=== PATIENT | female | born 1940 | race Caucasian/White ===

== ENCOUNTER 2017-05-09 08:24 | Inpatient (IN) | payer MEDICARE, BC ==
[2017-05-09] MEDS ORDERED: ESOMEPRAZOLE 20 MG in SODIUM CHLORIDE 0.9% 50 ML IVPB STA (09:13)
--- NOTE | 2017-05-09 09:17 | ED ---
General Adult HPI - General Chief complaint: Recheck/Abnormal Lab/Rx Stated complaint: Low hemoglobin Time Seen by Provider: 05/09/17 08:50 Source: patient Mode of arrival: ambulatory Limitations: no limitations - History of Present Illness Initial comments: Patient is a pleasant 77-year-old female presenting to the emergency department with concerns regarding hemoglobin level. Patient states she did have a blood transfusion 4 days ago. There is concern for persistent low hemoglobin levels. Patient has been taking iron. Patient has had dark stools since she started taking iron. No abdominal pain. Patient does have fatigue. Patient was advised by her doctor to come to the hospital. - Related Data Home Medications Medication Instructions Recorded Confirmed Enalapril [Vasotec] 5 mg PO QAM 10/26/15 05/09/17 Furosemide [Lasix] 20 mg PO DAILY 10/26/15 05/09/17 Gabapentin [Neurontin] 300 mg PO TID 10/26/15 05/09/17 Lovastatin [Mevacor] 40 mg PO HS 10/26/15 05/09/17 Ubidecarenone [Co Q-10] 100 mg PO DAILY@1200 10/26/15 05/09/17 glipiZIDE [Glucotrol] 5 mg PO BID@1200,2130 10/26/15 05/09/17 Calcitriol [Rocaltrol] 0.25 mcg PO SA 09/07/16 05/09/17 Cyclobenzaprine [Flexeril] 10 mg PO DAILY PRN 05/09/17 05/09/17 Ferrous Sulfate [Feosol] 325 mg PO DAILY 05/09/17 05/09/17 L.acidoph,Paracasei, B.lactis 1 cap PO DAILY 05/09/17 05/09/17 [Probiotic] Levothyroxine Sodium [Synthroid] 88 mcg PO DAILY 05/09/17 05/09/17 Omeprazole 20 mg PO DAILY 05/09/17 05/09/17 Allergies Allergy/AdvReac Type Severity Reaction Status Date / Time codeine AdvReac STOMACH Verified 05/09/17 09:00 PROBLEMS- "FEELS LIKE A KNOT IN STOMACH" propoxyphene HCl AdvReac NIGHTMARES Verified 05/09/17 09:00 [From [facility]] Review of Systems ROS Statement: Those systems with pertinent positive or pertinent negative responses have been documented in the HPI. ROS Other: All systems not noted in ROS Statement are negative. Constitutional: Denies: fever Eyes: Denies: eye pain ENT: Denies: ear pain Respiratory: Denies: cough Cardiovascular: Denies: chest pain Endocrine: Reports: fatigue Gastrointestinal: Reports: melena. Denies: abdominal pain, nausea, vomiting Genitourinary: Denies: dysuria Musculoskeletal: Denies: back pain Skin: Denies: rash Neurological: Denies: headache Past Medical History Past Medical History: Blood Disorder, Diabetes Mellitus, Deep Vein Thrombosis ( DVT), Eye Disorder, GERD/Reflux, Hearing Disorder / Deafness, Hyperlipidemia, Hypertension, Thyroid Disorder Additional Past Medical History / Comment(s): BLEEDING IN STOMACH,DVT LT LEG, ANEMIA, GLASSES DAILY USE, [place]-CESARIO HEARING AIDES Last Myocardial Infarction Date:: UNKN History of Any Multi-Drug Resistant Organisms: None Reported Past Surgical History: Appendectomy, Cholecystectomy, Hysterectomy, Joint Replacement Additional Past Surgical History / Comment(s): CESARIO GREAT TOE REPLACED, EDG/ COLONOSCOPY, VEIN STRIPPING LT LEG Past Anesthesia/Blood Transfusion Reactions: No Reported Reaction Additional Past Anesthesia/Blood Transfusion Reaction / Comment(s): RECEIVED 4 UNITS PRBC AUG 2016 WITHOUT PROBLEMS Past Psychological History: No Psychological Hx Reported Smoking Status: Never smoker Past Alcohol Use History: None Reported Past Drug Use History: None Reported - Past Family History Mother Family Medical History: Diabetes Mellitus, Hypertension, Renal Disease Additional Family Medical History / Comment(s): AT AGE 62 RENAL FAILURE Father Family Medical History: Dementia General Exam Limitations: no limitations General appearance: alert, in no apparent distress Head exam: Present: atraumatic Eye exam: Present: normal appearance, PERRL ENT exam: Present: normal oropharynx Neck exam: Present: normal inspection Respiratory exam: Present: normal lung sounds bilaterally Cardiovascular Exam: Present: regular rate, normal rhythm GI/Abdominal exam: Present: soft. Absent: distended, tenderness, guarding, rebound, rigid Rectal exam: Present: black stool Extremities exam: Present: normal inspection Neurological exam: Present: alert Psychiatric exam: Present: normal affect, normal mood Skin exam: Present: normal color Course Vital Signs 05/09/17 05/09/17 08:35 10:00 Temperature 97.6 F Pulse Rate 71 62 Respiratory 18 17 Rate Blood Pressure 114/59 113/57 O2 Sat by Pulse 99 97 Oximetry Medical Decision Making - Medical Decision Making Patient reevaluated and resting comfortably in bed. Case was discussed with Dr. Flores, covering for Dr. fairchild, who admits for Dr. Owens. Patient and family were updated. - Lab Data Result diagrams: 05/09/17 09:26 Lab Results 05/09/17 05/09/17 05/09/17 Range/Units 09:26 09:26 09:26 WBC 4.2 (3.8-10.6) k/uL RBC 2.89 L (3.80-5.40) m/uL Hgb 7.8 L (11.4-16.0) gm/dL Hct 26.2 L (34.0-46.0) % MCV 90.9 (80.0-100.0) fL MCH 27.2 (25.0-35.0) pg MCHC 29.9 L (31.0-37.0) g/dL RDW 15.8 H (11.5-15.5) % Plt Count 268 (150-450) k/uL Neutrophils % 71 % Lymphocytes % 17 % Monocytes % 7 % Eosinophils % 3 % Basophils % 1 % Neutrophils # 3.0 (1.3-7.7) k/uL Lymphocytes # 0.7 L (1.0-4.8) k/uL Monocytes # 0.3 (0-1.0) k/uL Eosinophils # 0.1 (0-0.7) k/uL Basophils # 0.0 (0-0.2) k/uL Hypochromasia Marked Poikilocytosis Slight PT 10.0 (9.0-12.0) sec INR 1.0 (<1.2) APTT 22.5 (22.0-30.0) sec Total Creatine Kinase 154 H (30-135) U/L Stool Occult Blood (Negative) Blood Type Blood Type Recheck Antibody Screen Spec Expiration Date 05/09/17 05/09/17 Range/Units 09:26 09:26 WBC (3.8-10.6) k/uL RBC (3.80-5.40) m/uL Hgb (11.4-16.0) gm/dL Hct (34.0-46.0) % MCV (80.0-100.0) fL MCH (25.0-35.0) pg MCHC (31.0-37.0) g/dL RDW (11.5-15.5) % Plt Count (150-450) k/uL Neutrophils % % Lymphocytes % % Monocytes % % Eosinophils % % Basophils % % Neutrophils # (1.3-7.7) k/uL Lymphocytes # (1.0-4.8) k/uL Monocytes # (0-1.0) k/uL Eosinophils # (0-0.7) k/uL Basophils # (0-0.2) k/uL Hypochromasia Poikilocytosis PT (9.0-12.0) sec INR (<1.2) APTT (22.0-30.0) sec Total Creatine Kinase (30-135) U/L Stool Occult Blood Positive H (Negative) Blood Type A Negative Blood Type Recheck CABO Indicated Antibody Screen NEGATIVE Spec Expiration Date 05/12/2017 - 2325 Disposition Clinical Impression: GI hemorrhage Disposition: ADMITTED IP TO THIS [facility] Referrals: Anup Owens MD [Primary Care Provider] - 1-2 days Decision Time: 11:11
[2017-05-09 09:49] LABS: Basophils % (A) 1 %; CH 26.9; CHCM 29.7; Eosinophils # (A) 0.1 k/uL (0-0.7); Eosinophils % (A) 3 %; HCT 26.2 % (34.0-46.0); HDW 3.72; HGB 7.8 gm/dL (11.4-16.0); Hypochromasia Marked; Luc # (Auto) 0.08; Luc % (Auto) 2; Lymphocytes # (A) 0.7 k/uL (1.0-4.8); Lymphocytes % (A) 17 %; MCH 27.2 pg (25.0-35.0); MCHC 29.9 g/dL (31.0-37.0); MCV 90.9 fL (80.0-100.0); Mean Platelet Volume 7.9; Monocytes # (A) 0.3 k/uL (0-1.0); Monocytes % (A) 7 %; Neutrophils % (A) 71 %; Poikilocytosis Slight; RBC 2.89 m/uL (3.80-5.40); RDW 15.8 % (11.5-15.5); WBC 4.2 k/uL (3.8-10.6); WBC (Perox) 3.95
[2017-05-09 09:57] LABS: Partial Thromboplastin Time 22.5 sec (22.0-30.0)
[2017-05-09 10:41] LABS: Creatine Kinase 154 U/L (30-135)
[2017-05-09 10:54] LABS: Creatine Kinase MB 1.1 ng/mL (0.0-2.4); Troponin I <0.012 ng/mL (0.000-0.034)
[2017-05-09] MEDS ORDERED: NALOXONE 0.4 MG/ML 1 ML VIAL IV PRN (11:11)
[2017-05-09 11:38] LABS: Calcium 8.8 mg/dL (8.4-10.2); Potassium 4.3 mmol/L (3.5-5.1); Total Bilirubin 0.2 mg/dL (0.2-1.3); Total Protein 5.8 g/dL (6.3-8.2)
[2017-05-09 15:20] VITALS: RESP 16
[2017-05-09 17:24] LABS: Glucose,Whole Blood 58 mg/dL (75-99)
[2017-05-09] MEDS ORDERED: CYCLOBENZAPRINE 10 MG TAB PO PRN (17:30)
--- NOTE | 2017-05-09 17:42 | P.HPIM ---
History of Present Illness Patient is a very pleasant 77-year-old female was seen by primary care physician for fatigue and found to be anemic at 7.8 I do not know her previous hemoglobin. Patient has history of upper GI bleed in the past had multiple upper GI endoscopies and what appears like patient may have. Esophageal problem leading to upper GI bleed patient is on IRON supplementation at home but patient was having 2 soft.stools a day. Not sure patient actually had a acute GI bleed are not. Will monitor hemoglobin so far her hemoglobin is 7.8 and no clear-cut evidence of acute GI bleed because of which I'm not transfusing her any hemoglobin at this point of time. ER physician as a case on phone with hand shoe cutter and is scheduled her for upper GI endoscopy tomorrow. Patient denied any hematochezia, middle pain. Patient denied any fever or chills, nausea. Review of Systems REVIEW OF SYSTEMS: CONSTITUTIONAL: No fever, no malaise. HEENT: No recent visual problems or hearing problems. Denied any sore throat. CARDIOVASCULAR: No chest pain, orthopnea, PND, no palpitations, no syncope. PULMONARY: No shortness of breath, no cough, no hemoptysis. GASTROINTESTINAL: No diarrhea, no nausea, no vomiting, no abdominal pain. Normoactive bowel sounds. NEUROLOGICAL: No headaches, no weakness, no numbness. HEMATOLOGICAL: Denies any bleeding or petechiae. GENITOURINARY: Denies any burning micturition, frequency, or urgency. MUSCULOSKELETAL/RHEUMATOLOGICAL: Denies any joint pain, swelling, or any muscle pain. ENDOCRINE: Denies any polyuria or polydipsia. The rest of the 14-point review of systems is negative. Past Medical History Past Medical History: Diabetes Mellitus, Deep Vein Thrombosis (DVT), Eye Disorder, GERD/Reflux, GI Bleed, Hearing Disorder / Deafness, Hyperlipidemia, Hypertension, Osteoarthritis (OA), Thyroid Disorder Additional Past Medical History / Comment(s): Upper GI bleed, iron deficiency anemia, DVT LT LEG, NIDDM type II, neuropathy bilateral feet, bilateral ankle edema, arthritis hands/fingers, hypothyroid, [place]-CESARIO HEARING AIDES Last Myocardial Infarction Date:: UNKN History of Any Multi-Drug Resistant Organisms: None Reported Past Surgical History: Appendectomy, Cholecystectomy, Hysterectomy, Joint Replacement, Orthopedic Surgery Additional Past Surgical History / Comment(s): CESARIO GREAT TOE JOINT REPLACED, EGDS/COLONOSCOPIES, EGD WITH ABLATIONS, VEIN STRIPPING LT LEG, BILATERAL CARPAL TUNNEL RELEASES, L THUMB TENDON REPAIR. Past Anesthesia/Blood Transfusion Reactions: No Reported Reaction Additional Past Anesthesia/Blood Transfusion Reaction / Comment(s): PT HAS RECEIVED BLOOD WITHOUT REACTION. Smoking Status: Never smoker - Past Family History Mother Family Medical History: Diabetes Mellitus, Hypertension, Renal Disease Additional Family Medical History / Comment(s): AT AGE 62 RENAL FAILURE Father Family Medical History: Dementia Medications and Allergies Home Medications Medication Instructions Recorded Confirmed Type Enalapril [Vasotec] 5 mg PO QAM 10/26/15 05/09/17 History Furosemide [Lasix] 20 mg PO DAILY 10/26/15 05/09/17 History Gabapentin [Neurontin] 300 mg PO TID 10/26/15 05/09/17 History Lovastatin [Mevacor] 40 mg PO HS 10/26/15 05/09/17 History Ubidecarenone [Co Q-10] 100 mg PO DAILY@1200 10/26/15 05/09/17 History glipiZIDE [Glucotrol] 5 mg PO BID@1200,2130 10/26/15 05/09/17 History Calcitriol [Rocaltrol] 0.25 mcg PO SA 09/07/16 05/09/17 History Cyclobenzaprine [Flexeril] 10 mg PO DAILY PRN 05/09/17 05/09/17 History Ferrous Sulfate [Feosol] 325 mg PO DAILY 05/09/17 05/09/17 History L.acidoph,Paracasei, B.lactis 1 cap PO DAILY 05/09/17 05/09/17 History [Probiotic] Levothyroxine Sodium [Synthroid] 88 mcg PO DAILY 05/09/17 05/09/17 History Omeprazole 20 mg PO DAILY 05/09/17 05/09/17 History Allergies Allergy/AdvReac Type Severity Reaction Status Date / Time codeine AdvReac STOMACH Verified 05/09/17 09:00 PROBLEMS- "FEELS LIKE A KNOT IN STOMACH" propoxyphene HCl AdvReac NIGHTMARES Verified 05/09/17 09:00 [From [facility]] Physical Exam Vitals: Vital Signs Temp Pulse Pulse Resp BP BP Pulse Ox 05/09/17 15:57 68 16 05/09/17 15:00 97.4 F L 68 16 124/60 99 05/09/17 12:12 97.6 F 62 17 113/57 97 05/09/17 10:00 62 17 113/57 97 05/09/17 08:35 97.6 F 71 18 114/59 99 Intake and Output 05/09/17 05/09/17 05/09/17 06:59 14:59 22:59 Intake Total 120 Balance 120 Intake: Oral 120 Other: # Voids 2 2 Weight 89.358 kg 89.358 kg Patient Weight 05/10/17 06:59 Weight 89.358 kg PHYSICAL EXAMINATION: GENERAL: The patient is alert and oriented x3, not in any acute distress. Well developed, well nourished. HEENT: Pupils are round and equally reacting to light. EOMI. Patient has scleral icterus. No conjunctival pallor. Normocephalic, atraumatic. No pharyngeal erythema. No thyromegaly. CARDIOVASCULAR: S1 and S2 present. No murmurs, rubs, or gallops. PULMONARY: Chest is clear to auscultation, no wheezing or crackles. ABDOMEN: Soft, nontender, nondistended, normoactive bowel sounds. No palpable organomegaly. MUSCULOSKELETAL: No joint swelling or deformity. EXTREMITIES: No cyanosis, clubbing, or pedal edema. NEUROLOGICAL: Gross neurological examination did not reveal any focal deficits. SKIN: No rashes. Results CBC & Chem 7: 05/09/17 09:26 05/09/17 09:26 Labs: Abnormal Lab Results - Last 24 Hours (Table) 05/09/17 05/09/17 05/09/17 Range/Units 09:26 09:26 09:26 RBC 2.89 L (3.80-5.40) m/uL Hgb 7.8 L (11.4-16.0) gm/dL Hct 26.2 L (34.0-46.0) % MCHC 29.9 L (31.0-37.0) g/dL RDW 15.8 H (11.5-15.5) % Lymphocytes # 0.7 L (1.0-4.8) k/uL Chloride 110 H (98-107) mmol/L BUN 24 H (7-17) mg/dL Creatinine 1.22 H (0.52-1.04) mg/dL POC Glucose (mg/dL) (75-99) mg/dL Total Creatine Kinase 154 H (30-135) U/L Total Protein 5.8 L (6.3-8.2) g/dL Stool Occult Blood (Negative) 05/09/17 05/09/17 Range/Units 09:26 17:06 RBC (3.80-5.40) m/uL Hgb (11.4-16.0) gm/dL Hct (34.0-46.0) % MCHC (31.0-37.0) g/dL RDW (11.5-15.5) % Lymphocytes # (1.0-4.8) k/uL Chloride (98-107) mmol/L BUN (7-17) mg/dL Creatinine (0.52-1.04) mg/dL POC Glucose (mg/dL) 58 L (75-99) mg/dL Total Creatine Kinase (30-135) U/L Total Protein (6.3-8.2) g/dL Stool Occult Blood Positive H (Negative) Thrombosis Risk Factor Assmnt - Choose All That Apply Any of the Below Risk Factors Present?: Yes Each Factor Represents 1 point: Obesity (BMI >25) Other Risk Factors: Yes Each Risk Factor Represents 3 Points: Age 75 years or older, History of DVT/PE Other congenital or acquired thrombophilia - If yes, enter type in comment: No Thrombosis Risk Factor Assessment Total Risk Factor Score: 7 Thrombosis Risk Factor Assessment Level: High Risk Assessment and Plan Plan: #1 anemia and patient does have chronic anemia not sure patient has acute blood loss. Not sure whether patient has an acute GI bleed are not . She is on intravenous proton pump inhibitor which will be continued. We will obtain serum ferritin level, B12 and folic acid levels along with LDH. Had history of multiple episodes of upper GI bleed in the past. His undergoing upper GI endoscopy tomorrow. Patient is definitely fatigued. Since I do not have any clear-cut evidence of acute GI bleed and globin is 7.8 I'm not transfusing her today. If her hemoglobin drops tomorrow we'll consider transfusion at that time 2 Type 2 diabetes mellitus patient is hypoglycemic, hold off on glipizide. 3 gastroesophageal infectious disease 4 history of DVT in the past not on any anticoagulation at this time 5 hypothyroidism continue with levothyroxine. #6 hypertension: Holding off on PARVIZ inhibitor because of concerns of acute renal failure. 7 possible acute renal failure with creatinine of 1.0 do not have her baseline creatinine. Continue with IV fluids. she may have prerenal azotemia
[2017-05-09 17:45] LABS: Glucose,Whole Blood 61 mg/dL (75-99)
[2017-05-09 17:45] LABS: Glucose,Whole Blood 73 mg/dL (75-99)
[2017-05-09 17:55] LABS: LDH 468 U/L (313-618)
[2017-05-09] MEDS: SODIUM CHLORIDE 0.9% 1,000 ML IV SCH ×2 (18:03→22:24)
[2017-05-09 18:45] LABS: Vitamin B12 247 pg/mL
[2017-05-09 20:36] LABS: Glucose,Whole Blood 158 mg/dL (75-99)
[2017-05-09 22:01] LABS: Hemoglobin A1C 4.9 % (4.2-6.1)
[2017-05-09 22:08] LABS: Basophils % (A) 0 %; CH 26.7; CHCM 29.5; Eosinophils # (A) 0.1 k/uL (0-0.7); Eosinophils % (A) 3 %; HCT 26.2 % (34.0-46.0); HDW 3.68; HGB 7.7 gm/dL (11.4-16.0); Hypochromasia Marked; Luc # (Auto) 0.13; Luc % (Auto) 3; Lymphocytes # (A) 1.3 k/uL (1.0-4.8); Lymphocytes % (A) 29 %; MCH 26.8 pg (25.0-35.0); MCHC 29.5 g/dL (31.0-37.0); MCV 90.8 fL (80.0-100.0); Mean Platelet Volume 7.2; Monocytes # (A) 0.3 k/uL (0-1.0); Monocytes % (A) 8 %; Neutrophils # (A) 2.6 k/uL (1.3-7.7); Neutrophils % (A) 58 %; Poikilocytosis Slight; RBC 2.88 m/uL (3.80-5.40); RDW 15.7 % (11.5-15.5); WBC 4.6 k/uL (3.8-10.6); WBC (Perox) 4.45
[2017-05-09] MEDS: GABAPENTIN 300 MG CAP PO SCH (22:22)
[2017-05-09] MEDS: ATORVASTATIN 10 MG TAB PO SCH (22:22)
[2017-05-09 22:25] LABS: Glucose,Whole Blood 103 mg/dL (75-99)
[2017-05-09] MEDS: INSULIN LISPRO (humaLOG) 300 UNIT/3 ML VIAL SQ SCH (22:25)
[2017-05-10 02:57] LABS: Glucose,Whole Blood 87 mg/dL (75-99)
[2017-05-10] MEDS: LEVOTHYROXINE 88 MCG TAB PO SCH (05:33)
[2017-05-10] MEDS: SODIUM CHLORIDE 0.9% 1,000 ML IV SCH ×2 (05:33→16:45)
[2017-05-10 07:00] LABS: Glucose,Whole Blood 94 mg/dL (75-99)
[2017-05-10 07:47] LABS: Basophils % (A) 0 %; CH 26.5; CHCM 29.1; Eosinophils # (A) 0.2 k/uL (0-0.7); Eosinophils % (A) 3 %; HDW 3.67; HGB 7.5 gm/dL (11.4-16.0); Hypochromasia Marked; Luc # (Auto) 0.12; Luc % (Auto) 3; Lymphocytes # (A) 0.8 k/uL (1.0-4.8); Lymphocytes % (A) 16 %; MCH 26.5 pg (25.0-35.0); MCV 91.3 fL (80.0-100.0); Mean Platelet Volume 7.3; Monocytes # (A) 0.3 k/uL (0-1.0); Monocytes % (A) 6 %; Neutrophils # (A) 3.4 k/uL (1.3-7.7); Neutrophils % (A) 72 %; Poikilocytosis Slight; RBC 2.85 m/uL (3.80-5.40); RDW 15.5 % (11.5-15.5); WBC 4.7 k/uL (3.8-10.6); WBC (Perox) 4.76
[2017-05-10] MEDS: INSULIN LISPRO (humaLOG) 300 UNIT/3 ML VIAL SQ SCH ×3 (07:50→22:09)
--- NOTE | 2017-05-10 08:24 | P.CONS ---
History of Present Illness - Reason for Consult Consult date: 05/10/17 anemia GIB Requesting physician: Oni Flores - History of Present Illness 77-year-old female with a history of iron deficiency anemia gastric antral vascular ectasia (GAVE) transferred from [facility] with concern for her blood count symptoms of fatigue. Difficult to say if patient is having active bleeding she has dark-colored bowel movements while taking iron supplementation. Denies fever chills abdominal pain or gross hematochezia hematemesis. Hemoglobin 7.7. MCV 90. Platelet 248. INR 1.0. BUN 24. Creatinine 1.2. Stool occult blood positive. EGD evaluation August 2016 and Elaina Molina identified gastric antral vascular ectasia with no active bleeding status post argon plasma coagulation esophagus and duodenum appeared normal. Last colonoscopy August 2013 in [place]; results not available at time of dictation. Review of Systems Constitutional: Denies fever, chills, sweats, weight gain, or loss. HEENT: Negative for migraines, blurred vision or loss, earaches, drainage, tinnitus, oral mucosal lesions, dysphagia, or odynophagia. CARDIAC: Hypertension. Hyperlipidemia. Negative for chest pain, arrhythmias, or palpitation. RESPIRATORY: Negative for shortness of breath, hemoptysis, cough, or sputum production. GI: See HPI for pertinent findings. : Negative for hematuria, urgency, frequency, polyuria, or dysuria. GYNc: Denies possibility of . Negative vaginal discharge. MUSCULOSKELETAL: Neuropathy. Negative for muscle aches, swelling, arthritis, and arthralgias. NEUROLOGIC: Negative for stroke or TIA. ENDOCRINE: Diabetes. Negative for thyroid problems. Hematologic: DVT. SKIN: Negative for rash or itching. PSYCHIATRIC: Negative history for depression and anxiety All systems: negative (See HPI) Past Medical History Past Medical History: Diabetes Mellitus, Deep Vein Thrombosis (DVT), Eye Disorder, GERD/Reflux, GI Bleed, Hearing Disorder / Deafness, Hyperlipidemia, Hypertension, Osteoarthritis (OA), Thyroid Disorder Additional Past Medical History / Comment(s): Upper GI bleed, iron deficiency anemia, DVT LT LEG, NIDDM type II, neuropathy bilateral feet, bilateral ankle edema, arthritis hands/fingers, hypothyroid, [place]-CESARIO HEARING AIDES Last Myocardial Infarction Date:: UNKN History of Any Multi-Drug Resistant Organisms: None Reported Past Surgical History: Appendectomy, Cholecystectomy, Hysterectomy, Joint Replacement, Orthopedic Surgery Additional Past Surgical History / Comment(s): CESA[place]O GREAT TOE JOINT REPLACED, EGDS/COLONOSCOPIES, EGD WITH ABLATIONS, VEIN STRIPPING LT LEG, BILATERAL CARPAL TUNNEL RELEASES, L THUMB TENDON REPAIR. Past Anesthesia/Blood Transfusion Reactions: No Reported Reaction Additional Past Anesthesia/Blood Transfusion Reaction / Comm: PT HAS RECEIVED BLOOD WITHOUT REACTION. Smoking Status: Never smoker - Past Family History Mother Family Medical History: Diabetes Mellitus, Hypertension, Renal Disease Additional Family Medical History / Comment(s): AT AGE 62 RENAL FAILURE Father Family Medical History: Dementia Medications and Allergies Home Medications Medication Instructions Recorded Confirmed Type Enalapril [Vasotec] 5 mg PO QAM 10/26/15 05/09/17 History Furosemide [Lasix] 20 mg PO DAILY 10/26/15 05/09/17 History Gabapentin [Neurontin] 300 mg PO TID 10/26/15 05/09/17 History Lovastatin [Mevacor] 40 mg PO HS 10/26/15 05/09/17 History Ubidecarenone [Co Q-10] 100 mg PO DAILY@1200 10/26/15 05/09/17 History glipiZIDE [Glucotrol] 5 mg PO BID@1200,2130 10/26/15 05/09/17 History Calcitriol [Rocaltrol] 0.25 mcg PO SA 09/07/16 05/09/17 History Cyclobenzaprine [Flexeril] 10 mg PO DAILY PRN 05/09/17 05/09/17 History Ferrous Sulfate [Feosol] 325 mg PO DAILY 05/09/17 05/09/17 History L.acidoph,Paracasei, B.lactis 1 cap PO DAILY 05/09/17 05/09/17 History [Probiotic] Levothyroxine Sodium [Synthroid] 88 mcg PO DAILY 05/09/17 05/09/17 History Omeprazole 20 mg PO DAILY 05/09/17 05/09/17 History Allergies Allergy/AdvReac Type Severity Reaction Status Date / Time codeine AdvReac STOMACH Verified 05/09/17 09:00 PROBLEMS- "FEELS LIKE A KNOT IN STOMACH" propoxyphene HCl AdvReac [place]IGHT[place]ES Verified 05/09/17 09:00 [From [facility]] Physical Exam Vitals: Vital Signs Temp Pulse Pulse Resp BP BP Pulse Ox 05/09/17 22:37 97.8 F 62 16 115/55 95 05/09/17 15:57 68 16 05/09/17 15:00 97.4 F L 68 16 124/60 99 05/09/17 12:12 97.6 F 62 17 113/57 97 05/09/17 10:00 62 17 113/57 97 05/09/17 08:35 97.6 F 71 18 114/59 99 Intake and Output 05/09/17 05/10/17 05/10/17 22:59 06:59 14:59 Intake Total 800 Balance 800 Intake: Intake, IV Titration 800 Amount Sodium Chloride 0.9% 1, 800 000 ml @ 100 mls/hr IV . [facility] Rx#:[id number] Other: Voiding Method Toilet # Voids 1 2 Weight 89.358 kg Results CBC & Chem 7: 05/10/17 07:01 05/09/17 09:26 Labs: Abnormal Lab Results - Last 24 Hours (Table) 05/09/17 05/09/17 05/09/17 Range/Units 09:26 09:26 09:26 RBC 2.89 L (3.80-5.40) m/uL Hgb 7.8 L (11.4-16.0) gm/dL Hct 26.2 L (34.0-46.0) % MCHC 29.9 L (31.0-37.0) g/dL RDW 15.8 H (11.5-15.5) % Lymphocytes # 0.7 L (1.0-4.8) k/uL Chloride 110 H (98-107) mmol/L BUN 24 H (7-17) mg/dL Creatinine 1.22 H (0.52-1.04) mg/dL POC Glucose (mg/dL) (75-99) mg/dL Total Creatine Kinase 154 H (30-135) U/L Total Protein 5.8 L (6.3-8.2) g/dL Stool Occult Blood (Negative) 05/09/17 05/09/17 05/09/17 Range/Units 09:26 17:06 17:24 RBC (3.80-5.40) m/uL Hgb (11.4-16.0) gm/dL Hct (34.0-46.0) % MCHC (31.0-37.0) g/dL RDW (11.5-15.5) % Lymphocytes # (1.0-4.8) k/uL Chloride (98-107) mmol/L BUN (7-17) mg/dL Creatinine (0.52-1.04) mg/dL POC Glucose (mg/dL) 58 L 61 L (75-99) mg/dL Total Creatine Kinase (30-135) U/L Total Protein (6.3-8.2) g/dL Stool Occult Blood Positive H (Negative) 05/09/17 05/09/17 05/09/17 Range/Units 17:44 20:24 21:55 RBC 2.88 L (3.80-5.40) m/uL Hgb 7.7 L (11.4-16.0) gm/dL Hct 26.2 L (34.0-46.0) % MCHC 29.5 L (31.0-37.0) g/dL RDW 15.7 H (11.5-15.5) % Lymphocytes # (1.0-4.8) k/uL Chloride (98-107) mmol/L BUN (7-17) mg/dL Creatinine (0.52-1.04) mg/dL POC Glucose (mg/dL) 73 L 158 H (75-99) mg/dL Total Creatine Kinase (30-135) U/L Total Protein (6.3-8.2) g/dL Stool Occult Blood (Negative) 05/09/17 Range/Units 22:19 RBC (3.80-5.40) m/uL Hgb (11.4-16.0) gm/dL Hct (34.0-46.0) % MCHC (31.0-37.0) g/dL RDW (11.5-15.5) % Lymphocytes # (1.0-4.8) k/uL Chloride (98-107) mmol/L BUN (7-17) mg/dL Creatinine (0.52-1.04) mg/dL POC Glucose (mg/dL) 103 H (75-99) mg/dL Total Creatine Kinase (30-135) U/L Total Protein (6.3-8.2) g/dL Stool Occult Blood (Negative) Assessment and Plan (1) Gastric antral vascular ectasia Status: Acute (2) Iron deficiency anemia due to chronic blood loss Status: Acute (3) GI hemorrhage Status: Acute Plan: 1. EGD evaluation. 2. Protonix 40 mg IV daily. 3. Continue with iron supplementation. 4. CBC monitoring. The encoding clerk has discussed the risks, benefits and alternative therapies for the above-mentioned procedure and for both sedation/analgesia as well as necessary blood product administration, if indicated, as they pertain to this patient. The patient has indicated understanding and acceptance of the risks and procedures discussed. Thank you for this kind referral and the opportunity to participate in the care of your patient. This consultation was discussed with Dr. Grove. The impression and plan of care have been directed as dictated.
[2017-05-10] MEDS: ESOMEPRAZOLE 20 MG in SODIUM CHLORIDE 0.9% 50 ML IVPB SCH (09:50)
[2017-05-10] MEDS: GABAPENTIN 300 MG CAP PO SCH ×3 (10:37→21:50)
[2017-05-10 10:55] LABS: Anion Gap 5 mmol/L; Blood Urea Nitrogen 15 mg/dL (7-17); Calcium 8.6 mg/dL (8.4-10.2); Carbon Dioxide 24 mmol/L (22-30); Chloride 112 mmol/L (98-107); Glucose 83 mg/dL (74-99); Non-African American GFR(MDRD) 50 (>60 ml/min/1.73 sqM); Potassium 4.4 mmol/L (3.5-5.1); Sodium 141 mmol/L (137-145)
[2017-05-10 12:13] LABS: Glucose,Whole Blood 84 mg/dL (75-99)
[2017-05-10] MEDS ORDERED: ACETAMINOPHEN TAB 325 MG TAB PO PRN (14:36)
[2017-05-10] MEDS ORDERED: CYANOCOBALAMIN 1,000 MCG/ML 1 ML VIAL IM ONE (15:41)
[2017-05-10 16:47] LABS: Glucose,Whole Blood 116 mg/dL (75-99)
[2017-05-10] MEDS ORDERED: LIDOCAINE 1% 20 ML VIAL (10MG/ML) FOR IV START INTRADERMA PRN (19:27)
[2017-05-10] MEDS ORDERED: LACTATED RINGERS 1,000 ML IV SCH (19:30)
[2017-05-10 20:23] LABS: Glucose,Whole Blood 134 mg/dL (75-99)
[2017-05-10] MEDS: ATORVASTATIN 10 MG TAB PO SCH (21:50)
[2017-05-11] MEDS: LEVOTHYROXINE 88 MCG TAB PO SCH (06:14)
[2017-05-11] MEDS: SODIUM CHLORIDE 0.9% 1,000 ML IV SCH (06:16)
[2017-05-11] MEDS ORDERED: SODIUM CHLORIDE 0.9% 1,000 ML IV ONE (06:58)
[2017-05-11] MEDS: LACTATED RINGERS 1,000 ML IV SCH ×2 (07:20→07:21)
--- NOTE | 2017-05-11 07:25 | P.PCN ---
Date of Procedure: 05/11/17 Preoperative Diagnosis: Postoperative Diagnosis: Procedure(s) Performed: BRIEF HISTORY: Patient is a 77-year-old, pleasant, white female, admitted hospital with severe symptomatic anemia and intermittent melena for the last few days duration. She was noted to have a hemoglobin of 7.7 requiring blood transfusion. She had similar episode a year ago and underwent an upper endoscopy that revealed gastric antral vascular ectasia. She is scheduled for repeat upper endoscopy today. PROCEDURE PERFORMED: Esophagogastroduodenoscopy with argon plasma coagulation. PREOPERATIVE DIAGNOSIS: Severe symptomatic anemia and intermittent melena. IV sedation per anesthesia. PROCEDURE: After informed consent was obtained, the patient was brought into the endoscopy unit. IV sedation was administered by Anesthesia under continuous monitoring. Initially the Olympus GIF-140 video endoscope was inserted into the mouth. Esophagus intubated without any difficulty. It was gradually advanced into the stomach and duodenum and carefully examined. The bulb and the second part of the duodenum appeared normal. The scope at this time was withdrawn to the stomach, adequately insufflated with air, and upon careful examination, mucosa of the antrum, had multiple linear tear angiectasia is consistent with gastric vascular antral ectasia but no active bleeding seen. At this time using argon plasma , coagulation was performed in the antrum of the stomach. The body, cardia and the fundus appeared normal. The scope was then withdrawn into the esophagus. The GE junction was located at 39 cm from the incisors. The esophagus appeared normal. There were no erosions or ulcerations seen and the patient tolerated the procedure well. IMPRESSION: 1. Gastric antral vascular ectasia with no active bleeding status post argon plasma coagulation as described above. 2. No evidence of gastric or esophageal varices.. RECOMMENDATIONS: The findings of this examination were discussed with the patient . At this time she'll be started on soft diet. She will continue with Protonix 40 mg daily. She can be discharged home with outpatient follow-up in 2 -3 weeks. Implants: Indications for Procedure: Operative Findings: Description of Procedure:
[2017-05-11] MEDS: GABAPENTIN 300 MG CAP PO SCH (08:04)
[2017-05-11] MEDS: ESOMEPRAZOLE 20 MG in SODIUM CHLORIDE 0.9% 50 ML IVPB SCH (08:10)
[2017-05-11 08:17] LABS: Glucose,Whole Blood 106 mg/dL (75-99)
[2017-05-11 08:20] VITALS: BP 119/64; PULSE 69; TEMP 98.1
[2017-05-11 11:32] LABS: Glucose,Whole Blood 124 mg/dL (75-99)
--- NOTE | 2017-05-11 16:31 | P.PN ---
Subjective Date of service 05/10/2017. Progress note being dictated for Dr. Flores Interval history:Patient is a very pleasant 77-year-old female was seen by primary care physician for fatigue and found to be anemic at 7.8 I do not know her previous hemoglobin. Patient has history of upper GI bleed in the past had multiple upper GI endoscopies and what appears like patient may have. Esophageal problem leading to upper GI bleed patient is on IRON supplementation at home but patient was having 2 soft.stools a day. Not sure patient actually had a acute GI bleed are not. Will monitor hemoglobin so far her hemoglobin is 7.8 and no clear-cut evidence of acute GI bleed because of which I'm not transfusing her any hemoglobin at this point of time. ER physician as a case on phone with motor vehicle or caravan salesperson and is scheduled her for upper GI endoscopy tomorrow. Patient denied any hematochezia, middle pain. Patient denied any fever or chills, nausea. 05/10/2017 having dark stools in a patient on iron. Denies abdominal pain. Complains of fatigue. Hemoglobin 7.5. Maintained on PPI and gentle IV fluid hydration.renal function improving. Evaluated by GI and scheduled for EGD. NPO. Denies chest pain, palpitations or increasing shortness of breath. Objective - Vital Signs Vital signs: Vital Signs Temp 97.6 F 05/10/17 07:00 Pulse 59 L 05/10/17 07:00 Resp 16 05/10/17 07:00 BP 106/55 05/10/17 07:00 Pulse Ox 97 05/10/17 07:00 Intake & Output 05/09/17 05/10/17 05/10/17 18:59 06:59 18:59 Intake Total 120 800 Balance 120 800 Weight 89.358 kg 89.3 kg Intake: Intake, IV Titration 800 Amount Sodium Chloride 0.9% 1, 800 000 ml @ 100 mls/hr IV . Q10H ALIA Rx#:[id number] Oral 120 Other: Voiding Method Toilet # Voids 2 2 - Exam GENERAL: Sitting up in bed, alert and oriented x3, no acute distress. Well developed, well nourished. HEENT: Pupils are round and equally reacting to light. EOMI. Patient has scleral icterus. No conjunctival pallor. Normocephalic, atraumatic. No pharyngeal erythema. No thyromegaly. CARDIOVASCULAR: S1 and S2 present. No murmurs, rubs, or gallops. PULMONARY: Chest is clear to auscultation, no wheezing or crackles. ABDOMEN: Soft, nontender, nondistended, normoactive bowel sounds. No palpable organomegaly. MUSCULOSKELETAL: No joint swelling or deformity. EXTREMITIES: No cyanosis, clubbing, or pedal edema. NEUROLOGICAL: Gross neurological examination did not reveal any focal deficits. SKIN: No rashes. - Labs CBC & Chem 7: 05/10/17 07:01 05/10/17 07:01 Labs: Abnormal Lab Results - Last 24 Hours (Table) 05/09/17 05/09/17 05/09/17 Range/Units 17:06 17:24 17:44 RBC (3.80-5.40) m/uL Hgb (11.4-16.0) gm/dL Hct (34.0-46.0) % MCHC (31.0-37.0) g/dL RDW (11.5-15.5) % Lymphocytes # (1.0-4.8) k/uL Chloride (98-107) mmol/L Creatinine (0.52-1.04) mg/dL POC Glucose (mg/dL) 58 L 61 L 73 L (75-99) mg/dL 05/09/17 05/09/17 05/09/17 Range/Units 20:24 21:55 22:19 RBC 2.88 L (3.80-5.40) m/uL Hgb 7.7 L (11.4-16.0) gm/dL Hct 26.2 L (34.0-46.0) % MCHC 29.5 L (31.0-37.0) g/dL RDW 15.7 H (11.5-15.5) % Lymphocytes # (1.0-4.8) k/uL Chloride (98-107) mmol/L Creatinine (0.52-1.04) mg/dL POC Glucose (mg/dL) 158 H 103 H (75-99) mg/dL 05/10/17 05/10/17 Range/Units 07:01 07:01 RBC 2.85 L (3.80-5.40) m/uL Hgb 7.5 L (11.4-16.0) gm/dL Hct 26.0 L (34.0-46.0) % MCHC 29.0 L (31.0-37.0) g/dL RDW (11.5-15.5) % Lymphocytes # 0.8 L (1.0-4.8) k/uL Chloride 112 H (98-107) mmol/L Creatinine 1.06 H (0.52-1.04) mg/dL POC Glucose (mg/dL) (75-99) mg/dL Assessment and Plan Plan: #1 . Iron deficiency anemia ,patient does have chronic anemia not sure patient has acute blood loss. 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 2 Type 2 diabetes mellitus patient is hypoglycemic, 3 gastroesophageal infectious disease 4 history of DVT in the past not on any anticoagulation at this time 5 hypothyroidism #6 hypertension: Holding off on PARVIZ inhibitor because of concerns of acute renal failure. #7 acute renal failure, possible prerenal azotemia Plan: Continue on current medication regime ,monitoring, and symptomatic treatment. Maintain gentle IV fluid hydration, PPI. EGD pending. Follow closely with GI. Further recommendations to follow. The impression and plan of care has been dictated as directed as a scribe. : I performed a H&P examination of this patient and discussed the same with the dictator. I agree with the dictator's note. Any additional findings/opinions/ etc. will be noted.
--- NOTE | 2017-05-11 16:39 | P.DS ---
Providers Date of admission: 05/09/17 11:12 Expected date of discharge: 05/11/17 Attending physician: Oni Flores Primary care physician: [place] Hospital Course: Final diagnoses #1 . Iron deficiency anemia ,patient does have chronic anemia not sure patient has acute blood loss. 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 Status post EGD today, Reporting gastric antral vascular ectasia with no active bleeding status post argon plasma coagulation no evidence of gastric or esophageal varices. 2 Type 2 diabetes mellitus patient is hypoglycemic, 3 gastroesophageal infectious disease 4 history of DVT in the past not on any anticoagulation at this time 5 hypothyroidism #6 hypertension: Holding off on PARVIZ inhibitor because of concerns of acute renal failure. 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 Maintained on gentle IV fluid hydration, PPI. Evaluated by GI, underwent EGD, Reporting gastric antral vascular ectasia with no active bleeding status post argon plasma coagulation no evidence of gastric or esophageal varices. Tolerated procedure well. Patient has been cleared for discharge by GI. Patient is being discharged home in a stable condition with guarded prognosis. The impression and plan of care has been dictated as directed as a scribe. : I performed a H&P examination of this patient and discussed the same with the dictator. I agree with the dictator's note. Any additional findings/opinions/ etc. will be noted. Patient Condition at Discharge: Stable Plan - Discharge Summary New Discharge Prescriptions: New Pantoprazole [Protonix] 40 mg PO DAILY #30 tablet.dr Continue Ubidecarenone [Co Q-10] 100 mg PO DAILY@1200 Lovastatin [Mevacor] 40 mg PO HS Gabapentin [Neurontin] 300 mg PO TID Calcitriol [Rocaltrol] 0.25 mcg PO SA L.acidoph,Paracasei, B.lactis [Probiotic] 1 cap PO DAILY Cyclobenzaprine [Flexeril] 10 mg PO DAILY PRN PRN Reason: Muscle Spasm Levothyroxine Sodium [Synthroid] 88 mcg PO DAILY Ferrous Sulfate [Iron (65 MG Elemental)] 325 mg PO DAILY Discontinued Omeprazole 20 mg PO DAILY Discharge Medication List Gabapentin [Neurontin] 300 mg PO TID 10/26/15 [History] Lovastatin [Mevacor] 40 mg PO HS 10/26/15 [History] Ubidecarenone [Co Q-10] 100 mg PO DAILY@1200 10/26/15 [History] Calcitriol [Rocaltrol] 0.25 mcg PO SA 09/07/16 [History] Cyclobenzaprine [Flexeril] 10 mg PO DAILY PRN 05/09/17 [History] Ferrous Sulfate [Iron (65 MG Elemental)] 325 mg PO DAILY 05/09/17 [History] L.acidoph,Paracasei, B.lactis [Probiotic] 1 cap PO DAILY 05/09/17 [History] Levothyroxine Sodium [Synthroid] 88 mcg PO DAILY 05/09/17 [History] Pantoprazole [Protonix] 40 mg PO DAILY #30 tablet. 05/11/17 [Rx] Follow up Appointment(s)/Referral(s): Anup Owens MD [Primary Care Provider] - 3 Days (office is closed for lunch.patient will call and make own appt.) Yuki Grove MD [STAFF PHYSICIAN] - 06/01/17 3:30 pm ([place] office) Ambulatory/Diagnostic Orders: Complete Blood Count w/diff [LAB.AMB] Time Frame: 3 Days, Location: Determined By Patient Patient Instructions/Handouts: Gastrointestinal Bleeding (GEN), Anemia (GEN) Activity/Diet/Wound Care/Special Instructions: patient requests pneumonia vaccine prior to discharge Discharge Disposition: HOME SELF-CARE
== END 2017-05-11 13:00 | disposition home or self-care (01) | DRG 378 ==
LOC: EC 08:24 → 5MS5E 11:12
PROVIDERS: ADMIT Internal Medicine; ATTEND Internal Medicine
PROC: 0W3P8ZZ Control Bleeding in Gastrointestinal Tract, Via Natural or Artificial Opening Endoscopic (ICD-10-PCS; principal; 2017-05-11 07:00)
DX: K92.2 Gastrointestinal hemorrhage, unspecified (principal); N17.9 Acute kidney failure, unspecified; E11.649 Type 2 diabetes mellitus with hypoglycemia without coma; E11.42 Type 2 diabetes mellitus with diabetic polyneuropathy; D50.0 Iron deficiency anemia secondary to blood loss (chronic); E03.9 Hypothyroidism, unspecified; E78.5 Hyperlipidemia, unspecified; I10 Essential (primary) hypertension; I25.2 Old myocardial infarction; K21.9 Gastro-esophageal reflux disease without esophagitis; M19.041 Primary osteoarthritis, right hand; M19.042 Primary osteoarthritis, left hand; H91.93 Unspecified hearing loss, bilateral; K31.819 Angiodysplasia of stomach and duodenum without bleeding; Z79.84 Long term (current) use of oral hypoglycemic drugs; Z79.899 Other long term (current) drug therapy; Z88.5 Allergy status to narcotic agent; Z96.698 Presence of other orthopedic joint implants; Z82.49 Family history of ischemic heart disease and other diseases of the circulatory system
CPT/HCPCS: 36415; 43255; 80048; 80053; 82272; 82550; 82553; 82607; 82728; 82747; 83036; 83615; 84484; 85025; 85610; 85730; 86850; 86900; 86901

== ENCOUNTER → 2018-03-29 | Outpatient (CLI) | payer MEDICARE, BC ==
[2018-03-29 10:37] VITALS: BP 98/62; PULSE 67; TEMP 98.4; BMI 33.6
--- NOTE | 2018-03-29 12:41 | P.GSHP ---
History of Present Illness H&P Date: 03/29/18 Chief Complaint: DCIS left breast The patient is a 78-year-old white female who presents status post excisional biopsy of 2 areas of concern in the left breast. Both revealed DCIS. The inferior lesion had positive margins and was high grade. The more superior lesion was low-grade but considered to be multifocal. The patient states that these were found on a routine mammogram. She does complain of some fullness in the left breast in the lateral aspect with some discomfort prior to the biopsy. The patient does not have any nipple discharge or changes. The patient did have an excisional biopsy for the diagnosis to be obtained. After review of the patient's radiographs there appeared to be several additional areas of microcalcification which are some concern in proximity to the more inferior lesion. Family history: 1. Brother: Leukemia. 2. Another brother colon cancer uncertain of the type menarche: 13 : 5 first at 21, breast fed all of them menopause: 50 BCP/hormones: none past surgical history: 1. gallbladder 2. breast biopsy 3. hysterectomy/appendectomy (bleeding), left part of an ovary 4. toes past medical history: 1. DM, pill and diet controlled 2. HTN 3. high cholesterol 4. hypothyroid 5. neuropathy social history: smoke: none alcohol: none drugs: none ROS: HEENT: none lungs: none heart: HTN, stress test to be doneprecautionary GI: loose stools schedule for a colonoscopy, watermellon stomach, within a year : hysterctomy, history of kidney stones Neuro: neuropathy related to DM Allergies: seasonal allergies - Constitutional Constitutional: Denies chills, Denies fever - EENT Comment: wears glasses Eyes: bilateral as per HPI, denies discharge, denies irritation, denies pain Ears: bilateral: decreased hearing, deny: ear discharge, earache, tinnitus Ears, nose, mouth and throat: Denies headache, Denies sore throat - Breasts Breasts: bilateral: as per HPI - Cardiovascular Comment: recommended to have a stress test, has had them in the past and was OK Cardiovascular: Reports high blood pressure, Denies chest pain, Denies shortness of breath - Respiratory Respiratory: Denies cough, Denies 7 - Gastrointestinal Comment: watermelon stomach, loose stools - Genitourinary (Female) Genitourinary: Reports as per HPI - Menstruation Menstruation: Reports as per HPI - Musculoskeletal Comment: muscle spasms in legs and at times in her throat - Integumentary Integumentary: Denies pruritus, Denies rash - Neurological Comment: neuropathy in toes Neurological: Denies numbness, Denies weakness - Psychiatric Psychiatric: Denies anxiety, Denies depression - Endocrine Comment: HBG less than a year ago low and given blood and up to 8.6 Endocrine: Reports fatigue, Denies weight change - Hematologic/Lymphatic Comment: no blood thinners - Allergic/Immunologic Allergic/Immunologic: Reports as per HPI Past Medical History Past Medical History: Diabetes Mellitus, Deep Vein Thrombosis (DVT), GERD/Reflux , GI Bleed, Hearing Disorder / Deafness, Hyperlipidemia, Hypertension, Osteoarthritis (OA), Thyroid Disorder Additional Past Medical History / Comment(s): Upper GI bleed, iron deficiency anemia, DVT LT LEG, NIDDM type II, neuropathy bilateral feet, bilateral ankle edema, arthritis hands/fingers, hypothyroid, HAMILTON-CESARIO HEARING AIDES Last Myocardial Infarction Date:: UNKN History of Any Multi-Drug Resistant Organisms: None Reported Past Surgical History: Appendectomy, Cholecystectomy, Hysterectomy, Joint Replacement, Orthopedic Surgery Additional Past Surgical History / Comment(s): CESARIO GREAT TOE JOINT REPLACED, EGDS/COLONOSCOPIES, EGD WITH ABLATIONS, VEIN STRIPPING LT LEG, BILATERAL CARPAL TUNNEL RELEASES, L THUMB TENDON REPAIR. Endoscopies. Past Anesthesia/Blood Transfusion Reactions: No Reported Reaction Additional Past Anesthesia/Blood Transfusion Reaction / Comment(s): PT HAS RECEIVED BLOOD WITHOUT REACTION. Smoking Status: Never smoker - Past Family History Mother Family Medical History: Diabetes Mellitus, Hypertension, Renal Disease Additional Family Medical History / Comment(s): AT AGE 62 RENAL FAILURE Father Family Medical History: Dementia, Diabetes Mellitus Medications and Allergies Home Medications Medication Instructions Recorded Confirmed Type Gabapentin [Neurontin] 300 mg PO TID 10/26/15 03/29/18 History Lovastatin [Mevacor] 40 mg PO HS 10/26/15 03/29/18 History Ubidecarenone [Co Q-10] 100 mg PO DAILY@1200 10/26/15 03/29/18 History Calcitriol [Rocaltrol] 0.25 mcg PO SA 09/07/16 03/29/18 History Cyclobenzaprine [Flexeril] 10 mg PO DAILY PRN 05/09/17 03/29/18 History Ferrous Sulfate [Iron (65 MG 325 mg PO BID 05/09/17 03/29/18 History Elemental)] L.acidoph,Paracasei, B.lactis 1 cap PO DAILY 05/09/17 03/29/18 History [Probiotic] Levothyroxine Sodium [Synthroid] 88 mcg PO DAILY 05/09/17 03/29/18 History Pantoprazole [Protonix] 40 mg PO DAILY #30 tablet. 05/11/17 03/29/18 Rx Enalapril [Vasotec] 5 mg PO DAILY 09/28/17 03/29/18 History Furosemide [Lasix] 20 mg PO DAILY 09/28/17 03/29/18 History Omeprazole [PriLOSEC] 20 mg PO AC-BRKFST 09/28/17 03/29/18 History glipiZIDE [Glucotrol] 2.5 mg PO BID 09/28/17 03/29/18 History Magnesium Oxide [Mag-Ox] 250 mg PO DAILY 03/29/18 03/29/18 History Allergies Allergy/AdvReac Type Severity Reaction Status Date / Time codeine AdvReac STOMACH Verified 09/28/17 09:57 PROBLEMS- "FEELS LIKE A KNOT IN STOMACH" propoxyphene HCl AdvReac NIGHTMARES Verified 09/28/17 09:57 [From [facility]] Surgical - Exam Vital Signs Temp Pulse BP Pulse Ox 98.4 F 67 98/62 99 03/29/18 10:32 03/29/18 10:32 03/29/18 10:32 03/29/18 10:32 - General obese - Eyes normal ocular movement - ENT normal pinna, normal nares - Neck no masses, trachea midline, no lymphadectomy, no venous distension - Respiratory normal respiratory effort, clear to auscultation - Cardiovascular Rhythm: regular Heart Sounds: normal: S1, S2 - Abdomen Abdomen: soft, non tender, no guarding, no rigid, no rebound - Neurologic no disoriented, no combative - Musculoskeletal normal gait, normal posture - Psychiatric oriented to time, oriented to person, oriented to place, speech is normal, memory intact Breast examination: Right breast: No dominant masses or nodules of concern were multiple positional exam Right axilla: No adenopathy of concern Left breast: Reveals a scar from prior surgery Left axilla: No adenopathy of concern Results Radiographs reviewed with radiology Pathology report reviewed Assessment and Plan Assessment: Impression/plan: 1. 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 Diabetes 3. Watermelon stomach with chronic anemia 4. Questionable cardiac disease for which she undergoes stress test 5. Hearing disorder 6. Hypertension Plan: 1. Medical management of medical conditions 2. Cardiac and medical clearance 3. Left breast mastectomy with sentinel node biopsy will discuss at tumor board I have had a long discussion with the patient and her significant other regarding her diagnosis. I have reviewed her radiographs with them showing the multiple areas where DCIS was diagnosed in the breast. After consideration she wishes to have a mastectomy. She is not interested in reconstruction at this time. She was offered the option of plastic surgical intervention and is not interested. We have discussed the risks and benefits and she wishes to proceed with a left breast mastectomy sentinel node biopsy possible axillary node dissection. The need for sentinel node biopsy will be discussed at tumor board and final recommendation with respect to this made at that time. Cc: Dr. Cardenas, and Nurse Practitioner [facility] at [facility]
== END | disposition home or self-care (01) ==
LOC: WWCWWP 10:22
PROVIDERS: ATTEND Surgery
DX: Z53.9 Procedure and treatment not carried out, unspecified reason (principal)

== ENCOUNTER → 2018-04-23 | Outpatient (CLI) | payer MEDICARE, BC | END | disposition home or self-care (01) | LOC: LABWHC1 09:00 | PROVIDERS: ATTEND Surgery | DX: Z01.812 Encounter for preprocedural laboratory examination (principal); D05.12 Intraductal carcinoma in situ of left breast | CPT/HCPCS: 36415; 86850; 86900; 86901 ==

== ENCOUNTER 2018-04-24 07:03 | Day surgery (SDC) | payer MEDICARE, BC ==
[2018-04-20 10:03] VITALS: BMI 34.2
[~2018-04-24 07:03] MED LIST: DEXAMETHASONE SOD PHOSPHATE 10 MG/ML 1 ML VIAL IV ONE; HEPARIN SODIUM,PORCINE 5,000 UNIT/ML 1 ML VIAL SQ ONE; HYDROmorphone 0.5 MG/0.5 ML SYRINGE IVP PRN; LACTATED RINGERS 1,000 ML IV SCH; LIDOCAINE 1% 20 ML VIAL (10MG/ML) FOR IV START INTRADERMA PRN; ONDANSETRON 4 MG/2 ML VIAL IVP ONE; Pre Op ABX Message 1 EACH MISC MISCELLANE ONE; SCOPOLAMINE 1.5MG/72HR PATCH TRANSDERM ONE
[2018-04-24 07:53] LABS: Glucose,Whole Blood 107 mg/dL (75-99)
[2018-04-24] MEDS ORDERED: DEXAMETHASONE SOD PHOS (MDV) 100 MG/10 ML VIAL IVP ONE (08:01)
[2018-04-24] MEDS ORDERED: ONDANSETRON 4 MG/2 ML VIAL IVP ONE (08:02)
[2018-04-24] MEDS ORDERED: HEPARIN SODIUM,PORCINE 5,000 UNIT/ML 1 ML VIAL SQ ONE ×2 (08:03→09:26)
[2018-04-24] MEDS ORDERED: ALPRAZolam 0.25 MG TAB PO ONE (08:03)
[2018-04-24 08:23] LABS: Anisocytosis Slight; Basophils % (A) 0 %; Eosinophils # (A) 0.3 k/uL (0-0.7); Eosinophils % (A) 4 %; HCT 27.2 % (34.0-46.0); HGB 8.4 gm/dL (11.4-16.0); Hypochromasia Marked; Lymphocytes # (A) 0.8 k/uL (1.0-4.8); Lymphocytes % (A) 12 %; MCH 28.1 pg (25.0-35.0); MCHC 30.8 g/dL (31.0-37.0); MCV 91.3 fL (80.0-100.0); Mean Platelet Volume 6.6; Monocytes # (A) 0.5 k/uL (0-1.0); Monocytes % (A) 7 %; Neutrophils # (A) 4.9 k/uL (1.3-7.7); Neutrophils % (A) 75 %; Platelet Count 327 k/uL (150-450); RBC 2.98 m/uL (3.80-5.40); RDW 16.9 % (11.5-15.5); WBC 6.5 k/uL (3.8-10.6)
[2018-04-24] MEDS ORDERED: LIDOCAINE 1% (PF) 10MG/ML VIAL SQ ONE (09:08)
--- NOTE | 2018-04-24 10:03 | NM ---
EXAMINATION TYPE: NM sentinel node injection DATE OF EXAM: 04/24/2018 COMPARISON: NONE HISTORY: Left breast cancer with request for sentinel lymph node injection. TECHNIQUE AND FINDINGS: The procedure of sentinel lymph node injection was explained to the patient. The benefits, alternatives, and risks were discussed. An informed consent was then obtained. Overlying skin is cleaned with sterile alcohol. Following this, 478 uCi uCi Tc99m Tilmanocept was in jected into the left breast at approximately the 2:00 position in the upper outer quadrant and a sing le dose. The patient tolerated the procedure well without any immediate complication. The patient was then ta corrine to surgery for surgical procedure what is presumed intraoperative gamma probe will be used for se ntinel lymph node detection. IMPRESSION: Left breast radiotracer injection for sentinel node localization as above.
[2018-04-24] MEDS ORDERED: PROPOFOL 10 MG/ML 20 ML VIAL IV ONE (10:04)
[2018-04-24] MEDS ORDERED: fentaNYL (PF) 50 MCG/ML 2 ML AMP ONE (10:04)
[2018-04-24] MEDS ORDERED: LIDOCAINE 1% INJ 10MG/ML (20 ML MDV) ONE (10:04)
[2018-04-24] MEDS ORDERED: SUCCINYLCHOLINE CHLORIDE 100 MG/5 ML SYR IV ONE (10:04)
[2018-04-24] MEDS ORDERED: MIDAZOLAM 2 MG/2 ML VIAL ONE (10:04)
[2018-04-24] MEDS ORDERED: ePHEDrine SULFATE/0.9% NACL/PF 50 MG/5 ML SYRINGE IV ONE (10:04)
--- NOTE | 2018-04-24 10:04 | P.NAPBC ---
[facility] Queries [facility] Was patient's case review presented at [facility] tumor board? If no, comment.: Yes Was patient's pathology reviewed at [facility]? If no, comment.: Yes Was breast conservation surgery offered? If no, comment.: Yes Was sentinel node biopsy offered? If no, comment.: Yes Was diagnosis confirmed by percutaneous core biopsy? If no, comment.: No ( patient biopsy done at another facility before seen here) If mastectomy patient, was a preop referral to a reconstructive surgeon offered? : No (This was offered but declined.)
[2018-04-24] MEDS ORDERED: SODIUM CHLORIDE 0.9% 50 ML with ceFAZolin 2,000 MG IV ONE ×2 (10:33)
[2018-04-24] MEDS ORDERED: LACTATED RINGERS 1,000 ML IV ONE (11:36)
[2018-04-24] MEDS ORDERED: NALOXONE 0.4 MG/ML 1 ML VIAL IV PRN (13:01)
[2018-04-24] MEDS ORDERED: ONDANSETRON 4 MG/2 ML VIAL IVP PRN (13:01)
[2018-04-24] MEDS ORDERED: HYDROmorphone 0.5 MG/0.5 ML SYRINGE IVP PRN (13:01)
[2018-04-24] MEDS ORDERED: ACETAMINOPHEN TAB 325 MG TAB PO PRN (13:01)
--- NOTE | 2018-04-24 13:06 | P.OP ---
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 Postoperative Diagnosis: Same Procedure(s) Performed: Left breast simple mastectomy with sentinel node biopsy Anesthesia: PASCUALA Surgeon: Kristy House Estimated Blood Loss (ml): 50 IV fluids (ml): 1,300 Pathology: other (Left breast and sentinel node with some axillary contents) Condition: stable Disposition: PACU Indications for Procedure: Left breast ductal carcinoma in situ multifocal Operative Findings: Dense breast tissue, enlarged axillary nodes which were sampled as well as sentinel node Description of Procedure: The patient was taken to the operating room and following induction of general anesthesia the left breast and axilla were prepped and draped in a sterile fashion. Superior and inferior skin flaps were developed using the electrocautery device. These were carried down to the muscle of the anterior chest wall. The breast was then dissected from medial to lateral being careful to maintain hemostasis using the Harmonic scalpel. The dissection was carried to the axilla where the breast was removed. At this point the neoprobe was used to identify the sentinel axillary lymph node. Evaluation of the axilla revealed an area of increased activity just inferior to the axillary vein. This lymph node was removed and a 10 second count was noted to be 17,309. The node was sent for frozen section evaluation. This was negative for cancer. Several additional lymph nodes were identified which were palpable with low radioactive count and these were sent for permanent section evaluation. The background count of the axilla was 77. After assured that hemostasis was attained the mastectomy site and axilla were well irrigated. The superior skin flap was longer than necessary and this tissue was trimmed. 2 SHARMILA drains were placed, one under the flaps, and one in the axilla. Following this the deep tissues of the incision were closed using a 3-0 Vicryl suture. The skin was closed using 4-0 Monocryl. The drains were secured with nylon suture. The patient tolerated the procedure in stable condition.
[2018-04-24] MEDS ORDERED: DEXTROSE 5%-0.45% NACL 1,000 ML IV SCH (13:15)
[2018-04-24 13:30] LABS: Glucose,Whole Blood 173 mg/dL (75-99)
[2018-04-24] MEDS ORDERED: HYDROmorphone 0.5 MG/0.5 ML SYRINGE ONE (15:45)
[2018-04-24 15:57] LABS: Anisocytosis Slight; Basophils % (A) 0 %; Eosinophils % (A) 0 %; HCT 27.5 % (34.0-46.0); HGB 8.1 gm/dL (11.4-16.0); Hypochromasia Marked; Lymphocytes # (A) 0.4 k/uL (1.0-4.8); Lymphocytes % (A) 6 %; MCH 27.4 pg (25.0-35.0); MCHC 29.4 g/dL (31.0-37.0); MCV 93.1 fL (80.0-100.0); Mean Platelet Volume 7.3; Monocytes # (A) 0.3 k/uL (0-1.0); Monocytes % (A) 3 %; Neutrophils # (A) 6.9 k/uL (1.3-7.7); Neutrophils % (A) 90 %; Platelet Count 271 k/uL (150-450); RBC 2.95 m/uL (3.80-5.40); RDW 17.2 % (11.5-15.5); WBC 7.7 k/uL (3.8-10.6)
[2018-04-24] MEDS ORDERED: HEPARIN SODIUM,PORCINE 5,000 UNIT/ML 1 ML VIAL SQ SCH (16:00)
[2018-04-24] MEDS: SODIUM CHLORIDE 0.9% 1,000 ML IV SCH (16:17)
[2018-04-24] MEDS ORDERED: ATORVASTATIN 10 MG TAB PO SCH (21:00)
[2018-04-24] MEDS: HEPARIN SODIUM,PORCINE 5,000 UNIT/ML 1 ML VIAL SQ SCH (21:16)
[2018-04-24] MEDS: FERROUS SULFATE 325 MG TAB PO SCH (21:16)
[2018-04-24] MEDS: GABAPENTIN 300 MG CAP PO SCH (21:16)
[2018-04-25] MEDS: SODIUM CHLORIDE 0.9% 1,000 ML IV SCH (02:04)
[2018-04-25 04:35] VITALS: RESP 18
[2018-04-25] MEDS ORDERED: LEVOTHYROXINE 88 MCG TAB PO SCH (06:30)
[2018-04-25] MEDS ORDERED: NON-FORMULARY DRUG (Omeprazole 20 MG) PO SCH (07:30)
[2018-04-25] MEDS ORDERED: PANTOPRAZOLE 40 MG TABLET PO SCH (07:30)
[2018-04-25 07:34] LABS: Anisocytosis Slight; Basophils % (A) 0 %; Eosinophils # (A) 0.1 k/uL (0-0.7); Eosinophils % (A) 2 %; HCT 22.9 % (34.0-46.0); Hypochromasia Marked; Lymphocytes % (A) 15 %; MCH 28.1 pg (25.0-35.0); MCHC 29.7 g/dL (31.0-37.0); MCV 94.7 fL (80.0-100.0); Mean Platelet Volume 6.6; Monocytes # (A) 0.4 k/uL (0-1.0); Monocytes % (A) 6 %; Neutrophils % (A) 75 %; Platelet Count 297 k/uL (150-450); RBC 2.42 m/uL (3.80-5.40); RDW 17.4 % (11.5-15.5); WBC 6.6 k/uL (3.8-10.6)
[2018-04-25 07:44] LABS: HGB 6.8 gm/dL (11.4-16.0)
[2018-04-25] MEDS ORDERED: MAGNESIUM OXIDE 400 MG TAB PO SCH (09:00)
[2018-04-25] MEDS ORDERED: LISINOPRIL 10 MG TAB PO SCH (09:00)
--- NOTE | 2018-04-25 09:03 | P.DS ---
Providers Expected date of discharge: 04/25/18 Attending physician: Kristy House Consults: 04/24/18 13:03 Consult Physician Routine Consulting Provider: Virginia Barrera Consult Reason/Comments: medical managment Do you want consulting provider notified?: Yes Primary care physician: Harvey Cardenas MD Hospital Course: Patient medical for elective left breast mastectomy. She has done well postoperatively. Minimal complaints of pain. Taking only 2 doses of pain medicine. Hemoglobin dropped to 6.8 however the patient does tend around the 8 range. No evidence of bleeding currently. Incision is clean and dry with no ischemia. No hematoma. Drains are mostly serous. The patient is asymptomatic. She would like to go home today if possible. Plan at this time is to discharge today with plans for outpatient CBC to be drawn. Patient will follow-up with Dr. Reji Miles this Monday. Plan - Discharge Summary New Discharge Prescriptions: No Action Ubidecarenone [Co Q-10] 100 mg PO DAILY@1200 Lovastatin [Mevacor] 40 mg PO HS Gabapentin [Neurontin] 300 mg PO TID Calcitriol [Rocaltrol] 0.25 mcg PO SA L.acidoph,Paracasei, B.lactis [Probiotic] 1 cap PO DAILY Levothyroxine Sodium [Synthroid] 88 mcg PO DAILY Ferrous Sulfate [Iron (65 MG Elemental)] 325 mg PO BID glipiZIDE [Glucotrol] 2.5 mg PO BID Omeprazole [PriLOSEC] 20 mg PO AC-BRKFST Enalapril [Vasotec] 5 mg PO DAILY Furosemide [Lasix] 20 mg PO DAILY Magnesium Oxide [Mag-Ox] 250 mg PO DAILY Discharge Medication List Gabapentin [Neurontin] 300 mg PO TID 10/26/15 [History] Lovastatin [Mevacor] 40 mg PO HS 10/26/15 [History] Ubidecarenone [Co Q-10] 100 mg PO DAILY@1200 10/26/15 [History] Calcitriol [Rocaltrol] 0.25 mcg PO SA 09/07/16 [History] Ferrous Sulfate [Iron (65 MG Elemental)] 325 mg PO BID 05/09/17 [History] L.acidoph,Paracasei, B.lactis [Probiotic] 1 cap PO DAILY 05/09/17 [History] Levothyroxine Sodium [Synthroid] 88 mcg PO DAILY 05/09/17 [History] Enalapril [Vasotec] 5 mg PO DAILY 09/28/17 [History] Furosemide [Lasix] 20 mg PO DAILY 09/28/17 [History] Omeprazole [PriLOSEC] 20 mg PO AC-BRKFST 09/28/17 [History] glipiZIDE [Glucotrol] 2.5 mg PO BID 09/28/17 [History] Magnesium Oxide [Mag-Ox] 250 mg PO DAILY 03/29/18 [History] Follow up Appointment(s)/Referral(s): Kristy House MD [STAFF PHYSICIAN] - 04/27/18 Activity/Diet/Wound Care/Special Instructions: [facility] [phone]
[2018-04-25] MEDS: FERROUS SULFATE 325 MG TAB PO SCH (10:21)
[2018-04-25] MEDS: GABAPENTIN 300 MG CAP PO SCH (10:21)
[2018-04-25] MEDS: HEPARIN SODIUM,PORCINE 5,000 UNIT/ML 1 ML VIAL SQ SCH (10:21)
[2018-04-25 11:49] VITALS: BP 134/70; PULSE 63; TEMP 97.3
[2018-04-25] MEDS ORDERED: NON-FORMULARY DRUG (Ubidecarenone [Co Q-10] 100 MG) PO SCH (12:00)
--- NOTE | 2018-04-25 16:34 | P.CONS ---
History of Present Illness - Reason for Consult Consult date: 04/25/18 Medical management Requesting physician: Kristy House - Chief Complaint Left ductal carcinoma multifocal left mastectomy with axillary lymph node d - History of Present Illness This is a pleasant 78-year-old lady with known history of chronic anemia, diabetes mellitus type 2, hypertension hypothyroidism, requiring blood transfusions last one was February 2018, secondary to watermelon stomach. Followed closely by Dr. Cordelia Grove who underwent left sided ductal carcinoma multifocal pathology with left breast simple mastectomy, axillary lymph node dissection on April 24, [address] Falguni Colón, patient's without any current symptoms include lightheadedness or dizziness or syncope. Patient does not have any bright red blood bleeding per rectum, however he does have black stools secondary to chronic iron supplementation. Patient's currently medically stable, hemoglobin was 6.8, with a baseline of 8.4, no plans for blood transfusion at this time, we have taken the liberty of replacing her pferrous sulfate to gluconate or ferrous fumarate if approved, patient does not have any IV line for any iron infusion as well. This could be monitored closely as an outpatient Review of Systems Constitutional: Reports as per HPI, Denies anorexia, Denies chills, Denies chronic headaches, Denies chronic pain, Denies daytime sleepiness, Denies fatigue, Denies fever, Denies lethargy, Denies malaise, Denies night sweats, Denies poor appetite, Denies sweats, Denies weakness, Denies weight gain, Denies weight loss Cardiovascular: Reports as per HPI, Denies chest pain, Denies claudication, Denies decreased exercise tolerance, Denies dyspnea on exertion, Denies edema, Denies high blood pressure, Denies irregular heart beat, Denies leg edema, Denies lightheadedness, Denies orthopnea, Denies palpitations, Denies paroxysmal nocturnal dyspnea, Denies phlebitis, Denies rapid heart beat, Denies shortness of breath, Denies syncope Respiratory: Reports as per HPI, Denies congestion, Denies cough, Denies cough with sputum, Denies dyspnea, Denies excessive sputum, Denies hemoptysis, Denies home oxygen, Denies pain, Denies pain on inspiration, Denies pleurisy, Denies respiratory infections, Denies sleep apnea, Denies snoring, Denies wheezing Gastrointestinal: Reports as per HPI, Denies abdominal pain, Denies belching, Denies bloating, Denies BRBPR, Denies change in bowel habits, Denies coffee ground emesis, Denies constipation, Denies diarrhea, Denies dyspepsia, Denies early satiety, Denies excessive gas, Denies heartburn, Denies hematemesis, Denies hematochezia, Denies indigestion, Denies jaundice, Denies lactose intolerance, Denies loss of appetite, Denies melena, Denies nausea, Denies vomiting Genitourinary: Reports as per HPI, Denies abnormal vaginal bleeding, Denies decreased libido, Denies difficulty conceiving, Denies difficulty voiding, Denies dysmenorrhea, Denies dyspareunia, Denies dysuria, Denies flank pain, Denies genital sores, Denies hematuria, Denies hot flashes, Denies incomplete emptying, Denies kidney stones, Denies menorrhagia, Denies mixed incontinence, Denies nocturia, Denies pelvic pain, Denies post void dribbling, Denies , Denies prolapse symptoms, Denies stress incontinence, Denies urge incontinence , Denies urgency, Denies urinary frequency, Denies vaginal discharge, Denies vaginal dryness, Denies vaginal itching, Denies vaginal odor Menstruation: Reports as per HPI, Reports postmenopausal, Denies amenorrhea, Denies amenorrhea on BC, Denies currently menstrual, Denies cycle < 21 days, Denies cycle > 35 days, Denies cycle variable, Denies menses 1-7 days, Denies menses 8 or > days, Denies menses variable, Denies period heavy, Denies period light, Denies period normal, Denies period spotting, Denies post hysterectomy, Denies premenarcheal Musculoskeletal: Reports as per HPI, Denies arm numbness/tingling, Denies atrophy, Denies fractures, Denies frequent falls, Denies gait dysfunction, Denies hot joints, Denies leg numbness/tingling, Denies limitation of motion, Denies loss of height, Denies low back pain, Denies morning stiffness, Denies muscle cramps, Denies muscle weakness, Denies myalgias, Denies neck pain, Denies neck stiffness, Denies prior amputations, Denies redness of joints, Denies shooting arm pain, Denies shooting leg pain Integumentary: Reports as per HPI, Denies acne, Denies boils, Denies brittle nails, Denies change in hair/nails, Denies color changes, Denies darkening of skin, Denies depigmentation, Denies dryness, Denies foot/leg ulcers, Denies growths, Denies hirsutism, Denies lesions, Denies onychomycosis, Denies pruritus , Denies rash, Denies sores, Denies striae, Denies unusual bruising, Denies wounds Neurological: Reports as per HPI Psychiatric: Reports as per HPI Endocrine: Reports as per HPI Past Medical History Past Medical History: Cancer, Diabetes Mellitus, Deep Vein Thrombosis (DVT), GERD/Reflux, GI Bleed, Hearing Disorder / Deafness, Hyperlipidemia, Hypertension , Osteoarthritis (OA), Thyroid Disorder Additional Past Medical History / Comment(s): Upper GI bleed,"watermelon belly" , iron deficiency anemia, DVT LT LEG, NIDDM type II, neuropathy bilateral feet , bilateral ankle edema, arthritis hands/fingers, hypothyroid, SALAMATOF-CESARIO HEARING AIDeS, dcis ductal carcinoma insitu Last Myocardial Infarction Date:: UNKN History of Any Multi-Drug Resistant Organisms: None Reported Past Surgical History: Appendectomy, Cholecystectomy, Hysterectomy, Joint Replacement, Orthopedic Surgery Additional Past Surgical History / Comment(s): CESARIO GREAT TOE JOINT REPLACED, EGDS/COLONOSCOPIES, EGD WITH ABLATIONS, VEIN STRIPPING LT LEG, BILATERAL CARPAL TUNNEL RELEASES, L THUMB TENDON REPAIR. Endoscopies. Past Anesthesia/Blood Transfusion Reactions: No Reported Reaction Additional Past Anesthesia/Blood Transfusion Reaction / Comm: PT HAS RECEIVED BLOOD WITHOUT REACTION. Smoking Status: Never smoker - Past Family History Mother Family Medical History: Diabetes Mellitus, Hypertension, Renal Disease Additional Family Medical History / Comment(s): AT AGE 62 RENAL FAILURE Father Family Medical History: Dementia, Diabetes Mellitus Medications and Allergies Home Medications Medication Instructions Recorded Confirmed Type Gabapentin [Neurontin] 300 mg PO TID 10/26/15 04/24/18 History Lovastatin [Mevacor] 40 mg PO HS 10/26/15 04/24/18 History Ubidecarenone [Co Q-10] 100 mg PO DAILY@1200 10/26/15 04/24/18 History Calcitriol [Rocaltrol] 0.25 mcg PO SA 09/07/16 04/24/18 History L.acidoph,Paracasei, B.lactis 1 cap PO DAILY 05/09/17 04/24/18 History [Probiotic] Levothyroxine Sodium [Synthroid] 88 mcg PO DAILY 05/09/17 04/24/18 History Omeprazole [PriLOSEC] 20 mg PO AC-BRKFST 09/28/17 04/24/18 History glipiZIDE [Glucotrol] 2.5 mg PO BID 09/28/17 04/24/18 History Magnesium Oxide [Mag-Ox] 250 mg PO DAILY 03/29/18 04/24/18 History Enalapril [Vasotec] 5 mg PO DAILY #0 04/25/18 04/24/18 Rx Ferrous Gluconate 324 mg PO BID #60 tablet 04/25/18 Rx Furosemide [Lasix] 20 mg PO DAILY #0 04/25/18 04/24/18 Rx Allergies Allergy/AdvReac Type Severity Reaction Status Date / Time codeine AdvReac STOMACH Verified 04/25/18 14:57 PROBLEMS- "FEELS LIKE A KNOT IN STOMACH" propoxyphene HCl AdvReac NIGHTMARES Verified 04/25/18 14:57 [From [facility]] Physical Exam Vitals: Vital Signs Temp Pulse Pulse Pulse Resp BP Pulse Ox 04/25/18 07:49 97.6 F 61 18 96/60 95 04/25/18 02:04 97.9 F 59 L 18 92/55 95 04/24/18 20:21 96.8 F L 56 L 16 113/60 98 04/24/18 18:15 57 L 20 100/52 100 04/24/18 17:15 54 L 20 109/64 100 04/24/18 16:15 53 L 20 107/58 100 04/24/18 15:45 55 L 20 111/54 96 04/24/18 15:15 55 L 20 107/60 95 04/24/18 15:00 55 L 19 106/57 96 04/24/18 14:35 63 19 114/57 94 L 04/24/18 14:20 97.8 F 60 19 111/60 92 L 04/24/18 13:51 72 16 117/62 98 04/24/18 13:36 56 L 16 118/61 98 04/24/18 13:21 56 L 16 126/65 99 04/24/18 13:06 97.2 F L 57 L 16 129/66 99 Intake and Output 04/24/18 04/25/18 04/25/18 22:59 06:59 14:59 Intake Total 100 180 Output Total 885 645 Balance -785 -645 180 Intake: Oral 100 180 Output: Drainage 85 45 Drain b 60 35 drain A 25 10 Urine 800 600 Other: Weight 84.822 kg - Constitutional General appearance: disheveled, no acute distress, obese - EENT Eyes: anicteric sclerae, EOMI, PERRLA, normal appearance ENT: NA/AT, normal oropharynx - Neck Neck: normal ROM - Respiratory Respiratory: bilateral: CTA, negative: diminished, dullness, rales - Cardiovascular Rhythm: regular Heart sounds: normal: S1, S2 Abnormal Heart Sounds: no systolic murmur, no diastolic murmur, no rub, no S3 Gallop, no S4 Gallop, no click, no other - Gastrointestinal General gastrointestinal: soft - Integumentary Integumentary: normal, normal turgor - Neurologic Neurologic: CNII-XII intact - Musculoskeletal Musculoskeletal: gait normal, strength equal bilaterally - Psychiatric Psychiatric: A&O x's 3, appropriate affect, intact judgment & insight Results CBC & Chem 7: 04/25/18 06:59 Labs: Abnormal Lab Results - Last 24 Hours (Table) 04/24/18 04/24/18 04/25/18 Range/Units 13:25 15:39 06:59 RBC 2.95 L 2.42 L (3.80-5.40) m/uL Hgb 8.1 L 6.8 L* (11.4-16.0) gm/dL Hct 27.5 L 22.9 L (34.0-46.0) % MCHC 29.4 L 29.7 L (31.0-37.0) g/dL RDW 17.2 H 17.4 H (11.5-15.5) % Lymphocytes # 0.4 L (1.0-4.8) k/uL POC Glucose (mg/dL) 173 H (75-99) mg/dL Laboratory Results WBC 6.6 k/uL (3.8-10.6) 04/25/18 06:59 RBC 2.42 m/uL (3.80-5.40) L 04/25/18 06:59 Hgb 6.8 gm/dL (11.4-16.0) L* 04/25/18 06:59 Hct 22.9 % (34.0-46.0) L 04/25/18 06:59 MCV 94.7 fL (80.0-100.0) 04/25/18 06:59 MCH 28.1 pg (25.0-35.0) 04/25/18 06:59 MCHC 29.7 g/dL (31.0-37.0) L 04/25/18 06:59 RDW 17.4 % (11.5-15.5) H 04/25/18 06:59 Plt Count 297 k/uL (150-450) 04/25/18 06:59 Neutrophils % 75 % 04/25/18 06:59 Lymphocytes % 15 % 04/25/18 06:59 Monocytes % 6 % 04/25/18 06:59 Eosinophils % 2 % 04/25/18 06:59 Basophils % 0 % 04/25/18 06:59 Neutrophils # 5.0 k/uL (1.3-7.7) 04/25/18 06:59 Lymphocytes # 1.0 k/uL (1.0-4.8) 04/25/18 06:59 Monocytes # 0.4 k/uL (0-1.0) 04/25/18 06:59 Eosinophils # 0.1 k/uL (0-0.7) 04/25/18 06:59 Basophils # 0.0 k/uL (0-0.2) 04/25/18 06:59 Hypochromasia Marked 04/25/18 06:59 Anisocytosis Slight 04/25/18 06:59 POC Glucose (mg/dL) 173 mg/dL (75-99) H 04/24/18 13:25 POC Glu Flavorings Compounder ID Dee Hernandez 04/24/18 13:25 Blood Type A Negative 04/23/18 10:39 Blood Type Recheck No 04/23/18 10:39 Antibody Screen NEGATIVE 04/23/18 10:39 Spec Expiration Date 04/26/2018233804/23/18 10:39 Assessment and Plan Plan: 1. 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 Hypertension currently hypotensive, we'll going to hold off Lasix 20 mg for the next 2 days then condition on home dose of 20 mg daily, also hold off enalapril 5 mg for the next 2 days, and condition on April 28, 2018, counseled regarding blood pressure monitoring at home, and fluid for hydration 4. Hypothyroidism, no changes on levothyroxine 88 g daily 5 Precipitous drop in hemoglobin with chronic anemia iron deficiency, watermelon stomach syndrome, close monitoring of CBC as an outpatient, hemoglobin on discharge 6.8, change ferrous sulfate to ferrous gluconate or ferrous fumarate for the next 30 days, patient follows closely and has his last blood transfusion February 2018 6. Hyperlipidemia on lovastatin no change 40 mg daily 7 Neuropathy on gabapentin 300 mg 3 times a day no changes made Thank you Dr. Falguni Colón in allowing us to precipitate in the care of your patient
[2018-04-28] MEDS ORDERED: CALCITRIOL 0.25 MCG CAP PO SCH (09:00)
== END 2018-04-25 11:55 | disposition home health service (06) ==
LOC: OR 07:03 → 6PED 12:57 → OR 04-25 11:55
PROVIDERS: ATTEND Surgery
DX: D05.12 Intraductal carcinoma in situ of left breast (principal); E11.40 Type 2 diabetes mellitus with diabetic neuropathy, unspecified; D50.9 Iron deficiency anemia, unspecified; K31.819 Angiodysplasia of stomach and duodenum without bleeding; K21.9 Gastro-esophageal reflux disease without esophagitis; I10 Essential (primary) hypertension; K25.9 Gastric ulcer, unspecified as acute or chronic, without hemorrhage or perforation; E03.9 Hypothyroidism, unspecified; N28.9 Disorder of kidney and ureter, unspecified; J30.1 Allergic rhinitis due to pollen; H91.90 Unspecified hearing loss, unspecified ear; M19.049 Primary osteoarthritis, unspecified hand; Z86.718 Personal history of other venous thrombosis and embolism; Z87.19 Personal history of other diseases of the digestive system; Z79.84 Long term (current) use of oral hypoglycemic drugs; Z79.890 Hormone replacement therapy; Z79.899 Other long term (current) drug therapy; Z88.6 Allergy status to analgesic agent; Z88.1 Allergy status to other antibiotic agents; Z88.5 Allergy status to narcotic agent; Z88.2 Allergy status to sulfonamides
CPT/HCPCS: 19303; 38525; 86900; 86901; 85025 ×2; 86850; 88342; 88331; 88307; 88341; 38792; 36415; A9520; J2250; J1644 ×2; J2405; J2001; J3010; J0690; J1100; J0330; J2704; J1170 ×2

== ENCOUNTER → 2018-04-27 | Outpatient (CLI) | payer MEDICARE, BC ==
[2018-04-27 11:38] LABS: Anisocytosis Slight; Basophils % (A) 0 %; Eosinophils # (A) 0.3 k/uL (0-0.7); Eosinophils % (A) 6 %; HCT 25.8 % (34.0-46.0); HGB 7.7 gm/dL (11.4-16.0); Hypochromasia Marked; Lymphocytes # (A) 0.7 k/uL (1.0-4.8); Lymphocytes % (A) 14 %; MCH 28.2 pg (25.0-35.0); MCHC 29.8 g/dL (31.0-37.0); MCV 94.7 fL (80.0-100.0); Mean Platelet Volume 7.7; Monocytes # (A) 0.3 k/uL (0-1.0); Monocytes % (A) 6 %; Neutrophils # (A) 3.6 k/uL (1.3-7.7); Neutrophils % (A) 73 %; Platelet Count 313 k/uL (150-450); RBC 2.72 m/uL (3.80-5.40); RDW 17.6 % (11.5-15.5); WBC 4.9 k/uL (3.8-10.6)
== END | disposition home or self-care (01) ==
LOC: LABWHC1 11:18
PROVIDERS: ATTEND Surgery
DX: D64.9 Anemia, unspecified (principal)
CPT/HCPCS: 36415; 85025

== ENCOUNTER → 2018-04-27 | Outpatient (CLI) | payer MEDICARE, BC ==
[2018-04-27 12:04] VITALS: BMI 35.1
== END | disposition home or self-care (01) ==
LOC: WWCWWP 11:37
PROVIDERS: ATTEND Surgery
DX: R92.8 Other abnormal and inconclusive findings on diagnostic imaging of breast (principal); Z53.9 Procedure and treatment not carried out, unspecified reason

== ENCOUNTER → 2018-05-03 | Outpatient (CLI) | payer MEDICARE, BC ==
--- NOTE | 2018-04-27 12:40 | P.PN ---
Progress Note - Text Progress Note Date: 04/27/18 Patient is postop day 3 from a left breast mastectomy with sentinel node biopsy. She has a history of anemia and in the hospital was sent home with a hemoglobin of 6.8. However it was felt that she had no active bleeding from the mastectomy site and a repeat hemoglobin this morning was 7.7. She is had no evidence of any swelling at the mastectomy site or axilla and no evidence of any bloody drainage from the SHARMILA drains. The patient has 2 SHARMILA drains axillary drain has minimal output and is serous in nature and is been removed. The drain under the mastectomy flaps is serous in nature but has been over 30 mL per day for the last 2 days and will be left in place. Pathology is pending. The patient has a watermelon stomach and this is the cause of her anemia. The patient is been taking iron for her anemia. She will follow with GI with respect to this. Physical exam: lungs: Clear Heart: Regular rate and rhythm Incision: Clean and dried No evidence of any hematoma or infection Abdomen soft and nontender Impression/plan: 1. Postop left breast mastectomy with sentinel node biopsy patient doing well awaiting pathology 2. History of chronic anemia with watermelon stomach hemoglobin stable at 7.7 3. Follow-up next week for removal of second drain 4. Appointment with medical oncology cc: Dinorah García ([place])
[2018-05-03 09:38] VITALS: BP 104/62; PULSE 64; TEMP 97.9; BMI 34.7
--- NOTE | 2018-05-03 09:56 | P.PN ---
Subjective Progress Note Date: 05/03/18 Mrs. Hutchinson is a 78-year-old white female who is status post left breast simple mastectomy and sentinel node biopsy in 04/24/2018. Pathology revealed a 2 cm ductal carcinoma in situ which was high-grade. She had no evidence of any tumor in the lymph nodes. She has a history of a watermelon stomach and this has caused chronic anemia. Her most recent hemoglobin was 7.7. She has not experienced any dizziness or lightheadedness. The SHARMILA drain on the left side is putting out approximately 40 mL per day. There is some irritation around the drain and we have therefore decided to remove the drain. Objective - Vital Signs Vital signs: Vital Signs Temp 97.9 F 05/03/18 09:31 Pulse 64 05/03/18 09:31 Resp BP 104/62 05/03/18 09:31 Pulse Ox 100 05/03/18 09:31 Intake & Output 05/02/18 05/03/18 05/03/18 18:59 06:59 18:59 Weight 86.183 kg - Constitutional General appearance: Present: average body habitus - Respiratory Respiratory: bilateral: CTA - Cardiovascular Rhythm: regular Heart sounds: normal: S1, S2 - Integumentary Integumentary Comment(s): Incision left mastectomy site clean and dry SHARMILA drain mild erythema around the drain exit site no active infection - Psychiatric Psychiatric: Present: A&O x's 3, appropriate affect, intact judgment & insight Assessment and Plan Assessment: Impression: 1. Patient status post left breast simple mastectomy sentinel node biopsy for ductal carcinoma in situ 2. Patient is following with medical oncology Dr. Whatley in [place] 3. SHARMILA drain 40 mL of serous drainage this is removed and patient will follow- up in 2 weeks Plan: 1. Follow up with Dr. Storm regarding possible hormonal therapy 2. Follow here in 2 weeks cc: DR. Whatley, Dr. Dinorah García, Dr. Cardenas from [place]
== END ==
LOC: WWCWWP 08:55
PROVIDERS: ATTEND Surgery
DX: Z53.9 Procedure and treatment not carried out, unspecified reason (principal)

== ENCOUNTER → 2018-05-17 | Outpatient (CLI) | payer MEDICARE, BC ==
[2018-05-17 10:17] VITALS: BP 99/61; PULSE 66; BMI 33.8
--- NOTE | 2018-05-17 10:52 | P.PN ---
Progress Note - Text Progress Note Date: 05/17/18 The patient is a 78-year-old white female status post left simple mastectomy 73 . She also had sentinel node biopsy performed. Her sentinel node biopsy was negative for any metastatic disease to the lymph nodes. The mastectomy revealed ductal carcinoma in situ high grade. The patient is following with Dr. Sorto, a medical oncologist in [place]. The patient also has a history of watermelon stomach and intermittently receives blood transfusions for anemia. She most recently received a blood transfusion 2 days ago for hemoglobin of 7.3. The patient states that she has had some swelling in the area of the mastectomy site. She does not have any evidence of erythema or pain at that site. Physical examination: Lungs: Clear Heart: Regular rate and rhythm Mastectomy site: Left breast mastectomy site incision clean and dry, seroma present Risk and benefits of the procedure were discussed with the patient and she wishes to proceed. Impression/plan: 1. 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 Recommend follow-up with medical oncology, patient already follows with Dr. Whatley 3. History of watermelon stomach which patient receives intermittent blood transfusions 4. Seroma at site of mastectomy recommend aspiration cc: Dinorah García, DR. Cardenas, ([place]), Dr. Whatley
--- NOTE | 2018-05-17 11:02 | P.PCN ---
Date of Procedure: 05/17/18 Preoperative Diagnosis: Seroma left breast simple mastectomy site Postoperative Diagnosis: same Procedure(s) Performed: aspiration of seroma Anesthesia: none Estimated Blood Loss (ml): 0 Pathology: none sent Condition: stable Indications for Procedure: The patient is a 78-year-old white female status post left breast simple mastectomy. She had a SHARMILA drain removed several weeks ago and has subsequently developed a seroma at the left breast mastectomy site. Operative Findings: Straw-colored seroma fluid Description of Procedure: Following discussion of risks and benefits the patient opted to have seroma of the left chest wall mastectomy site drained. The area was prepped using alcohol. An 18-gauge needle with a 60 mL syringe was utilized to withdraw the fluid. Approximately 210 mL of straw-colored fluid were drawn from the area with resolution of the seroma. No evidence of bleeding was identified. The patient tolerated the procedure in stable condition. The patient will return in 2 weeks to ascertain if the seroma has recurred.
== END | disposition home or self-care (01) ==
LOC: WWCWWP 09:41
PROVIDERS: ATTEND Surgery
DX: Z53.9 Procedure and treatment not carried out, unspecified reason (principal)

== ENCOUNTER → 2018-05-31 | Outpatient (CLI) | payer MEDICARE, BC ==
--- NOTE | 2018-05-31 12:09 | P.PN ---
Progress Note - Text Progress Note Date: 05/31/18 The patient is status post left mastectomy and has had seroma aspiration of the left mastectomy site. Her last aspiration was for approximately 210 mL of straw -colored fluid. She returns today with some swelling at the mastectomy site. This is consistent with a seroma. After discussion the patient wishes this to be aspirated. The area was cleaned using alcohol An 18-gauge needle was introduced into the area of concern Approximately 140 mL of straw-colored fluid was removed with resolution of the seroma Patient tolerated procedure in stable condition Patient is following with medical oncology Dr. Storm Patient will follow here in 3 months time unless she has reaccumulation of seroma and then will call and we will see her sooner CC: Dr. García
== END ==
LOC: WWCWWP 11:42
PROVIDERS: ATTEND Surgery
DX: Z53.9 Procedure and treatment not carried out, unspecified reason (principal)

== ENCOUNTER → 2018-06-21 | Outpatient (CLI) | payer MEDICARE, BC ==
[2018-06-21 11:42] VITALS: BP 110/70; PULSE 65; BMI 33.6
--- NOTE | 2018-06-21 12:31 | P.PN ---
Progress Note - Text Progress Note Date: 06/21/18 The patient is a 78-year-old white female status post left mastectomy [id number]. She will has been seen for seroma aspiration and comes in today for incision check. She states at this time that she is feeling much better and does not believe she has anything that needs aspirated. The patient does complain of some tightness of her chest wall which she states was present prior to surgery. Additionally she has some back discomfort which she believes is related to how she is sleeping. Physical examination: Minimal seroma in the medial aspect of the incision incision is clean and dry Examination of her back does reveal that the trapezius muscles appear to be tight Impression/plan: 1. Incision right chest wall healing well 2. The patient will follow-up in 3 months from her surgery 3. Consider physical therapy regarding the back discomfort and tightness on her chest wall, she states she has seen a physical therapist in the past in [facility] and wishes to follow there. Cc: Dinorah García
== END ==
LOC: WWCWWP 11:31
PROVIDERS: ATTEND Surgery
DX: Z53.9 Procedure and treatment not carried out, unspecified reason (principal)

== ENCOUNTER → 2018-08-30 | Outpatient (CLI) | payer MEDICARE, BC ==
[2018-08-30 16:13] VITALS: BP 106/69; PULSE 64; RESP 16; TEMP 97.2; BMI 33.3
--- NOTE | 2018-08-30 16:28 | P.PN ---
Subjective Progress Note Date: 08/30/18 Principal diagnosis: left mastectomy 04-24-18 The patient is a 78-year-old white female status post left mastectomy with sentinel node biopsy for high-grade DCIS performed on 7317. The lesion was approximately 2 cm in size. Patient has followed with medical oncologist Dr. Storm her watermelon stomach. She has not specifically discussed with her the left breast DCIS. She will discuss this with her at the present time. She has no complaints with relatioship to the mastectomy site nor with her left arm. She did undergo physical therapy secondary to some decreased motion and pain in her left back. Since that time she is doing well. Objective - Vital Signs Vital signs: Vital Signs Temp 97.2 F L 08/30/18 16:10 Pulse 64 08/30/18 16:10 Resp 16 08/30/18 16:10 BP 106/69 08/30/18 16:10 Pulse Ox 100 08/30/18 16:10 Intake & Output 08/29/18 08/30/18 08/30/18 18:59 06:59 18:59 Weight 82.554 kg - Exam BMI 33.3 - Constitutional General appearance: Present: obese - EENT Eyes: Present: EOMI ENT: Present: hearing grossly normal - Neck Neck: Present: normal ROM - Respiratory Respiratory: bilateral: CTA - Cardiovascular Rhythm: regular Heart sounds: normal: S1, S2 - Gastrointestinal General gastrointestinal: Present: soft - Musculoskeletal Musculoskeletal: Present: gait normal - Psychiatric Psychiatric: Present: A&O x's 3, appropriate affect, intact judgment & insight Assessment and Plan Assessment: Impression: 1. Patient status post left breast mastectomy incision is clean and dry and healing well no evidence of any infection 2. The patient is to follow with medical oncology she states she will follow with Dr. Storm 3. Patient has had physical therapy regarding back discomfort and is doing well with respect to this Plan: 1. Follow up here in 3 months time 2. Follow up with Dr. Garcia consider anti-hormonal therapy secondary to ER/RI positive tumor continue therapy as per physical therapy 4. Continued blood transfusions as necessary secondary to watermelon stomach CC: Dinorah García
== END | disposition home or self-care (01) ==
LOC: WWCWWP 14:57
PROVIDERS: ATTEND Surgery
DX: Z53.9 Procedure and treatment not carried out, unspecified reason (principal)

== ENCOUNTER 2018-11-07 10:04 | Day surgery (SDC) | payer MEDICARE, BC ==
[2018-11-05 16:25] VITALS: BMI 33.6
[~2018-11-07 10:04] MED LIST changes: -DEXAMETHASONE SOD PHOSPHATE 10 MG/ML 1 ML VIAL IV ONE; -HEPARIN SODIUM,PORCINE 5,000 UNIT/ML 1 ML VIAL SQ ONE; -HYDROmorphone 0.5 MG/0.5 ML SYRINGE IVP PRN; -ONDANSETRON 4 MG/2 ML VIAL IVP ONE; -Pre Op ABX Message 1 EACH MISC MISCELLANE ONE; -SCOPOLAMINE 1.5MG/72HR PATCH TRANSDERM ONE
[2018-11-07 11:21] VITALS: TEMP 97.8
[2018-11-07] MEDS ORDERED: LIDOCAINE 1% INJ 10MG/ML (20 ML MDV) ONE (11:28)
[2018-11-07] MEDS ORDERED: PROPOFOL 10 MG/ML 20 ML VIAL IV ONE (11:28)
--- NOTE | 2018-11-07 11:48 | P.PCN ---
Date of Procedure: 11/07/18 Procedure(s) Performed: BRIEF HISTORY: Patient is a 78-year-old, pleasant, white female, scheduled for an upper endoscopy as a part of evaluation of recurrent anemia and intermittent dark colored stools. She has history of gastric antral vascular ectasia diagnosed 3 years ago and undergoes periodic upper endoscopies with argon plasma coagulation the last was done in September 2017. PROCEDURE PERFORMED: Esophagogastroduodenoscopy with argon plasma coagulation. PREOPERATIVE DIAGNOSIS: Recurrent anemia and intermittent melena. IV sedation per anesthesia. PROCEDURE: After informed consent was obtained, the patient was brought into the endoscopy unit. IV sedation was administered by Anesthesia under continuous monitoring. Initially the Olympus GIF-140 video endoscope was inserted into the mouth. Esophagus intubated without any difficulty. It was gradually advanced into the stomach and duodenum and carefully examined. The bulb and the second part of the duodenum appeared normal. 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 Argon plasma coag ablation was performed with good hemostasis. The body, cardia and the fundus appeared normal. The scope was then withdrawn into the esophagus. The GE junction was located at 39 cm from the incisors. The esophagus appeared normal. There were no erosions or ulcerations seen and the patient tolerated the procedure well. IMPRESSION: 1. 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 2. Or hiatal hernia. RECOMMENDATIONS: The findings of this examination were discussed with the patient as well as a family. She will continue with her current medications and iron supplements.. Monitor CBC on a monthly basis. Follow up in office in 3 months.
[2018-11-07 11:55] VITALS: RESP 16
[2018-11-07 12:48] VITALS: BP 105/63; PULSE 52
== END 2018-11-07 13:08 | disposition home or self-care (01) ==
LOC: ORWHC2ENDO 10:04
PROVIDERS: ATTEND Internal Medicine Gastroenterology
DX: K31.811 Angiodysplasia of stomach and duodenum with bleeding (principal); K44.9 Diaphragmatic hernia without obstruction or gangrene; D64.9 Anemia, unspecified; K92.1 Melena; Z87.19 Personal history of other diseases of the digestive system; I11.0 Hypertensive heart disease with heart failure; I50.9 Heart failure, unspecified; E11.42 Type 2 diabetes mellitus with diabetic polyneuropathy; Z79.84 Long term (current) use of oral hypoglycemic drugs; Z79.899 Other long term (current) drug therapy; Z88.5 Allergy status to narcotic agent
CPT/HCPCS: 43255; J2001; J2704

== ENCOUNTER → 2018-11-29 | Outpatient (CLI) | payer MEDICARE, BC ==
[2018-11-29 15:16] VITALS: BP 107/71; PULSE 58; RESP 18; TEMP 97.6
--- NOTE | 2018-11-29 15:26 | P.PN ---
Subjective Progress Note Date: 11/29/18 Principal diagnosis: left breast cancer Annette is a 78-year-old white female status post left mastectomy with sentinel node biopsy for high-grade DCIS performed on 7317. The lesion was approximately 2 cm in size. The patient is followed with medical oncologist Dr. Storm as well as for her watermelon stomach. She did not recommend any additional therapy for the breast cancer. She continues to take B12 shots for the watermelon stomach, as well as iron infusions She had a scope done about one month ago and she did some cautery. She has had no recent blood transfusions. The patient is no complications related to her mastectomy. She has no complaints related to her prior back pain. She is doing well at this time. The patient had a right breast mammogram done [id number]. This is BIRADS 1 negative she will have a repeat right breast mammogram in 1 year. Objective - Vital Signs Vital signs: Intake & Output 11/28/18 11/29/18 11/29/18 18:59 06:59 18:59 Weight 83.007 kg - Exam BMI 33.5 - Constitutional General appearance: Present: obese - EENT Eyes: Present: EOMI ENT: Present: hearing grossly normal - Neck Neck: Present: normal ROM - Respiratory Respiratory: bilateral: CTA - Cardiovascular Rhythm: regular Heart sounds: normal: S1, S2 - Gastrointestinal General gastrointestinal: Present: soft - Integumentary Integumentary: Present: normal turgor - Psychiatric Psychiatric: Present: A&O x's 3, appropriate affect, intact judgment & insight - Additional findings Additional findings: integument: Right breast: Multi-positional exam no dominant masses or nodules of concern, fibrocystic changes noted Right axilla: No adenopathy of concern Left chest wall: Well-healed scar no evidence of recurrent disease Left axilla: No adenopathy of concern Assessment and Plan Assessment: Impression: 1. status post left breast mastectomy 2. watermellon stomach Plan: 1. follow up in three months 2. no recurrent cancer at this time Cc: DR. Cardenas
== END ==
LOC: WWCWWP 14:38
PROVIDERS: ATTEND Surgery
DX: Z53.9 Procedure and treatment not carried out, unspecified reason (principal)

== ENCOUNTER → 2019-04-11 | Outpatient (CLI) | payer MEDICARE, BC ==
[2019-04-11 15:06] VITALS: BP 107/66; PULSE 64; RESP 18; TEMP 97.8; BMI 33.8
--- NOTE | 2019-04-11 15:43 | P.PN ---
Subjective Progress Note Date: 04/11/19 Principal diagnosis: Tis breast cancer, left mastectomy Annette is a 79-year-old white female status post left breast mastectomy and sentinel node biopsy 7318. Pathology was a proximally 2 cm DCIS sentinel nodes were negative. She did not have any radiation, chemo, or hormonal t herapy. She is doing well at this time with no complaints related to her breast surgery. She also has a history of watermelon stomach she receives iron infusions and B12 shots on a regular basis. She follows with Dr. Storm, medical oncology in [place]. Patient is uncertain as to when her last mammogram was done, she was told that this was okay. We will attempt to get these reports. Family History: brother: leukemia Hormonal History: menarche: 13 , breast fed: yes, first at 21 menopause: 50 BCP: none hormones: none Past Surgical History: 1. gallbladder 2. breast biopsy 3. hysterectomy 4. appy 4. toes 5. left mastectomy Medical history: 1. diabetes 2. HTN 3. high cholesterol 4. hypothyroid 5. neuropathy Social History: smoke: none alcohol: none drugs: none ROS: HEENT: glasses lungs: none heart: HTN GI: watermelon stomach : history of kidney stones Musculoskeletal: Epidurals and back for chronic back pain Skin: Negative psychiatric: Negative however patient has had intermittent large amount of stress lately neuro: neuropathy Allergies:seasonal Objective - Vital Signs Vital signs: Vital Signs Temp 97.8 F 04/11/19 14:58 Pulse 64 04/11/19 14:58 Resp 18 04/11/19 14:58 BP 107/66 04/11/19 14:58 Pulse Ox 98 04/11/19 14:58 Intake & Output 04/10/19 04/11/19 04/11/19 18:59 06:59 18:59 Weight 83.915 kg - Exam BMI 33.8 - Constitutional General appearance: Present: average body habitus - EENT Eyes: Present: EOMI ENT: Present: hearing grossly normal - Neck Neck: Present: normal ROM - Respiratory Respiratory: bilateral: CTA - Cardiovascular Rhythm: regular Heart sounds: normal: S1, S2 - Gastrointestinal Gastrointestinal Comment(s): no guarding or rebound General gastrointestinal: Present: soft - Integumentary Integumentary: Present: normal turgor - Musculoskeletal Musculoskeletal: Present: gait normal - Psychiatric Psychiatric: Present: A&O x's 3, appropriate affect, intact judgment & insight - Additional findings Additional findings: breast: right breast: Multiple positional exam no dominant masses or nodules of concern Fibrocystic changes Right axilla: No adenopathy of concern Left chest wall: No evidence of recurrent disease, well-healed scar, The patient has 2 dark nevi near her right shoulder area Assessment and Plan Assessment: Impression: 1. diabetes 2. HTN 3. high cholesterol 4. hypothyroid 5. neuropathy 6. left mastectomy Tis tumor; Stage 1A 7. no evidence of recurrent conditions 8. nevi shoulder Plan: 1. follow up in 6 months 2. medical management of medical conditions 3. excision of nevi CC: Rishi Pineda
== END | disposition home or self-care (01) ==
LOC: WWCWWP 14:23
PROVIDERS: ATTEND Surgery
DX: Z53.9 Procedure and treatment not carried out, unspecified reason (principal)

== ENCOUNTER 2019-08-09 08:52 | Day surgery (SDC) | payer MEDICARE, BC ==
[2019-08-07 09:42] VITALS: BMI 32.9
[2019-08-09 09:19] VITALS: TEMP 96.9
[2019-08-09] MEDS ORDERED: LIDOCAINE 1% INJ 10MG/ML (20 ML MDV) ONE (09:23)
[2019-08-09] MEDS ORDERED: PROPOFOL 10 MG/ML 20 ML VIAL IV ONE (09:23)
[2019-08-09 09:26] LABS: Glucose,Whole Blood 108 mg/dL (75-99)
--- NOTE | 2019-08-09 09:40 | P.PCN ---
Date of Procedure: 08/09/19 Procedure(s) Performed: BRIEF HISTORY: Patient is a 79-year-old, pleasant, female, scheduled for an upper endoscopy as a part of evaluation of recurrent anemia requiring blood transition. History of gastric antral vascular ectasia the past and last EGD with argon plasma coagulation was performed in October 2018.. Since then had recurrent anemia requiring total of 4 units of blood transfusion in the last 2 months. PROCEDURE PERFORMED: Esophagogastroduodenoscopy with argon plasma coaguation. PREOPERATIVE DIAGNOSIS: Anemia/history of gastric antral vascular ectasia. IV sedation per anesthesia. PROCEDURE: After informed consent was obtained, the patient was brought into the endoscopy unit. IV sedation was administered by Anesthesia under continuous monitoring. Initially the Olympus GIF-140 video endoscope was inserted into the mouth. Esophagus intubated without any difficulty. It was gradually advanced into the stomach and duodenum and carefully examined. The bulb and the second part of the duodenum appeared normal. The scope at this time was withdrawn to the stomach, adequately insufflated with air, and upon careful examination, mucosa of the antrum had moderate to severe gastric antral vascular ectasia with some areas that were oozing. Argon plasma coagulation was performed and all the telangiectasias were obliterated. The, body, cardia and the fundus appeared normal. The scope was then withdrawn into the esophagus. The GE junction was located at 39 cm from the incisors. The esophagus appeared normal. There were no erosions or ulcerations seen and the patient tolerated the procedure well. IMPRESSION: 1. Moderate to severe gastric antral vascular ectasia with some areas of oozing status post argon plasma coag lesions described above. RECOMMENDATIONS: The findings of this examination were discussed with the patient as well as a family. She will remain on a soft diet today. She'll monitor CBC on a monthly basis..
[2019-08-09 10:30] VITALS: BP 132/62; PULSE 54; RESP 18
== END 2019-08-09 10:31 | disposition home or self-care (01) ==
LOC: ORWHC2ENDO 08:52
PROVIDERS: ATTEND Internal Medicine Gastroenterology
DX: K31.811 Angiodysplasia of stomach and duodenum with bleeding (principal); D64.9 Anemia, unspecified; Z88.5 Allergy status to narcotic agent; I10 Essential (primary) hypertension; E78.5 Hyperlipidemia, unspecified; E11.9 Type 2 diabetes mellitus without complications; E07.9 Disorder of thyroid, unspecified; K21.9 Gastro-esophageal reflux disease without esophagitis; Z79.899 Other long term (current) drug therapy; Z79.890 Hormone replacement therapy
CPT/HCPCS: 43255 ×2; J2001; J2704; 43270

== ENCOUNTER → 2020-09-09 | Day surgery (SDC) | payer MEDICARE, BC ==
[~2020-09-09] MED LIST changes: -LIDOCAINE 1% 20 ML VIAL (10MG/ML) FOR IV START INTRADERMA PRN; +MIDAZOLAM 2 MG/2 ML VIAL ONE; +PROPOFOL 10 MG/ML 20 ML VIAL IV ONE; +fentaNYL (PF) 50 MCG/ML 2 ML AMP ONE
[2020-09-09 10:05] LABS: INR 0.9 (<1.2); Prothrombin Time 9.7 sec (9.0-12.0)
[2020-09-09 10:18] VITALS: TEMP 97.8
[2020-09-09 10:57] VITALS: BP 102/59; PULSE 60; RESP 16
[2020-09-09 11:24] LABS: Basophils % (A) 0 %; Eosinophils # (A) 0.1 k/uL (0-0.7); Eosinophils % (A) 3 %; HGB 8.3 gm/dL (11.4-16.0); Hypochromasia Marked; Lymphocytes # (A) 0.3 k/uL (1.0-4.8); Lymphocytes % (A) 6 %; MCHC 29.7 g/dL (31.0-37.0); MCV 104.4 fL (80.0-100.0); Macrocytosis Slight; Monocytes # (A) 0.2 k/uL (0-1.0); Monocytes % (A) 5 %; Neutrophils # (A) 3.7 k/uL (1.3-7.7); Neutrophils % (A) 84 %; RBC 2.68 m/uL (3.80-5.40); RDW 14.1 % (11.5-15.5); Reticulocyte % 7.5 % (0.5-2.0); WBC 4.4 k/uL (3.8-10.6)
[2020-09-09 11:26] LABS: Mean Platelet Volume 6.9; Platelet Count 234 k/uL (150-450)
--- NOTE | 2020-09-09 15:53 | CT ---
CT guided bone marrow biopsy EXAMINATION TYPE: CT biopsy bone marrow DATE OF EXAM: 09/09/2020 HISTORY: Iron deficiency anemia COMPARISON: None Maximal barrier technique was utilized, hand hygiene obtained with soap and water. The skin overlyin g a suitable path to the posterior ilium on the right was localized using CT and the overlying skin w as prepped and draped. Lidocaine used for local anesthesia. A skin óscar made with a scalpel. Using CT guidance, access was gained to the posterior right ilium with the bone marrow needle, 2 adjustmen ts in positioning were made due to needle length. Following introduction into the bone only minimal clear fluid was obtained, less than 1 cc. Bone core was obtained. Core specimen submitted to alexi rider. Following the procedure no immediate complications the patient discharged in the care of anesthe kymberly. The patient is discharged in stable condition. Hemostasis achieved. IMPRESSION: SUCCESSFUL CT GUIDED BONE BIOPSY, dry tap. PATHOLOGY PENDING. THIS PROCEDURE WAS PERFORMED BY THE Terri WOODRUFF.
== END ==
LOC: RADPROMAIN 08:57
PROVIDERS: ATTEND Internal Medicine Hematology & Oncology
DX: D50.9 Iron deficiency anemia, unspecified (principal); D46.9 Myelodysplastic syndrome, unspecified; E78.5 Hyperlipidemia, unspecified; K21.9 Gastro-esophageal reflux disease without esophagitis; E07.9 Disorder of thyroid, unspecified; Z88.5 Allergy status to narcotic agent; Z79.890 Hormone replacement therapy; Z79.1 Long term (current) use of non-steroidal anti-inflammatories (NSAID); Z79.899 Other long term (current) drug therapy; Z90.49 Acquired absence of other specified parts of digestive tract; Z90.710 Acquired absence of both cervix and uterus; Z85.3 Personal history of malignant neoplasm of breast
CPT/HCPCS: 82947; 85025; 85610; 85045; 36415; 77012; 38222; J2250; J3010; J2704

== ENCOUNTER 2020-11-12 18:33 | Inpatient (IN) | payer MEDICARE, BC ==
[2020-11-12 19:32] LABS: Basophils % (A) 1 %; Eosinophils # (A) 0.1 k/uL (0-0.7); Eosinophils % (A) 2 %; Hypochromasia Marked; Lymphocytes # (A) 0.5 k/uL (1.0-4.8); Lymphocytes % (A) 8 %; MCH 29.2 pg (25.0-35.0); MCHC 29.8 g/dL (31.0-37.0); Mean Platelet Volume 7.3; Monocytes # (A) 0.3 k/uL (0-1.0); Monocytes % (A) 6 %; Neutrophils # (A) 4.6 k/uL (1.3-7.7); Neutrophils % (A) 82 %; Platelet Count 296 k/uL (150-450); Poikilocytosis Slight; RBC 1.92 m/uL (3.80-5.40); RDW 14.6 % (11.5-15.5); WBC 5.6 k/uL (3.8-10.6)
--- NOTE | 2020-11-12 19:37 | ED ---
Recheck HPI - General Chief Complaint: Recheck/Abnormal Lab/Rx Stated Complaint: Low Hemoglobin Time Seen by Provider: 11/12/20 19:04 Source: patient Mode of arrival: ambulatory Limitations: no limitations - History of Present Illness Initial Comments: 80-year-old female patient presents to the emergency department today for evaluation of low hemoglobin. Patient had outpatient labs done at [facility] today and was told her hemoglobin was 5.1. Patient states that she has had issues with her hemoglobin for the last several years. States that she was found to have bleeding in her stomach by Dr. Grove and has had multiple procedures to cauterize the area. Patient states that her stool is normally dark due to taking a daily iron supplement. She denies any remberto blood per rectum. She is reporting dizziness, weakness, and shortness of breath with this. States that she has had multiple blood transfusions in the past. States that her p hysician told her she would probably need 3 units and sent her here because they only had 2 units of blood at [facility]. Patient denies any recent rash, fever, chills, cough, chest pain, abdominal pain, nausea, vomiting, diarrhea, constipation, back pain, numbness, tingling, hematuria, dysuria, urinary urgency, urinary frequency, headache, visual changes, or any other complaints. - Related Data Home Medications Medication Instructions Recorded Confirmed Gabapentin [Neurontin] 300 mg PO TID 10/26/15 11/12/20 Lovastatin [Mevacor] 40 mg PO HS 10/26/15 11/12/20 Ubidecarenone [Co Q-10] 100 mg PO DAILY@1200 10/26/15 11/12/20 calcitrioL [Rocaltrol] 0.25 mcg PO SA 09/07/16 11/12/20 Levothyroxine Sodium [Synthroid] 88 mcg PO QAM 05/09/17 11/12/20 Omeprazole [PriLOSEC] 20 mg PO AC-BRKFST 09/28/17 11/12/20 Furosemide [Lasix] 20 mg PO DAILY 05/03/18 11/12/20 Cholecalciferol [Vitamin D3] 1,000 unit PO DAILY 11/05/18 11/12/20 Cyanocobalamin [Vitamin B-12 1,000 mcg INJ Q28D 11/05/18 11/12/20 Injection] Ferrous Sulfate [Feosol] 325 mg PO HS 11/05/18 11/12/20 Potassium Chloride [Klor-Con 20] 20 meq PO DAILY 08/31/20 11/12/20 traMADol HCL [Ultram] 50 mg PO Q6HR PRN 08/31/20 11/12/20 Magnesium Oxide [Magox 400] 400 mg PO HS 11/12/20 11/12/20 Metoprolol Tartrate [Lopressor] 25 mg PO BID 11/12/20 11/12/20 Pantoprazole Sodium [Protonix] 40 mg PO BID-W/MEALS 11/12/20 11/12/20 glipiZIDE [Glucotrol] 5 mg PO BID 11/12/20 11/12/20 Allergies Allergy/AdvReac Type Severity Reaction Status Date / Time codeine AdvReac STOMACH Verified 11/12/20 21:10 PROBLEMS- "FEELS LIKE A KNOT IN STOMACH" propoxyphene HCl AdvReac NIGHTMARES Verified 11/12/20 21:10 [From [facility]] Review of Systems ROS Statement: Those systems with pertinent positive or pertinent negative responses have been documented in the HPI. ROS Other: All systems not noted in ROS Statement are negative. Past Medical History Past Medical History: Diabetes Mellitus, GERD/Reflux, GI Bleed, Hypertension, Osteoarthritis (OA), Renal Disease, Thyroid Disorder Additional Past Medical History / Comment(s): Upper GI bleed, iron deficiency anemia, has gotten iron infusions, neuropathy bilateral feet, bilateral ankle edema, arthritis hands/fingers, hx. breast cancer April 2018, watermelon stomach GAVE Last Myocardial Infarction Date:: UNKN History of Any Multi-Drug Resistant Organisms: None Reported Past Surgical History: Appendectomy, Breast Surgery, Cholecystectomy, Hysterectomy, Joint Replacement, Orthopedic Surgery Additional Past Surgical History / Comment(s): CESARIO GREAT TOE JOINT REPLACED, VEIN STRIPPING LT LEG, BILATERAL CARPAL TUNNEL RELEASES, L THUMB TENDON REPAIR. left mastectomy April 2018 Past Anesthesia/Blood Transfusion Reactions: No Reported Reaction Additional Past Anesthesia/Blood Transfusion Reaction / Comment(s): PT HAS RECEIVED BLOOD WITHOUT REACTION. Past Psychological History: No Psychological Hx Reported Smoking Status: Never smoker Past Alcohol Use History: None Reported Past Drug Use History: None Reported - Past Family History Brother(s) Family Medical History: Cancer Additional Family Medical History / Comment(s): leukemia General Exam Limitations: no limitations General appearance: alert, in no apparent distress, other (This is a well developed, well nourished adult female patient in no acute distress. Vital signs upon presentation are temp 98.2, pulse 71, respirations 18, BP 107/57, Pulse ox 94% room air.) ENT exam: Present: normal exam, normal oropharynx, mucous membranes moist Respiratory exam: Present: normal lung sounds bilaterally. Absent: respiratory distress, wheezes, rales, rhonchi, stridor Cardiovascular Exam: Present: regular rate, normal rhythm, normal heart sounds. Absent: systolic murmur, diastolic murmur, rubs, gallop, clicks GI/Abdominal exam: Present: soft, normal bowel sounds. Absent: distended, tenderness, guarding, rebound, rigid Neurological exam: Present: alert, oriented X3, CN II-XII intact Psychiatric exam: Present: normal affect, normal mood Skin exam: Present: warm, dry, intact, pallor. Absent: normal color, rash Course Vital Signs 11/12/20 11/12/20 11/12/20 18:47 19:29 20:46 Temperature 98.2 F 98.1 F Pulse Rate 71 72 71 Respiratory 18 19 18 Rate Blood Pressure 107/57 113/62 104/56 O2 Sat by Pulse 94 L 98 Oximetry 11/12/20 11/12/20 11/12/20 20:48 20:58 21:28 Temperature 98.1 F 98.2 F 97.8 F Pulse Rate 61 71 70 Respiratory 18 18 19 Rate Blood Pressure 116/69 115/55 109/47 O2 Sat by Pulse 98 Oximetry Medical Decision Making - Medical Decision Making 80-year-old female patient presents to the emergency department today for evaluation of low hemoglobin. Physical examination is unremarkable. She is reporting weakness, dizziness, shortness of breath. Vital signs have been stable. Labs reviewed and did reveal hemoglobin of 5.6, hematocrit 18.8. BUN 31, creatinine 1.52. Stool was positive for occult blood. She will be admitted to the hospital and given 2 units of packed red blood cells. She is agreeable to this plan. - Lab Data Result diagrams: 11/12/20 19:25 11/12/20 19:25 Lab Results 11/12/20 11/12/20 11/12/20 Range/Units 19:19 19:25 19:25 WBC 5.6 (3.8-10.6) k/uL RBC 1.92 L (3.80-5.40) m/uL Hgb 5.6 L* D (11.4-16.0) gm/dL Hct 18.8 L* (34.0-46.0) % MCV 98.3 D (80.0-100.0) fL MCH 29.2 (25.0-35.0) pg MCHC 29.8 L (31.0-37.0) g/dL RDW 14.6 (11.5-15.5) % Plt Count 296 (150-450) k/uL MPV 7.3 Neutrophils % 82 % Lymphocytes % 8 % Monocytes % 6 % Eosinophils % 2 % Basophils % 1 % Neutrophils # 4.6 (1.3-7.7) k/uL Lymphocytes # 0.5 L (1.0-4.8) k/uL Monocytes # 0.3 (0-1.0) k/uL Eosinophils # 0.1 (0-0.7) k/uL Basophils # 0.0 (0-0.2) k/uL Hypochromasia Marked Poikilocytosis Slight PT 9.7 (9.0-12.0) sec INR 0.9 (<1.2) APTT 19.8 L (22.0-30.0) sec Sodium (137-145) mmol/L Potassium (3.5-5.1) mmol/L Chloride (98-107) mmol/L Carbon Dioxide (22-30) mmol/L Anion Gap mmol/L BUN (7-17) mg/dL Creatinine (0.52-1.04) mg/dL Est GFR (CKD-EPI)AfAm (>60 ml/min/1.73 sqM) Est GFR (CKD-EPI)NonAf (>60 ml/min/1.73 sqM) Glucose (74-99) mg/dL Calcium (8.4-10.2) mg/dL Magnesium (1.6-2.3) mg/dL Total Bilirubin (0.2-1.3) mg/dL AST (14-36) U/L ALT (4-34) U/L Alkaline Phosphatase (38-126) U/L Troponin I (0.000-0.034) ng/mL Total Protein (6.3-8.2) g/dL Albumin (3.5-5.0) g/dL Stool Occult Blood (Negative) Blood Type A Negative Blood Type Recheck A Neg Bld Type Recheck Status No Antibody Screen NEGATIVE Crossmatch See Detail Spec Expiration Date 11/15/2020 - 232411/12/20 11/12/20 11/12/20 Range/Units 19:25 19:25 20:18 WBC (3.8-10.6) k/uL RBC (3.80-5.40) m/uL Hgb (11.4-16.0) gm/dL Hct (34.0-46.0) % MCV (80.0-100.0) fL MCH (25.0-35.0) pg MCHC (31.0-37.0) g/dL RDW (11.5-15.5) % Plt Count (150-450) k/uL MPV Neutrophils % % Lymphocytes % % Monocytes % % Eosinophils % % Basophils % % Neutrophils # (1.3-7.7) k/uL Lymphocytes # (1.0-4.8) k/uL Monocytes # (0-1.0) k/uL Eosinophils # (0-0.7) k/uL Basophils # (0-0.2) k/uL Hypochromasia Poikilocytosis PT (9.0-12.0) sec INR (<1.2) APTT (22.0-30.0) sec Sodium 132 L (137-145) mmol/L Potassium 4.6 (3.5-5.1) mmol/L Chloride 105 (98-107) mmol/L Carbon Dioxide 21 L (22-30) mmol/L Anion Gap 6 mmol/L BUN 31 H (7-17) mg/dL Creatinine 1.52 H (0.52-1.04) mg/dL Est GFR (CKD-EPI)AfAm 37 (>60 ml/min/1.73 sqM) Est GFR (CKD-EPI)NonAf 32 (>60 ml/min/1.73 sqM) Glucose 91 (74-99) mg/dL Calcium 8.8 (8.4-10.2) mg/dL Magnesium 2.5 H (1.6-2.3) mg/dL Total Bilirubin 0.2 (0.2-1.3) mg/dL AST 24 (14-36) U/L ALT 10 (4-34) U/L Alkaline Phosphatase 60 (38-126) U/L Troponin I 0.023 (0.000-0.034) ng/mL Total Protein 6.1 L (6.3-8.2) g/dL Albumin 3.7 (3.5-5.0) g/dL Stool Occult Blood Positive H (Negative) Blood Type Blood Type Recheck Bld Type Recheck Status Antibody Screen Crossmatch Spec Expiration Date - EKG Data -: EKG Interpreted by Nm EKG Comments: EKG obtained in 191 shows normal sinus rhythm with a ventricular rate is 68, when necessary interval 154, QRS duration 92, QT 442, QTc 469. No evidence of ST elevation or depression. Disposition Clinical Impression: Anemia, GI bleed Disposition: ADMITTED IP TO THIS [facility] Condition: Serious Decision to Admit Reason: Admit from EC Decision Date: 11/12/20 Decision Time: 20:14
[2020-11-12 19:40] LABS: HCT 18.8 % (34.0-46.0); HGB 5.6 gm/dL (11.4-16.0); MCV 98.3 fL (80.0-100.0)
[2020-11-12 19:43] LABS: Albumin 3.7 g/dL (3.5-5.0); Calcium 8.8 mg/dL (8.4-10.2); Magnesium 2.5 mg/dL (1.6-2.3); Potassium 4.6 mmol/L (3.5-5.1); Total Bilirubin 0.2 mg/dL (0.2-1.3); Total Protein 6.1 g/dL (6.3-8.2)
[2020-11-12 19:50] LABS: INR 0.9 (<1.2); Partial Thromboplastin Time 19.8 sec (22.0-30.0); Prothrombin Time 9.7 sec (9.0-12.0)
[2020-11-12] MEDS ORDERED: NALOXONE 0.4 MG/ML 1 ML VIAL IV PRN (20:14)
[2020-11-13 04:42] LABS: HCT 23.1 % (34.0-46.0); Hypochromasia Marked; MCH 29.7 pg (25.0-35.0); MCHC 32.3 g/dL (31.0-37.0); Mean Platelet Volume 8.2; Platelet Count 208 k/uL (150-450); Poikilocytosis Moderate; RBC 2.51 m/uL (3.80-5.40)
[2020-11-13 04:47] LABS: HGB 7.4 gm/dL (11.4-16.0)
[2020-11-13 06:33] LABS: Glucose,Whole Blood 84 mg/dL (75-99)
[2020-11-13] MEDS ORDERED: traMADol 50 MG TAB PO PRN (07:18)
[2020-11-13] MEDS: GABAPENTIN 300 MG CAP PO SCH ×3 (08:11→22:11)
[2020-11-13] MEDS: LEVOTHYROXINE 88 MCG TAB PO SCH (08:11)
[2020-11-13] MEDS: PANTOPRAZOLE 40 MG/10 ML VIAL IVP SCH ×2 (08:11→22:12)
[2020-11-13] MEDS: POTASSIUM CHLORIDE ER 20 MEQ TAB.ER PO SCH (08:11)
[2020-11-13] MEDS: FUROSEMIDE 20 MG TAB PO SCH (08:11)
[2020-11-13 08:53] LABS: Anisocytosis Slight; HCT 23.8 % (34.0-46.0); HGB 8.2 gm/dL (11.4-16.0); Hypochromasia Marked; MCH 32.2 pg (25.0-35.0); MCHC 34.6 g/dL (31.0-37.0); Mean Platelet Volume 8.1; Platelet Count 208 k/uL (150-450); Poikilocytosis Moderate; RBC 2.56 m/uL (3.80-5.40); RDW 16.4 % (11.5-15.5); WBC 5.5 k/uL (3.8-10.6)
--- NOTE | 2020-11-13 09:41 | P.HPIM ---
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 He was sent to the hospital for abnormal labs with low hemoglobin of 5.1 done at [facility]. She follows up with her transitional studies instructor Dr. Grove. Upon recommendation of Dr. Grove patient has been checking her hemoglobin every 2 weeks at [facility], she's been doing that for the last 6 months that the patient cannot remember for prolonged. Patient denies any abdominal pain, no chest pain, no nausea vomiting, no change in urine or bowel habits. No fever. Vitas looks stable. Hemoglobin on admission was 5.6, went up to 7.4 after blood transfusion, risks of CBC is unremarkable, and INR is 0.9, sodium is 132, creatinine is elevated at 1.5. Heme occult blood in the stool was positive. Liver enzymes are not elevated. EKG showing normal sinus rhythm at [address]-T changes. Review of Systems CONSTITUTIONAL: No fever, no malaise, no fatigue. HEENT: No recent visual problems or hearing problems. Denied any sore throat. CARDIOVASCULAR: No orthopnea, PND, no palpitations, no syncope. PULMONARY: No shortness of breath, no cough, no hemoptysis. GASTROINTESTINAL: No diarrhea, no nausea, no vomiting, no abdominal pain. Normoactive bowel sounds. NEUROLOGICAL: No headaches, no weakness, no numbness. HEMATOLOGICAL: Denies any bleeding or petechiae. GENITOURINARY: Denies any burning micturition, frequency, or urgency. MUSCULOSKELETAL/RHEUMATOLOGICAL: Denies any joint pain, swelling, or any muscle pain. ENDOCRINE: Denies any polyuria or polydipsia. Past Medical History Past Medical History: Diabetes Mellitus, GERD/Reflux, GI Bleed, Hypertension, Osteoarthritis (OA), Renal Disease, Thyroid Disorder Additional Past Medical History / Comment(s): Upper GI bleed, iron deficiency anemia, has gotten iron infusions, neuropathy bilateral feet, bilateral ankle edema, arthritis hands/fingers, hx. breast cancer April 2018, watermelon stomach GAVE Last Myocardial Infarction Date:: UNKN History of Any Multi-Drug Resistant Organisms: None Reported Past Surgical History: Appendectomy, Breast Surgery, Cholecystectomy, Hysterectomy, Joint Replacement, Orthopedic Surgery Additional Past Surgical History / Comment(s): CESARIO GREAT TOE JOINT REPLACED, VEIN STRIPPING LT LEG, BILATERAL CARPAL TUNNEL RELEASES, L THUMB TENDON REPAIR. left mastectomy April 2018 Past Anesthesia/Blood Transfusion Reactions: No Reported Reaction Additional Past Anesthesia/Blood Transfusion Reaction / Comment(s): PT HAS RECEIVED BLOOD WITHOUT REACTION. Past Psychological History: No Psychological Hx Reported Additional Psychological History / Comment(s): . Smoking Status: Never smoker Past Alcohol Use History: None Reported Past Drug Use History: None Reported - Past Family History Brother(s) Family Medical History: Cancer Additional Family Medical History / Comment(s): leukemia Medications and Allergies Home Medications Medication Instructions Recorded Confirmed Type Gabapentin [Neurontin] 300 mg PO TID 10/26/15 11/12/20 History Lovastatin [Mevacor] 40 mg PO HS 10/26/15 11/12/20 History Ubidecarenone [Co Q-10] 100 mg PO DAILY@1200 10/26/15 11/12/20 History calcitrioL [Rocaltrol] 0.25 mcg PO SA 09/07/16 11/12/20 History Levothyroxine Sodium [Synthroid] 88 mcg PO QAM 05/09/17 11/12/20 History Omeprazole [PriLOSEC] 20 mg PO AC-BRKFST 09/28/17 11/12/20 History Furosemide [Lasix] 20 mg PO DAILY 05/03/18 11/12/20 History Cholecalciferol [Vitamin D3] 1,000 unit PO DAILY 11/05/18 11/12/20 History Cyanocobalamin [Vitamin B-12 1,000 mcg INJ Q28D 11/05/18 11/12/20 History Injection] Ferrous Sulfate [Feosol] 325 mg PO HS 11/05/18 11/12/20 History Potassium Chloride [Klor-Con 20] 20 meq PO DAILY 08/31/20 11/12/20 History traMADol HCL [Ultram] 50 mg PO Q6HR PRN 08/31/20 11/12/20 History Magnesium Oxide [Magox 400] 400 mg PO HS 11/12/20 11/12/20 History Metoprolol Tartrate [Lopressor] 25 mg PO BID 11/12/20 11/12/20 History Pantoprazole Sodium [Protonix] 40 mg PO BID-W/MEALS 11/12/20 11/12/20 History glipiZIDE [Glucotrol] 5 mg PO BID 11/12/20 11/12/20 History Allergies Allergy/AdvReac Type Severity Reaction Status Date / Time codeine AdvReac STOMACH Verified 11/12/20 21:10 PROBLEMS- "FEELS LIKE A KNOT IN STOMACH" propoxyphene HCl AdvReac NIGHTMARES Verified 11/12/20 21:10 [From [facility]] Physical Exam Vitals: Vital Signs Temp Pulse Pulse Resp BP BP Pulse Ox 11/13/20 04:09 97.6 F 59 L 18 108/67 97 11/13/20 04:00 97.6 F 59 L 18 108/67 97 11/13/20 00:11 97.8 F 62 18 115/67 100 11/13/20 00:00 97.8 F 62 18 115/67 100 11/12/20 23:41 97.1 F L 62 19 104/64 100 11/12/20 23:31 98.0 F 60 18 103/56 100 11/12/20 23:02 98.4 F 59 L 18 110/56 100 11/12/20 22:30 98.1 F 60 16 105/55 100 11/12/20 22:00 98 F 64 17 109/52 99 11/12/20 21:44 98 F 62 18 114/52 100 11/12/20 21:28 97.8 F 70 19 109/47 98 11/12/20 20:58 98.2 F 71 18 115/55 11/12/20 20:48 98.1 F 61 18 116/69 11/12/20 20:46 98.1 F 71 18 104/56 11/12/20 19:29 72 19 113/62 98 11/12/20 18:47 98.2 F 71 18 107/57 94 L Intake and Output 11/12/20 11/13/20 11/13/20 22:59 06:59 14:59 Intake Total 0 1920 Balance 0 1920 Intake: Amount of Fluid Infused ( 350 ml) Oral 950 Blood Product 0 620 Rc As-1 Unit 310 [id number] Rc As-1 Unit 0 310 [id number] Other: Voiding Method Toilet Weight 77.564 kg 75.2 kg GENERAL: The patient is alert and oriented x3, not in any acute distress. Well d eveloped, well nourished. HEENT: Pupils are round and equally reacting to light. EOMI. No scleral icterus. No conjunctival pallor. Normocephalic, atraumatic. No pharyngeal erythema. No thyromegaly. CARDIOVASCULAR: S1 and S2 present. No murmurs, rubs, or gallops. PULMONARY: Chest is clear to auscultation, no wheezing or crackles. ABDOMEN: Soft, nontender, nondistended, normoactive bowel sounds. No palpable organomegaly. MUSCULOSKELETAL: No joint swelling or deformity. EXTREMITIES: No cyanosis, clubbing, or pedal edema. NEUROLOGICAL: Gross neurological examination did not reveal any focal deficits. SKIN: No rashes. No petechiae Results CBC & Chem 7: 11/13/20 07:39 11/12/20 19:25 Labs: Abnormal Lab Results - Last 24 Hours (Table) 11/12/20 11/12/20 11/12/20 Range/Units 19:19 19:25 19:25 RBC 1.92 L (3.80-5.40) m/uL Hgb 5.6 L* D (11.4-16.0) gm/dL Hct 18.8 L* (34.0-46.0) % MCHC 29.8 L (31.0-37.0) g/dL RDW (11.5-15.5) % Lymphocytes # 0.5 L (1.0-4.8) k/uL APTT 19.8 L (22.0-30.0) sec Sodium (137-145) mmol/L Carbon Dioxide (22-30) mmol/L BUN (7-17) mg/dL Creatinine (0.52-1.04) mg/dL Magnesium (1.6-2.3) mg/dL Total Protein (6.3-8.2) g/dL Stool Occult Blood (Negative) Crossmatch See Detail 11/12/20 11/12/20 11/13/20 Range/Units 19:25 20:18 03:32 RBC 2.51 L (3.80-5.40) m/uL Hgb 7.4 L D (11.4-16.0) gm/dL Hct 23.1 L (34.0-46.0) % MCHC (31.0-37.0) g/dL RDW 16.0 H (11.5-15.5) % Lymphocytes # (1.0-4.8) k/uL APTT (22.0-30.0) sec Sodium 132 L (137-145) mmol/L Carbon Dioxide 21 L (22-30) mmol/L BUN 31 H (7-17) mg/dL Creatinine 1.52 H (0.52-1.04) mg/dL Magnesium 2.5 H (1.6-2.3) mg/dL Total Protein 6.1 L (6.3-8.2) g/dL Stool Occult Blood Positive H (Negative) Crossmatch Assessment and Plan Assessment: Acute GI bleed Severe acute blood loss anemia present on admission History of gastric antral ectasia status post argon plasma coagulation on EGD done 08/09/2019 Acute kidney injury, with possible elements of chronic kidney disease secondary to diabetic nephropathy. Diabetes mellitus Hypertension Diabetic neuropathy Osteoarthritis Hypothyroidism History of GERD History of breast cancer on . Plan: This is a pleasant 80 years old female who presents with low hemoglobin most likely secondary to abnormal ectasia blood vessel of the stomach, status post blood transfusion. Monitor hemoglobin and transfuse as needed for hemoglobin less than 7. GI consult. Continue with Protonix. Continue with ferrous sulfate Labs d medication were reviewed.. Continue same treatment. Continue with symptomatic treatment. Resume home medication. Monitor lytes and vitals. DVT and GI prophylaxis. Further recommendations depends on the clinical course of the patient DVT prophylaxis: no heparin and review of GI bleed GI Prophylaxis: Ppi We will discharge once patient got cleared by GI team to go home
[2020-11-13 11:35] LABS: Glucose,Whole Blood 175 mg/dL (75-99)
[2020-11-13 14:55] LABS: Anisocytosis Slight; HCT 23.9 % (34.0-46.0); HGB 7.5 gm/dL (11.4-16.0); Hypochromasia Marked; MCH 29.3 pg (25.0-35.0); MCHC 31.3 g/dL (31.0-37.0); MCV 93.6 fL (80.0-100.0); Mean Platelet Volume 6.9; Platelet Count 224 k/uL (150-450); Poikilocytosis Moderate; RBC 2.55 m/uL (3.80-5.40); RDW 16.3 % (11.5-15.5); WBC 4.4 k/uL (3.8-10.6)
--- NOTE | 2020-11-13 16:07 | CONS ---
CONSULTATION DATE OF DICTATION: November 13, 2020 REASON FOR CONSULTATION: Severe symptomatic anemia. HISTORY OF PRESENT ILLNESS: The patient is an 80-year-old pleasant white female known to me from her previous hospitalizations and office visits has history of gastric antral vascular ectasia for which she needs periodic upper endoscopy with argon plasma coagulation. The last one was performed in May of 2019. She presented with severe symptomatic anemia and hemoglobin of 5.6 requiring 3 units of PRBC transfusion. She is doing better. She denies any abdominal pain. No nausea or vomiting. She has been on chronic iron replacement therapy, iron supplements and her stools are usually black in color. She denies any abdominal pain. No nausea, no vomiting. No rectal bleeding or melena. PAST MEDICAL HISTORY: Significant for gastric antral vascular ectasia diagnosed 5 years ago, history of hypertension, hyperlipidemia, hypothyroidism, gastroesophageal reflux disease, degenerative joint disease, diabetes mellitus. MEDICATIONS: Medications at home include Rocaltrol, Synthroid, Prilosec, Lasix, vitamin D3, vitamin B12, Feosol, K-Karina, Ultram, magnesium oxide, Lopressor, Protonix, Glucotrol, Neurontin, Mevacor, and coenzyme Q10. ALLERGIES: Allergies to CODEINE and PROPOXYPHENE. SOCIAL HISTORY: No smoking. No alcohol use. FAMILY HISTORY: Unremarkable. Brother had some leukemia. PAST SURGICAL HISTORY: Multiple EGDs in the past, appendectomy, breast surgery, cholecystectomy, hysterectomy. REVIEW OF SYSTEMS: CARDIOPULMONARY: She denies any chest pain or shortness of breath. GENITOURINARY: No dysuria or hematuria. MUSCULOSKELETAL: Unremarkable except for chronic back pain and arthritis. NEUROLOGY: Unremarkable. ENT/VISION: Unremarkable. CONSTITUTIONAL: No recent weight loss. No fever, chills, night sweats. HEMATOLOGY: Severe anemia requiring 3 units of PRBC transfusion. PHYSICAL EXAMINATION: She appears comfortable, no apparent distress. Vital signs are stable. Blood pressure 124/60, pulse rate 71, temperature 98.1. HEENT EXAMINATION: Unremarkable. Conjunctivae pink. Sclerae anicteric. Oral cavity, no lesions. NECK: No JVD or lymph node enlargement. CHEST: Was clear to auscultation. HEART: Regular rate and rhythm. ABDOMEN: Soft. Bowel sounds are positive. No organomegaly. EXTREMITIES: No pedal edema. NEURO: She is alert and oriented x3. No focal deficits. LABS: WBC 5.6, hemoglobin 5.6, platelets 296. Today hemoglobin is 8.2. BUN 31, creatinine 1.52. AST, ALT, T-bilirubin and alkaline phosphatase are within normal limits. Stool occult blood was positive. IMPRESSION: 1. Severe symptomatic anemia with a hemoglobin of 5.2 g/dL requiring 3 units of PRBC transfusion. Clinically no evidence of active bleeding, but patient has Hemoccult- positive stool. She was diagnosed with gastric antral vascular ectasia requiring multiple upper endoscopies over the last several years with argon plasma coagulation, last one in May of 2019. Her last colonoscopy was 3 years ago that was within normal limits. 2. History of hypertension and hyperlipidemia. 3. History of diabetes mellitus. RECOMMENDATIONS: 1. Start on Protonix 40 mg twice daily. 2. Clear liquid diet. 3. Schedule for EGD tomorrow. I discussed with the patient risks, benefits and complications and she is agreeable to it. 4. Repeat CBC in the morning and will follow with you closely. Thank you for this consultation. YANICKL / IJN: [id number] /
[2020-11-13 16:32] LABS: Glucose,Whole Blood 98 mg/dL (75-99)
[2020-11-13 20:30] LABS: Glucose,Whole Blood 121 mg/dL (75-99)
[2020-11-13] MEDS ORDERED: FERROUS SULFATE 325 MG TAB PO SCH (21:00)
[2020-11-14] MEDS: LEVOTHYROXINE 88 MCG TAB PO SCH (05:44)
[2020-11-14 06:26] LABS: Glucose,Whole Blood 101 mg/dL (75-99)
[2020-11-14] MEDS ORDERED: LACTATED RINGERS 1,000 ML IV ONE (07:28)
[2020-11-14] MEDS ORDERED: PROPOFOL 10 MG/ML 20 ML VIAL IV ONE (07:30)
[2020-11-14] MEDS ORDERED: LIDOCAINE 1% INJ 10MG/ML (20 ML MDV) ONE (07:30)
--- NOTE | 2020-11-14 07:58 | P.PCN ---
Date of Procedure: 11/14/20 Procedure(s) Performed: BRIEF HISTORY: Patient is a 80-year-old, pleasant, female with history of gastric antral vascular ectasia, admitted hospital with severe symptomatic anemia and hemoglobin of 5.6 requiring 3 units of PRBC transition. She is been having intermittent dark colored stools.. PROCEDURE PERFORMED: Esophagogastroduodenoscopy with argon plasma coagulation. PREOPERATIVE DIAGNOSIS: Severe symptomatic anemia and dark stools. IV sedation per anesthesia. PROCEDURE: After informed consent was obtained, the patient was brought into the endoscopy unit. IV sedation was administered by Anesthesia under continuous monitoring. Initially the Olympus GIF-140 video endoscope was inserted into the mouth. Esophagus intubated without any difficulty. It was gradually advanced into the stomach and duodenum and carefully examined. The bulb and the second part of the duodenum appeared normal. The scope at this time was withdrawn to the stomach, adequately insufflated with air, and upon careful examination, mucosa of the antrum, had severe vascular ectasia with active oozing and argon plasma coagulation was performed with good hemostasis and a bit duration of the vascular ectasia. Mucosa of the body, cardia and the fundus appeared normal. The scope was then withdrawn into the esophagus. The GE junction was located at 39 cm from the incisors. The esophagus appeared normal. There were no erosions or ulcerations seen and the patient tolerated the procedure well. IMPRESSION: 1. Severe gastric antral vascular ectasia with oozing status post argon plasma coag ablation as described above. RECOMMENDATIONS: The findings of this examination were discussed with the patient as well as a family. She was advised to continue with iron supplements and diet will be advanced as tolerated. She can be discharged home today with outpatient follow-up to see me in Several
[2020-11-14 08:08] VITALS: TEMP 97.7
[2020-11-14] MEDS: GABAPENTIN 300 MG CAP PO SCH (09:06)
[2020-11-14] MEDS: FUROSEMIDE 20 MG TAB PO SCH (09:06)
[2020-11-14] MEDS: PANTOPRAZOLE 40 MG/10 ML VIAL IVP SCH (09:06)
[2020-11-14] MEDS: POTASSIUM CHLORIDE ER 20 MEQ TAB.ER PO SCH (09:06)
[2020-11-14 11:39] LABS: Glucose,Whole Blood 92 mg/dL (75-99)
[2020-11-14 12:16] VITALS: BP 101/61; PULSE 62; RESP 16
--- NOTE | 2020-11-15 01:08 | P.DS ---
Providers Date of admission: 11/12/20 21:19 Attending physician: Flower Holman MD Consults: 11/13/20 09:40 Consult Physician Urgent Consulting Provider: Yuki Grove Consult Reason/Comments: low Hb Do you want consulting provider notified?: Yes Primary care physician: [facility] Course: Date of service: Patient seen and examined by me on 11/14/20 Diagnoses: Acute GI bleed, status post EGD on 11/14 showing Severe gastric antral vascular ectasia with oozing status post argon plasma coag ablation Severe acute blood loss anemia present on admission, improved with blood transfusion History of gastric antral ectasia status post argon plasma coagulation on EGD done 08/09/2019 Acute kidney injury, with possible elements of chronic kidney disease secondary to diabetic nephropathy. Diabetes mellitus Hypertension Diabetic neuropathy Osteoarthritis Hypothyroidism History of GERD History of breast cancer on . 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 He was sent to the hospital for abnormal labs with low hemoglobin of 5.1 done at [facility]. She follows up with her offal baler Dr. Grove. Upon recommendation of Dr. Grove patient has been checking her hemoglobin every 2 weeks at [facility], she's been doing that for the last 6 months that the patient cannot remember for a long period On the presentation. Hemoglobin was 5.6, patient received 2 units of blood transfusion and her hemoglobin went up to 7.5. She underwent EGD with Dr. Grove found severe gastric antral vascular ectasia with oozing status post argon plasma coag ablation. Postprocedure patient was fully awake and oriented, she was asymptomatic and she was eager to go home after Dr. Grove cleared her, patient was admitted to leave and does not want to wait. She denies any other complaints Patient denies any abdominal pain, no chest pain, no nausea vomiting, no change in urine or bowel habits. No fever. Patient was cleared for discharge by Dr. Grove Problems and management plan were discussed with the patient and he verbalized understanding and acceptance Patient was found stable and can be discharged home however he needs follow-up as an outpatient. Patient was instructed to follow up with PCP Dr. Arjun Copeland within one week and patient agrees, patient was instructed to check her CBC and BMP with and she agrees. Also patient was instructed to follow up with Dr. Grove in one week and she told me she is going to call [facility] today to make an appointment, they are open for appointments even if it is weekend because of his hospital as she informs me. Physical exam Gen: patient is a AAOx3, no distress CVS: S1-S2, RRR, no murmur Lungs: B/L CTA, no wheezing Abdomen: soft, no distention, no tenderness, positive bowel sounds Extremity: no leg edema or induration Time spent more than 35 minutes Patient Condition at Discharge: Fair Plan - Discharge Summary Discharge Rx Participant: Yes New Discharge Prescriptions: Continue Ubidecarenone [Co Q-10] 100 mg PO DAILY@1200 Lovastatin [Mevacor] 40 mg PO HS Gabapentin [Neurontin] 300 mg PO TID calcitrioL [Rocaltrol] 0.25 mcg PO SA Levothyroxine Sodium [Synthroid] 88 mcg PO QAM Omeprazole [PriLOSEC] 20 mg PO AC-BRKFST Furosemide [Lasix] 20 mg PO DAILY Cholecalciferol [Vitamin D3 (25 Mcg = 1000 Iu)] 1,000 unit PO DAILY Cyanocobalamin [Vitamin B-12 Injection] 1,000 mcg INJ Q28D traMADol HCL [Ultram] 50 mg PO Q6HR PRN PRN Reason: Pain Potassium Chloride [Klor-Con 20] 20 meq PO DAILY Magnesium Oxide [Magox 400] 400 mg PO HS Pantoprazole Sodium [Protonix] 40 mg PO BID-W/MEALS Changed Ferrous Sulfate [Iron (65 MG Elemental)] 325 mg PO BID #60 tab Discontinued Metoprolol Tartrate [Lopressor] 25 mg PO BID glipiZIDE [Glucotrol] 5 mg PO BID Discharge Medication List Gabapentin [Neurontin] 300 mg PO TID 10/26/15 [History] Lovastatin [Mevacor] 40 mg PO HS 10/26/15 [History] Ubidecarenone [Co Q-10] 100 mg PO DAILY@1200 10/26/15 [History] calcitrioL [Rocaltrol] 0.25 mcg PO SA 09/07/16 [History] Levothyroxine Sodium [Synthroid] 88 mcg PO QAM 05/09/17 [History] Omeprazole [PriLOSEC] 20 mg PO AC-BRKFST 09/28/17 [History] Furosemide [Lasix] 20 mg PO DAILY 05/03/18 [History] Cholecalciferol [Vitamin D3 (25 Mcg = 1000 Iu)] 1,000 unit PO DAILY 11/05/18 [History] Cyanocobalamin [Vitamin B-12 Injection] 1,000 mcg INJ Q28D 11/05/18 [History] Potassium Chloride [Klor-Con 20] 20 meq PO DAILY 08/31/20 [History] traMADol HCL [Ultram] 50 mg PO Q6HR PRN 08/31/20 [History] Magnesium Oxide [Magox 400] 400 mg PO HS 11/12/20 [History] Pantoprazole Sodium [Protonix] 40 mg PO BID-W/MEALS 11/12/20 [History] Ferrous Sulfate [Iron (65 MG Elemental)] 325 mg PO BID #60 tab 11/14/20 [Rx] Follow up Appointment(s)/Referral(s): Yuki Grove MD [STAFF PHYSICIAN] - 2 Weeks (2-3 weeks In [place] Please call to schedule appointment) Dinorah García NPC [REFERRING] - 1 Week Activity/Diet/Wound Care/Special Instructions: Low carbohydrate 1600 kcal We recommend to recheck your glucose 4 times a day before each meals and at bedtime, keep the results in a log book, and migraine continue her doctor on your appointment date line if your glucose less than 70 or more than 400, please call 911 on come to emergency room Activity is restricted until you see your doctor Follow-up with your primary care doctor Walter Copeland in one week, please call to make an appointment. You have the contact information as you informed the medical team Discharge Disposition: HOME SELF-CARE
== END 2020-11-14 14:56 | disposition home or self-care (01) | DRG 378 ==
LOC: EC 18:33 → 3SCARD 21:19
PROVIDERS: ADMIT Internal Medicine; ATTEND Internal Medicine
PROC: 30233N1 Transfusion of Nonautologous Red Blood Cells into Peripheral Vein, Percutaneous Approach (ICD-10-PCS; 2020-11-14)
PROC: 0W3P8ZZ Control Bleeding in Gastrointestinal Tract, Via Natural or Artificial Opening Endoscopic (ICD-10-PCS; principal; 2020-11-14 07:30)
DX: K31.811 Angiodysplasia of stomach and duodenum with bleeding (principal); D62 Acute posthemorrhagic anemia; N17.9 Acute kidney failure, unspecified; E03.9 Hypothyroidism, unspecified; E11.40 Type 2 diabetes mellitus with diabetic neuropathy, unspecified; E78.5 Hyperlipidemia, unspecified; I12.9 Hypertensive chronic kidney disease with stage 1 through stage 4 chronic kidney disease, or unspecified chronic kidney disease; N18.9 Chronic kidney disease, unspecified; M19.90 Unspecified osteoarthritis, unspecified site; K21.9 Gastro-esophageal reflux disease without esophagitis; E11.22 Type 2 diabetes mellitus with diabetic chronic kidney disease; M19.042 Primary osteoarthritis, left hand; M19.041 Primary osteoarthritis, right hand; I25.2 Old myocardial infarction; Z79.890 Hormone replacement therapy; Z79.84 Long term (current) use of oral hypoglycemic drugs; Z79.899 Other long term (current) drug therapy; Z88.5 Allergy status to narcotic agent; Z90.710 Acquired absence of both cervix and uterus; Z90.12 Acquired absence of left breast and nipple; Z85.3 Personal history of malignant neoplasm of breast; Z80.6 Family history of leukemia; Z90.49 Acquired absence of other specified parts of digestive tract; Z98.890 Other specified postprocedural states
CPT/HCPCS: 36415; 36430; 43270; 80053; 82272; 83735; 84484; 85025; 85027; 85610; 85730; 86850; 86900; 86901; 86920; 93005; 99285

== ENCOUNTER 2022-01-27 14:58 | Emergency (ER) | payer MEDICARE, BC ==
[2022-01-27 16:26] LABS: Basophils % (A) 0 %; Eosinophils # (A) 0.1 k/uL (0-0.7); Eosinophils % (A) 3 %; HCT 20.3 % (34.0-46.0); Hypochromasia Marked; Lymphocytes # (A) 0.6 k/uL (1.0-4.8); Lymphocytes % (A) 11 %; MCHC 28.4 g/dL (31.0-37.0); MCV 95.1 fL (80.0-100.0); Monocytes # (A) 0.3 k/uL (0-1.0); Monocytes % (A) 7 %; Neutrophils # (A) 3.7 k/uL (1.3-7.7); Neutrophils % (A) 75 %; Platelet Count 298 k/uL (150-450); Poikilocytosis Slight; RBC 2.14 m/uL (3.80-5.40); RDW 15.4 % (11.5-15.5); WBC 4.9 k/uL (3.8-10.6)
[2022-01-27 16:28] LABS: HGB 5.8 gm/dL (11.4-16.0)
[2022-01-27 16:34] LABS: Albumin 3.7 g/dL (3.5-5.0); Calcium 8.4 mg/dL (8.4-10.2); Potassium 3.4 mmol/L (3.5-5.1); Total Bilirubin 0.4 mg/dL (0.2-1.3); Total Protein 6.1 g/dL (6.3-8.2)
[2022-01-27 16:43] LABS: INR 0.9 (<1.2); Partial Thromboplastin Time 20.1 sec (22.0-30.0); Prothrombin Time 9.9 sec (9.0-12.0)
[2022-01-27 17:45] VITALS: RESP 18
--- NOTE | 2022-01-27 18:37 | ED ---
General Adult HPI - General Chief complaint: Recheck/Abnormal Lab/Rx Stated complaint: needs blood-sent by PCP Time Seen by Provider: 01/27/22 15:45 Source: patient Mode of arrival: ambulatory Limitations: no limitations - History of Present Illness Initial comments: 81-year-old female with past medical history of GI bleeding, iron deficiency anemia who presents to the emergency department with low hemoglobin. She gets her blood drawn every week. Was seen at [facility] yesterday and they found that her hemoglobin was low. They attempted to get an IV however was unable to obtain access. They recommended that the patient follow-up at an outside facility for further treatments and possible port placement. She presents today with these complaints. States that she has been weak and fatigued for one week. She denies any active bleeding. Takes iron supplements but denies any change in the consistency or color of her stool. She is not on any blood thinners. Reports that she used to get iron infusions through her hematology office however has not received 1 in a significant period of time. She is scheduled to restart them. She also reports that she has had an EGD/colonoscopy within the past [address] Schmitt and they did not find a source of bleeding. She denies any chest pain. Mild shortness of breath. No other alleviating, precipitating or modifying factors - Related Data Home Medications Medication Instructions Recorded Confirmed Gabapentin [Neurontin] 300 mg PO TID 10/26/15 01/27/22 Lovastatin [Mevacor] 40 mg PO HS 10/26/15 01/27/22 Ubidecarenone [Co Q-10] 100 mg PO DAILY 10/26/15 01/27/22 calcitrioL [Rocaltrol] 0.25 mcg PO SA 09/07/16 01/27/22 Levothyroxine Sodium [Synthroid] 88 mcg PO DAILY 05/09/17 01/27/22 Omeprazole [PriLOSEC] 20 mg PO DAILY 09/28/17 01/27/22 Furosemide [Lasix] 20 mg PO DAILY 05/03/18 01/27/22 Magnesium Oxide [Magox 400] 400 mg PO HS 11/12/20 01/27/22 Cholecalciferol [Vitamin D3 (25 25 mcg PO DAILY 01/27/22 01/27/22 Mcg = 1000 Iu)] Ferrous Sulfate [Iron (65 MG 325 mg PO DAILY 01/27/22 01/27/22 Elemental)] L.acidoph,Paracasei, B.lactis 1 cap PO DAILY 01/27/22 01/27/22 [Probiotic] Sodium Bicarbonate Tab 650 mg PO HS 01/27/22 01/27/22 Allergies Allergy/AdvReac Type Severity Reaction Status Date / Time codeine AdvReac STOMACH Verified 01/27/22 17:46 PROBLEMS- "FEELS LIKE A KNOT IN STOMACH" propoxyphene HCl AdvReac NIGHTMARES Verified 01/27/22 17:46 [From [facility]] Review of Systems ROS Statement: Those systems with pertinent positive or pertinent negative responses have been documented in the HPI. ROS Other: All systems not noted in ROS Statement are negative. Past Medical History Past Medical History: Diabetes Mellitus, GERD/Reflux, GI Bleed, Hypertension, Osteoarthritis (OA), Renal Disease, Thyroid Disorder Additional Past Medical History / Comment(s): Upper GI bleed, iron deficiency anemia, has gotten iron infusions, neuropathy bilateral feet, bilateral ankle edema, arthritis hands/fingers, hx. breast cancer April 2018, watermelon stomach GAVE Last Myocardial Infarction Date:: UNKN History of Any Multi-Drug Resistant Organisms: None Reported Past Surgical History: Appendectomy, Breast Surgery, Cholecystectomy, Hysterectomy, Joint Replacement, Orthopedic Surgery Additional Past Surgical History / Comment(s): CESARIO GREAT TOE JOINT REPLACED, VEIN STRIPPING LT LEG, BILATERAL CARPAL TUNNEL RELEASES, L THUMB TENDON REPAIR. left mastectomy April 2018 Past Anesthesia/Blood Transfusion Reactions: No Reported Reaction Additional Past Anesthesia/Blood Transfusion Reaction / Comment(s): PT HAS RECEIVED BLOOD WITHOUT REACTION. Past Psychological History: No Psychological Hx Reported Smoking Status: Never smoker Past Alcohol Use History: None Reported Past Drug Use History: None Reported - Past Family History Brother(s) Family Medical History: Cancer Additional Family Medical History / Comment(s): leukemia General Exam Limitations: no limitations General appearance: alert, in no apparent distress Head exam: Present: atraumatic, normocephalic, normal inspection Eye exam: Present: normal appearance, PERRL, EOMI. Absent: scleral icterus, conjunctival injection, periorbital swelling ENT exam: Present: normal exam, mucous membranes moist Neck exam: Present: normal inspection. Absent: tenderness, meningismus, lymphadenopathy Respiratory exam: Present: normal lung sounds bilaterally. Absent: respiratory distress, wheezes, rales, rhonchi, stridor Cardiovascular Exam: Present: regular rate, normal rhythm, normal heart sounds. Absent: systolic murmur, diastolic murmur, rubs, gallop, clicks GI/Abdominal exam: Present: soft, normal bowel sounds. Absent: distended, tenderness, guarding, rebound, rigid Extremities exam: Present: normal inspection, full ROM, normal capillary refill. Absent: tenderness, pedal edema, joint swelling, calf tenderness Back exam: Present: normal inspection Neurological exam: Present: alert, oriented X3, CN II-XII intact Psychiatric exam: Present: normal affect, normal mood Skin exam: Present: warm, dry, intact, pallor. Absent: rash Course Vital Signs 01/27/22 01/27/22 01/27/22 15:00 17:43 17:53 Temperature 97.7 F 98.2 F 98.2 F Pulse Rate 79 61 59 L Respiratory 16 18 18 Rate Blood Pressure 117/65 114/54 117/60 O2 Sat by Pulse 100 98 98 Oximetry 01/27/22 01/27/22 01/27/22 18:23 19:45 20:07 Temperature 98.4 F 98.3 F 98.3 F Pulse Rate 58 L 54 L 60 Respiratory 18 18 18 Rate Blood Pressure 114/54 126/62 134/64 O2 Sat by Pulse 100 99 99 Oximetry 01/27/22 01/27/22 01/27/22 20:17 20:47 22:00 Temperature 98.3 F 98.3 F 98.4 F Pulse Rate 59 L 57 L 67 Respiratory 18 18 18 Rate Blood Pressure 139/58 135/50 142/55 O2 Sat by Pulse 99 99 99 Oximetry Procedures - [place] Protocol (Time Out) Nurse: Radha Leonard Medical Decision Making - Medical Decision Making Upon arrival patient is placed into room 24. A thorough history and physical exam was performed. Rectal exam is performed which demonstrates some dark- colored stool. A culture does come back positive. Laboratory studies are obtained and patient's hemoglobin is 5.8. I did discuss results with the patient. Patient does not want to be admitted at this time as this is a recurrent issue for her. Informed her that her occult is positive in that she could be actively bleeding. Patient is aware of the risks of not remaining hosp italized. Requesting transfusion and discharged home. 2 unit transfusion is performed and the patient does tolerate the transfusion well. She is discharged home and instructed to follow-up with her site director for repeat laboratory study draw in one week. Also instructed to follow up with her surgeon for possible repeat EGD and colonoscopy. Patient understood. Return for any new or worsening symptoms. Patient discharged home in stable condition - Lab Data Result diagrams: 01/27/22 16:17 01/27/22 16:17 Lab Results 01/27/22 01/27/22 01/27/22 Range/Units 16:17 16:17 16:17 WBC 4.9 (3.8-10.6) k/uL RBC 2.14 L (3.80-5.40) m/uL Hgb 5.8 L* (11.4-16.0) gm/dL Hct 20.3 L (34.0-46.0) % MCV 95.1 (80.0-100.0) fL MCH 27.0 (25.0-35.0) pg MCHC 28.4 L (31.0-37.0) g/dL RDW 15.4 (11.5-15.5) % Plt Count 298 (150-450) k/uL MPV 8.0 Neutrophils % 75 % Lymphocytes % 11 % Monocytes % 7 % Eosinophils % 3 % Basophils % 0 % Neutrophils # 3.7 (1.3-7.7) k/uL Lymphocytes # 0.6 L (1.0-4.8) k/uL Monocytes # 0.3 (0-1.0) k/uL Eosinophils # 0.1 (0-0.7) k/uL Basophils # 0.0 (0-0.2) k/uL Hypochromasia Marked Poikilocytosis Slight PT 9.9 (9.0-12.0) sec INR 0.9 (<1.2) APTT 20.1 L (22.0-30.0) sec Sodium 137 (137-145) mmol/L Potassium 3.4 L (3.5-5.1) mmol/L Chloride 109 H (98-107) mmol/L Carbon Dioxide 22 (22-30) mmol/L Anion Gap 6 mmol/L BUN 25 H (7-17) mg/dL Creatinine 1.27 H (0.52-1.04) mg/dL Est GFR (CKD-EPI)AfAm 46 (>60 ml/min/1.73 sqM) Est GFR (CKD-EPI)NonAf 40 (>60 ml/min/1.73 sqM) Glucose 144 H (74-99) mg/dL Calcium 8.4 (8.4-10.2) mg/dL Total Bilirubin 0.4 (0.2-1.3) mg/dL AST 25 (14-36) U/L ALT 9 (4-34) U/L Alkaline Phosphatase 60 (38-126) U/L Total Protein 6.1 L (6.3-8.2) g/dL Albumin 3.7 (3.5-5.0) g/dL Stool Occult Blood (Negative) Blood Type Blood Type Recheck Bld Type Recheck Status Antibody Screen Crossmatch Spec Expiration Date 01/27/22 01/27/22 Range/Units 16:21 16:42 WBC (3.8-10.6) k/uL RBC (3.80-5.40) m/uL Hgb (11.4-16.0) gm/dL Hct (34.0-46.0) % MCV (80.0-100.0) fL MCH (25.0-35.0) pg MCHC (31.0-37.0) g/dL RDW (11.5-15.5) % Plt Count (150-450) k/uL MPV Neutrophils % % Lymphocytes % % Monocytes % % Eosinophils % % Basophils % % Neutrophils # (1.3-7.7) k/uL Lymphocytes # (1.0-4.8) k/uL Monocytes # (0-1.0) k/uL Eosinophils # (0-0.7) k/uL Basophils # (0-0.2) k/uL Hypochromasia Poikilocytosis PT (9.0-12.0) sec INR (<1.2) APTT (22.0-30.0) sec Sodium (137-145) mmol/L Potassium (3.5-5.1) mmol/L Chloride (98-107) mmol/L Carbon Dioxide (22-30) mmol/L Anion Gap mmol/L BUN (7-17) mg/dL Creatinine (0.52-1.04) mg/dL Est GFR (CKD-EPI)AfAm (>60 ml/min/1.73 sqM) Est GFR (CKD-EPI)NonAf (>60 ml/min/1.73 sqM) Glucose (74-99) mg/dL Calcium (8.4-10.2) mg/dL Total Bilirubin (0.2-1.3) mg/dL AST (14-36) U/L ALT (4-34) U/L Alkaline Phosphatase (38-126) U/L Total Protein (6.3-8.2) g/dL Albumin (3.5-5.0) g/dL Stool Occult Blood Positive H (Negative) Blood Type A Negative Blood Type Recheck A Neg Bld Type Recheck Status No Antibody Screen NEGATIVE Crossmatch See Detail Spec Expiration Date 01/30/20222320 Disposition Clinical Impression: Anemia, GI bleed Disposition: HOME SELF-CARE Condition: Stable Instructions (If sedation given, give patient instructions): Anemia (ED) Additional Instructions: I recommended hospital admission. Please have your labs drawn next week to ensure your hemoglobin has come up. Follow-up with your site director. Return for any new or worsening symptoms. Is patient prescribed a controlled substance at d/c from ED?: No Referrals: Marisel Sands MD [Primary Care Provider] - 1-2 days Time of Disposition: 18:37
[2022-01-27 22:15] VITALS: BP 142/55; PULSE 67; TEMP 98.4
== END 2022-01-27 22:25 | disposition home or self-care (01) ==
LOC: EC 14:58
DX: D64.9 Anemia, unspecified (principal); K92.2 Gastrointestinal hemorrhage, unspecified; E11.9 Type 2 diabetes mellitus without complications; K21.9 Gastro-esophageal reflux disease without esophagitis; I10 Essential (primary) hypertension; M19.90 Unspecified osteoarthritis, unspecified site; E07.9 Disorder of thyroid, unspecified; Z88.5 Allergy status to narcotic agent; Z90.49 Acquired absence of other specified parts of digestive tract; Z90.710 Acquired absence of both cervix and uterus
CPT/HCPCS: 99284; 36430; 36415; 86900; 86901; 80053; 85025; 85610; 85730; 86850; 86920; 82272; P9016

== ENCOUNTER 2022-05-23 10:10 | Inpatient (IN) | payer MEDICARE, BC ==
[2022-05-23] MEDS ORDERED: SODIUM CHLORIDE 0.9% 1,000 ML IV STA (10:43)
[2022-05-23 10:58] LABS: Glucose,Whole Blood 124 mg/dL (70-110)
--- NOTE | 2022-05-23 11:19 | XR ---
EXAMINATION TYPE: XR chest 2V DATE OF EXAM: 05/23/2022 COMPARISON: NONE HISTORY: Weakness, difficulty breathing TECHNIQUE: Frontal and lateral views of the chest are obtained. FINDINGS: There is no focal air space opacity or pneumothorax seen. Some minimal blunting of the cos tophrenic angle noted on the left. The cardiac silhouette size is within normal limits. There is a po rt in the left pectoral region coursing via subclavian approach, distal tip is near the cavoatrial ju nction. Surgical clips present in the upper abdomen. The osseous structures are intact M arthropath y noted in the shoulders. IMPRESSION: Postprocedural changes. Difficult to exclude minimal effusion.
[2022-05-23 11:33] LABS: Albumin 2.4 g/dL (3.5-5.0); Magnesium 2.1 mg/dL (1.6-2.3); Phosphorus 3.4 mg/dL (2.5-4.5); Potassium 4.3 mmol/L (3.5-5.1); Total Bilirubin 0.3 mg/dL (0.2-1.3)
[2022-05-23 11:34] LABS: Anisocytosis Slight; Basophils % (A) 0 %; Eosinophils % (A) 0 %; HCT 24.7 % (34.0-46.0); HGB 7.6 gm/dL (11.4-16.0); Hypochromasia Moderate; Lymphocytes # (A) 0.2 k/uL (1.0-4.8); Lymphocytes % (A) 2 %; MCH 30.4 pg (25.0-35.0); MCHC 30.9 g/dL (31.0-37.0); MCV 98.6 fL (80.0-100.0); Macrocytosis Slight; Mean Platelet Volume 7.6; Monocytes # (A) 0.3 k/uL (0-1.0); Monocytes % (A) 3 %; Neutrophils # (A) 9.9 k/uL (1.3-7.7); Neutrophils % (A) 93 %; Platelet Count 195 k/uL (150-450); RBC 2.51 m/uL (3.80-5.40); RDW 16.5 % (11.5-15.5); WBC 10.6 k/uL (3.8-10.6)
[2022-05-23 11:35] LABS: INR 0.9 (<1.2); Partial Thromboplastin Time 24.6 sec (22.0-30.0); Prothrombin Time 10.3 sec (9.0-12.0)
--- NOTE | 2022-05-23 11:43 | CT ---
EXAMINATION TYPE: CT brain wo con DATE OF EXAM: 05/23/2022 HISTORY: Weakness. CT DLP: 1113.4 mGycm. Automated Exposure Control for Dose Reduction was Utilized. TECHNIQUE: CT scan of the head is performed without contrast. COMPARISON: None. FINDINGS: There is no acute intracranial hemorrhage or midline shift identified. There is mild diff use ventricular and sulcal prominence consistent with diffuse age-related cerebral atrophy. There is moderate low-attenuation in the deep and periventricular white matter consistent with chronic small vessel ischemic change in patient of this age. Vague area of low attenuation in inferior left cerebe llar hemisphere axial images 21 and 18 is nonspecific. The globes are intact and the visualized sinus es are clear. IMPRESSION: There is mild diffuse age-related cerebral atrophy and moderate chronic small vessel isch emic change noted. Age-indeterminate infarct left cerebellum noted. Correlate clinically and with ol d outside CT or MRI if available.
[2022-05-23] MEDS ORDERED: ACETAMINOPHEN TAB 325 MG TAB PO STA (12:03)
[2022-05-23] MEDS ORDERED: PANTOPRAZOLE 40 MG/10 ML VIAL IVP STA (12:12)
--- NOTE | 2022-05-23 12:28 | ED ---
Weakness HPI - General Chief complaint: Weakness Stated complaint: Weakness Time Seen by Provider: 05/23/22 10:32 Source: patient, family Mode of arrival: wheelchair Limitations: no limitations - History of Present Illness Initial comments: Patient is an 82-year-old female presenting with chief complaint of weakness. Friend at bedside states that for the last 3 days she has been extremely fatigued and sleeping all day. Patient has a history of requiring blood transfusions for her symptomatic anemia. She currently sees Dr. Malik she was having an oncology workup. She is currently on iron supplementation. Denies chest pain, shortness of breath, fever, chills, nausea, vomiting, recent injury, extremity pain, abdominal pain, hematochezia, melena, dysuria, hematuria, urgency, frequency, cough, URI-like symptoms. - Related Data Home Medications Medication Instructions Recorded Confirmed Gabapentin [Neurontin] 300 mg PO TID 10/26/15 05/23/22 Lovastatin [Mevacor] 40 mg PO DAILY 10/26/15 05/23/22 calcitrioL [Rocaltrol] 0.25 mcg PO WILKES 09/07/16 05/23/22 Omeprazole [PriLOSEC] 20 mg PO DAILY 09/28/17 05/23/22 Furosemide [Lasix] 20 mg PO DAILY 05/03/18 05/23/22 Ferrous Sulfate [Iron (65 MG 325 mg PO DAILY 01/27/22 05/23/22 Elemental)] L.acidoph,Paracasei, B.lactis 1 cap PO DAILY 01/27/22 05/23/22 [Probiotic] Potassium Chloride [Klor-Con M20] 20 meq PO DAILY 05/03/22 05/23/22 Magnesium 500 mg PO HS 05/11/22 05/23/22 Levothyroxine Sodium [Synthroid] 100 mcg PO DAILY 05/23/22 05/23/22 Ubiquinol [Co-Veratrol] 100 mg PO DAILY 05/23/22 05/23/22 Allergies Allergy/AdvReac Type Severity Reaction Status Date / Time codeine AdvReac STOMACH Verified 05/23/22 11:49 PROBLEMS- "FEELS LIKE A KNOT IN STOMACH" ibuprofen [From Motrin IB] AdvReac Unknown Verified 05/23/22 11:49 propoxyphene HCl AdvReac NIGHTMARES Verified 05/23/22 11:49 [From Wygesic] sulfamethoxazole AdvReac Unknown Verified 05/23/22 11:49 [From Bactrim] trimethoprim [From Bactrim] AdvReac Unknown Verified 05/23/22 11:49 Review of Systems ROS Statement: Those systems with pertinent positive or pertinent negative responses have been documented in the HPI. ROS Other: All systems not noted in ROS Statement are negative. Past Medical History Past Medical History: Diabetes Mellitus, GERD/Reflux, GI Bleed, Hypertension, Osteoarthritis (OA), Renal Disease, Thyroid Disorder Additional Past Medical History / Comment(s): Upper GI bleed, iron deficiency anemia, has gotten iron infusions, neuropathy bilateral feet, bilateral ankle edema, arthritis hands/fingers, hx. breast cancer April 2018, watermelon stomach GAVE Last Myocardial Infarction Date:: UNKN History of Any Multi-Drug Resistant Organisms: None Reported Past Surgical History: Appendectomy, Breast Surgery, Cholecystectomy, Hysterectomy, Joint Replacement, Orthopedic Surgery Additional Past Surgical History / Comment(s): CESARIO GREAT TOE JOINT REPLACED, VEIN STRIPPING LT LEG, BILATERAL CARPAL TUNNEL RELEASES, L THUMB TENDON REPAIR. left mastectomy April 2018 Past Anesthesia/Blood Transfusion Reactions: No Reported Reaction Additional Past Anesthesia/Blood Transfusion Reaction / Comment(s): PT HAS RECEIVED BLOOD WITHOUT REACTION. Past Psychological History: No Psychological Hx Reported Smoking Status: Never smoker - Past Family History Brother(s) Family Medical History: Cancer Additional Family Medical History / Comment(s): leukemia General Exam Limitations: no limitations General appearance: alert, in no apparent distress Head exam: Present: atraumatic, normocephalic, normal inspection Eye exam: Present: normal appearance, EOMI. Absent: scleral icterus, periorbital swelling Neck exam: Present: normal inspection Respiratory exam: Present: normal lung sounds bilaterally. Absent: respiratory distress, wheezes, rales, rhonchi, stridor Cardiovascular Exam: Present: regular rate, normal rhythm, normal heart sounds. Absent: systolic murmur, diastolic murmur, rubs, gallop, clicks GI/Abdominal exam: Present: soft. Absent: distended, tenderness, guarding, rebound, rigid Rectal exam: Present: normal rectal tone, heme (+) stool, black stool (Patient is currently on iron supplementation) Neurological exam: Present: alert, altered, CN II-XII intact Psychiatric exam: Present: normal affect, normal mood Skin exam: Present: warm, dry, intact, normal color. Absent: rash Course Vital Signs 05/23/22 05/23/22 05/23/22 10:11 12:34 14:00 Temperature 98.1 F Pulse Rate 81 64 66 Respiratory 16 18 16 Rate Blood Pressure 102/57 96/52 94/49 O2 Sat by Pulse 95 96 Oximetry EKG Findings - EKG Comments: EKG Findings:: Sinus rhythm rate of 73. ID interval 148. QRS duration 93. QT/QTc 408//434. No ischemic ST or T-wave changes. Medical Decision Making - Medical Decision Making Patient is an 82-year-old female presenting with chief complaint of weakness. Symptoms have been ongoing for the last 3 days, family at bedside states that tyra monge has been sleeping nonstop for the last 3 days. She denies any pain, patient somewhat confused. On physical examination her lungs are clear to auscultation, abdomen is soft, nontender, nondistended. Rectal exam is remarkable for black stool, patient is currently on iron supplementation, occult blood is positive. Hemoglobin is 7.6 troponin is 0.166. I discussed these findings with my attending, he stated that in the event of elevated troponin with known anemia, it is beneficial to transfuse up to hemoglobin of 8. One unit RBC is ordered. Sodium is 128. Calcium is 8.0. Chest x-ray suggests possible minimal effusion. Patient will be admitted for elevated troponin of anemia. I spoke with Dr. Oseguera who agreed to admit the patient. Cardiology, GI, hematology was consulted. I discussed this case and plan in detail with my attending Dr. Oliveros. - Lab Data Result diagrams: 05/23/22 11:01 05/23/22 11:01 Lab Results 05/23/22 05/23/22 05/23/22 Range/Units 10:56 11:01 11:01 WBC 10.6 (3.8-10.6) k/uL RBC 2.51 L (3.80-5.40) m/uL Hgb 7.6 L (11.4-16.0) gm/dL Hct 24.7 L (34.0-46.0) % MCV 98.6 (80.0-100.0) fL MCH 30.4 (25.0-35.0) pg MCHC 30.9 L (31.0-37.0) g/dL RDW 16.5 H (11.5-15.5) % Plt Count 195 (150-450) k/uL MPV 7.6 Neutrophils % 93 % Lymphocytes % 2 % Monocytes % 3 % Eosinophils % 0 % Basophils % 0 % Neutrophils # 9.9 H (1.3-7.7) k/uL Lymphocytes # 0.2 L (1.0-4.8) k/uL Monocytes # 0.3 (0-1.0) k/uL Eosinophils # 0.0 (0-0.7) k/uL Basophils # 0.0 (0-0.2) k/uL Hypochromasia Moderate Anisocytosis Slight Macrocytosis Slight PT 10.3 (9.0-12.0) sec INR 0.9 (<1.2) APTT 24.6 (22.0-30.0) sec Sodium (137-145) mmol/L Potassium (3.5-5.1) mmol/L Chloride (98-107) mmol/L Carbon Dioxide (22-30) mmol/L Anion Gap mmol/L BUN (7-17) mg/dL Creatinine (0.52-1.04) mg/dL Est GFR (CKD-EPI)AfAm (>60 ml/min/1.73 sqM) Est GFR (CKD-EPI)NonAf (>60 ml/min/1.73 sqM) Glucose (74-99) mg/dL POC Glucose (mg/dL) 124 H (70-110) mg/dL POC Glu Car Worker Helper ID Jono, Nicole Plasma Lactic Acid Hill (0.7-2.0) mmol/L Calcium (8.4-10.2) mg/dL Phosphorus (2.5-4.5) mg/dL Magnesium (1.6-2.3) mg/dL Total Bilirubin (0.2-1.3) mg/dL AST (14-36) U/L ALT (4-34) U/L Alkaline Phosphatase (38-126) U/L Troponin I (0.000-0.034) ng/mL Total Protein (6.3-8.2) g/dL Albumin (3.5-5.0) g/dL 08/01/22 08/01/22 08/01/22 Range/Units 11:01 11:01 11:01 WBC (3.8-10.6) k/uL RBC (3.80-5.40) m/uL Hgb (11.4-16.0) gm/dL Hct (34.0-46.0) % MCV (80.0-100.0) fL MCH (25.0-35.0) pg MCHC (31.0-37.0) g/dL RDW (11.5-15.5) % Plt Count (150-450) k/uL MPV Neutrophils % % Lymphocytes % % Monocytes % % Eosinophils % % Basophils % % Neutrophils # (1.3-7.7) k/uL Lymphocytes # (1.0-4.8) k/uL Monocytes # (0-1.0) k/uL Eosinophils # (0-0.7) k/uL Basophils # (0-0.2) k/uL Hypochromasia Anisocytosis Macrocytosis PT (9.0-12.0) sec INR (<1.2) APTT (22.0-30.0) sec Sodium 128 L (137-145) mmol/L Potassium 4.3 (3.5-5.1) mmol/L Chloride 103 (98-107) mmol/L Carbon Dioxide 23 (22-30) mmol/L Anion Gap 2 mmol/L BUN 16 (7-17) mg/dL Creatinine 1.02 (0.52-1.04) mg/dL Est GFR (CKD-EPI)AfAm 60 (>60 ml/min/1.73 sqM) Est GFR (CKD-EPI)NonAf 52 (>60 ml/min/1.73 sqM) Glucose 108 H (74-99) mg/dL POC Glucose (mg/dL) (70-110) mg/dL POC Glu Car Worker Helper ID Plasma Lactic Acid Hill 0.7 (0.7-2.0) mmol/L Calcium 8.0 L (8.4-10.2) mg/dL Phosphorus 3.4 (2.5-4.5) mg/dL Magnesium 2.1 (1.6-2.3) mg/dL Total Bilirubin 0.3 (0.2-1.3) mg/dL AST 31 (14-36) U/L ALT 8 (4-34) U/L Alkaline Phosphatase 74 (38-126) U/L Troponin I 0.166 H* (0.000-0.034) ng/mL Total Protein 5.0 L (6.3-8.2) g/dL Albumin 2.4 L (3.5-5.0) g/dL Disposition Clinical Impression: Anemia, Elevated troponin Disposition: ADMITTED IP TO THIS [facility] Condition: Fair Time of Disposition: 12:28 Decision to Admit Reason: Admit from EC Decision Date: 05/23/22 Decision Time: 12:28
[2022-05-23] MEDS ORDERED: NALOXONE 0.4 MG/ML 1 ML VIAL IV PRN (12:37)
[2022-05-23] MEDS ORDERED: ACETAMINOPHEN TAB 325 MG TAB PO PRN (12:37)
[2022-05-23 12:59] LABS: VBG PH 7.47 (7.31-7.41)
[2022-05-23] MEDS: SODIUM CHLORIDE 0.9% 1,000 ML IV SCH (13:47)
--- NOTE | 2022-05-23 14:39 | P.CONS ---
History of Present Illness - Reason for Consult Consult date: 05/23/22 GI bleed Requesting physician: Edu Giordano - Chief Complaint Weakness - History of Present Illness This is a pleasant 82-year-old female who presented to the emergency department with complaints of generalized weakness over the last 2-3 days. Patient's caregivers at the bedside and states that the patient has been sleeping all day for the last 2-3 days. She states that she has not had any other complaints. She denies any blood in her stools. She states that her stools are always dark due to her iron. She is known to Dr. Grove with a history of multiple EGD and colonoscopy for AVMs in the past. She also follows with hematology for outpatient iron infusions as well as blood transfusions as needed. Patient's caregiver also states that on 05/10/2022 she went for an iron infusion and her blood was low so she returned on 05/11/2022 and got 2 units of blood. Patient is denying any abdominal pain, no nausea or vomiting. Hemoglobin on admission was 7.6. Patient had a CT of the brain showed mild diffuse age-related cerebral atrophy and moderate chronic small vessel ischemic changes. 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 Correlate clinically for old outside CT or MRI available. 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 The patient is not on any anticoagulation. Review of Systems REVIEW OF SYSTEMS: CARDIOPULMONARY: No chest pain or shortness of breath. Gastrointestinal: No abdominal pain. No nausea or vomiting. No hematemesis, coffee-ground emesis. No rectal bleeding, patient with dark stool however is on iron. Caregiver denies any blood in her stool. GENITOURINARY: No dysuria or hematuria. MUSCULOSKELETAL: Reports normal range of motion., Joint pain. SKIN: No rashes. No jaundice. ENDOCRINE: No chills, fevers. No excessive weight gain or loss. No polydipsia or polyuria. PSYCHIATRIC: Unremarkable. NEUROLOGY: No change in mental status. Denies dizziness, headache. ENT: Vision unremarkable. CONSTITUTIONAL: No recent weight loss. No fever, chills, night sweats. Past Medical History Past Medical History: Diabetes Mellitus, GERD/Reflux, GI Bleed, Hypertension, Osteoarthritis (OA), Renal Disease, Thyroid Disorder Additional Past Medical History / Comment(s): Upper GI bleed, iron deficiency anemia, has gotten iron infusions, neuropathy bilateral feet, bilateral ankle edema, arthritis hands/fingers, hx. breast cancer April 2018, watermelon stomach GAVE Last Myocardial Infarction Date:: UNKN History of Any Multi-Drug Resistant Organisms: None Reported Past Surgical History: Appendectomy, Breast Surgery, Cholecystectomy, Hysterectomy, Joint Replacement, Orthopedic Surgery Additional Past Surgical History / Comment(s): CESARIO GREAT TOE JOINT REPLACED, VEIN STRIPPING LT LEG, BILATERAL CARPAL TUNNEL RELEASES, L THUMB TENDON REPAIR. left mastectomy April 2018 Past Anesthesia/Blood Transfusion Reactions: No Reported Reaction Additional Past Anesthesia/Blood Transfusion Reaction / Comm: PT HAS RECEIVED BLOOD WITHOUT REACTION. Past Psychological History: No Psychological Hx Reported Smoking Status: Never smoker - Past Family History Brother(s) Family Medical History: Cancer Additional Family Medical History / Comment(s): leukemia Medications and Allergies Home Medications Medication Instructions Recorded Confirmed Type Gabapentin [Neurontin] 300 mg PO TID 10/26/15 05/23/22 History Lovastatin [Mevacor] 40 mg PO DAILY 10/26/15 05/23/22 History calcitrioL [Rocaltrol] 0.25 mcg PO WILKES 09/07/16 05/23/22 History Omeprazole [PriLOSEC] 20 mg PO DAILY 09/28/17 05/23/22 History Furosemide [Lasix] 20 mg PO DAILY 05/03/18 05/23/22 History Ferrous Sulfate [Iron (65 MG 325 mg PO DAILY 01/27/22 05/23/22 History Elemental)] L.acidoph,Paracasei, B.lactis 1 cap PO DAILY 01/27/22 05/23/22 History [Probiotic] Potassium Chloride [Klor-Con M20] 20 meq PO DAILY 05/03/22 05/23/22 History Magnesium 500 mg PO HS 05/11/22 05/23/22 History Levothyroxine Sodium [Synthroid] 100 mcg PO DAILY 05/23/22 05/23/22 History Ubiquinol [Co-Veratrol] 100 mg PO DAILY 05/23/22 05/23/22 History Allergies Allergy/AdvReac Type Severity Reaction Status Date / Time codeine AdvReac STOMACH Verified 05/23/22 11:49 PROBLEMS- "FEELS LIKE A KNOT IN STOMACH" ibuprofen [From Motrin IB] AdvReac Unknown Verified 05/23/22 11:49 propoxyphene HCl AdvReac NIGHTMARES Verified 05/23/22 11:49 [From Wygesic] sulfamethoxazole AdvReac Unknown Verified 05/23/22 11:49 [From Bactrim] trimethoprim [From Bactrim] AdvReac Unknown Verified 05/23/22 11:49 Physical Exam Vitals: Vital Signs Temp Pulse Resp BP Pulse Ox 05/23/22 12:34 64 18 96/52 96 05/23/22 10:11 98.1 F 81 16 102/57 95 Intake and Output 05/22/22 05/23/22 05/23/22 22:59 06:59 14:59 Other: Weight 67.132 kg General appearance: The patient is alert, oriented, appears in no acute distress. HET: Head is normocephalic and atraumatic. Conjunctiva pink. Sclera anicteric. Neck: Supple without lymphadenopathy. Trachea midline. Heart: S1 S2. Regular rate and rhythm. Lungs: Clear to auscultation. Abdomen: Soft, nontender, nondistended with bowel sounds. No guarding or rigidity. Skin: No rashes. No jaundice. Extremities: Normal skin color and turgor. No pedal edema. Neurological: No focal deficits. Alert and oriented x3. Results CBC & Chem 7: 05/23/22 11:01 05/23/22 11:01 Labs: Abnormal Lab Results - Last 24 Hours (Table) 05/23/22 05/23/22 05/23/22 Range/Units 10:56 11:01 11:01 RBC 2.51 L (3.80-5.40) m/uL Hgb 7.6 L (11.4-16.0) gm/dL Hct 24.7 L (34.0-46.0) % MCHC 30.9 L (31.0-37.0) g/dL RDW 16.5 H (11.5-15.5) % Neutrophils # 9.9 H (1.3-7.7) k/uL Lymphocytes # 0.2 L (1.0-4.8) k/uL VBG pH (7.31-7.41) VBG pCO2 (37-51) mmHg VBG HCO3 (24-28) mmol/L Sodium 128 L (137-145) mmol/L Glucose 108 H (74-99) mg/dL POC Glucose (mg/dL) 124 H (70-110) mg/dL Calcium 8.0 L (8.4-10.2) mg/dL Troponin I (0.000-0.034) ng/mL Total Protein 5.0 L (6.3-8.2) g/dL Albumin 2.4 L (3.5-5.0) g/dL Stool Occult Blood (Negative) 05/23/22 05/23/22 05/23/22 Range/Units 11:01 12:45 12:45 RBC (3.80-5.40) m/uL Hgb (11.4-16.0) gm/dL Hct (34.0-46.0) % MCHC (31.0-37.0) g/dL RDW (11.5-15.5) % Neutrophils # (1.3-7.7) k/uL Lymphocytes # (1.0-4.8) k/uL VBG pH 7.47 H (7.31-7.41) VBG pCO2 29 L (37-51) mmHg VBG HCO3 21 L (24-28) mmol/L Sodium (137-145) mmol/L Glucose (74-99) mg/dL POC Glucose (mg/dL) (70-110) mg/dL Calcium (8.4-10.2) mg/dL Troponin I 0.166 H* (0.000-0.034) ng/mL Total Protein (6.3-8.2) g/dL Albumin (3.5-5.0) g/dL Stool Occult Blood Positive H (Negative) Assessment and Plan (1) Anemia Narrative/Plan: 82-year-old female known to [facility] Dr. Rosenberg for history of antral ectasia with argon plasma coagulation multiple times in the past. Her last EGD was 11/14/2020. Patient presented to the emergency department with weakness or last 2-3 days duration with excessive fatigue and sleepiness. Patient follows with hematology and last had an iron infusion on 05/10/2022 and was called to come back for blood transfusion on 05/11/2022 which her caregiver states she had 2 units. Patient had an occult positive stool. Caregiver denies any blood in her stool. States that it is dark but that it is always dark related to her iron. She is not on any anticoagulation. No complaints of abdominal pain. No plans at this time for endoscopic evaluation. We'll continue to monitor for signs of GI bleed. Await recommendations from hematology. Current Visit: Yes Status: Acute Code(s): D64.9 - ANEMIA, UNSPECIFIED SNOMED Code(s): 914501509 (2) Positive fecal occult blood test Current Visit: Yes Status: Acute Code(s): R19.5 - OTHER FECAL ABNORMALITIES SNOMED Code(s): 36656549 (3) Elevated troponin Current Visit: Yes Status: Acute Code(s): R77.8 - OTHER SPECIFIED ABNORMALITIES OF PLASMA PROTEINS SNOMED Code(s): 114482304 Plan: 1. Continue symptomatic and supportive care 2. Await recommendations from hematology 3. Daily CBC, transfuse for hemoglobin less than 7 4. Iron studies ordered 5. Patient may have diet as tolerated 6. Protonix 40 mg daily 7. No plans at this time of endoscopic evaluation Thank you for this consultation, we will continue to follow closely Dr. Cordelia Grove I agree with the dictator's note, documented as a scribe by Yaquelin Ashton.
[2022-05-23] MEDS ORDERED: ONDANSETRON 4 MG/2 ML VIAL IVP PRN (16:39)
[2022-05-23] MEDS ORDERED: LORazepam 0.5 MG TAB PO PRN (16:39)
[2022-05-23] MEDS ORDERED: MELATONIN 3 MG TABLET PO PRN (16:39)
[2022-05-23] MEDS ORDERED: CALCIUM CARBONATE 500 MG CHEWABLE PO PRN (16:39)
[2022-05-23] MEDS ORDERED: LACTULOSE 20 GM/30 ML CUP PO PRN (16:39)
--- NOTE | 2022-05-23 16:41 | P.HPIM ---
History of Present Illness H&P Date: 05/23/22 Chief Complaint: Weakness This is a 82-year-old patient, was chronic stable medical conditions include diabetes, GERD, hypertension, ostomy arthritis, hypothyroid peripheral n europathy, breast cancer in the past. She takes care of her ex- at home. She also has a friend Queenie does not taking care of ex-. Patient not a very detailed historian. She presents to the hospital feeling weak and tired. Decreased appetite. Some constipation. No fever and chills. Denies any pain. During the conversation keeps saying I cannot remember properly. She is being followed by hematology. Was found to have a hemoglobin of 7.6. Guaiac stool was positive. Review of systems: GEN.: Decreased appetite, EYES: None HEENT: None NECK: None RESPIRATORY: None CARDIOVASCULAR: None GASTROINTESTINAL: Some constipation GENITOURINARY: None MUSCULOSKELETAL: Joint pains LYMPHATICS: None HEMATOLOGICAL: None PSYCHIATRY: A bit anxious and forgetful NEUROLOGICAL: None Past medical history to include: Diabetes, GERD, GI bleed, hypertension, osteoarthritis, kidney disease, hypothyroid, iron deficiency anemia, peripheral neuropathy, arthritis, watermelon stomach Social history: Lives with her ex-. No history of smoking alcohol. Family history: Leukemia Physical examination: VITAL SIGNS: 97.9, 62, 16, 92/48, 94% room air GENERAL: BMI 27.1, laying in bed awake, tired. EYES: Pupils equal. Conjunctiva palel. HEENT: External appearance of nose and ears normal, oral cavity grossly normal. NECK: JVD not raised; masses not palpable. HEART: First and second heart sounds are normal; no edema. LUNGS: Respiratory rate normal; clear to auscultation. ABDOMEN: Soft, nontender, liver spleen not palpable, no masses palpable. PSYCH: Patient knows the year the season difficulty stating the month nose that she has not hospital.l. MUSCULOSKELETAL:No Clubbing/cyanosis;muscles-grossly intact. OA NEUROLOGICAL: Cranial nerves grossly intact; no facial asymmetry, power and sensation grossly intact. LYMPHATICS: No lymph nodes palpable in the axilla and neck INVESTIGATIONS, reviewed in the clinical context: White count 10.60 globin 7.6 platelets 195 sodium 128 potassium 4.3 BUN 16 creatinine 1.02 Troponin I 0.166, 0.158 albumin 2.4 Fecal occult blood positive EKG tracing personally reviewed by me-normal sinus rhythm. Some ST segment depression in inferolateral leads and T wave changes Chest x-ray film personally reviewed by me-possible cardiomegaly. Questionable venous prominence Assessment and plan: -Normocytic anemia with patient being guaiac-positive, could be contribution to patient's weakness. 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 Patient denies any chest pain. Some EKG changes. 2-D echocardiogram. Consult cardiology. Check iron studies. TSH. PPI. Renal ultrasound. 2-D echocardiogram. Consult cardiology. GI. Discussed with patient Past Medical History Past Medical History: Diabetes Mellitus, GERD/Reflux, GI Bleed, Hypertension, Osteoarthritis (OA), Renal Disease, Thyroid Disorder Additional Past Medical History / Comment(s): Upper GI bleed, iron deficiency anemia, has gotten iron infusions, neuropathy bilateral feet, bilateral ankle e krystle, arthritis hands/fingers, hx. breast cancer April 2018, watermelon stomach GAVE Last Myocardial Infarction Date:: UNKN History of Any Multi-Drug Resistant Organisms: None Reported Past Surgical History: Appendectomy, Breast Surgery, Cholecystectomy, Hysterectomy, Joint Replacement, Orthopedic Surgery Additional Past Surgical History / Comment(s): CESARIO GREAT TOE JOINT REPLACED, VEIN STRIPPING LT LEG, BILATERAL CARPAL TUNNEL RELEASES, L THUMB TENDON REPAIR. left mastectomy April 2018 Past Anesthesia/Blood Transfusion Reactions: No Reported Reaction Additional Past Anesthesia/Blood Transfusion Reaction / Comment(s): PT HAS RECEIVED BLOOD WITHOUT REACTION. Past Psychological History: No Psychological Hx Reported Smoking Status: Never smoker - Past Family History Brother(s) Family Medical History: Cancer Additional Family Medical History / Comment(s): leukemia Medications and Allergies Home Medications Medication Instructions Recorded Confirmed Type Gabapentin [Neurontin] 300 mg PO TID 10/26/15 05/23/22 History Lovastatin [Mevacor] 40 mg PO DAILY 10/26/15 05/23/22 History calcitrioL [Rocaltrol] 0.25 mcg PO WILKES 09/07/16 05/23/22 History Omeprazole [PriLOSEC] 20 mg PO DAILY 09/28/17 05/23/22 History Furosemide [Lasix] 20 mg PO DAILY 05/03/18 05/23/22 History Ferrous Sulfate [Iron (65 MG 325 mg PO DAILY 01/27/22 05/23/22 History Elemental)] L.acidoph,Paracasei, B.lactis 1 cap PO DAILY 01/27/22 05/23/22 History [Probiotic] Potassium Chloride [Klor-Con M20] 20 meq PO DAILY 05/03/22 05/23/22 History Magnesium 500 mg PO HS 05/11/22 05/23/22 History Levothyroxine Sodium [Synthroid] 100 mcg PO DAILY 05/23/22 05/23/22 History Ubiquinol [Co-Veratrol] 100 mg PO DAILY 05/23/22 05/23/22 History Allergies Allergy/AdvReac Type Severity Reaction Status Date / Time codeine AdvReac STOMACH Verified 05/23/22 11:49 PROBLEMS- "FEELS LIKE A KNOT IN STOMACH" ibuprofen [From Motrin IB] AdvReac Unknown Verified 05/23/22 11:49 propoxyphene HCl AdvReac NIGHTMARES Verified 05/23/22 11:49 [From Wygesic] sulfamethoxazole AdvReac Unknown Verified 05/23/22 11:49 [From Bactrim] trimethoprim [From Bactrim] AdvReac Unknown Verified 05/23/22 11:49 Physical Exam Vitals: Vital Signs Temp Pulse Resp BP Pulse Ox 05/23/22 15:50 97.9 F 60 16 84/48 96 05/23/22 15:40 98.1 F 62 16 92/48 94 L 05/23/22 14:00 66 16 94/49 05/23/22 12:34 64 18 96/52 96 05/23/22 10:11 98.1 F 81 16 102/57 95 Intake and Output 05/23/22 05/23/22 05/23/22 06:59 14:59 22:59 Intake Total 0 Balance 0 Intake: Blood Product 0 Unit 0 Other: Weight 67.132 kg Results CBC & Chem 7: 05/23/22 11:01 05/23/22 11:01 Labs: Abnormal Lab Results - Last 24 Hours (Table) 05/23/22 05/23/22 05/23/22 Range/Units 10:56 11:01 11:01 RBC 2.51 L (3.80-5.40) m/uL Hgb 7.6 L (11.4-16.0) gm/dL Hct 24.7 L (34.0-46.0) % MCHC 30.9 L (31.0-37.0) g/dL RDW 16.5 H (11.5-15.5) % Neutrophils # 9.9 H (1.3-7.7) k/uL Lymphocytes # 0.2 L (1.0-4.8) k/uL VBG pH (7.31-7.41) VBG pCO2 (37-51) mmHg VBG HCO3 (24-28) mmol/L Sodium 128 L (137-145) mmol/L Glucose 108 H (74-99) mg/dL POC Glucose (mg/dL) 124 H (70-110) mg/dL Calcium 8.0 L (8.4-10.2) mg/dL Troponin I (0.000-0.034) ng/mL Total Protein 5.0 L (6.3-8.2) g/dL Albumin 2.4 L (3.5-5.0) g/dL Stool Occult Blood (Negative) Crossmatch 05/23/22 05/23/22 05/23/22 Range/Units 11:01 12:45 12:45 RBC (3.80-5.40) m/uL Hgb (11.4-16.0) gm/dL Hct (34.0-46.0) % MCHC (31.0-37.0) g/dL RDW (11.5-15.5) % Neutrophils # (1.3-7.7) k/uL Lymphocytes # (1.0-4.8) k/uL VBG pH 7.47 H (7.31-7.41) VBG pCO2 29 L (37-51) mmHg VBG HCO3 21 L (24-28) mmol/L Sodium (137-145) mmol/L Glucose (74-99) mg/dL POC Glucose (mg/dL) (70-110) mg/dL Calcium (8.4-10.2) mg/dL Troponin I 0.166 H* (0.000-0.034) ng/mL Total Protein (6.3-8.2) g/dL Albumin (3.5-5.0) g/dL Stool Occult Blood Positive H (Negative) Crossmatch 05/23/22 05/23/22 Range/Units 13:48 14:54 RBC (3.80-5.40) m/uL Hgb (11.4-16.0) gm/dL Hct (34.0-46.0) % MCHC (31.0-37.0) g/dL RDW (11.5-15.5) % Neutrophils # (1.3-7.7) k/uL Lymphocytes # (1.0-4.8) k/uL VBG pH (7.31-7.41) VBG pCO2 (37-51) mmHg VBG HCO3 (24-28) mmol/L Sodium (137-145) mmol/L Glucose (74-99) mg/dL POC Glucose (mg/dL) (70-110) mg/dL Calcium (8.4-10.2) mg/dL Troponin I 0.158 H* (0.000-0.034) ng/mL Total Protein (6.3-8.2) g/dL Albumin (3.5-5.0) g/dL Stool Occult Blood (Negative) Crossmatch See Detail
[2022-05-23 17:36] LABS: Appearance,Urine Turbid (Clear); Bacteria,Urine Occasional /hpf; Bilirubin,Urine Negative (Negative); Blood,Urine Small (Negative); Budding Yeast,Urine Few /hpf; Color,Urine Light Yellow; Glucose,Urine (UA) Negative (Negative); Ketones,Urine Negative (Negative); Leukocyte Esterase,Urine Large (Negative); Mucus,Urine Rare /hpf; Nitrite,Urine Negative (Negative); Protein,Urine 1+ (Negative); RBC,Urine 3 /hpf (0-5); Specific Gravity,Urine 1.013 (1.001-1.035); Squamous Epithelial Cell,Urine 2 /hpf (0-4); Urobilinogen,Urine <2.0 mg/dL (<2.0); WBC,Urine >182 /hpf (0-5)
[2022-05-23 18:09] LABS: % Iron Saturation 12.32 (12.00-45.00)
[2022-05-23] MEDS: GABAPENTIN 300 MG CAP PO SCH ×2 (18:40→21:42)
[2022-05-23] MEDS: PANTOPRAZOLE 40 MG TABLET PO SCH (18:41)
[2022-05-23 20:01] LABS: Glucose,Whole Blood 81 mg/dL (70-110)
[2022-05-23] MEDS ORDERED: PANTOPRAZOLE 40 MG/10 ML VIAL IVP SCH (21:00)
[2022-05-24] MEDS: SODIUM CHLORIDE 0.9% 1,000 ML IV SCH ×2 (02:18→19:01)
[2022-05-24 05:52] LABS: Glucose,Whole Blood 81 mg/dL (70-110)
[2022-05-24] MEDS: PANTOPRAZOLE 40 MG TABLET PO SCH ×2 (06:22→19:01)
[2022-05-24] MEDS: LEVOTHYROXINE 100 MCG TAB PO SCH (06:22)
[2022-05-24 08:05] LABS: Anisocytosis Slight; Basophils % (A) 0 %; Eosinophils % (A) 0 %; HCT 24.9 % (34.0-46.0); HGB 7.7 gm/dL (11.4-16.0); Hypochromasia Marked; Lymphocytes # (A) 0.3 k/uL (1.0-4.8); Lymphocytes % (A) 3 %; MCH 30.3 pg (25.0-35.0); MCV 97.7 fL (80.0-100.0); Macrocytosis Slight; Monocytes # (A) 0.3 k/uL (0-1.0); Monocytes % (A) 3 %; Neutrophils # (A) 7.2 k/uL (1.3-7.7); Neutrophils % (A) 91 %; Platelet Count 163 k/uL (150-450); Poikilocytosis Slight; RBC 2.54 m/uL (3.80-5.40)
[2022-05-24 08:21] LABS: ALT 7 U/L (4-34); AST 28 U/L (14-36); African American GFR (CKD) 63 (>60 ml/min/1.73 sqM); Alkaline Phosphatase 68 U/L (38-126); Anion Gap 3 mmol/L; Blood Urea Nitrogen 13 mg/dL (7-17); Calcium 7.5 mg/dL (8.4-10.2); Carbon Dioxide 20 mmol/L (22-30); Chloride 108 mmol/L (98-107); Glucose 72 mg/dL (74-99); Non-African American GFR(CKD) 55 (>60 ml/min/1.73 sqM); Potassium 4.2 mmol/L (3.5-5.1); Sodium 131 mmol/L (137-145); Total Bilirubin 0.4 mg/dL (0.2-1.3); Total Protein 4.3 g/dL (6.3-8.2)
[2022-05-24] MEDS: GABAPENTIN 300 MG CAP PO SCH ×2 (08:56→20:22)
[2022-05-24] MEDS: ATORVASTATIN 10 MG TAB PO SCH (08:56)
[2022-05-24] MEDS: FERROUS SULFATE 325 MG TAB PO SCH (08:56)
[2022-05-24] MEDS ORDERED: NON FORMULARY DRUG (Omeprazole 20 MG Capsule.Dr) PO SCH (09:00)
--- NOTE | 2022-05-24 10:01 | CA ---
Transthoracic Echo Report Name: Annette Hutchinson Age: 82 Gender: F : 1940 Exam Date: 05/24/2022 08:26 Exam Location: [place] [facility] Ht (in): 62 Wt (lb): 148 Ordering Physician: Rikki Oseguera MD Attending/Referring Phys: Wire Weaver Mavis Ramey RDCS Procedure CPT: Indications: Positive troponin Cardiac Hx: Htn, Diabetes Technical Quality: Good Contrast 1: Total Dose (mL): Contrast 2: Total Dose (mL): MEASUREMENTS (Male / Female) Normal Values 2D ECHO LV Diastolic Diameter PLAX 4.0 cm 4.2 - 5.9 / 3.9 - 5.3 cm LV Systolic Diameter PLAX 2.7 cm IVS Diastolic Thickness 1.1 cm 0.6 - 1.0 / 0.6 - 0.9 cm LVPW Diastolic Thickness 1.3 cm 0.6 - 1.0 / 0.6 - 0.9 cm LV Relative Wall Thickness 0.6 RV Internal Dim ED PLAX 1.6 cm LA Volume 41.8 cm??? 18 - 58 / 22 - 52 cm??? M-MODE Aortic Root Diameter MM 3.5 cm LA Systolic Diameter MM 2.9 cm LA Ao Ratio MM 0.8 MV E Point Septal Separation 1.0 cm AV Cusp Separation MM 1.9 cm DOPPLER AV Peak Velocity 269.6 cm/s AV Peak Gradient 29.1 mmHg AV Mean Velocity 183.1 cm/s AV Mean Gradient 14.7 mmHg AV Velocity Time Integral 57.4 cm AI Peak Velocity 302.2 cm/s AI Peak Gradient 36.5 mmHg AI Pressure Half Time 649.4 ms LVOT Peak Velocity 127.2 cm/s LVOT Peak Gradient 6.5 mmHg MV Area PHT 2.5 cm??? MR Peak Velocity 439.6 cm/s MR Peak Gradient 77.3 mmHg Mitral E Point Velocity 81.8 cm/s Mitral A Point Velocity 79.4 cm/s Mitral E to A Ratio 1.0 MV Deceleration Time 304.6 ms MV E' Velocity 7.1 cm/s Mitral E to MV E' Ratio 11.6 TR Peak Velocity 250.0 cm/s TR Peak Gradient 25.0 mmHg Right Ventricular Systolic Press 30.0 mmHg FINDINGS Left Ventricle Mildly increased septal wall thickness. Moderately increased posterior wall thickness. Left ventricular ejection fraction is estimated at 55-60 %. Left ventricular cavity size normal. Right Ventricle Normal right ventricular size and function. Right Atrium Normal right atrial size. Left Atrium Normal left atrial size. Mitral Valve Structurally normal mitral valve. Mild mitral regurgitation. Aortic Valve Possible vegetation on the Aortic valve leaflet. Mild aortic stenosis with a peak gradient of 29 mmHg and a mean gradient of 14 mmHg. [id number] aortic regurgitation. Tricuspid Valve Structurally normal tricuspid valve without significant stenosis. Pulmonary artery systolic pressure is normal. Mild tricuspid regurgitation. Pulmonic Valve Structurally normal pulmonic valve without significant stenosis. There is no pulmonic regurgitation. Pericardium Normal pericardium without effusion. Aorta Normal aortic root dimension. CONCLUSIONS Left ventricular hypertrophy with preserved systolic function Thickened aortic valve leaflets Possible sessile mass on the aortic valve Moderate severe aortic regurgitation Previewed by: Dr. Mc Azevedo MD (Electronically Signed) Final Date: 24 May 2022 10:00
--- NOTE | 2022-05-24 10:12 | P.CRDCN ---
History of Present Illness History of present illness: HISTORY OF PRESENTING ILLNESS This is a pleasant 82-year-old female past medical history significant for type 2 diabetes, hypertension, dyslipidemia, peripheral vascular disease, mild aortic regurgitation, SVT, history of multiple EGD and colonoscopy for AVMs in the past, iron deficiency anemia, requiring iron infusions and blood transfusions as an outpatient. He followed in the office with Dr. Grove last seen in 2019. We have been asked to see in consultation for elevated troponin. Patient presents emergency department with generalized weakness and fatigue for 2-3 days. There was a concern for GI bleed with stool occult blood being positive, GI was consulted no plan for repeat scope at this time. Hematology is also consulted as well. Patient seen and examined at bedside, no acute distress. She denies any chest pain, shortness of breath, lightheadedness, dizziness, palpitations, syncope or near syncope. She denies any fever, cough, chills, night sweats. No history of CAD, [place], Stroke. She did receive 1 unit of PRBCs on admission DIAGNOSTICS * EKG reveals sinus rhythm, heart rate 73, normal axis, t wave inversion in lead II and aVF, prior EKG similar. * Echocardiogram revealed an EF of 5560%, moderately increased posterior wall thickness, possible vegetation on the aortic valve leaflet, mild aortic stenosis peak/mean gradient of 29mmHg/14 mmHg, moderate to severe aortic regurgitation, mild trucuspid regurgiation. * Telemetry tracings indicate sinus rhythm . * Chest xray some minimal blunting of the left costophrenic angle. Cardiac silhouette is within normal limits. * Laboratory reviewed, troponin 7.6, platelets 195, sodium 128, potassium 4.3, BUN 16, serum creatinine 1.02, troponin 0.16, stool occult positive * Current home cardiac medications include Lasix 20 mg daily, lovastatin 40 mg daily * Lexiscan stress test in the office 03/2018 was negative for reversible ischemia. * Echocardiogram in the office in 2016 revealed a normal EF 55%, mild aortic regurgitation, mild tricuspid regurgitation REVIEW OF SYSTEMS At the time of my exam: CONSTITUTIONAL: Denies fever or chills. CARDIOVASCULAR: Denies chest pain, shortness of breath, orthopnea, PND or palpi tations. RESPIRATORY: Denies cough. GASTROINTESTINAL: Denies abdominal pain, diarrhea, constipation, nausea or vomiting. MUSCULOSKELETAL: Denies myalgias. NEUROLOGIC: Denies numbness, tingling, headacbe or weakness. ENDOCRINE: Denies fatigue, weight change, polydipsia or polyurina. GENITOURINARY: Denies burning, hematuria or urgency with micturation. HEMATOLOGIC: Denies history of anemia or bleeding. PHYSICAL EXAMINATION Blood pressure 92/45, heart rate 67, afebrile, oxygen saturations 94% on room air CONSTITUTIONAL: No apparent distress. HEENT: Head is normocephalic. Pupils are equal, round. Sclerae anicteric. Mucous membranes of the mouth are moist. No JVD. No carotid bruit. CHEST EXAMINATION: Lungs are clear to auscultation. No chest wall tenderness is noted on palpation or with deep breathing. HEART EXAMINATION: Regular rate and rhythm. S1, S2 heard. Systolic and diastolic murmur noted ABDOMEN: Soft, nontender. Positive bowel sounds. EXTREMITIES: 2+ peripheral pulses, no lower extremity edema and no calf tenderness. NEUROLOGIC EXAMINATION: Patient is awake, alert and oriented x3. ASSESSMENT Chronic myocardial injury without evidence of ischemia on exam or by EKG Anemia Possible vegetation/sessile mass on aortic valve reported Mild aortic stenosis Moderate to severe aortic regurgitation Hypotension Generalized weakness Type 2 diabetes History of hypertension Dyslipidemia History of peripheral vascular disease History of mild aortic regurgitation History of SVT PLAN 2D echocardiogram reviewed, patient with no signs/symptoms of sepsis at this time. We will continue to monitor patient and discuss Echo findings with the patient. Hematology consulted for anemia. Hold antihypertensives secondary to hypotension. Further recommendations based on clinical course Nurse practitioner note has been reviewed by physician. Signing provider agrees with the documented findings, assessment, and plan of care. Past Medical History Past Medical History: Diabetes Mellitus, GERD/Reflux, GI Bleed, Hypertension, Osteoarthritis (OA), Renal Disease, Thyroid Disorder Additional Past Medical History / Comment(s): Upper GI bleed, iron deficiency anemia, has gotten iron infusions, neuropathy bilateral feet, bilateral ankle edema, arthritis hands/fingers, hx. breast cancer April 2018, watermelon stomach GAVE Last Myocardial Infarction Date:: UNKN History of Any Multi-Drug Resistant Organisms: None Reported Past Surgical History: Appendectomy, Breast Surgery, Cholecystectomy, Hysterectomy, Joint Replacement, Orthopedic Surgery Additional Past Surgical History / Comment(s): CESARIO GREAT TOE JOINT REPLACED, VEIN STRIPPING LT LEG, BILATERAL CARPAL TUNNEL RELEASES, L THUMB TENDON REPAIR. left mastectomy April 2018 Past Anesthesia/Blood Transfusion Reactions: No Reported Reaction Additional Past Anesthesia/Blood Transfusion Reaction / Comment(s): PT HAS RECEIVED BLOOD WITHOUT REACTION. Past Psychological History: No Psychological Hx Reported Smoking Status: Never smoker - Past Family History Brother(s) Family Medical History: Cancer Additional Family Medical History / Comment(s): leukemia Medications and Allergies Home Medications Medication Instructions Recorded Confirmed Type Gabapentin [Neurontin] 300 mg PO TID 10/26/15 05/23/22 History Lovastatin [Mevacor] 40 mg PO DAILY 10/26/15 05/23/22 History calcitrioL [Rocaltrol] 0.25 mcg PO WILKES 09/07/16 05/23/22 History Omeprazole [PriLOSEC] 20 mg PO DAILY 09/28/17 05/23/22 History Furosemide [Lasix] 20 mg PO DAILY 05/03/18 05/23/22 History Ferrous Sulfate [Iron (65 MG 325 mg PO DAILY 01/27/22 05/23/22 History Elemental)] L.acidoph,Paracasei, B.lactis 1 cap PO DAILY 01/27/22 05/23/22 History [Probiotic] Potassium Chloride [Klor-Con M20] 20 meq PO DAILY 05/03/22 05/23/22 History Magnesium 500 mg PO HS 05/11/22 05/23/22 History Levothyroxine Sodium [Synthroid] 100 mcg PO DAILY 05/23/22 05/23/22 History Ubiquinol [Co-Veratrol] 100 mg PO DAILY 05/23/22 05/23/22 History Allergies Allergy/AdvReac Type Severity Reaction Status Date / Time codeine AdvReac STOMACH Verified 05/23/22 11:49 PROBLEMS- "FEELS LIKE A KNOT IN STOMACH" ibuprofen [From Motrin IB] AdvReac Unknown Verified 05/23/22 11:49 propoxyphene HCl AdvReac NIGHTMARES Verified 05/23/22 11:49 [From Wygesic] sulfamethoxazole AdvReac Unknown Verified 05/23/22 11:49 [From Bactrim] trimethoprim [From Bactrim] AdvReac Unknown Verified 05/23/22 11:49 Physical Exam Vitals: Vital Signs Temp Pulse Resp BP Pulse Ox 05/23/22 14:00 66 16 94/49 05/23/22 12:34 64 18 96/52 96 05/23/22 10:11 98.1 F 81 16 102/57 95 Intake and Output 05/22/22 05/23/22 05/23/22 22:59 06:59 14:59 Other: Weight 67.132 kg Results 05/24/22 07:18 05/24/22 07:18 Cardiac Enzymes 05/23/22 05/23/22 Range/Units 11:01 11:01 AST 31 (14-36) U/L Troponin I 0.166 H* (0.000-0.034) ng/mL Coagulation 05/23/22 Range/Units 11:01 PT 10.3 (9.0-12.0) sec APTT 24.6 (22.0-30.0) sec CBC 05/23/22 Range/Units 11:01 WBC 10.6 (3.8-10.6) k/uL RBC 2.51 L (3.80-5.40) m/uL Hgb 7.6 L (11.4-16.0) gm/dL Hct 24.7 L (34.0-46.0) % Plt Count 195 (150-450) k/uL Comprehensive Metabolic Panel 05/23/22 Range/Units 11:01 Sodium 128 L (137-145) mmol/L Potassium 4.3 (3.5-5.1) mmol/L Chloride 103 (98-107) mmol/L Carbon Dioxide 23 (22-30) mmol/L BUN 16 (7-17) mg/dL Creatinine 1.02 (0.52-1.04) mg/dL Glucose 108 H (74-99) mg/dL Calcium 8.0 L (8.4-10.2) mg/dL AST 31 (14-36) U/L ALT 8 (4-34) U/L Alkaline Phosphatase 74 (38-126) U/L Total Protein 5.0 L (6.3-8.2) g/dL Albumin 2.4 L (3.5-5.0) g/dL Current Medications Generic Name Dose Route Start Last Admin Trade Name Freq PRN Reason Stop Dose Admin Acetaminophen 650 mg 05/23/22 12:37 Acetaminophen Tab 325 Mg Tab PO Q6HR PRN Mild Pain or Fever > 100.5 Sodium Chloride 1,000 mls @ 75 mls/hr 05/23/22 12:45 05/23/22 13:47 Saline 0.9% IV 75 mls/hr .[id number] ALIA Administration Naloxone HCl 0.2 mg 05/23/22 12:37 Naloxone 0.4 Mg/Ml 1 Ml Vial IV Q2M PRN Opioid Reversal Pantoprazole Sodium 40 mg 05/23/22 21:00 Pantoprazole 40 Mg/10 Ml Vial IVP BID ALIA Intake and Output 05/22/22 05/23/22 05/23/22 22:59 06:59 14:59 Other: Weight 67.132 kg Patient Weight 05/24/22 06:59 Weight 67.132 kg 05/23/22 11:01 05/23/22 11:01
--- NOTE | 2022-05-24 11:28 | P.PN ---
Subjective Progress Note Date: 05/24/22 Principal diagnosis: Anemia This is a pleasant 82-year-old female who presented to the emergency department with complaints of generalized weakness over the last 2-3 days. Patient's caregivers at the bedside and states that the patient has been sleeping all day for the last 2-3 days. She states that she has not had any other complaints. She denies any blood in her stools. She states that her stools are always dark due to her iron. She is known to Dr. Grove with a history of multiple EGD and colonoscopy for AVMs in the past. She also follows with hematology for outpat ient iron infusions as well as blood transfusions as needed. Patient's caregiver also states that on 05/10/2022 she went for an iron infusion and her blood was low so she returned on 05/11/2022 and got 2 units of blood. Patient is denying any abdominal pain, no nausea or vomiting. Hemoglobin on admission was 7.6. Patient had a CT of the brain showed mild diffuse age-related cerebral atrophy and moderate chronic small vessel ischemic changes. 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 Correlate clinically for old outside CT or MRI available. 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 The patient is not on any anticoagulation. 05/24/2022: Patient was seen and examined his follow-up. She denies any bowel movements with blood or black tarry stool. Nursing reports no signs of GI blood loss. Patient is with complaints of headache. Cardiology following for elevated troponins and echocardiogram obtained with report of EF 55-60%, thickened aortic valve leaflets, possible sessile mass on the aortic valve moderate severe aortic regurgitation. Further recommendations from cardiology pending clinical course. Hemoglobin stable today is 7.7. Objective - Vital Signs Vital signs: Vital Signs Temp 98.8 F 05/24/22 04:00 Pulse 67 05/24/22 04:00 Resp 14 05/24/22 04:00 BP 92/45 05/24/22 04:00 Pulse Ox 94 L 05/24/22 04:00 FiO2 Intake & Output 05/23/22 05/24/22 05/24/22 18:59 06:59 18:59 Intake Total 310 750 Balance 310 750 Weight 67.132 kg Intake: Intake, IV Titration 600 Amount Sodium Chloride 0.9% 1, 600 000 ml @ 75 mls/hr IV . [id number] [facility] Rx#:[id number] Oral 150 Blood Product 310 Rc As-1 Unit 310 [id number] Other: Voiding Method Toilet # Voids 2 # Bowel Movements 1 - Exam General appearance: The patient is alert, oriented, appears in no acute di stress. HET: Head is normocephalic and atraumatic. Conjunctiva pink. Sclera anicteric. Neck: Supple without lymphadenopathy. Abdomen: Soft, nontender, nondistended with bowel sounds. No guarding or rigidity. Extremities: Normal skin color and turgor. No pedal edema Skin: No rashes, no jaundice Neurological: No focal deficits. Alert and oriented -3. - Labs CBC & Chem 7: 05/24/22 07:18 05/24/22 07:18 Labs: Abnormal Lab Results - Last 24 Hours (Table) 05/23/22 05/23/22 05/23/22 Range/Units 10:56 11:01 11:01 RBC 2.51 L (3.80-5.40) m/uL Hgb 7.6 L (11.4-16.0) gm/dL Hct 24.7 L (34.0-46.0) % MCHC 30.9 L (31.0-37.0) g/dL RDW 16.5 H (11.5-15.5) % Neutrophils # 9.9 H (1.3-7.7) k/uL Lymphocytes # 0.2 L (1.0-4.8) k/uL VBG pH (7.31-7.41) VBG pCO2 (37-51) mmHg VBG HCO3 (24-28) mmol/L Sodium 128 L (137-145) mmol/L Chloride (98-107) mmol/L Carbon Dioxide (22-30) mmol/L Glucose 108 H (74-99) mg/dL POC Glucose (mg/dL) 124 H (70-110) mg/dL Calcium 8.0 L (8.4-10.2) mg/dL Iron (50-170) ug/dL TIBC (228-460) ug/dL Transferrin (204.0-354.0) mg/dL Ferritin (10.0-291.0) ng/mL Troponin I (0.000-0.034) ng/mL Total Protein 5.0 L (6.3-8.2) g/dL Albumin 2.4 L (3.5-5.0) g/dL Urine Appearance (Clear) Urine Protein (Negative) Urine Blood (Negative) Ur Leukocyte Esterase (Negative) Urine WBC (0-5) /hpf Urine WBC Clumps (None) /hpf Urine Bacteria (None) /hpf Urine Mucus (None) /hpf Urine Yeast (Budding) (None) /hpf Stool Occult Blood (Negative) Crossmatch 05/23/22 05/23/22 05/23/22 Range/Units 11:01 11:01 11:01 RBC (3.80-5.40) m/uL Hgb (11.4-16.0) gm/dL Hct (34.0-46.0) % MCHC (31.0-37.0) g/dL RDW (11.5-15.5) % Neutrophils # (1.3-7.7) k/uL Lymphocytes # (1.0-4.8) k/uL VBG pH (7.31-7.41) VBG pCO2 (37-51) mmHg VBG HCO3 (24-28) mmol/L Sodium (137-145) mmol/L Chloride (98-107) mmol/L Carbon Dioxide (22-30) mmol/L Glucose (74-99) mg/dL POC Glucose (mg/dL) (70-110) mg/dL Calcium (8.4-10.2) mg/dL Iron 23 L (50-170) ug/dL TIBC 183 L (228-460) ug/dL Transferrin 131.0 L (204.0-354.0) mg/dL Ferritin 621.0 H (10.0-291.0) ng/mL Troponin I 0.166 H* (0.000-0.034) ng/mL Total Protein (6.3-8.2) g/dL Albumin (3.5-5.0) g/dL Urine Appearance Turbid H (Clear) Urine Protein 1+ H (Negative) Urine Blood Small H (Negative) Ur Leukocyte Esterase Large H (Negative) Urine WBC >182 H (0-5) /hpf Urine WBC Clumps Many H (None) /hpf Urine Bacteria Occasional H (None) /hpf Urine Mucus Rare H (None) /hpf Urine Yeast (Budding) Few H (None) /hpf Stool Occult Blood (Negative) Crossmatch 05/23/22 05/23/22 05/23/22 Range/Units 12:45 12:45 13:48 RBC (3.80-5.40) m/uL Hgb (11.4-16.0) gm/dL Hct (34.0-46.0) % MCHC (31.0-37.0) g/dL RDW (11.5-15.5) % Neutrophils # (1.3-7.7) k/uL Lymphocytes # (1.0-4.8) k/uL VBG pH 7.47 H (7.31-7.41) VBG pCO2 29 L (37-51) mmHg VBG HCO3 21 L (24-28) mmol/L Sodium (137-145) mmol/L Chloride (98-107) mmol/L Carbon Dioxide (22-30) mmol/L Glucose (74-99) mg/dL POC Glucose (mg/dL) (70-110) mg/dL Calcium (8.4-10.2) mg/dL Iron (50-170) ug/dL TIBC (228-460) ug/dL Transferrin (204.0-354.0) mg/dL Ferritin (10.0-291.0) ng/mL Troponin I (0.000-0.034) ng/mL Total Protein (6.3-8.2) g/dL Albumin (3.5-5.0) g/dL Urine Appearance (Clear) Urine Protein (Negative) Urine Blood (Negative) Ur Leukocyte Esterase (Negative) Urine WBC (0-5) /hpf Urine WBC Clumps (None) /hpf Urine Bacteria (None) /hpf Urine Mucus (None) /hpf Urine Yeast (Budding) (None) /hpf Stool Occult Blood Positive H (Negative) Crossmatch See Detail 05/23/22 05/23/22 05/23/22 Range/Units 14:54 18:40 22:09 RBC (3.80-5.40) m/uL Hgb (11.4-16.0) gm/dL Hct (34.0-46.0) % MCHC (31.0-37.0) g/dL RDW (11.5-15.5) % Neutrophils # (1.3-7.7) k/uL Lymphocytes # (1.0-4.8) k/uL VBG pH (7.31-7.41) VBG pCO2 (37-51) mmHg VBG HCO3 (24-28) mmol/L Sodium (137-145) mmol/L Chloride (98-107) mmol/L Carbon Dioxide (22-30) mmol/L Glucose (74-99) mg/dL POC Glucose (mg/dL) (70-110) mg/dL Calcium (8.4-10.2) mg/dL Iron (50-170) ug/dL TIBC (228-460) ug/dL Transferrin (204.0-354.0) mg/dL Ferritin (10.0-291.0) ng/mL Troponin I 0.158 H* 0.200 H* 0.334 H* (0.000-0.034) ng/mL Total Protein (6.3-8.2) g/dL Albumin (3.5-5.0) g/dL Urine Appearance (Clear) Urine Protein (Negative) Urine Blood (Negative) Ur Leukocyte Esterase (Negative) Urine WBC (0-5) /hpf Urine WBC Clumps (None) /hpf Urine Bacteria (None) /hpf Urine Mucus (None) /hpf Urine Yeast (Budding) (None) /hpf Stool Occult Blood (Negative) Crossmatch 05/24/22 05/24/22 Range/Units 07:18 07:18 RBC 2.54 L (3.80-5.40) m/uL Hgb 7.7 L (11.4-16.0) gm/dL Hct 24.9 L (34.0-46.0) % MCHC (31.0-37.0) g/dL RDW 18.0 H (11.5-15.5) % Neutrophils # (1.3-7.7) k/uL Lymphocytes # 0.3 L (1.0-4.8) k/uL VBG pH (7.31-7.41) VBG pCO2 (37-51) mmHg VBG HCO3 (24-28) mmol/L Sodium 131 L (137-145) mmol/L Chloride 108 H (98-107) mmol/L Carbon Dioxide 20 L (22-30) mmol/L Glucose 72 L (74-99) mg/dL POC Glucose (mg/dL) (70-110) mg/dL Calcium 7.5 L (8.4-10.2) mg/dL Iron (50-170) ug/dL TIBC (228-460) ug/dL Transferrin (204.0-354.0) mg/dL Ferritin (10.0-291.0) ng/mL Troponin I (0.000-0.034) ng/mL Total Protein 4.3 L (6.3-8.2) g/dL Albumin 2.0 L (3.5-5.0) g/dL Urine Appearance (Clear) Urine Protein (Negative) Urine Blood (Negative) Ur Leukocyte Esterase (Negative) Urine WBC (0-5) /hpf Urine WBC Clumps (None) /hpf Urine Bacteria (None) /hpf Urine Mucus (None) /hpf Urine Yeast (Budding) (None) /hpf Stool Occult Blood (Negative) Crossmatch Microbiology - Last 24 Hours (Table) 05/23/22 11:01 Urine Culture - Preliminary Urine,Clean Catch Assessment and Plan (1) Anemia Narrative/Plan: 82-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 Her last EGD was 11/14/2020. Patient presented to the emergency department with weakness or last 2-3 days duration with excessive fatigue and sleepiness. Patient follows with hematology and last had an iron infusion on 05/10/2022 and was called to come back for blood transfusion on 05/11/2022 which her caregiver states she had 2 units. Patient had an occult positive stool. Caregiver denies any blood in her stool. States that it is dark but that it is always dark related to her iron. She is not on any anticoagulation. No complaints of abdominal pain. No plans at this time for endoscopic evaluation. We'll continue to monitor for signs of GI bleed. Await recommendations from hematology. Current Visit: Yes Status: Acute Code(s): D64.9 - ANEMIA, UNSPECIFIED SNOMED Code(s): 556050968 (2) Positive fecal occult blood test Current Visit: Yes Status: Acute Code(s): R19.5 - OTHER FECAL ABNORMALITIES SNOMED Code(s): 23534515 (3) Elevated troponin Narrative/Plan: Cardiology following Current Visit: Yes Status: Acute Code(s): R77.8 - OTHER SPECIFIED ABNORMALITIES OF PLASMA PROTEINS SNOMED Code(s): 828034503 Plan: 1. Continue symptomatic and supportive care 2. Await recommendations from hematology 3. Daily CBC, transfuse for hemoglobin less than 7 4. Iron studies ordered 5. Patient may have diet as tolerated 6. Protonix 40 mg daily 7. No plans at this time of endoscopic evaluation 8. Await further recommendations from cardiology Thank you for this consultation, we will continue to follow closely Dr. Cordelia Grove I agree with the dictator's note, documented as a scribe by Yaquelin Ashton.
[2022-05-24 11:51] LABS: Glucose,Whole Blood 124 mg/dL (70-110)
[2022-05-24] MEDS: SODIUM BICARBONATE TAB 650 MG TAB PO SCH ×3 (12:56→20:22)
--- NOTE | 2022-05-24 15:13 | P.CONS ---
History of Present Illness - Reason for Consult Consult date: 05/24/22 anemia Requesting physician: Edu Giordano - Chief Complaint weakness, fatigue - History of Present Illness Mrs. Hutchinson is a very pleasant 82-year-old female patient of Dr. Malik's who we have been asked to see regarding chronic anemia. Patient was initially evaluated by Dr. Malik 10/2015 for iron deficiency, felt to be secondary to gastric AVMs. She had previously underwent cauterization, received oral iron and her hemoglobin almost improved to normal by November. She followed up in [place]. Around 2018 she began having recurrent anemia, requiring blood transf usion on September 4-6 weeks. She had also been receiving intermittent parenteral iron. She had a bone marrow biopsy 08/[address] Sorto, was nondiagnostic. She had EGD and colonoscopy 11/17/21 at [facility]. Postoperative findings- antral gastritis, severe as well as duodenitis and the bulb of the duodenum, grade 1 hiatal hernia. Pancolonic diverticulosis as well as old blood in the colon was found. Patient was seen by Dr. Malik 04/13. She denied gross bleeding, she reported dark stools but, attributed that to oral iron. She does not take anticoagulation or antiplatelet therapies. When he last saw patient at the end of March his recommendation was for repeat iron studies. If patient is iron deficient would recommend repeat endoscopy. If no deficiencies, then recommendation for repeat bone marrow biopsy. Labs showed iron deficiency. She is s/p 3 feraheme infusions, last one 05/10. She has had 5 units of blood since February through our ofc. Patient is currently admitted with complaints of generalized weakness 2-3 days, persistent, family reports "sleeping all day". patient continues to deny any bleeding, black, maroon or bloody stools, she states they are always dark because of oral iron. She has a past medical history of type 2 diabetes, hypertension, hyperlipidemia, PVD, cardiac history. She has been seen by Gastroenterology for positive occult, no plans for repeat endoscopy at this time. She has been seen by Cardiology for elevated troponins, echo reporting LVEF 55-60%, thickened aortic valve leaflets, questioning a sessile mass in the aortic valve. She denies any fever, diaphoresis, cough, shortness of breath, chest pain, nausea, vomiting, diarrhea or constipation, no pain to report. Hgb was 7.6 on admit, today it is 7.7 status post 1 unit of blood. Review of Systems 10 point review of systems is negative except as stated in HPI Past Medical History Past Medical History: Diabetes Mellitus, GERD/Reflux, GI Bleed, Hypertension, Osteoarthritis (OA), Renal Disease, Thyroid Disorder Additional Past Medical History / Comment(s): Upper GI bleed, iron deficiency anemia, has gotten iron infusions, neuropathy bilateral feet, bilateral ankle edema, arthritis hands/fingers, hx. breast cancer April 2018, watermelon stomach GAVE Last Myocardial Infarction Date:: UNKN History of Any Multi-Drug Resistant Organisms: None Reported Past Surgical History: Appendectomy, Breast Surgery, Cholecystectomy, Hysterectomy, Joint Replacement, Orthopedic Surgery Additional Past Surgical History / Comment(s): CESARIO GREAT TOE JOINT REPLACED, VEIN STRIPPING LT LEG, BILATERAL CARPAL TUNNEL RELEASES, L THUMB TENDON REPAIR. left mastectomy April 2018 Past Anesthesia/Blood Transfusion Reactions: No Reported Reaction Additional Past Anesthesia/Blood Transfusion Reaction / Comm: PT HAS RECEIVED BLOOD WITHOUT REACTION. Past Psychological History: No Psychological Hx Reported Smoking Status: Never smoker Past Alcohol Use History: Occasional Past Drug Use History: None Reported - Past Family History Brother(s) Family Medical History: Cancer Additional Family Medical History / Comment(s): leukemia Medications and Allergies Home Medications Medication Instructions Recorded Confirmed Type Gabapentin [Neurontin] 300 mg PO TID 10/26/15 05/23/22 History Lovastatin [Mevacor] 40 mg PO DAILY 10/26/15 05/23/22 History calcitrioL [Rocaltrol] 0.25 mcg PO WILKES 09/07/16 05/23/22 History Omeprazole [PriLOSEC] 20 mg PO DAILY 09/28/17 05/23/22 History Furosemide [Lasix] 20 mg PO DAILY 05/03/18 05/23/22 History Ferrous Sulfate [Iron (65 MG 325 mg PO DAILY 01/27/22 05/23/22 History Elemental)] L.acidoph,Paracasei, B.lactis 1 cap PO DAILY 01/27/22 05/23/22 History [Probiotic] Potassium Chloride [Klor-Con M20] 20 meq PO DAILY 05/03/22 05/23/22 History Magnesium 500 mg PO HS 05/11/22 05/23/22 History Levothyroxine Sodium [Synthroid] 100 mcg PO DAILY 05/23/22 05/23/22 History Ubiquinol [Co-Veratrol] 100 mg PO DAILY 05/23/22 05/23/22 History Allergies Allergy/AdvReac Type Severity Reaction Status Date / Time codeine AdvReac STOMACH Verified 05/23/22 11:49 PROBLEMS- "FEELS LIKE A KNOT IN STOMACH" ibuprofen [From Motrin IB] AdvReac Unknown Verified 05/23/22 11:49 propoxyphene HCl AdvReac NIGHTMARES Verified 05/23/22 11:49 [From Wygesic] sulfamethoxazole AdvReac Unknown Verified 05/23/22 11:49 [From Bactrim] trimethoprim [From Bactrim] AdvReac Unknown Verified 05/23/22 11:49 Physical Exam Vitals: Vital Signs Temp Pulse Pulse Resp BP BP Pulse Ox 05/24/22 08:15 98.8 F 62 17 85/38 94 L 05/24/22 04:00 98.8 F 67 14 92/45 94 L 05/23/22 23:28 99.2 F 68 14 100/58 95 05/23/22 19:45 97.7 F 61 16 104/50 97 05/23/22 18:48 97.8 F 64 20 98/56 99 05/23/22 18:22 98.7 F 57 L 16 90/40 94 L 05/23/22 18:11 60 18 98/44 94 L 05/23/22 16:20 98.1 F 61 16 95/48 93 L 05/23/22 15:50 97.9 F 60 16 84/48 96 05/23/22 15:40 98.1 F 62 16 92/48 94 L 05/23/22 14:00 66 16 94/49 05/23/22 12:34 64 18 96/52 96 05/23/22 10:11 98.1 F 81 16 102/57 95 Intake and Output 05/23/22 05/24/22 05/24/22 22:59 06:59 14:59 Intake Total 310 750 Balance 310 750 Intake: Intake, IV Titration 600 Amount Sodium Chloride 0.9% 1, 600 000 ml @ 75 mls/hr IV . [id number] [facility] Rx#:[id number] Oral 150 Blood Product 310 Rc As-1 Unit 310 [id number] Other: Voiding Method Toilet Toilet # Voids 1 2 # Bowel Movements 1 Weight 67.132 kg - Constitutional General appearance: average body habitus, cooperative, no acute distress - EENT Eyes: anicteric sclerae, EOMI ENT: hearing grossly normal, normal oropharynx - Neck Neck: no lymphadenopathy - Respiratory Respiratory: bilateral: CTA - Cardiovascular Rhythm: regular Heart sounds: normal: S1, S2 Abnormal Heart Sounds: systolic murmur (greatest at third intercostal space left sternal border) - Gastrointestinal General gastrointestinal: no absent bowel sounds, no decreased bowel sounds, no distended, no hepatomegaly, no hyperactive bowel sounds, normal bowel sounds, no organomegaly, no rigid, no scaphoid, soft, no splenomegaly, no tenderness, no umbilical hernia, no ventral hernia - Integumentary Integumentary: pale - Neurologic Neurologic: CNII-XII intact (grossly) - Musculoskeletal Musculoskeletal: generalized weakness - Psychiatric Psychiatric: A&O x's 3, appropriate affect, intact judgment & insight Results CBC & Chem 7: 05/24/22 07:18 05/24/22 07:18 Labs: Abnormal Lab Results - Last 24 Hours (Table) 05/23/22 05/23/22 05/23/22 Range/Units 10:56 11:01 11:01 RBC 2.51 L (3.80-5.40) m/uL Hgb 7.6 L (11.4-16.0) gm/dL Hct 24.7 L (34.0-46.0) % MCHC 30.9 L (31.0-37.0) g/dL RDW 16.5 H (11.5-15.5) % Neutrophils # 9.9 H (1.3-7.7) k/uL Lymphocytes # 0.2 L (1.0-4.8) k/uL VBG pH (7.31-7.41) VBG pCO2 (37-51) mmHg VBG HCO3 (24-28) mmol/L Sodium 128 L (137-145) mmol/L Chloride (98-107) mmol/L Carbon Dioxide (22-30) mmol/L Glucose 108 H (74-99) mg/dL POC Glucose (mg/dL) 124 H (70-110) mg/dL Calcium 8.0 L (8.4-10.2) mg/dL Iron (50-170) ug/dL TIBC (228-460) ug/dL Transferrin (204.0-354.0) mg/dL Ferritin (10.0-291.0) ng/mL Troponin I (0.000-0.034) ng/mL Total Protein 5.0 L (6.3-8.2) g/dL Albumin 2.4 L (3.5-5.0) g/dL Urine Appearance (Clear) Urine Protein (Negative) Urine Blood (Negative) Ur Leukocyte Esterase (Negative) Urine WBC (0-5) /hpf Urine WBC Clumps (None) /hpf Urine Bacteria (None) /hpf Urine Mucus (None) /hpf Urine Yeast (Budding) (None) /hpf Stool Occult Blood (Negative) Crossmatch 05/23/22 05/23/22 05/23/22 Range/Units 11:01 11:01 11:01 RBC (3.80-5.40) m/uL Hgb (11.4-16.0) gm/dL Hct (34.0-46.0) % MCHC (31.0-37.0) g/dL RDW (11.5-15.5) % Neutrophils # (1.3-7.7) k/uL Lymphocytes # (1.0-4.8) k/uL VBG pH (7.31-7.41) VBG pCO2 (37-51) mmHg VBG HCO3 (24-28) mmol/L Sodium (137-145) mmol/L Chloride (98-107) mmol/L Carbon Dioxide (22-30) mmol/L Glucose (74-99) mg/dL POC Glucose (mg/dL) (70-110) mg/dL Calcium (8.4-10.2) mg/dL Iron 23 L (50-170) ug/dL TIBC 183 L (228-460) ug/dL Transferrin 131.0 L (204.0-354.0) mg/dL Ferritin 621.0 H (10.0-291.0) ng/mL Troponin I 0.166 H* (0.000-0.034) ng/mL Total Protein (6.3-8.2) g/dL Albumin (3.5-5.0) g/dL Urine Appearance Turbid H (Clear) Urine Protein 1+ H (Negative) Urine Blood Small H (Negative) Ur Leukocyte Esterase Large H (Negative) Urine WBC >182 H (0-5) /hpf Urine WBC Clumps Many H (None) /hpf Urine Bacteria Occasional H (None) /hpf Urine Mucus Rare H (None) /hpf Urine Yeast (Budding) Few H (None) /hpf Stool Occult Blood (Negative) Crossmatch 05/23/22 05/23/22 05/23/22 Range/Units 12:45 12:45 13:48 RBC (3.80-5.40) m/uL Hgb (11.4-16.0) gm/dL Hct (34.0-46.0) % MCHC (31.0-37.0) g/dL RDW (11.5-15.5) % Neutrophils # (1.3-7.7) k/uL Lymphocytes # (1.0-4.8) k/uL VBG pH 7.47 H (7.31-7.41) VBG pCO2 29 L (37-51) mmHg VBG HCO3 21 L (24-28) mmol/L Sodium (137-145) mmol/L Chloride (98-107) mmol/L Carbon Dioxide (22-30) mmol/L Glucose (74-99) mg/dL POC Glucose (mg/dL) (70-110) mg/dL Calcium (8.4-10.2) mg/dL Iron (50-170) ug/dL TIBC (228-460) ug/dL Transferrin (204.0-354.0) mg/dL Ferritin (10.0-291.0) ng/mL Troponin I (0.000-0.034) ng/mL Total Protein (6.3-8.2) g/dL Albumin (3.5-5.0) g/dL Urine Appearance (Clear) Urine Protein (Negative) Urine Blood (Negative) Ur Leukocyte Esterase (Negative) Urine WBC (0-5) /hpf Urine WBC Clumps (None) /hpf Urine Bacteria (None) /hpf Urine Mucus (None) /hpf Urine Yeast (Budding) (None) /hpf Stool Occult Blood Positive H (Negative) Crossmatch See Detail 05/23/22 05/23/22 05/23/22 Range/Units 14:54 18:40 22:09 RBC (3.80-5.40) m/uL Hgb (11.4-16.0) gm/dL Hct (34.0-46.0) % MCHC (31.0-37.0) g/dL RDW (11.5-15.5) % Neutrophils # (1.3-7.7) k/uL Lymphocytes # (1.0-4.8) k/uL VBG pH (7.31-7.41) VBG pCO2 (37-51) mmHg VBG HCO3 (24-28) mmol/L Sodium (137-145) mmol/L Chloride (98-107) mmol/L Carbon Dioxide (22-30) mmol/L Glucose (74-99) mg/dL POC Glucose (mg/dL) (70-110) mg/dL Calcium (8.4-10.2) mg/dL Iron (50-170) ug/dL TIBC (228-460) ug/dL Transferrin (204.0-354.0) mg/dL Ferritin (10.0-291.0) ng/mL Troponin I 0.158 H* 0.200 H* 0.334 H* (0.000-0.034) ng/mL Total Protein (6.3-8.2) g/dL Albumin (3.5-5.0) g/dL Urine Appearance (Clear) Urine Protein (Negative) Urine Blood (Negative) Ur Leukocyte Esterase (Negative) Urine WBC (0-5) /hpf Urine WBC Clumps (None) /hpf Urine Bacteria (None) /hpf Urine Mucus (None) /hpf Urine Yeast (Budding) (None) /hpf Stool Occult Blood (Negative) Crossmatch 05/24/22 05/24/22 Range/Units 07:18 07:18 RBC 2.54 L (3.80-5.40) m/uL Hgb 7.7 L (11.4-16.0) gm/dL Hct 24.9 L (34.0-46.0) % MCHC (31.0-37.0) g/dL RDW 18.0 H (11.5-15.5) % Neutrophils # (1.3-7.7) k/uL Lymphocytes # 0.3 L (1.0-4.8) k/uL VBG pH (7.31-7.41) VBG pCO2 (37-51) mmHg VBG HCO3 (24-28) mmol/L Sodium 131 L (137-145) mmol/L Chloride 108 H (98-107) mmol/L Carbon Dioxide 20 L (22-30) mmol/L Glucose 72 L (74-99) mg/dL POC Glucose (mg/dL) (70-110) mg/dL Calcium 7.5 L (8.4-10.2) mg/dL Iron (50-170) ug/dL TIBC (228-460) ug/dL Transferrin (204.0-354.0) mg/dL Ferritin (10.0-291.0) ng/mL Troponin I (0.000-0.034) ng/mL Total Protein 4.3 L (6.3-8.2) g/dL Albumin 2.0 L (3.5-5.0) g/dL Urine Appearance (Clear) Urine Protein (Negative) Urine Blood (Negative) Ur Leukocyte Esterase (Negative) Urine WBC (0-5) /hpf Urine WBC Clumps (None) /hpf Urine Bacteria (None) /hpf Urine Mucus (None) /hpf Urine Yeast (Budding) (None) /hpf Stool Occult Blood (Negative) Crossmatch Microbiology - Last 24 Hours (Table) 05/23/22 11:01 Urine Culture - Preliminary Urine,Clean Catch Comments: echo report reviewed Chest x-ray: report reviewed CT Scan - head: report reviewed Assessment and Plan (1) Elevated troponin Current Visit: Yes Status: Acute Priority: High Code(s): R77.8 - OTHER SPECIFIED ABNORMALITIES OF PLASMA PROTEINS SNOMED Code(s): 186590725 (2) Anemia Current Visit: Yes Status: Chronic Priority: High Code(s): D64.9 - ANEMIA, UNSPECIFIED SNOMED Code(s): 134669193 (3) Positive fecal occult blood test Current Visit: Yes Status: Acute Priority: High Code(s): R19.5 - OTHER FECAL ABNORMALITIES SNOMED Code(s): 06823676 (4) Gastric antral vascular ectasia Current Visit: No Status: Chronic Priority: Medium Code(s): K31.819 - ANGIODYSPLASIA OF STOMACH AND DUODENUM WITHOUT BLEEDING SNOMED Code(s): 41399741 (5) Iron deficiency anemia due to chronic blood loss Current Visit: Yes Status: Chronic Priority: High Code(s): D50.0 - IRON DEFICIENCY ANEMIA SECONDARY TO BLOOD LOSS (CHRONIC) SNOMED Code(s): 253055315 Plan: Patient has history of bleeding AVMs. She has been treated for this in the past. She did well for several years until just recently. She had a EGD and colonoscopy 11/13 Postoperative findings- antral gastritis, severe as well as duodenitis and the bulb of the duodenum, grade 1 hiatal hernia. Pancolonic diverticulosis as well as old blood in the colon was found. Since February, patient has been transfused with 5 units of blood, at least through our office. She just received 3 doses of Feraheme, last dose about 2-3 weeks ago. Patient will be due for repeat iron studies in about 1-2 weeks. She does have a follow-up appointment with Dr. Malik already scheduled. Recommendation is to transfuse for hemoglobin less than 7 unless patient is symptomatic. Keep follow-up appointments with Hematology for iron monitoring, hemoglobin monitoring, parenteral iron as needed. attests: I preformed H&P, seen and examined patient, developed impression and plan of care. Discussed with dictator. Agree with documentation, dictated as a scribe Time with Patient: Greater than 30
[2022-05-24 17:02] LABS: Glucose,Whole Blood 130 mg/dL (70-110)
--- NOTE | 2022-05-24 18:24 | P.PN ---
Progress Note - Text Progress Note Date: 05/24/22 Chief Complaint: Weakness This is a 82-year-old patient, was chronic stable medical conditions include diabetes, GERD, hypertension, ostomy arthritis, hypothyroid peripheral neuropathy, breast cancer in the past. She takes care of her ex- at home. She also has a friend Queenie does not taking care of ex-. Patient not a very detailed historian. She presents to the hospital feeling weak and tired. Decreased appetite. Some constipation. No fever and chills. Denies any pain. During the conversation keeps saying I cannot remember properly. She is being followed by hematology. Was found to have a hemoglobin of 7.6. Guaiac stool was positive. October 2020: EGD by Dr. Cordelia Grove showed: Severe gastric antral vascular ectasia with losing status post argon plasma coagulation. She has followed up with Dr. Cordelia Grove from GI with history of multiple AVMs in the past. He recently also had iron transfusion. Also on May 19 she had 2 units of blood. 2-D echo shows a possible vegetation on aortic valve leaflet. With significant aortic regurgitation. Blood cultures ordered. ID consulted. Also patient underwent [facility] mental status exam mental status exam. Patient obtained a score of 10/30. Suggesting dementia. I also spoke to patient's daughter Maria Eugenia telephone number [phone]. Patient overall condition was updated. She will discuss with her brother toward who is the POA. We will address CODE STATUS. Patient's caregiver as well as at the bedside. Also updated her. Patient does feel weak and tired. IV ceftriaxone started for UTI. Patient does complain of any pain. True cutback Neurontin to 300 mg daily at bedtime. Active Medications Acetaminophen (Acetaminophen Tab 325 Mg Tab) 650 mg PO Q6HR PRN PRN Reason: Mild Pain or Fever > 100.5 Last Admin: 05/24/22 08:56 Dose: 650 mg Atorvastatin Calcium (Atorvastatin 10 Mg Tab) 10 mg PO DAILY [facility] Last Admin: 05/24/22 08:56 Dose: 10 mg Calcium Carbonate/Glycine (Calcium Carbonate 500 Mg Chewable) 1,000 mg PO Q4HR PRN PRN Reason: Dyspepsia Ferrous Sulfate (Ferrous Sulfate 325 Mg Tab) 325 mg PO DAILY [facility] Last Admin: 05/24/22 08:56 Dose: 325 mg Gabapentin (Gabapentin 300 Mg Cap) 300 mg PO HS [facility] Sodium Chloride (Saline 0.9%) 1,000 mls @ 75 mls/hr IV .[id number] [facility] Last Admin: 05/24/22 02:18 Dose: 75 mls/hr Ceftriaxone Sodium 1 gm/ (Sodium Chloride) 50 mls @ 100 mls/hr IVPB Q24HR [facility]; Protocol Last Admin: 05/24/22 16:19 Dose: 100 mls/hr Lactulose (Lactulose 20 Gm/30 Ml Cup) 20 gm PO DAILY PRN PRN Reason: Constipation Levothyroxine Sodium (Levothyroxine 100 Mcg Tab) 100 mcg PO DAILY@0630 [facility] Last Admin: 05/24/22 06:22 Dose: 100 mcg Lorazepam (Lorazepam 0.5 Mg Tab) 0.5 mg PO Q6HR PRN PRN Reason: Anxiety Melatonin (Melatonin 3 Mg Tablet) 3 mg PO HS PRN PRN Reason: Insomnia Naloxone HCl (Naloxone 0.4 Mg/Ml 1 Ml Vial) 0.2 mg IV Q2M PRN PRN Reason: Opioid Reversal Ondansetron HCl (Ondansetron 4 Mg/2 Ml Vial) 4 mg IVP Q8HR PRN PRN Reason: Nausea And Vomiting Pantoprazole Sodium (Pantoprazole 40 Mg Tablet) 40 mg PO AC-BID [facility] Last Admin: 05/24/22 06:22 Dose: 40 mg Sodium Bicarbonate (Sodium Bicarbonate Tab 650 Mg Tab) 650 mg PO TID [facility] Last Admin: 05/24/22 16:18 Dose: Not Given Past medical history to include: Diabetes, GERD, GI bleed, hypertension, osteoarthritis, kidney disease, hypothyroid, iron deficiency anemia, peripheral neuropathy, arthritis, watermelon stomach Social history: Lives with her ex-. No history of smoking alcohol. Family history: Leukemia Physical examination: VITAL SIGNS: 98, 66, 17, 89/42, 94% room air GENERAL:, laying in bed awake, tired. EYES: Pupils equal. Conjunctiva pale. HEENT: External appearance of nose and ears normal, oral cavity grossly normal. NECK: JVD not raised; masses not palpable. HEART: First and second heart sounds are normal; no edema. LUNGS: Respiratory rate normal; clear to auscultation. ABDOMEN: Soft, nontender, liver spleen not palpable, no masses palpable. PSYCH: Patient knows the year the season difficulty stating the month nose that she has not hospital.l. MUSCULOSKELETAL:No Clubbing/cyanosis;muscles-grossly intact. OA INVESTIGATIONS, reviewed in the clinical context: 2-D echocardiogram: EF 55-60%. Possible vegetation on the aortic valve leaflet. Moderate to severe aortic regurgitation. [facility] mental status exam mental status exam. Patient obtained a score of 10/30 White count 10.60 globin 7.6 platelets 195 sodium 128 potassium 4.3 BUN 16 creatinine 1.02 Troponin I 0.166, 0.158 albumin 2.4 Fecal occult blood positive EKG tracing personally reviewed by me-normal sinus rhythm. Some ST segment depression in inferolateral leads and T wave changes Chest x-ray film personally reviewed by me-possible cardiomegaly. Questionable venous prominence Assessment and plan: -Normocytic anemia with patient being guaiac-positive, patient's had multiple EGDs in the past. Has had argon plasma coagulation of AVMs by Dr. Cordelia Grove. No overt bleeding. Seen by GI. Not for any endoscopy current time. Patient recently had iron transfusion. -Moderate cognitive impairment could be from Alzheimer's dementia [facility] mental status exam mental status exam. Patient obtained a score of 10/30. Patient's daughter over the phone did confirm the patient's memory has been progressively getting worse. -Hypothyroid Synthroid 100 g a day -Peripheral neuropathy Neurontin cutback dose at 300 mg daily at bedtime. 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 Smiley has been going on. There was a talk about repeat bone marrow biopsy. Dr. Smiley been consulted and they're following -Chronic kidney disease stage III likely nephrosclerosis Follow renal function -Hyponatremia, hypovolemic from decreased oral intake Normal saline -Moderate protein calorie malnutrition decreased oral intake ensure -Band diverticulosis -Positive troponin in the setting of some renal dysfunction. Patient denies any chest pain. Some EKG changes. No ACS Follow with cardiology -Moderate to severe aortic regurgitation: New diagnosis Follow with cardiology -Aortic valve vegetation. Patient has no white count. No fever.: New diagnosis Blood culture. Consult ID. -Acute UTI with cystitis Start IV ceftriaxone Start IV ceftriaxone. Blood culture. Consult ID. Care was discussed with the patient and caregiver at the bedside. Also spoke to patient's daughter Maria Eugenia over the phone. Advanced care planning: Patient not really capable of currently holding a full discussion regarding details of her care. She is able tonsil simple questions. Spoke at length to patient's daughter Maria Eugenia. Her brother is the POA. She will get them to send in the documents. Patient's overall condition was discussed and all the care was discussed. She will Dr. brother about the CODE STATUS and get back to us. He does understand patient prognosis is guarded. Time spent for this about 25 minutes
[2022-05-24 20:23] LABS: Glucose,Whole Blood 160 mg/dL (70-110)
[2022-05-24 21:40] LABS: Glucose,Whole Blood 163 mg/dL (70-110)
[2022-05-24] MEDS: INSULIN ASPART (NovoLOG) 100 UNIT/ML VIAL SQ SCH (21:44)
[2022-05-25 06:05] LABS: Glucose,Whole Blood 107 mg/dL (70-110)
[2022-05-25] MEDS: INSULIN ASPART (NovoLOG) 100 UNIT/ML VIAL SQ SCH ×4 (06:06→21:29)
[2022-05-25] MEDS: LEVOTHYROXINE 100 MCG TAB PO SCH (06:21)
[2022-05-25] MEDS: PANTOPRAZOLE 40 MG TABLET PO SCH ×2 (06:21→17:35)
[2022-05-25] MEDS: SODIUM CHLORIDE 0.9% 1,000 ML IV SCH ×2 (06:22→17:36)
[2022-05-25 08:08] LABS: Anisocytosis Slight; HCT 24.9 % (34.0-46.0); HGB 7.4 gm/dL (11.4-16.0); Hypochromasia Marked; MCH 30.2 pg (25.0-35.0); MCHC 29.9 g/dL (31.0-37.0); MCV 100.8 fL (80.0-100.0); Macrocytosis Moderate; Mean Platelet Volume 8.1; Platelet Count 144 k/uL (150-450); Poikilocytosis Slight; RBC 2.47 m/uL (3.80-5.40); RDW 17.9 % (11.5-15.5)
[2022-05-25] MEDS: ATORVASTATIN 10 MG TAB PO SCH (09:58)
[2022-05-25] MEDS: FERROUS SULFATE 325 MG TAB PO SCH (09:58)
[2022-05-25] MEDS: SODIUM BICARBONATE TAB 650 MG TAB PO SCH ×3 (09:58→21:29)
[2022-05-25] MEDS ORDERED: VANCOMYCIN IV PER PHARMACY 1 EACH MISC MISCELLANE PRN (10:30)
[2022-05-25] MEDS ORDERED: VANCOMYCIN 1,250 MG in SODIUM CHLORIDE 0.9% 250 ML IVPB SCH (11:00)
--- NOTE | 2022-05-25 11:05 | P.PN ---
Subjective This is a pleasant 82-year-old female past medical history significant for type 2 diabetes, hypertension, dyslipidemia, peripheral vascular disease, mild aortic regurgitation, SVT, history of multiple EGD and colonoscopy for AVMs in the past, iron deficiency anemia, requiring iron infusions and blood transfusions as an outpatient. He followed in the office with Dr. Grove last seen in 2019. We have been asked to see in consultation for elevated troponin. Patient presents emergency department with generalized weakness and fatigue for 2-3 days. There was a concern for GI bleed with stool occult blood being positive, GI was consulted no plan for repeat scope at this time. Hematology is also consulted as well. Patient seen and examined at bedside, no acute distress. She denies any chest pain, shortness of breath, lightheadedness, dizziness, palpitations, syncope or near syncope. She denies any fever, cough, chills, night sweats. No history of CAD, [place], Stroke. She did receive 1 unit of PRBCs on admission * Echocardiogram revealed an EF of 5560%, moderately increased posterior wall thickness, possible vegetation on the aortic valve leaflet, mild aortic stenosis peak/mean gradient of 29mmHg/14 mmHg, moderate to severe aortic regurgitation, mild trucuspid regurgiation. 05/25/2022 Patient seen and examined at bedside, distress. She denies any chest pain or shortness of breath, fever, cough, chills. She is afebrile. She is currently on IV ceftriaxone for UTI. Her antihypertensives on hold due to hypotension. PHYSICAL EXAMINATION Blood pressure 112/55, heart rate 68, afebrile, oxygen saturation 92% on room air CONSTITUTIONAL: No apparent distress. HEENT: Neck Supple. No JVD. No carotid bruit. CHEST EXAMINATION: Lungs are clear to auscultation. No chest wall tenderness is noted on palpation or with deep breathing. HEART EXAMINATION: Regular rate and rhythm. S1, S2 heard. Systolic and diastolic murmur noted ABDOMEN: Soft, nontender. Positive bowel sounds. EXTREMITIES: 2+ peripheral pulses, no lower extremity edema and no calf tenderness. NEUROLOGIC EXAMINATION: Patient is awake, alert and oriented x2. ASSESSMENT Chronic myocardial injury without evidence of ischemia on exam or by EKG Anemia Possible vegetation/sessile mass on aortic valve reported Mild aortic stenosis Moderate to severe aortic regurgitation Hypotension Generalized weakness UTI Dementia Type 2 diabetes History of hypertension Dyslipidemia History of peripheral vascular disease History of mild aortic regurgitation History of SVT PLAN 2D echocardiogram reviewed, patient with no signs/symptoms of sepsis at this time. Blood cultures obtained. Echo to be reviewed by Dr. Loya Hematology consulted for anemia Infectious disease consulted Hold antihypertensives secondary to hypotension. Further recommendations based on clinical course Nurse practitioner note has been reviewed by physician. Signing provider agrees with the documented findings, assessment, and plan of care. Objective - Vital Signs Vital signs: Vital Signs Temp 97.7 F 05/25/22 08:00 Pulse 68 05/25/22 08:00 Resp 17 05/25/22 08:00 BP 112/55 05/25/22 08:00 Pulse Ox 93 L 05/25/22 08:00 FiO2 Intake & Output 05/24/22 05/25/22 05/25/22 18:59 06:59 18:59 Intake Total 1835 800 118 Output Total 1 Balance 1835 799 118 Intake: Intake, IV Titration 875 800 Amount Sodium Chloride 0.9% 1, 825 800 000 ml @ 75 mls/hr IV . [id number] [facility] Rx#:[id number] cefTRIAXone 1 gm In 50 Sodium Chloride 0.9% 50 ml @ 100 mls/hr IVPB Q24HR [facility] Rx#:[id number] Oral 960 118 Output: Urine 1 Other: Voiding Method Toilet Toilet # Voids 4 1 # Bowel Movements 1 - Labs CBC & Chem 7: 05/25/22 07:05 05/24/22 07:18 Labs: Abnormal Lab Results - Last 24 Hours (Table) 05/24/22 05/24/22 05/24/22 Range/Units 11:48 17:00 20:21 RBC (3.80-5.40) m/uL Hgb (11.4-16.0) gm/dL Hct (34.0-46.0) % MCV (80.0-100.0) fL MCHC (31.0-37.0) g/dL RDW (11.5-15.5) % Plt Count (150-450) k/uL POC Glucose (mg/dL) 124 H 130 H 160 H (70-110) mg/dL C-Reactive Protein (<1.0) mg/dL 05/24/22 05/25/22 05/25/22 Range/Units 21:37 07:05 09:01 RBC 2.47 L (3.80-5.40) m/uL Hgb 7.4 L (11.4-16.0) gm/dL Hct 24.9 L (34.0-46.0) % MCV 100.8 H (80.0-100.0) fL MCHC 29.9 L (31.0-37.0) g/dL RDW 17.9 H (11.5-15.5) % Plt Count 144 L (150-450) k/uL POC Glucose (mg/dL) 163 H (70-110) mg/dL C-Reactive Protein 5.6 H (<1.0) mg/dL Microbiology - Last 24 Hours (Table) 05/24/22 16:00 Blood Culture Gram Stain - Preliminary Blood 05/24/22 16:00 Blood Culture - Final Blood 05/23/22 11:01 Urine Culture - Final Urine,Clean Catch Strep agalactiae - (group b)
--- NOTE | 2022-05-25 11:17 | P.PN ---
Subjective Progress Note Date: 05/25/22 Principal diagnosis: Anemia This is a pleasant 82-year-old female who presented to the emergency department with complaints of generalized weakness over the last 2-3 days. Patient's caregivers at the bedside and states that the patient has been sleeping all day for the last 2-3 days. She states that she has not had any other complaints. She denies any blood in her stools. She states that her stools are always dark due to her iron. She is known to Dr. Grove with a history of multiple EGD and colonoscopy for AVMs in the past. She also follows with hematology for outpat ient iron infusions as well as blood transfusions as needed. Patient's caregiver also states that on 05/10/2022 she went for an iron infusion and her blood was low so she returned on 05/11/2022 and got 2 units of blood. Patient is denying any abdominal pain, no nausea or vomiting. Hemoglobin on admission was 7.6. Patient had a CT of the brain showed mild diffuse age-related cerebral atrophy and moderate chronic small vessel ischemic changes. 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 Correlate clinically for old outside CT or MRI available. 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 The patient is not on any anticoagulation. 05/24/2022: Patient was seen and examined his follow-up. She denies any bowel movements with blood or black tarry stool. Nursing reports no signs of GI blood loss. Patient is with complaints of headache. Cardiology following for elevated troponins and echocardiogram obtained with report of EF 55-60%, thickened aortic valve leaflets, possible sessile mass on the aortic valve moderate severe aortic regurgitation. Further recommendations from cardiology pending clinical course. Hemoglobin stable today is 7.7. 05/25/2022: Patient was seen again as a follow-up. She denies any blood in her stool. Denies abdominal pain, nausea or vomiting. States she is still feeling somewhat fatigued. Hemoglobin stable at 7.4, BUN has been normal at 13. Objective - Vital Signs Vital signs: Vital Signs Temp 98.7 F 05/25/22 04:00 Pulse 63 05/25/22 04:00 Resp 16 05/25/22 04:00 BP 92/52 05/25/22 04:00 Pulse Ox 95 05/25/22 04:00 FiO2 Intake & Output 05/24/22 05/25/22 05/25/22 18:59 06:59 18:59 Intake Total 1835 800 Output Total 1 Balance 1835 799 Intake: Intake, IV Titration 875 800 Amount Sodium Chloride 0.9% 1, 825 800 000 ml @ 75 mls/hr IV . [id number] [facility] Rx#:[id number] cefTRIAXone 1 gm In 50 Sodium Chloride 0.9% 50 ml @ 100 mls/hr IVPB Q24HR [facility] Rx#:[id number] Oral 960 Output: Urine 1 Other: Voiding Method Toilet Toilet # Voids 4 1 # Bowel Movements 1 - Exam General appearance: The patient is alert, oriented, appears in no acute distress. HET: Head is normocephalic and atraumatic. Conjunctiva pink. Sclera anicteric. Neck: Supple without lymphadenopathy. Abdomen: Soft, nontender, nondistended with bowel sounds. No guarding or rigidity. Extremities: Normal skin color and turgor. No pedal edema Skin: No rashes, no jaundice Neurological: No focal deficits. Alert and oriented -3. - Labs CBC & Chem 7: 05/25/22 07:05 05/24/22 07:18 Labs: Abnormal Lab Results - Last 24 Hours (Table) 05/24/22 05/24/22 05/24/22 Range/Units 11:48 17:00 20:21 RBC (3.80-5.40) m/uL Hgb (11.4-16.0) gm/dL Hct (34.0-46.0) % MCV (80.0-100.0) fL MCHC (31.0-37.0) g/dL RDW (11.5-15.5) % Plt Count (150-450) k/uL POC Glucose (mg/dL) 124 H 130 H 160 H (70-110) mg/dL 05/24/22 05/25/22 Range/Units 21:37 07:05 RBC 2.47 L (3.80-5.40) m/uL Hgb 7.4 L (11.4-16.0) gm/dL Hct 24.9 L (34.0-46.0) % MCV 100.8 H (80.0-100.0) fL MCHC 29.9 L (31.0-37.0) g/dL RDW 17.9 H (11.5-15.5) % Plt Count 144 L (150-450) k/uL POC Glucose (mg/dL) 163 H (70-110) mg/dL Microbiology - Last 24 Hours (Table) 05/23/22 11:01 Urine Culture - Final Urine,Clean Catch Strep agalactiae - (group b) Assessment and Plan (1) Anemia Narrative/Plan: 82-year-old female 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 Rosenberg for history of antral ectasia with argon plasma coagulation multiple times in the past. Her last EGD was 11/14/2020. Patient presented to the emergency department with weakness or last 2-3 days duration with excessive fatigue and sleepiness. Patient follows with hematology and last had an iron infusion on 05/10/2022 and was called to come back for blood transfusion on 05/11/2022 which her caregiver states she had 2 units. Patient had an occult positive stool. Caregiver denies any blood in her stool. States that it is dark but that it is always dark related to her iron. She is not on any anticoagulation. No complaints of abdominal pain. No plans at this time for endoscopic evaluation. We'll continue to monitor for signs of GI bleed. Await recommendations from hematology. Current Visit: Yes Status: Chronic Priority: High Code(s): D64.9 - ANEMIA, UNSPECIFIED SNOMED Code(s): 276039552 (2) Positive fecal occult blood test Current Visit: Yes Status: Acute Priority: High Code(s): R19.5 - OTHER FECAL ABNORMALITIES SNOMED Code(s): 87933444 (3) Elevated troponin Narrative/Plan: Cardiology following Current Visit: Yes Status: Acute Priority: High Code(s): R77.8 - OTHER SPECIFIED ABNORMALITIES OF PLASMA PROTEINS SNOMED Code(s): 041959225 Plan: 1. Continue symptomatic and supportive care 2. Hematology recommends outpatient follow-up and transfuse for hemoglobin less than 7 3. Daily CBC, transfuse for hemoglobin less than 7 4. Iron studies ordered 5. Patient may have diet as tolerated 6. Protonix 40 mg daily 7. No plans at this time of endoscopic evaluation 8. Await further recommendations from cardiology Thank you for this consultation, we will continue to follow closely Dr. Cordelia Grove I agree with the dictator's note, documented as a scribe by Yaquelin Ashton.
[2022-05-25 11:49] LABS: Glucose,Whole Blood 177 mg/dL (70-110)
--- NOTE | 2022-05-25 14:21 | P.PN ---
Subjective Progress Note Date: 05/25/22 Principal diagnosis: iron deficient anemia in follow-up today patient states she is feeling better then on admit, denies headache, dizziness, shortness of breath, chest pain, bleeding. Objective - Vital Signs Vital signs: Vital Signs Temp 97.7 F 05/25/22 08:00 Pulse 68 05/25/22 08:00 Resp 17 05/25/22 08:00 BP 112/55 05/25/22 08:00 Pulse Ox 93 L 05/25/22 08:00 FiO2 Intake & Output 05/24/22 05/25/22 05/25/22 18:59 06:59 18:59 Intake Total 1835 800 236 Output Total 1 Balance 1835 799 236 Intake: Intake, IV Titration 875 800 Amount Sodium Chloride 0.9% 1, 825 800 000 ml @ 75 mls/hr IV . [id number] [facility] Rx#:[id number] cefTRIAXone 1 gm In 50 Sodium Chloride 0.9% 50 ml @ 100 mls/hr IVPB Q24HR [facility] Rx#:[id number] Oral 960 236 Output: Urine 1 Other: Voiding Method Toilet Toilet Toilet # Voids 4 1 # Bowel Movements 1 - Constitutional Constitutional Comment(s): better color today, patient more interactive and does not appear as confused as on admit General appearance: Present: average body habitus, cooperative, no acute distress - EENT Eyes: Present: anicteric sclerae, EOMI ENT: Present: hearing grossly normal - Respiratory Respiratory: bilateral: CTA - Cardiovascular Rhythm: regular Heart sounds: normal: S1, S2 Abnormal Heart Sounds: Absent: systolic murmur, diastolic murmur, rub, S3 Bonds p, S4 Gallop, click, other - Peripheral edema leg Peripheral Edema: bilateral: Trace - Gastrointestinal General gastrointestinal: Present: normal bowel sounds, soft - Neurologic Neurologic: Present: CNII-XII intact (grossly) - Musculoskeletal Musculoskeletal: Present: generalized weakness - Psychiatric Psychiatric: Present: A&O x's 3, appropriate affect, intact judgment & insight - Labs CBC & Chem 7: 05/25/22 07:05 05/24/22 07:18 Labs: Abnormal Lab Results - Last 24 Hours (Table) 05/24/22 05/24/22 05/24/22 Range/Units 17:00 20:21 21:37 RBC (3.80-5.40) m/uL Hgb (11.4-16.0) gm/dL Hct (34.0-46.0) % MCV (80.0-100.0) fL MCHC (31.0-37.0) g/dL RDW (11.5-15.5) % Plt Count (150-450) k/uL ESR (0-20) mm/hr POC Glucose (mg/dL) 130 H 160 H 163 H (70-110) mg/dL C-Reactive Protein (<1.0) mg/dL 05/25/22 05/25/22 05/25/22 Range/Units 07:05 09:01 09:01 RBC 2.47 L (3.80-5.40) m/uL Hgb 7.4 L (11.4-16.0) gm/dL Hct 24.9 L (34.0-46.0) % MCV 100.8 H (80.0-100.0) fL MCHC 29.9 L (31.0-37.0) g/dL RDW 17.9 H (11.5-15.5) % Plt Count 144 L (150-450) k/uL ESR 86 H (0-20) mm/hr POC Glucose (mg/dL) (70-110) mg/dL C-Reactive Protein 5.6 H (<1.0) mg/dL 05/25/22 Range/Units 11:46 RBC (3.80-5.40) m/uL Hgb (11.4-16.0) gm/dL Hct (34.0-46.0) % MCV (80.0-100.0) fL MCHC (31.0-37.0) g/dL RDW (11.5-15.5) % Plt Count (150-450) k/uL ESR (0-20) mm/hr POC Glucose (mg/dL) 177 H (70-110) mg/dL C-Reactive Protein (<1.0) mg/dL Microbiology - Last 24 Hours (Table) 05/24/22 16:00 Blood Culture Gram Stain - Preliminary Blood 05/24/22 16:00 Blood Culture - Final Blood 05/23/22 11:01 Urine Culture - Final Urine,Clean Catch Strep agalactiae - (group b) Assessment and Plan (1) Elevated troponin Current Visit: Yes Status: Acute Priority: High Code(s): R77.8 - OTHER SPECIFIED ABNORMALITIES OF PLASMA PROTEINS SNOMED Code(s): 557651170 (2) Anemia Current Visit: Yes Status: Chronic Priority: High Code(s): D64.9 - ANEMIA, UNSPECIFIED SNOMED Code(s): 077316488 (3) Positive fecal occult blood test Current Visit: Yes Status: Acute Priority: High Code(s): R19.5 - OTHER FECAL ABNORMALITIES SNOMED Code(s): 61796073 (4) Gastric antral vascular ectasia Current Visit: No Status: Chronic Priority: Medium Code(s): K31.819 - ANGIODYSPLASIA OF STOMACH AND DUODENUM WITHOUT BLEEDING SNOMED Code(s): 08313246 (5) Iron deficiency anemia due to chronic blood loss Current Visit: Yes Status: Chronic Priority: High Code(s): D50.0 - IRON DEFICIENCY ANEMIA SECONDARY TO BLOOD LOSS (CHRONIC) SNOMED Code(s): 922849763
--- NOTE | 2022-05-25 14:28 | P.PN ---
Progress Note - Text Progress Note Date: 05/25/22 Chief Complaint: Weakness This is a 82-year-old patient, was chronic stable medical conditions include diabetes, GERD, hypertension, ostomy arthritis, hypothyroid peripheral neuropathy, breast cancer in the past. She takes care of her ex- at home. She also has a friend Queenie does not taking care of ex-. Patient not a very detailed historian. She presents to the hospital feeling weak and tired. Decreased appetite. Some constipation. No fever and chills. Denies any pain. During the conversation keeps saying I cannot remember properly. She is being followed by hematology. Was found to have a hemoglobin of 7.6. Guaiac stool was positive. October 2020: EGD by Dr. Cordelia Grove showed: Severe gastric antral vascular ectasia with losing status post argon plasma coagulation. She has followed up with Dr. Cordelia Grove from GI with history of multiple AVMs in the past. He recently also had iron transfusion. Also on May 19 she had 2 units of blood. 2-D echo shows a possible vegetation on aortic valve leaflet. With significant aortic regurgitation. Blood cultures ordered. ID consulted. Also patient underwent [facility] mental status exam mental status exam. Patient obtained a score of 10/30. Suggesting dementia. I also spoke to patient's daughter Maria Eugenia telephone number [phone]. Patient overall condition was updated. She will discuss with her brother toward who is the POA. We will address CODE STATUS. Patient's caregiver as well as at the bedside. Also updated her. Patient does feel weak and tired. IV ceftriaxone started for UTI. Patient does complain of any pain. cutback Neurontin to 300 mg daily at bedtime. May 25: Laying in bed. Awake. A bit tired. Discussed with Dr. Isaacs from cardiology. He looked at the echocardiogram again. Decision made to proceed with LINDA to rule out vegetation.. Versus thrombus or a thickened valve. Blood cultures ordered yesterday pending. Active Medications Acetaminophen (Acetaminophen Tab 325 Mg Tab) 650 mg PO Q6HR PRN PRN Reason: Mild Pain or Fever > 100.5 Last Admin: 05/24/22 08:56 Dose: 650 mg Atorvastatin Calcium (Atorvastatin 10 Mg Tab) 10 mg PO DAILY [facility] Last Admin: 05/25/22 09:58 Dose: 10 mg Calcium Carbonate/Glycine (Calcium Carbonate 500 Mg Chewable) 1,000 mg PO Q4HR PRN PRN Reason: Dyspepsia Ferrous Sulfate (Ferrous Sulfate 325 Mg Tab) 325 mg PO DAILY [facility] Last Admin: 05/25/22 09:58 Dose: 325 mg Gabapentin (Gabapentin 300 Mg Cap) 300 mg PO HS [facility] Last Admin: 05/24/22 20:22 Dose: 300 mg Sodium Chloride (Saline 0.9%) 1,000 mls @ 75 mls/hr IV .[id number] [facility] Last Admin: 05/25/22 06:22 Dose: 75 mls/hr Ceftriaxone Sodium 1 gm/ (Sodium Chloride) 50 mls @ 100 mls/hr IVPB Q24HR [facility]; Protocol Last Admin: 05/25/22 09:58 Dose: 100 mls/hr Vancomycin HCl 1,250 mg/ (Sodium Chloride) 250 mls @ 125 mls/hr IVPB Q24H [facility] Last Admin: 05/25/22 11:49 Dose: 125 mls/hr Insulin Aspart (Insulin Aspart (Novolog) 100 Unit/Ml Vial) 0 unit SQ ACHS [facility]; Protocol Last Admin: 05/25/22 06:06 Dose: Not Given Lactulose (Lactulose 20 Gm/30 Ml Cup) 20 gm PO DAILY PRN PRN Reason: Constipation Levothyroxine Sodium (Levothyroxine 100 Mcg Tab) 100 mcg PO DAILY@0630 [facility] Last Admin: 05/25/22 06:21 Dose: 100 mcg Lorazepam (Lorazepam 0.5 Mg Tab) 0.5 mg PO Q6HR PRN PRN Reason: Anxiety Melatonin (Melatonin 3 Mg Tablet) 3 mg PO HS PRN PRN Reason: Insomnia Naloxone HCl (Naloxone 0.4 Mg/Ml 1 Ml Vial) 0.2 mg IV Q2M PRN PRN Reason: Opioid Reversal Ondansetron HCl (Ondansetron 4 Mg/2 Ml Vial) 4 mg IVP Q8HR PRN PRN Reason: Nausea And Vomiting Pantoprazole Sodium (Pantoprazole 40 Mg Tablet) 40 mg PO AC-BID [facility] Last Admin: 05/25/22 06:21 Dose: 40 mg Sodium Bicarbonate (Sodium Bicarbonate Tab 650 Mg Tab) 650 mg PO TID [facility] Last Admin: 05/25/22 09:58 Dose: 650 mg Past medical history to include: Diabetes, GERD, GI bleed, hypertension, osteoarthritis, kidney disease, hypothyroid, iron deficiency anemia, peripheral neuropathy, arthritis, watermelon stomach Social history: Lives with her ex-. No history of smoking alcohol. Family history: Leukemia Physical examination: VITAL SIGNS: 97.7, 16, 17, 1 12 x 55, 93% room air GENERAL:, laying in bed awake, tired. EYES: Pupils equal. Conjunctiva pale. HEENT: External appearance of nose and ears normal, oral cavity grossly normal. NECK: JVD not raised; masses not palpable. HEART: First and second heart sounds are normal; no edema. LUNGS: Respiratory rate normal; clear to auscultation. ABDOMEN: Soft, nontender, liver spleen not palpable, no masses palpable. PSYCH: Patient knows the year the season difficulty stating the month nose that she has not hospital.l. MUSCULOSKELETAL:No Clubbing/cyanosis;muscles-grossly intact. OA INVESTIGATIONS, reviewed in the clinical context: UA positive: Urine culture: Streptococcus agalactiae group B May 25: White count 6 hemoglobin 7.4 platelets 144 CRP 5.6 ESR 86 2-D echocardiogram: EF 55-60%. Possible vegetation on the aortic valve leaflet. Moderate to severe aortic regurgitation. [facility] mental status exam mental status exam. Patient obtained a score of 10/30 White count 10.60 globin 7.6 platelets 195 sodium 128 potassium 4.3 BUN 16 creatinine 1.02 Troponin I 0.166, 0.158 albumin 2.4 Fecal occult blood positive EKG tracing personally reviewed by me-normal sinus rhythm. Some ST segment depression in inferolateral leads and T wave changes Chest x-ray film personally reviewed by me-possible cardiomegaly. Questionable venous prominence Assessment and plan: -Normocytic anemia with patient being guaiac-positive, patient's had multiple EGDs in the past. Has had argon plasma coagulation of AVMs by Dr. Cordelia Grove. No overt bleeding. Seen by GI. Not for any endoscopy current time. Patient recently had iron transfusion and blood transfusion. -Moderate cognitive impairment could be from Alzheimer's dementia [facility] mental status exam mental status exam. score of 10/30. daughter over the phone did confirm the patient's memory has been progressively getting worse. -Hypothyroid Synthroid 100 g a day -Peripheral neuropathy: No pain Neurontin cutback dose at 300 mg daily at bedtime. 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 Smiley has been going on. There was a talk about repeat bone marrow biopsy. Dr. Smiley been consulted and they're following -Chronic kidney disease stage III likely nephrosclerosis Follow renal function -Hyponatremia, hypovolemic from decreased oral intake Normal saline -Moderate protein calorie malnutrition decreased oral intake ensure -: Neck diverticulosis -Positive troponin in the setting of some renal dysfunction. Patient denies any chest pain. Some EKG changes. No ACS Follow with cardiology -Moderate to severe aortic regurgitation: New diagnosis Follow with cardiology -Possible Aortic valve vegetation. no white count. No fever.: For further evaluation Blood culture. Consult ID. 4 LINDA to confirm vegetation versus other etiology -Acute UTI with cystitis Start IV ceftriaxone -DO NOT RESUSCITATE Change IV ceftriaxone to Keflex for UTI.. Blood culture pending. Discussed w allen Isaacs. 4 LINDA tomorrow.
[2022-05-25 17:02] LABS: Glucose,Whole Blood 137 mg/dL (70-110)
[2022-05-25 19:45] LABS: Glucose,Whole Blood 153 mg/dL (70-110)
[2022-05-25] MEDS: GABAPENTIN 300 MG CAP PO SCH (21:29)
--- NOTE | 2022-05-25 22:19 | P.CONS ---
History of Present Illness - Reason for Consult Consult date: 05/25/22 Aortic valve vegetation Requesting physician: Rikki Oseguera - Chief Complaint Weakness x few days - History of Present Illness Patient is a 82-year-old female presented to the hospital 2 days ago for evaluation of weakness patient mention over the last 3 days she has been extremely fatigued and sleeping all day, patient did have a history of anemia requiring recurrent blood transfusion and did have a Mediport for IV access and has been placed many years ago patient on presentation to the hospital was afebrile and no fever have been recorded subsequently patient did have a normal white count kidney function has been normal liver enzymes are normal urine was positive stool for occult blood was positive patient urination stopcocks leg likely patient did have an echocardiogram with concern for thickened aortic wall and possible mass on the aortic valve concerning for vegetation patient blood cultures came back positive with gram-positive cocci infectious disease was consulted for further management of antibiotic therapy Review of Systems Positive point has been mentioned in the HPI rest of the systems are negative Past Medical History Past Medical History: Diabetes Mellitus, GERD/Reflux, GI Bleed, Hypertension, Osteoarthritis (OA), Renal Disease, Thyroid Disorder Additional Past Medical History / Comment(s): Upper GI bleed, iron deficiency anemia, has gotten iron infusions, neuropathy bilateral feet, bilateral ankle edema, arthritis hands/fingers, hx. breast cancer April 2018, watermelon stomach GAVE Last Myocardial Infarction Date:: UNKN History of Any Multi-Drug Resistant Organisms: None Reported Past Surgical History: Appendectomy, Breast Surgery, Cholecystectomy, Hy sterectomy, Joint Replacement, Orthopedic Surgery Additional Past Surgical History / Comment(s): CESARIO GREAT TOE JOINT REPLACED, VEIN STRIPPING LT LEG, BILATERAL CARPAL TUNNEL RELEASES, L THUMB TENDON REPAIR. left mastectomy April 2018 Past Anesthesia/Blood Transfusion Reactions: No Reported Reaction Additional Past Anesthesia/Blood Transfusion Reaction / Comm: PT HAS RECEIVED BLOOD WITHOUT REACTION. Past Psychological History: No Psychological Hx Reported Smoking Status: Never smoker Past Alcohol Use History: Occasional Past Drug Use History: None Reported - Past Family History Brother(s) Family Medical History: Cancer Additional Family Medical History / Comment(s): leukemia Medications and Allergies Home Medications Medication Instructions Recorded Confirmed Type Gabapentin [Neurontin] 300 mg PO TID 10/26/15 05/23/22 History Lovastatin [Mevacor] 40 mg PO DAILY 10/26/15 05/23/22 History calcitrioL [Rocaltrol] 0.25 mcg PO WILKES 09/07/16 05/23/22 History Omeprazole [PriLOSEC] 20 mg PO DAILY 09/28/17 05/23/22 History Furosemide [Lasix] 20 mg PO DAILY 05/03/18 05/23/22 History Ferrous Sulfate [Iron (65 MG 325 mg PO DAILY 01/27/22 05/23/22 History Elemental)] L.acidoph,Paracasei, B.lactis 1 cap PO DAILY 01/27/22 05/23/22 History [Probiotic] Potassium Chloride [Klor-Con M20] 20 meq PO DAILY 05/03/22 05/23/22 History Magnesium 500 mg PO HS 05/11/22 05/23/22 History Levothyroxine Sodium [Synthroid] 100 mcg PO DAILY 05/23/22 05/23/22 History Ubiquinol [Co-Veratrol] 100 mg PO DAILY 05/23/22 05/23/22 History Allergies Allergy/AdvReac Type Severity Reaction Status Date / Time codeine AdvReac STOMACH Verified 05/23/22 11:49 PROBLEMS- "FEELS LIKE A KNOT IN STOMACH" ibuprofen [From Motrin IB] AdvReac Unknown Verified 05/23/22 11:49 propoxyphene HCl AdvReac NIGHTMARES Verified 05/23/22 11:49 [From Wygesic] sulfamethoxazole AdvReac Unknown Verified 05/23/22 11:49 [From Bactrim] trimethoprim [From Bactrim] AdvReac Unknown Verified 05/23/22 11:49 Physical Exam Vitals: Vital Signs Temp Pulse Resp BP Pulse Ox 05/25/22 04:00 98.7 F 63 16 92/52 95 05/25/22 02:00 16 05/24/22 23:46 99.1 F 62 16 90/42 96 05/24/22 21:41 98.5 F 05/24/22 20:00 99.2 F 72 16 112/46 96 05/24/22 16:00 98.4 F 64 17 96/49 96 05/24/22 14:00 66 17 05/24/22 12:00 98.0 F 66 17 89/42 94 L Intake and Output 05/24/22 05/25/22 05/25/22 22:59 06:59 14:59 Intake Total 1595 800 Output Total 1 Balance 1595 799 Intake: Intake, IV Titration 875 800 Amount Sodium Chloride 0.9% 1, 825 800 000 ml @ 75 mls/hr IV . [id number] ALIA Rx#:[id number] cefTRIAXone 1 gm In 50 Sodium Chloride 0.9% 50 ml @ 100 mls/hr IVPB Q24HR ALIA Rx#:[id number] Oral 720 Output: Urine 1 Other: Voiding Method Toilet Toilet # Voids 4 1 GENERAL DESCRIPTION: Elderly female lying in bed, no distress. No tachypnea or accessory muscle of respiration use. HEENT: Shows Pallor , no scleral icterus. Oral mucous membrane is dry. No pharyngeal erythema or thrush NECK: Trachea central, no thyromegaly. LUNGS: Unlabored breathing. Clear to auscultation anteriorly. No wheeze or c rackle. HEART: S1, S2, regular rate and rhythm. ABDOMEN: Soft, no tenderness , guarding or rigidity, no organomegaly EXTREMITIES: No edema of feet. SKIN: No rash, no masses palpable. NEUROLOGICAL: The patient is awake, alert, oriented x3, mood and affect normal. Results CBC & Chem 7: 05/28/22 09:30 05/28/22 09:30 Labs: Abnormal Lab Results - Last 24 Hours (Table) 05/24/22 05/24/22 05/24/22 Range/Units 11:48 17:00 20:21 RBC (3.80-5.40) m/uL Hgb (11.4-16.0) gm/dL Hct (34.0-46.0) % MCV (80.0-100.0) fL MCHC (31.0-37.0) g/dL RDW (11.5-15.5) % Plt Count (150-450) k/uL POC Glucose (mg/dL) 124 H 130 H 160 H (70-110) mg/dL 05/24/22 05/25/22 Range/Units 21:37 07:05 RBC 2.47 L (3.80-5.40) m/uL Hgb 7.4 L (11.4-16.0) gm/dL Hct 24.9 L (34.0-46.0) % MCV 100.8 H (80.0-100.0) fL MCHC 29.9 L (31.0-37.0) g/dL RDW 17.9 H (11.5-15.5) % Plt Count 144 L (150-450) k/uL POC Glucose (mg/dL) 163 H (70-110) mg/dL Microbiology - Last 24 Hours (Table) 05/23/22 11:01 Urine Culture - Final Urine,Clean Catch Strep agalactiae - (group b) Assessment and Plan (1) Endocarditis Current Visit: Yes Status: Acute Code(s): I38 - ENDOCARDITIS, VALVE UNSPECIFIED SNOMED Code(s): 24687874 Plan: 1patient presented to hospital with generalized weakness in this patient did have a positive UA and concern for a symptomatic UTI however patient did have a abnormal echocardiogram with concern for possible aortic valve vegetation and now with evidence of gram-positive bacteremia high clinical suspicious for infective endocarditis interestingly patient with no fever or elevated white count though 2-we will recommend obtaining LINDA for better definition of integrity of the aortic valve and the size of vegetation 3-we will empirically add vancomycin while waiting for the ID of this pathogen 4-blood cultures will be repeated to document clearance of bacteremia We will follow on clinical condition and cultures to further adjust medication if needed Thank you for this consultation will follow this patient along with you Time with Patient: Greater than 30
[2022-05-26] MEDS: SODIUM CHLORIDE 0.9% 1,000 ML IV SCH ×2 (02:15→20:54)
[2022-05-26 05:53] LABS: Glucose,Whole Blood 116 mg/dL (70-110)
[2022-05-26] MEDS: PANTOPRAZOLE 40 MG TABLET PO SCH ×2 (06:26→17:54)
[2022-05-26] MEDS: INSULIN ASPART (NovoLOG) 100 UNIT/ML VIAL SQ SCH ×4 (06:26→20:50)
[2022-05-26] MEDS: LEVOTHYROXINE 100 MCG TAB PO SCH (06:26)
[2022-05-26] MEDS ORDERED: fentaNYL (PF) 50 MCG/ML 2 ML AMP ONE (10:09)
[2022-05-26] MEDS ORDERED: IV FLUID CONTINUATION 500 ML IV ONE (10:24)
[2022-05-26 10:28] LABS: Anisocytosis Slight; Basophils % (A) 0 %; Eosinophils # (A) 0.1 k/uL (0-0.7); Eosinophils % (A) 1 %; HCT 24.6 % (34.0-46.0); HGB 7.6 gm/dL (11.4-16.0); Hypochromasia Marked; Lymphocytes # (A) 0.3 k/uL (1.0-4.8); Lymphocytes % (A) 5 %; MCH 30.9 pg (25.0-35.0); MCHC 30.8 g/dL (31.0-37.0); MCV 100.3 fL (80.0-100.0); Macrocytosis Moderate; Mean Platelet Volume 7.9; Monocytes # (A) 0.2 k/uL (0-1.0); Monocytes % (A) 3 %; Neutrophils # (A) 6.3 k/uL (1.3-7.7); Neutrophils % (A) 89 %; Platelet Count 155 k/uL (150-450); Poikilocytosis Slight; RBC 2.45 m/uL (3.80-5.40); RDW 18.1 % (11.5-15.5); WBC 7.1 k/uL (3.8-10.6)
[2022-05-26] MEDS ORDERED: BENZOCAINE SPRAY 1 CAN TOPICAL ONE (10:29)
[2022-05-26] MEDS ORDERED: MIDAZOLAM 2 MG/2 ML VIAL IV ONE (10:34)
[2022-05-26] MEDS ORDERED: fentaNYL (PF) 50 MCG/ML 2 ML AMP IV ONE (10:35)
[2022-05-26 10:42] LABS: Calcium 7.6 mg/dL (8.4-10.2); Potassium 4.2 mmol/L (3.5-5.1)
--- NOTE | 2022-05-26 11:05 | P.PCN ---
Date of Procedure: 05/26/22 Operative Findings: TRANSESOPHAGEAL ECHOCARDIOGRAM PRODUCTION MECHANIC: BETHANY LUJAN MD, RPVI INDICATION: Rule out infective endocarditis COMPLICATION: None LEVEL OF SEDATION Moderate with sedation in length of 15 minutes PROCEDURE DESCRIPTION: After obtaining an informed consent, the patient was brought to transesophageal echocardiogram room. Pulse oximetry and heart monitors were attached to the patient. The patient throat was sprayed using lidocaine. The patient was turned into left lateral position. After that a bite guard was placed. After an appropriate conscious sedation was initiated, the transesophageal echocardiogram was advanced through a bite guard into the mid esophagus. A 2-D echocardiogram images, color Doppler images, continuous wave images, pulse-wave images, of various cardiac structure were performed. After that the transesophageal echocardiogram probe was advanced into the stomach and fixed to obtain transgastric view was. The probe was brought into the mid esophagus. Inter-atrial septum was interrogated using 2D images, color Doppler images, and then contrast study. After that transesophageal echocardiogram was withdrawn out and upon withdrawing the descending thoracic aorta all the way up to the arch was evaluated. FINDING: The left ventricular dimension and systolic function appeared to be within normal limits. Ejection fraction appears to be in the range of 50-55%. The right ventricle appeared to be mildly dilated. The left atrium and right atrium are dilated as well. The left atrial appendage was not well seen. The aortic valve is probably trileaflet valve. There is a large vegetation was identified on the aortic valve and located on the LVOT side with chaotic motion and evidence off severe aortic insufficiency seen with eccentric jet. There is no evidence of vegetation on the mitral valve with evidence of severe mitral regurgitation was posteriorly directed jet. The tricuspid valve also appears to have severe tricuspid regurgitation. No evidence of pericardial effusion identified. No abscess seen. CONCLUSION: 1. Infective endocarditis. Large vegetations located on the LVOT side and involving the right and noncoronary cusp of the aortic valve. There is severe aortic insufficiency identified. 2. No evidence of abscess. 3. The mitral valve appears to have no vegetation. There is severe mitral regurgitation was posteriorly directed jet 4. No evidence of vegetation on tricuspid valve or pulmonic valve phase severe TR was identified 5. Normal left ventricular dimension and systolic function 6. No evidence of pericardial effusion
--- NOTE | 2022-05-26 11:13 | P.PN ---
Subjective Progress Note Date: 05/26/22 Principal diagnosis: Anemia This is a pleasant 82-year-old female who presented to the emergency department with complaints of generalized weakness over the last 2-3 days. Patient's caregivers at the bedside and states that the patient has been sleeping all day for the last 2-3 days. She states that she has not had any other complaints. She denies any blood in her stools. She states that her stools are always dark due to her iron. She is known to Dr. Grove with a history of multiple EGD and colonoscopy for AVMs in the past. She also follows with hematology for outpat ient iron infusions as well as blood transfusions as needed. Patient's caregiver also states that on 05/10/2022 she went for an iron infusion and her blood was low so she returned on 05/11/2022 and got 2 units of blood. Patient is denying any abdominal pain, no nausea or vomiting. Hemoglobin on admission was 7.6. Patient had a CT of the brain showed mild diffuse age-related cerebral atrophy and moderate chronic small vessel ischemic changes. 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 Correlate clinically for old outside CT or MRI available. 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 The patient is not on any anticoagulation. 05/24/2022: Patient was seen and examined his follow-up. She denies any bowel movements with blood or black tarry stool. Nursing reports no signs of GI blood loss. Patient is with complaints of headache. Cardiology following for elevated troponins and echocardiogram obtained with report of EF 55-60%, thickened aortic valve leaflets, possible sessile mass on the aortic valve moderate severe aortic regurgitation. Further recommendations from cardiology pending clinical course. Hemoglobin stable today is 7.7. 05/25/2022: Patient was seen again as a follow-up. She denies any blood in her stool. Denies abdominal pain, nausea or vomiting. States she is still feeling somewhat fatigued. Hemoglobin stable at 7.4, BUN has been normal at 13. 05/26/2022: Patient seen as a follow-up for anemia. She continues to deny any blood in her stool or black tarry stool. Hemoglobin stable at 7.6. She is scheduled to undergo LINDA this morning with cardiology. She denies any abdominal pain, nausea or vomiting. States she does not feel that well, just feels weak. Objective - Vital Signs Vital signs: Vital Signs Temp 98.4 F 05/26/22 07:51 Pulse 67 05/26/22 07:51 Resp 24 05/26/22 07:51 BP 106/38 05/26/22 07:51 Pulse Ox 93 L 05/26/22 07:51 FiO2 Intake & Output 05/25/22 05/26/22 05/26/22 18:59 06:59 18:59 Intake Total 774 Output Total 200 Balance 774 -200 Intake: Oral 774 Output: Urine 200 Other: Voiding Method Toilet Toilet Bedside Commode # Voids 1 1 # Bowel Movements 1 - Exam General appearance: The patient is alert, oriented, appears in no acute distress. HET: Head is normocephalic and atraumatic. Conjunctiva pink. Sclera anicteric. Neck: Supple without lymphadenopathy. Abdomen: Soft, nontender, nondistended with bowel sounds. No guarding or rigidity. Extremities: Normal skin color and turgor. No pedal edema Skin: No rashes, no jaundice Neurological: No focal deficits. Alert and oriented -3. - Labs CBC & Chem 7: 05/26/22 09:54 05/26/22 09:54 Labs: Abnormal Lab Results - Last 24 Hours (Table) 05/25/22 05/25/22 05/25/22 Range/Units 09:01 09:01 09:07 ESR 86 H (0-20) mm/hr POC Glucose (mg/dL) (70-110) mg/dL C-Reactive Protein 5.6 H (<1.0) mg/dL Procalcitonin 0.31 H (0.02-0.09) ng/mL 05/25/22 05/25/22 05/25/22 Range/Units 11:46 16:59 19:43 ESR (0-20) mm/hr POC Glucose (mg/dL) 177 H 137 H 153 H (70-110) mg/dL C-Reactive Protein (<1.0) mg/dL Procalcitonin (0.02-0.09) ng/mL 05/26/22 Range/Units 05:52 ESR (0-20) mm/hr POC Glucose (mg/dL) 116 H (70-110) mg/dL C-Reactive Protein (<1.0) mg/dL Procalcitonin (0.02-0.09) ng/mL Microbiology - Last 24 Hours (Table) 05/24/22 16:00 Blood Culture Gram Stain - Preliminary Blood Blood Culture - Preliminary Streptococcus species 05/24/22 16:00 Blood Culture - Final Blood Assessment and Plan (1) Anemia Narrative/Plan: 82-year-old female known to neck cutter Dr. Rosenberg for history of antral ectasia with argon plasma coagulation multiple times in the past. Her last EGD was 11/14/2020. Patient presented to the emergency department with weakness or last 2-3 days duration with excessive fatigue and sleepiness. Patient follows with hematology and last had an iron infusion on 05/10/2022 and was called to come back for blood transfusion on 05/11/2022 which her caregiver states she had 2 units. Patient had an occult positive stool. Caregiver denies any blood in her stool. States that it is dark but that it is always dark related to her iron. She is not on any anticoagulation. No complaints of abdominal pain. No plans at this time for endoscopic evaluation. We'll continue to monitor for signs of GI bleed. Await recommendations from hematology. Current Visit: Yes Status: Chronic Priority: High Code(s): D64.9 - ANEMIA, UNSPECIFIED SNOMED Code(s): 836129976 (2) Positive fecal occult blood test Current Visit: Yes Status: Acute Priority: High Code(s): R19.5 - OTHER FECAL ABNORMALITIES SNOMED Code(s): 38448844 (3) Elevated troponin Narrative/Plan: Cardiology following Current Visit: Yes Status: Acute Priority: High Code(s): R77.8 - OTHER SPECIFIED ABNORMALITIES OF PLASMA PROTEINS SNOMED Code(s): 537283694 Plan: 1. Continue symptomatic and supportive care 2. Hematology recommends outpatient follow-up and transfuse for hemoglobin less than 7 3. Daily CBC, transfuse for hemoglobin less than 7 4. Patient may have diet as tolerated 5. Protonix 40 mg daily 6. No plans at this time of endoscopic evaluation 7. Await further recommendations from cardiology Thank you for this consultation, the patient is clear from gastroenterology once otherwise medically stable. We will sign off at this time. Dr. Cordelia Grove I agree with the dictator's note, documented as a scribe by Yaquelin Ashton.
[2022-05-26] MEDS: SODIUM BICARBONATE TAB 650 MG TAB PO SCH ×3 (11:18→20:53)
[2022-05-26] MEDS: FERROUS SULFATE 325 MG TAB PO SCH (11:18)
[2022-05-26] MEDS: ATORVASTATIN 10 MG TAB PO SCH (11:18)
[2022-05-26 12:07] LABS: Glucose,Whole Blood 108 mg/dL (70-110)
--- NOTE | 2022-05-26 14:35 | P.PN ---
Subjective Progress Note Date: 05/26/22 Principal diagnosis: iron deficient anemia in follow-up today patient is stable, no new symptoms to report, she states that she has had black stool. Patient does take an iron tablet. This point the patient that that may cause dark/greenish stools. Parenteral iron will not cau se black stool. She has no other bleeding to report. Her hemoglobin is stable today. Objective - Vital Signs Vital signs: Vital Signs Temp 97.6 F 05/26/22 11:13 Pulse 69 05/26/22 13:45 Resp 22 05/26/22 11:13 BP 112/76 05/26/22 13:45 Pulse Ox 94 L 05/26/22 12:16 FiO2 Intake & Output 05/25/22 05/26/22 05/26/22 18:59 06:59 18:59 Intake Total 774 100 Output Total 200 Balance 774 -200 100 Intake: IV 100 Oral 774 Output: Urine 200 Other: Voiding Method Toilet Toilet Bedside Commode # Voids 1 1 1 # Bowel Movements 1 1 - Constitutional General appearance: Present: average body habitus, cooperative, no acute distress - EENT Eyes: Present: anicteric sclerae, EOMI ENT: Present: hearing grossly normal - Respiratory Respiratory: bilateral: CTA - Cardiovascular Rhythm: regular - Gastrointestinal General gastrointestinal: Present: normal bowel sounds, soft. Absent: absent bowel sounds, decreased bowel sounds, distended, hepatomegaly, hyperactive bowel sounds, organomegaly, rigid, scaphoid, splenomegaly, tenderness, umbilical hernia, ventral hernia - Neurologic Neurologic: Present: CNII-XII intact - Musculoskeletal Musculoskeletal: Present: generalized weakness - Psychiatric Psychiatric: Present: A&O x's 3, appropriate affect, intact judgment & insight - Labs CBC & Chem 7: 05/26/22 09:54 05/26/22 09:54 Labs: Abnormal Lab Results - Last 24 Hours (Table) 05/25/22 05/25/22 05/25/22 Range/Units 09:07 16:59 19:43 RBC (3.80-5.40) m/uL Hgb (11.4-16.0) gm/dL Hct (34.0-46.0) % MCV (80.0-100.0) fL MCHC (31.0-37.0) g/dL RDW (11.5-15.5) % Lymphocytes # (1.0-4.8) k/uL Sodium (137-145) mmol/L Chloride (98-107) mmol/L POC Glucose (mg/dL) 137 H 153 H (70-110) mg/dL Calcium (8.4-10.2) mg/dL Procalcitonin 0.31 H (0.02-0.09) ng/mL 05/26/22 05/26/22 05/26/22 Range/Units 05:52 09:54 09:54 RBC 2.45 L (3.80-5.40) m/uL Hgb 7.6 L (11.4-16.0) gm/dL Hct 24.6 L (34.0-46.0) % MCV 100.3 H (80.0-100.0) fL MCHC 30.8 L (31.0-37.0) g/dL RDW 18.1 H (11.5-15.5) % Lymphocytes # 0.3 L (1.0-4.8) k/uL Sodium 135 L (137-145) mmol/L Chloride 112 H (98-107) mmol/L POC Glucose (mg/dL) 116 H (70-110) mg/dL Calcium 7.6 L (8.4-10.2) mg/dL Procalcitonin (0.02-0.09) ng/mL Microbiology - Last 24 Hours (Table) 05/25/22 09:07 Blood Culture - Preliminary Blood No Growth after 24 hours 05/25/22 09:01 Blood Culture - Preliminary Blood No Growth after 24 hours 05/24/22 16:00 Blood Culture Gram Stain - Preliminary Blood Blood Culture - Preliminary Streptococcus species Assessment and Plan (1) Elevated troponin Current Visit: Yes Status: Acute Priority: High Code(s): R77.8 - OTHER SPECIFIED ABNORMALITIES OF PLASMA PROTEINS SNOMED Code(s): 802168506 (2) Anemia Current Visit: Yes Status: Chronic Priority: High Code(s): D64.9 - ANEMIA, UNSPECIFIED SNOMED Code(s): 586348562 (3) Positive fecal occult blood test Current Visit: Yes Status: Acute Priority: High Code(s): R19.5 - OTHER FECAL ABNORMALITIES SNOMED Code(s): 45715982 (4) Gastric antral vascular ectasia Current Visit: No Status: Chronic Priority: Medium Code(s): K31.819 - ANGIODYSPLASIA OF STOMACH AND DUODENUM WITHOUT BLEEDING SNOMED Code(s): 01244845 (5) Iron deficiency anemia due to chronic blood loss Current Visit: Yes Status: Chronic Priority: High Code(s): D50.0 - IRON DEFICIENCY ANEMIA SECONDARY TO BLOOD LOSS (CHRONIC) SNOMED Code(s): 390127125 Plan: Patient has history of bleeding AVMs. She has been treated for this in the past. She did well for several years until just recently. She had a EGD and colonoscopy 11/13-antral gastritis, severe as well as duodenitis and the bulb of the duodenum, grade 1 hiatal hernia. Pancolonic diverticulosis as well as old blood in the colon was found. Since February, patient has been transfused with 5 units of blood, at least through our office. She just received 3 doses of Feraheme, last dose about 2-3 weeks ago. Patient will be due for repeat iron studies in about 1-2 weeks. She does have a follow-up appointment with Dr. Malik already scheduled. Recommendation is to transfuse for hemoglobin less than 7 unless patient is symptomatic. Her hemoglobin has been stable since admitted. She did receive 1 unit while in the ER. Keep follow-up appointments with Hematology for iron monitoring, hemoglobin monitoring, parenteral iron as needed.
[2022-05-26 17:09] LABS: Glucose,Whole Blood 105 mg/dL (70-110)
--- NOTE | 2022-05-26 18:43 | P.PN ---
Progress Note - Text Progress Note Date: 05/26/22 Chief Complaint: Weakness This is a 82-year-old patient, was chronic stable medical conditions include diabetes, GERD, hypertension, ostomy arthritis, hypothyroid peripheral neuropathy, breast cancer in the past. She takes care of her ex- at home. She also has a friend Queenie does not taking care of ex-. Patient not a very detailed historian. She presents to the hospital feeling weak and tired. Decreased appetite. Some constipation. No fever and chills. Denies any pain. During the conversation keeps saying I cannot remember properly. She is being followed by hematology. Was found to have a hemoglobin of 7.6. Guaiac stool was positive. October 2020: EGD by Dr. Cordelia Grvoe showed: Severe gastric antral vascular ectasia with losing status post argon plasma coagulation. She has followed up with Dr. Cordelia Grove from GI with history of multiple AVMs in the past. He recently also had iron transfusion. Also on May 19 she had 2 units of blood. 2-D echo shows a possible vegetation on aortic valve leaflet. With significant aortic regurgitation. Blood cultures ordered. ID consulted. Also patient underwent [facility] mental status exam mental status exam. Patient obtained a score of 10/30. Suggesting dementia. I also spoke to patient's daughter Maria Eugenia telephone number [phone]. Patient overall condition was updated. She will discuss with her brother toward who is the POA. We will address CODE STATUS. Patient's caregiver as well as at the bedside. Also updated her. Patient does feel weak and tired. IV ceftriaxone started for UTI. Patient does complain of any pain. cutback Neurontin to 300 mg daily at bedtime. May 25: Laying in bed. Awake. A bit tired. Discussed with Dr. Isaacs from cardiology. He looked at the echocardiogram again. Decision made to proceed with LINDA to rule out vegetation.. Versus thrombus or a thickened valve. Blood cultures ordered yesterday pending. May 26: Dr. Isaacs to the LINDA today. He called me to see this is a large vegetation on aortic valve. Very leaky. Discussed with ID doctor Miguel. Patient's port could be the source of infection. Blood cultures also positive for non-hemolytic strep. I called patient's daughter Maria Eugenia and updated her. Active Medications Acetaminophen (Acetaminophen Tab 325 Mg Tab) 650 mg PO Q6HR PRN PRN Reason: Mild Pain or Fever > 100.5 Last Admin: 05/24/22 08:56 Dose: 650 mg Atorvastatin Calcium (Atorvastatin 10 Mg Tab) 10 mg PO DAILY [facility] Last Admin: 05/26/22 11:18 Dose: Not Given Calcium Carbonate/Glycine (Calcium Carbonate 500 Mg Chewable) 1,000 mg PO Q4HR PRN PRN Reason: Dyspepsia Ferrous Sulfate (Ferrous Sulfate 325 Mg Tab) 325 mg PO DAILY [facility] Last Admin: 05/26/22 11:18 Dose: Not Given Gabapentin (Gabapentin 300 Mg Cap) 300 mg PO HS [facility] Last Admin: 05/25/22 21:29 Dose: 300 mg Sodium Chloride (Saline 0.9%) 1,000 mls @ 75 mls/hr IV .[id number] [facility] Last Admin: 05/26/22 02:15 Dose: 75 mls/hr Ceftriaxone Sodium 2 gm/ (Sodium Chloride) 50 mls @ 100 mls/hr IVPB Q12HR [facility]; Protocol Last Admin: 05/26/22 09:12 Dose: 100 mls/hr Insulin Aspart (Insulin Aspart (Novolog) 100 Unit/Ml Vial) 0 unit SQ ACHS [facility]; Protocol Last Admin: 05/26/22 17:54 Dose: Not Given Lactulose (Lactulose 20 Gm/30 Ml Cup) 20 gm PO DAILY PRN PRN Reason: Constipation Levothyroxine Sodium (Levothyroxine 100 Mcg Tab) 100 mcg PO DAILY@0630 [facility] Last Admin: 05/26/22 06:26 Dose: Not Given Lorazepam (Lorazepam 0.5 Mg Tab) 0.5 mg PO Q6HR PRN PRN Reason: Anxiety Melatonin (Melatonin 3 Mg Tablet) 3 mg PO HS PRN PRN Reason: Insomnia Naloxone HCl (Naloxone 0.4 Mg/Ml 1 Ml Vial) 0.2 mg IV Q2M PRN PRN Reason: Opioid Reversal Ondansetron HCl (Ondansetron 4 Mg/2 Ml Vial) 4 mg IVP Q8HR PRN PRN Reason: Nausea And Vomiting Pantoprazole Sodium (Pantoprazole 40 Mg Tablet) 40 mg PO AC-BID [facility] Last Admin: 05/26/22 17:54 Dose: 40 mg Sodium Bicarbonate (Sodium Bicarbonate Tab 650 Mg Tab) 650 mg PO TID [facility] Last Admin: 05/26/22 17:54 Dose: 650 mg Past medical history to include: Diabetes, GERD, GI bleed, hypertension, osteoarthritis, kidney disease, hypothyroid, iron deficiency anemia, peripheral neuropathy, arthritis, watermelon stomach Social history: Lives with her ex-. No history of smoking alcohol. Family history: Leukemia Physical examination: VITAL SIGNS: 97.6, 66, 22, 101/53, 96% room air GENERAL:, laying in bed awake, tired. EYES: Pupils equal. Conjunctiva pale. HEENT: External appearance of nose and ears normal, oral cavity grossly normal. NECK: JVD not raised; masses not palpable. HEART: First and second heart sounds are normal; no edema. LUNGS: Respiratory rate normal; clear to auscultation. ABDOMEN: Soft, nontender, liver spleen not palpable, no masses palpable. PSYCH: Patient knows the year the season difficulty stating the month nose that she has not hospital.l. MUSCULOSKELETAL:No Clubbing/cyanosis;muscles-grossly intact. OA INVESTIGATIONS, reviewed in the clinical context: May 26: WBC 7.1 hemoglobin 7.6 platelets 155 potassium 4.2 creatinine 0.75 Blood culture [May 24, May 25] nonhemolytic strep UA positive: Urine culture: Streptococcus agalactiae group B May 25: White count 6 hemoglobin 7.4 platelets 144 CRP 5.6 ESR 86 2-D echocardiogram: EF 55-60%. Possible vegetation on the aortic valve leaflet. Moderate to severe aortic regurgitation. [facility] mental status exam mental status exam. Patient obtained a score of 10/30 White count 10.60 globin 7.6 platelets 195 sodium 128 potassium 4.3 BUN 16 creatinine 1.02 Troponin I 0.166, 0.158 albumin 2.4 Fecal occult blood positive EKG tracing personally reviewed by me-normal sinus rhythm. Some ST segment depression in inferolateral leads and T wave changes Chest x-ray film personally reviewed by me-possible cardiomegaly. Questionable venous prominence Assessment and plan: -Normocytic anemia with patient being guaiac-positive, patient's had multiple EGDs in the past. Has had argon plasma coagulation of AVMs by Dr. Cordelia Grove. No overt bleeding. Seen by GI. Not for any endoscopy current time. Patient recently had iron transfusion and blood transfusion. -Moderate cognitive impairment could be from Alzheimer's dementia [facility] mental status exam mental status exam. score of 10/30. daughter over the phone did confirm the patient's memory has been progressively getting worse. 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 Blood cultures positive for nonhemolytic streptococcus. Likely source could be due to port. IV ceftriaxone 2 g every 12 -Hypothyroid Synthroid 100 g a day -Peripheral neuropathy: No pain Neurontin cutback dose at 300 mg daily at bedtime. 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 Smiley has been going on. There was a talk about repeat bone marrow biopsy. Dr. Smiley been consulted and they're following -Chronic kidney disease stage III likely nephrosclerosis Follow renal function -Hyponatremia, hypovolemic from decreased oral intake Normal saline -Moderate protein calorie malnutrition decreased oral intake ensure -Chronic diverticulosis -Positive troponin in the setting of some renal dysfunction. Patient denies any chest pain. Some EKG changes. No ACS Follow with cardiology -Moderate to severe aortic regurgitation: Secondary to endocarditis Follow with cardiology and ID -Acute UTI with cystitis: Treated -DO NOT RESUSCITATE IV ceftriaxone. IV fluids. Discussed with cardiogenic, ID, daughter. We'll decide to see if patient's port needs to come out. I spent about 45 minutes with over 25 minutes of discussion.
[2022-05-26 20:19] LABS: Glucose,Whole Blood 113 mg/dL (70-110)
[2022-05-26] MEDS: GABAPENTIN 300 MG CAP PO SCH (20:53)
[2022-05-27 05:49] LABS: Glucose,Whole Blood 106 mg/dL (70-110)
[2022-05-27] MEDS: INSULIN ASPART (NovoLOG) 100 UNIT/ML VIAL SQ SCH ×4 (06:18→20:47)
[2022-05-27] MEDS: PANTOPRAZOLE 40 MG TABLET PO SCH ×2 (06:33→15:40)
[2022-05-27] MEDS: SODIUM CHLORIDE 0.9% 1,000 ML IV SCH (06:33)
[2022-05-27] MEDS: LEVOTHYROXINE 100 MCG TAB PO SCH (06:33)
[2022-05-27] MEDS: SODIUM BICARBONATE TAB 650 MG TAB PO SCH ×3 (09:27→20:53)
[2022-05-27] MEDS: FERROUS SULFATE 325 MG TAB PO SCH (09:27)
[2022-05-27] MEDS: ATORVASTATIN 10 MG TAB PO SCH (09:27)
[2022-05-27 11:50] LABS: Glucose,Whole Blood 105 mg/dL (70-110)
[2022-05-27 13:39] LABS: Anisocytosis Slight; Basophils % (A) 0 %; Eosinophils # (A) 0.1 k/uL (0-0.7); Eosinophils % (A) 2 %; HCT 24.9 % (34.0-46.0); HGB 7.3 gm/dL (11.4-16.0); Hypochromasia Marked; Lymphocytes # (A) 0.3 k/uL (1.0-4.8); Lymphocytes % (A) 4 %; MCH 29.9 pg (25.0-35.0); MCHC 29.2 g/dL (31.0-37.0); MCV 102.4 fL (80.0-100.0); Macrocytosis Moderate; Mean Platelet Volume 8.2; Monocytes # (A) 0.2 k/uL (0-1.0); Monocytes % (A) 3 %; Neutrophils # (A) 6.5 k/uL (1.3-7.7); Neutrophils % (A) 90 %; Platelet Count 169 k/uL (150-450); RBC 2.43 m/uL (3.80-5.40); RDW 18.4 % (11.5-15.5); WBC 7.2 k/uL (3.8-10.6)
[2022-05-27 13:50] LABS: ALT 8 U/L (4-34); AST 25 U/L (14-36); African American GFR (CKD) >90 (>60 ml/min/1.73 sqM); Albumin 2.1 g/dL (3.5-5.0); Alkaline Phosphatase 52 U/L (38-126); Anion Gap 0 mmol/L; Blood Urea Nitrogen 11 mg/dL (7-17); Calcium 7.6 mg/dL (8.4-10.2); Carbon Dioxide 22 mmol/L (22-30); Chloride 113 mmol/L (98-107); Glucose 124 mg/dL (74-99); Non-African American GFR(CKD) 82 (>60 ml/min/1.73 sqM); Potassium 4.2 mmol/L (3.5-5.1); Sodium 135 mmol/L (137-145); Total Bilirubin 0.2 mg/dL (0.2-1.3); Total Protein 4.5 g/dL (6.3-8.2)
--- NOTE | 2022-05-27 14:15 | P.PN ---
Subjective Progress Note Date: 05/27/22 Positive blood cultures, positive LINDA, need of IV antibiotics x6 weeks. Patient has CBC drawn weekly at [facility], through port and they are OFTEN TIMES NEEDING TO ACCESS PORT MULTIPLE TIMES AND UNABLE TO PULL BLOOD PER DAUGHTER. Multiple areas of increased risks. Awaiting Blood cultures from port. Objective - Vital Signs Vital signs: Vital Signs Temp 98.2 F 05/27/22 11:51 Pulse 66 05/27/22 11:51 Resp 28 H 05/27/22 11:51 BP 116/52 05/27/22 11:51 Pulse Ox 95 05/27/22 11:51 FiO2 Intake & Output 05/26/22 05/27/22 05/27/22 18:59 06:59 18:59 Intake Total 100 Output Total 300 Balance 100 -300 Intake: IV 100 Output: Urine 300 Other: Voiding Method Bedside Commode Toilet Toilet Bedside Commode # Voids 1 1 # Bowel Movements 1 - Exam - Constitutional General appearance: Present: average body habitus, cooperative, no acute distress - EENT Eyes: Present: anicteric sclerae, EOMI ENT: Present: hearing grossly normal - Respiratory Respiratory: bilateral: CTA - Cardiovascular Rhythm: regular - Gastrointestinal General gastrointestinal: Present: normal bowel sounds, soft. Absent: absent bowel sounds, decreased bowel sounds, distended, hepatomegaly, hyperactive bowel sounds, organomegaly, rigid, scaphoid, splenomegaly, tenderness, umbilical hernia, ventral hernia - Neurologic Neurologic: Present: CNII-XII intact - Musculoskeletal Musculoskeletal: Present: generalized weakness - Psychiatric Psychiatric: Present: A&O x's 1-2, - Labs CBC & Chem 7: 05/27/22 13:13 05/27/22 13:13 Labs: Abnormal Lab Results - Last 24 Hours (Table) 05/26/22 Range/Units 20:17 POC Glucose (mg/dL) 113 H (70-110) mg/dL Microbiology - Last 24 Hours (Table) 05/25/22 09:07 Blood Culture - Preliminary Blood No Growth after 48 hours 05/25/22 09:01 Blood Culture - Preliminary Blood No Growth after 48 hours 05/24/22 16:00 Blood Culture Gram Stain - Preliminary Blood Blood Culture - Preliminary Non Hemolytic Strep Assessment and Plan Plan: Assessment and Plan (1) Elevated troponin Current Visit: Yes Status: Acute Priority: High Code(s): R77.8 - OTHER SPECIFIED ABNORMALITIES OF PLASMA PROTEINS SNOMED Code(s): 507639922 (2) Anemia Current Visit: Yes Status: Chronic Priority: High Code(s): D64.9 - ANEMIA, UNSPECIFIED SNOMED Code(s): 649156892 (3) Positive fecal occult blood test Current Visit: Yes Status: Acute Priority: High Code(s): R19.5 - OTHER FECAL ABNORMALITIES SNOMED Code(s): 46811449 (4) Gastric antral vascular ectasia Current Visit: No Status: Chronic Priority: Medium Code(s): K31.819 - ANGIODYSPLASIA OF STOMACH AND DUODENUM WITHOUT BLEEDING SNOMED Code(s): 17665119 (5) Iron deficiency anemia due to chronic blood loss Current Visit: Yes Status: Chronic Priority: High Code(s): D50.0 - IRON DEFICIENCY ANEMIA SECONDARY TO BLOOD LOSS (CHRONIC) SNOMED Code(s): 934095258 Status post LINDA + endocarditis and need for IV abx x6 - HOLD IV IRON WITH ACTIVE INFECTION BLOOD cultures from PORT and Peripheral pending, POrt removal is likely necessary, defer to Infectious Disease and aawait ID clearance to place new central line for ongoing treatments of transfusions and blood draws UTI Postive - Treatment ongoing Plan: Patient has history of bleeding AVMs. She just received 3 doses of Feraheme, last dose about 2-3 weeks ago. HOLD FURTHER IV IRON AT THIS TIME WITH BACTEREMIA AND ENDOCARDITIS - CARDIOLOGY FOLLOWING Recommendation is to transfuse for hemoglobin less than 7 unless patient is symptomatic. Her hemoglobin has been stable since admitted. She did receive 1 unit while in the ER. Keep follow-up appointments with Hematology for iron monitoring, hemoglobin monitoring: prefer ongoing finger poke labs Long discussion with daughter Emilee regarding plan for labs, infusions, etc moving forward. All questions answered and understanding stated
--- NOTE | 2022-05-27 14:45 | P.PN ---
Subjective This is a pleasant 82-year-old female past medical history significant for type 2 diabetes, hypertension, dyslipidemia, peripheral vascular disease, mild aortic regurgitation, SVT, history of multiple EGD and colonoscopy for AVMs in the past, iron deficiency anemia, requiring iron infusions and blood transfusions as an outpatient. He followed in the office with Dr. Grove last seen in 2019. We have been asked to see in consultation for elevated troponin. Patient presents emergency department with generalized weakness and fatigue for 2-3 days. There was a concern for GI bleed with stool occult blood being positive, GI was consulted no plan for repeat scope at this time. Hematology is also consulted as well. Patient seen and examined at bedside, no acute distress. She denies any chest pain, shortness of breath, lightheadedness, dizziness, palpitations, syncope or near syncope. She denies any fever, cough, chills, night sweats. No history of CAD, [place], Stroke. She did receive 1 unit of PRBCs on admission * Echocardiogram revealed an EF of 5560%, moderately increased posterior wall thickness, possible vegetation on the aortic valve leaflet, mild aortic stenosis peak/mean gradient of 29mmHg/14 mmHg, moderate to severe aortic regurgitation, mild trucuspid regurgiation. 05/25/2022 Patient seen and examined at bedside, distress. She denies any chest pain or shortness of breath, fever, cough, chills. She is afebrile. She is currently on IV ceftriaxone for UTI. Her antihypertensives on hold due to hypotension. 05/26 patient underwent LINDA with Dr. Loya that revealed. 1. Infective endocarditis. Large vegetations located on the LVOT side and involving the right and noncoronary cusp of the aortic valve. There is severe aortic insufficiency identified. 2. No evidence of abscess. 3. The mitral valve appears to have no vegetation. There is severe mitral regurgitation was posteriorly directed jet 4. No evidence of vegetation on tricuspid valve or pulmonic valve phase severe TR was identified 5. Normal left ventricular dimension and systolic function 6. No evidence of pericardial effusion 05/27/2022 Patient seen and examined at bedside, more alert this morning, some confusion but improved. She is s/p LINDA yesterday. Her vital signs are stable. Infectious disease is following. Patient is on IV ceftriaxone, atorvastatin 10 mg daily. PHYSICAL EXAMINATION Vitals reviewed CONSTITUTIONAL: No apparent distress. HEENT: Neck Supple. No JVD. No carotid bruit. CHEST EXAMINATION: Lungs are clear to auscultation. No chest wall tenderness is noted on palpation or with deep breathing. HEART EXAMINATION: Regular rate and rhythm. S1, S2 heard. Systolic and diastolic murmur noted ABDOMEN: Soft, nontender. Positive bowel sounds. EXTREMITIES: 2+ peripheral pulses, no lower extremity edema and no calf tenderness. NEUROLOGIC EXAMINATION: Patient is awake, alert and oriented x2. ASSESSMENT Chronic myocardial injury without evidence of ischemia on exam or by EKG Anemia Infective endocarditis Large vegetations located on the LVOT side and involving the right and n oncoronary cusp of the aortic valve Severe aortic insufficiency Mild aortic stenosis Moderate to severe aortic regurgitation Hypotension Generalized weakness UTI Dementia Type 2 diabetes History of hypertension Dyslipidemia History of peripheral vascular disease History of mild aortic regurgitation History of SVT PLAN From cardiology perspective, no further inpatient workup at this time. Patient does not require CT surgery consult or surgery at this time. Recommend continuing IV antibiotics. Patient may require PICC line placement. We have all the patient denies any. Please reconsult if needed. Recommend follow up outpatient in 12 weeks postdischarge Nurse practitioner note has been reviewed by physician. Signing provider agrees with the documented findings, assessment, and plan of care. Objective - Vital Signs Vital signs: Vital Signs Temp 98.2 F 05/27/22 11:51 Pulse 66 05/27/22 11:51 Resp 28 H 05/27/22 11:51 BP 116/52 05/27/22 11:51 Pulse Ox 95 05/27/22 11:51 FiO2 Intake & Output 05/26/22 05/27/22 05/27/22 18:59 06:59 18:59 Intake Total 100 Output Total 300 Balance 100 -300 Intake: IV 100 Output: Urine 300 Other: Voiding Method Bedside Commode Toilet Toilet Bedside Commode # Voids 1 1 # Bowel Movements 1 - Labs CBC & Chem 7: 05/27/22 13:13 05/27/22 13:13 Labs: Abnormal Lab Results - Last 24 Hours (Table) 05/26/22 05/27/22 05/27/22 Range/Units 20:17 13:13 13:13 RBC 2.43 L (3.80-5.40) m/uL Hgb 7.3 L (11.4-16.0) gm/dL Hct 24.9 L (34.0-46.0) % MCV 102.4 H (80.0-100.0) fL MCHC 29.2 L (31.0-37.0) g/dL RDW 18.4 H (11.5-15.5) % Lymphocytes # 0.3 L (1.0-4.8) k/uL Sodium 135 L (137-145) mmol/L Chloride 113 H (98-107) mmol/L Glucose 124 H (74-99) mg/dL POC Glucose (mg/dL) 113 H (70-110) mg/dL Calcium 7.6 L (8.4-10.2) mg/dL Total Protein 4.5 L (6.3-8.2) g/dL Albumin 2.1 L (3.5-5.0) g/dL Microbiology - Last 24 Hours (Table) 05/25/22 09:07 Blood Culture - Preliminary Blood No Growth after 48 hours 05/25/22 09:01 Blood Culture - Preliminary Blood No Growth after 48 hours 05/24/22 16:00 Blood Culture Gram Stain - Preliminary Blood Blood Culture - Preliminary Non Hemolytic Strep
--- NOTE | 2022-05-27 15:13 | P.PN ---
Subjective Progress Note Date: 05/26/22 Principal diagnosis: Endocarditis Patient is 82-year-old female presented to hospital with weakness fatigue and sleeping all day patient did have a abnormal echocardiogram suggestive of aortic valve endocarditis patient subsequently blood cultures coming positive with gram-positive cocci resembling strep. On today's evaluation that is 05/26/2022, the patient denies having any fever or chills, the patient denies having any chest pain or shortness of breath or cough. The patient denies abdominal pain and no diarrhea Objective - Vital Signs Vital signs: Vital Signs Temp 97.6 F 05/26/22 11:13 Pulse 71 05/26/22 14:43 Resp 22 05/26/22 11:13 BP 117/53 05/26/22 14:43 Pulse Ox 95 05/26/22 14:43 FiO2 Intake & Output 05/25/22 05/26/22 05/26/22 18:59 06:59 18:59 Intake Total 774 100 Output Total 200 Balance 774 -200 100 Intake: IV 100 Oral 774 Output: Urine 200 Other: Voiding Method Toilet Toilet Bedside Commode # Voids 1 1 1 # Bowel Movements 1 1 - Exam GENERAL DESCRIPTION: An elderly female lying in bed in no distress RESPIRATORY SYSTEM: Unlabored breathing , decreased breath sounds at bases HEART: S1 S2 regular rate and rhythm , ABDOMEN: Soft , no tenderness EXTREMITIES: No edema feet - Labs CBC & Chem 7: 05/27/22 13:13 05/27/22 13:13 Labs: Abnormal Lab Results - Last 24 Hours (Table) 05/25/22 05/25/22 05/26/22 Range/Units 16:59 19:43 05:52 RBC (3.80-5.40) m/uL Hgb (11.4-16.0) gm/dL Hct (34.0-46.0) % MCV (80.0-100.0) fL MCHC (31.0-37.0) g/dL RDW (11.5-15.5) % Lymphocytes # (1.0-4.8) k/uL Sodium (137-145) mmol/L Chloride (98-107) mmol/L POC Glucose (mg/dL) 137 H 153 H 116 H (70-110) mg/dL Calcium (8.4-10.2) mg/dL 05/26/22 05/26/22 Range/Units 09:54 09:54 RBC 2.45 L (3.80-5.40) m/uL Hgb 7.6 L (11.4-16.0) gm/dL Hct 24.6 L (34.0-46.0) % MCV 100.3 H (80.0-100.0) fL MCHC 30.8 L (31.0-37.0) g/dL RDW 18.1 H (11.5-15.5) % Lymphocytes # 0.3 L (1.0-4.8) k/uL Sodium 135 L (137-145) mmol/L Chloride 112 H (98-107) mmol/L POC Glucose (mg/dL) (70-110) mg/dL Calcium 7.6 L (8.4-10.2) mg/dL Microbiology - Last 24 Hours (Table) 05/24/22 16:00 Blood Culture Gram Stain - Preliminary Blood Blood Culture - Preliminary Non Hemolytic Strep 05/25/22 09:07 Blood Culture - Preliminary Blood No Growth after 24 hours 05/25/22 09:01 Blood Culture - Preliminary Blood No Growth after 24 hours Assessment and Plan (1) Endocarditis Current Visit: Yes Status: Acute Code(s): I38 - ENDOCARDITIS, VALVE UNSPECIFIED SNOMED Code(s): 68658589 Plan: 1patient presented to hospital with generalized weakness in this patient did have a positive UA and concern for a symptomatic UTI however patient did have a abnormal echocardiogram with concern for possible aortic valve vegetation , which has been confirmed on LINDA with evidence of large vegetation located on the aortic wall severe aortic insufficiency no evidence of any abscess 2-patient to continue with the Rocephin 2 g every 12 hours 3-patient benefit from CT surgery evaluation in view of large size of this abscess as high risk of septic emboli 4-blood cultures will be repeated to document clearance of bacteremia Time with Patient: Less than 30
--- NOTE | 2022-05-27 15:15 | P.PN ---
Subjective Progress Note Date: 05/27/22 Principal diagnosis: Endocarditis Patient is 82-year-old female presented to hospital with weakness fatigue and sleeping all day patient did have a abnormal echocardiogram suggestive of aortic valve endocarditis patient subsequently blood cultures coming positive with gram-positive cocci resembling strep. On today's evaluation that is 05/27/2022, the patient remains to be afebrile, the patient denies having any chest pain or shortness of breath or cough. The patient denies abdominal pain and no diarrhea, no new symptoms Objective - Vital Signs Vital signs: Vital Signs Temp 98.2 F 05/27/22 11:51 Pulse 66 05/27/22 11:51 Resp 28 H 05/27/22 11:51 BP 116/52 05/27/22 11:51 Pulse Ox 95 05/27/22 11:51 FiO2 Intake & Output 05/26/22 05/27/22 05/27/22 18:59 06:59 18:59 Intake Total 100 Output Total 300 Balance 100 -300 Intake: IV 100 Output: Urine 300 Other: Voiding Method Bedside Commode Toilet Toilet Bedside Commode # Voids 1 1 # Bowel Movements 1 - Exam GENERAL DESCRIPTION: An elderly female lying in bed in no distress RESPIRATORY SYSTEM: Unlabored breathing , decreased breath sounds at bases HEART: S1 S2 regular rate and rhythm , ABDOMEN: Soft , no tenderness EXTREMITIES: No edema feet - Labs CBC & Chem 7: 05/27/22 13:13 05/27/22 13:13 Labs: Abnormal Lab Results - Last 24 Hours (Table) 05/26/22 Range/Units 20:17 POC Glucose (mg/dL) 113 H (70-110) mg/dL Microbiology - Last 24 Hours (Table) 05/25/22 09:07 Blood Culture - Preliminary Blood No Growth after 48 hours 05/25/22 09:01 Blood Culture - Preliminary Blood No Growth after 48 hours 05/24/22 16:00 Blood Culture Gram Stain - Preliminary Blood Blood Culture - Preliminary Non Hemolytic Strep Assessment and Plan (1) Endocarditis Current Visit: Yes Status: Acute Code(s): I38 - ENDOCARDITIS, VALVE UNSPECIFIED SNOMED Code(s): 32559648 Plan: 1patient presented to hospital with generalized weakness in this patient did have a positive UA and concern for a symptomatic UTI however patient did have a abnormal echocardiogram with concern for possible aortic valve vegetation , which has been confirmed on LINDA with evidence of large vegetation located on the aortic wall severe aortic insufficiency no evidence of any abscess, patient benefit from CT surgery evaluation in view of large size of this abscess as high risk of septic emboli 2-blood cultures repeated on 05/25/2022 has been negative so far 3patient to continue with the Rocephin 2 g every 12 hours Time with Patient: Less than 30
[2022-05-27 17:05] LABS: Glucose,Whole Blood 91 mg/dL (70-110)
[2022-05-27 19:40] LABS: Glucose,Whole Blood 121 mg/dL (70-110)
--- NOTE | 2022-05-27 20:23 | P.PN ---
Progress Note - Text Progress Note Date: 05/27/22 Chief Complaint: Weakness This is a 82-year-old patient, was chronic stable medical conditions include diabetes, GERD, hypertension, ostomy arthritis, hypothyroid peripheral neuropathy, breast cancer in the past. She takes care of her ex- at home. She also has a friend Queenie does not taking care of ex-. Patient not a very detailed historian. She presents to the hospital feeling weak and tired. Decreased appetite. Some constipation. No fever and chills. Denies any pain. During the conversation keeps saying I cannot remember properly. She is being followed by hematology. Was found to have a hemoglobin of 7.6. Guaiac stool was positive. October 2020: EGD by Dr. Cordelia Grove showed: Severe gastric antral vascular ectasia with losing status post argon plasma coagulation. She has followed up with Dr. Cordelia Grove from GI with history of multiple AVMs in the past. He recently also had iron transfusion. Also on May 19 she had 2 units of blood. 2-D echo shows a possible vegetation on aortic valve leaflet. With significant aortic regurgitation. Blood cultures ordered. ID consulted. Also patient underwent [facility] mental status exam mental status exam. Patient obtained a score of 10/30. Suggesting dementia. I also spoke to patient's daughter Maria Eugenia telephone number [phone]. Patient overall condition was updated. She will discuss with her brother toward who is the POA. We will address CODE STATUS. Patient's caregiver as well as at the bedside. Also updated her. Patient does feel weak and tired. IV ceftriaxone started for UTI. Patient does complain of any pain. cutback Neurontin to 300 mg daily at bedtime. May 25: Laying in bed. Awake. A bit tired. Discussed with Dr. Isaacs from cardiology. He looked at the echocardiogram again. Decision made to proceed with LINDA to rule out vegetation.. Versus thrombus or a thickened valve. Blood cultures ordered yesterday pending. May 26: Dr. Isaacs to the LINDA today. He called me to see this is a large vegetation on aortic valve. Very leaky. Discussed with ID doctor Miguel. Patient's port could be the source of infection. Blood cultures also positive for non-hemolytic strep. I called patient's daughter Maria Eugenia and updated her. May 27: On IV ceftriaxone. Eating fair. Seen by ID. Given the loss signs of vegetation there would like cardiothoracic consultation. Discussed with patient. Repeat blood cultures are negative. Active Medications Acetaminophen (Acetaminophen Tab 325 Mg Tab) 650 mg PO Q6HR PRN PRN Reason: Mild Pain or Fever > 100.5 Last Admin: 05/24/22 08:56 Dose: 650 mg Atorvastatin Calcium (Atorvastatin 10 Mg Tab) 10 mg PO DAILY [facility] Last Admin: 05/27/22 09:27 Dose: 10 mg Calcium Carbonate/Glycine (Calcium Carbonate 500 Mg Chewable) 1,000 mg PO Q4HR PRN PRN Reason: Dyspepsia Ferrous Sulfate (Ferrous Sulfate 325 Mg Tab) 325 mg PO DAILY [facility] Last Admin: 05/27/22 09:27 Dose: 325 mg Gabapentin (Gabapentin 300 Mg Cap) 300 mg PO HS [facility] Last Admin: 05/26/22 20:53 Dose: 300 mg Sodium Chloride (Saline 0.9%) 1,000 mls @ 75 mls/hr IV .[id number] [facility] Last Admin: 05/27/22 06:33 Dose: 75 mls/hr Ceftriaxone Sodium 2 gm/ (Sodium Chloride) 50 mls @ 100 mls/hr IVPB Q12HR [facility]; Protocol Last Admin: 05/27/22 09:27 Dose: 100 mls/hr Insulin Aspart (Insulin Aspart (Novolog) 100 Unit/Ml Vial) 0 unit SQ ACHS [facility]; Protocol Last Admin: 05/27/22 15:37 Dose: Not Given Lactulose (Lactulose 20 Gm/30 Ml Cup) 20 gm PO DAILY PRN PRN Reason: Constipation Levothyroxine Sodium (Levothyroxine 100 Mcg Tab) 100 mcg PO DAILY@0630 [facility] Last Admin: 05/27/22 06:33 Dose: 100 mcg Lorazepam (Lorazepam 0.5 Mg Tab) 0.5 mg PO Q6HR PRN PRN Reason: Anxiety Melatonin (Melatonin 3 Mg Tablet) 3 mg PO HS PRN PRN Reason: Insomnia Naloxone HCl (Naloxone 0.4 Mg/Ml 1 Ml Vial) 0.2 mg IV Q2M PRN PRN Reason: Opioid Reversal Ondansetron HCl (Ondansetron 4 Mg/2 Ml Vial) 4 mg IVP Q8HR PRN PRN Reason: Nausea And Vomiting Pantoprazole Sodium (Pantoprazole 40 Mg Tablet) 40 mg PO AC-BID [facility] Last Admin: 05/27/22 15:40 Dose: 40 mg Sodium Bicarbonate (Sodium Bicarbonate Tab 650 Mg Tab) 650 mg PO TID [facility] Last Admin: 05/27/22 15:40 Dose: 650 mg Past medical history to include: Diabetes, GERD, GI bleed, hypertension, osteoarthritis, kidney disease, hypothyroid, iron deficiency anemia, peripheral neuropathy, arthritis, watermelon stomach Social history: Lives with her ex-. No history of smoking alcohol. Family history: Leukemia Physical examination: VITAL SIGNS: 98.2, 66, 20, 116/52, 95% room air GENERAL:, laying in bed awake, tired. EYES: Pupils equal. Conjunctiva pale. HEENT: External appearance of nose and ears normal, oral cavity grossly normal. NECK: JVD not raised; masses not palpable. HEART: First and second heart sounds are normal; no edema. LUNGS: Respiratory rate normal; clear to auscultation. ABDOMEN: Soft, nontender, liver spleen not palpable, no masses palpable. PSYCH: Patient knows the year the season difficulty stating the month nose that she has not hospital.l. MUSCULOSKELETAL:No Clubbing/cyanosis;muscles-grossly intact. OA INVESTIGATIONS, reviewed in the clinical context: May 27: Obesity 7.2 hemoglobin 7.3 potassium 4.2 creatinine 0.68 May 26: WBC 7.1 hemoglobin 7.6 platelets 155 potassium 4.2 creatinine 0.75 Blood culture [May 24, ] nonhemolytic strep. Blood culture [May 25]: Negative UA positive: Urine culture: Streptococcus agalactiae group B May 25: White count 6 hemoglobin 7.4 platelets 144 CRP 5.6 ESR 86 2-D echocardiogram: EF 55-60%. Possible vegetation on the aortic valve leaflet. Moderate to severe aortic regurgitation. [facility] mental status exam mental status exam. Patient obtained a score of 10/30 White count 10.60 globin 7.6 platelets 195 sodium 128 potassium 4.3 BUN 16 creat inine 1.02 Troponin I 0.166, 0.158 albumin 2.4 Fecal occult blood positive EKG tracing personally reviewed by me-normal sinus rhythm. Some ST segment depression in inferolateral leads and T wave changes Chest x-ray film personally reviewed by me-possible cardiomegaly. Questionable venous prominence Assessment and plan: -Normocytic anemia with patient being guaiac-positive, patient's had multiple EGDs in the past. Has had argon plasma coagulation of AVMs by Dr. Cordelia Grove. No overt bleeding. Seen by GI. Not for any endoscopy current time. Patient recently had iron transfusion and blood transfusion. -Moderate cognitive impairment could be from Alzheimer's dementia [facility] mental status exam mental status exam. score of 10/30. daughter over the phone did confirm the patient's memory has been progressively getting worse. 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 Blood cultures positive for nonhemolytic streptococcus. Likely source could be due to port. IV ceftriaxone 2 g every 12. Cardiothoracic surgery consult -Hypothyroid Synthroid 100 g a day -Peripheral neuropathy: No pain Neurontin cutback dose at 300 mg daily at bedtime. 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 Smiley has been going on. There was a talk about repeat bone marrow biopsy. Dr. Smiley been consulted and they're following -Chronic kidney disease stage III likely nephrosclerosis Follow renal function -Hyponatremia, hypovolemic from decreased oral intake Normal saline -Moderate protein calorie malnutrition decreased oral intake ensure -Chronic diverticulosis -Positive troponin in the setting of some renal dysfunction. Patient denies any chest pain. Some EKG changes. No ACS Follow with cardiology -Moderate to severe aortic regurgitation: Secondary to endocarditis Follow with cardiology and ID -Acute UTI with cystitis: Treated -DO NOT RESUSCITATE IV ceftriaxone . Concern from ID given the size of the vegetation Consult cardiothoracic surgery. Other medications to continue.
[2022-05-27] MEDS: GABAPENTIN 300 MG CAP PO SCH (20:53)
[2022-05-28] MEDS: SODIUM CHLORIDE 0.9% 1,000 ML IV SCH ×2 (03:57→18:07)
[2022-05-28 06:13] LABS: Glucose,Whole Blood 105 mg/dL (70-110)
[2022-05-28] MEDS: INSULIN ASPART (NovoLOG) 100 UNIT/ML VIAL SQ SCH ×4 (06:14→21:54)
[2022-05-28] MEDS: PANTOPRAZOLE 40 MG TABLET PO SCH ×2 (06:22→18:07)
[2022-05-28] MEDS: LEVOTHYROXINE 100 MCG TAB PO SCH (06:23)
[2022-05-28] MEDS: SODIUM BICARBONATE TAB 650 MG TAB PO SCH ×3 (09:01→21:54)
[2022-05-28] MEDS: FERROUS SULFATE 325 MG TAB PO SCH (09:02)
[2022-05-28] MEDS: ATORVASTATIN 10 MG TAB PO SCH (09:02)
[2022-05-28 10:14] LABS: Anisocytosis Slight; Basophils % (A) 0 %; Eosinophils # (A) 0.1 k/uL (0-0.7); Eosinophils % (A) 1 %; HCT 24.4 % (34.0-46.0); HGB 7.4 gm/dL (11.4-16.0); Hypochromasia Marked; Lymphocytes # (A) 0.3 k/uL (1.0-4.8); Lymphocytes % (A) 4 %; MCH 31.3 pg (25.0-35.0); MCHC 30.4 g/dL (31.0-37.0); MCV 102.9 fL (80.0-100.0); Macrocytosis Moderate; Mean Platelet Volume 8.4; Monocytes # (A) 0.2 k/uL (0-1.0); Monocytes % (A) 2 %; Neutrophils # (A) 7.3 k/uL (1.3-7.7); Neutrophils % (A) 92 %; Platelet Count 170 k/uL (150-450); RBC 2.37 m/uL (3.80-5.40); RDW 19.1 % (11.5-15.5)
[2022-05-28 10:21] LABS: ALT 7 U/L (4-34); AST 24 U/L (14-36); African American GFR (CKD) >90 (>60 ml/min/1.73 sqM); Albumin 2.1 g/dL (3.5-5.0); Alkaline Phosphatase 59 U/L (38-126); Anion Gap 1 mmol/L; Blood Urea Nitrogen 12 mg/dL (7-17); Calcium 8.1 mg/dL (8.4-10.2); Carbon Dioxide 23 mmol/L (22-30); Chloride 111 mmol/L (98-107); Glucose 101 mg/dL (74-99); Non-African American GFR(CKD) 81 (>60 ml/min/1.73 sqM); Sodium 135 mmol/L (137-145); Total Bilirubin 0.1 mg/dL (0.2-1.3); Total Protein 4.6 g/dL (6.3-8.2)
[2022-05-28 11:49] LABS: Glucose,Whole Blood 125 mg/dL (70-110)
--- NOTE | 2022-05-28 12:00 | P.GSCN ---
History of Present Illness Consult date: 05/28/22 Reason for Consult: Aortic valve vegetation, bacterial endocarditis Requesting physician: Rikki Oseguera History of present illness: This is an 82-year-old female patient who follows on an outpatient basis with Dr. Mccurdy for primary care. She has a previous medical history of hypertension, chronic anemia, diabetes, hypothyroid, osteoarthritis, kidney disease, and breast cancer. She presented to [facility] emergency room with complaints of weakness and fatigue. She was admitted with multiple consults including cardiology, gastroenterology, hematology, and eventually infectious disease as part of her workup demonstrated blood cultures which were positive for strep. A transthoracic echocardiogram was completed followed by a transesophageal echocardiogram which demonstrated large vegetations involving the right and noncoronary cusps of the aortic valve with severe aortic insufficiency, severe mitral regurgitation, and severe tricuspid regurgitation. There was no evidence of abscess. The patient has been maintained on IV antibiotics and most recent blood cultures appear negative. Consultation was placed to cardiothoracic surgery by internal medicine for recommendations regarding aortic valve endocarditis. Review of Systems Review of systems was completed and was negative except as noted. Most of the history was obtained from the chart as patient is unable/unwilling to answer questions, she appears a bit confused. - Constitutional Reports as per HPI, Reports fatigue, Reports weakness Past Medical History Past Medical History: Diabetes Mellitus, GERD/Reflux, GI Bleed, Hypertension, Osteoarthritis (OA), Renal Disease, Thyroid Disorder Additional Past Medical History / Comment(s): Upper GI bleed, iron deficiency anemia, has gotten iron infusions, neuropathy bilateral feet, bilateral ankle edema, arthritis hands/fingers, hx. breast cancer April 2018, watermelon stomach GAVE Last Myocardial Infarction Date:: UNKN History of Any Multi-Drug Resistant Organisms: None Reported Past Surgical History: Appendectomy, Breast Surgery, Cholecystectomy, Hysterectomy, Joint Replacement, Orthopedic Surgery Additional Past Surgical History / Comment(s): CESARIO GREAT TOE JOINT REPLACED, VEIN STRIPPING LT LEG, BILATERAL CARPAL TUNNEL RELEASES, L THUMB TENDON REPAIR. left mastectomy April 2018 Past Anesthesia/Blood Transfusion Reactions: No Reported Reaction Additional Past Anesthesia/Blood Transfusion Reaction / Comm: PT HAS RECEIVED BLOOD WITHOUT REACTION. Past Psychological History: No Psychological Hx Reported Smoking Status: Never smoker Past Alcohol Use History: Occasional Past Drug Use History: None Reported - Past Family History Brother(s) Family Medical History: Cancer Additional Family Medical History / Comment(s): leukemia Medications and Allergies Home Medications Medication Instructions Recorded Confirmed Type Gabapentin [Neurontin] 300 mg PO TID 10/26/15 05/23/22 History Lovastatin [Mevacor] 40 mg PO DAILY 10/26/15 05/23/22 History calcitrioL [Rocaltrol] 0.25 mcg PO WILKES 09/07/16 05/23/22 History Omeprazole [PriLOSEC] 20 mg PO DAILY 09/28/17 05/23/22 History Furosemide [Lasix] 20 mg PO DAILY 05/03/18 05/23/22 History Ferrous Sulfate [Iron (65 MG 325 mg PO DAILY 01/27/22 05/23/22 History Elemental)] L.acidoph,Paracasei, B.lactis 1 cap PO DAILY 01/27/22 05/23/22 History [Probiotic] Potassium Chloride [Klor-Con M20] 20 meq PO DAILY 05/03/22 05/23/22 History Magnesium 500 mg PO HS 05/11/22 05/23/22 History Levothyroxine Sodium [Synthroid] 100 mcg PO DAILY 05/23/22 05/23/22 History Ubiquinol [Co-Veratrol] 100 mg PO DAILY 05/23/22 05/23/22 History Allergies Allergy/AdvReac Type Severity Reaction Status Date / Time codeine AdvReac STOMACH Verified 05/23/22 11:49 PROBLEMS- "FEELS LIKE A KNOT IN STOMACH" ibuprofen [From Motrin IB] AdvReac Unknown Verified 05/23/22 11:49 propoxyphene HCl AdvReac NIGHTMARES Verified 05/23/22 11:49 [From Wygesic] sulfamethoxazole AdvReac Unknown Verified 05/23/22 11:49 [From Bactrim] trimethoprim [From Bactrim] AdvReac Unknown Verified 05/23/22 11:49 Surgical - Exam Vital Signs Temp Pulse Resp BP Pulse Ox 98.1 F 81 16 102/57 95 05/23/22 10:11 05/23/22 10:11 05/23/22 10:11 05/23/22 10:11 05/23/22 10:11 CONSTITUTIONAL: Awake and alert, appears comfortable, cooperative, no acute distress EYES: Pupils equal, round, reactive to light, normal ocular movement ENT: Moist mucous membranes without oral lesions present NECK: No masses, no bruits, trachea midline RESPIRATORY: Lungs sounds clear to auscultation bilaterally. Respirations even, nonlabored. Currently on room air with oxygen saturation 94%. Strong cough. CARDIOVASCULAR: S1, S2 present. Regular rate and rhythm, sinus rhythm on telemetry. Palpable peripheral pulses bilaterally. GASTROINTESTINAL: Abdomen soft, nontender, nondistended without masses or organomegaly noted. There is no rebound or guarding present. Active bowel sounds present 4 quadrants. GENITOURINARY: Deferred INTEGUMENTARY: Skin is warm and dry with evidence of good perfusion. NEUROLOGIC: Cranial nerves II through XII intact MUSKULOSKELETAL: Able to move all extremities, strength equal bilaterally PSYCHIATRIC: Alert, cooperative Results - Labs 05/28/22 09:30 05/28/22 09:30 Abnormal Lab Results - Last 24 Hours (Table) 05/27/22 05/27/22 05/27/22 Range/Units 13:13 13:13 13:13 RBC 2.43 L (3.80-5.40) m/uL Hgb 7.3 L (11.4-16.0) gm/dL Hct 24.9 L (34.0-46.0) % MCV 102.4 H (80.0-100.0) fL MCHC 29.2 L (31.0-37.0) g/dL RDW 18.4 H (11.5-15.5) % Lymphocytes # 0.3 L (1.0-4.8) k/uL Sodium 135 L (137-145) mmol/L Chloride 113 H (98-107) mmol/L Glucose 124 H (74-99) mg/dL POC Glucose (mg/dL) (70-110) mg/dL Calcium 7.6 L (8.4-10.2) mg/dL Total Bilirubin (0.2-1.3) mg/dL Lactate Dehydrogenase 797 H (313-618) U/L Total Protein 4.5 L (6.3-8.2) g/dL Albumin 2.1 L (3.5-5.0) g/dL 05/27/22 05/28/22 05/28/22 Range/Units 19:38 09:30 09:30 RBC 2.37 L (3.80-5.40) m/uL Hgb 7.4 L (11.4-16.0) gm/dL Hct 24.4 L (34.0-46.0) % MCV 102.9 H (80.0-100.0) fL MCHC 30.4 L (31.0-37.0) g/dL RDW 19.1 H (11.5-15.5) % Lymphocytes # 0.3 L (1.0-4.8) k/uL Sodium 135 L (137-145) mmol/L Chloride 111 H (98-107) mmol/L Glucose 101 H (74-99) mg/dL POC Glucose (mg/dL) 121 H (70-110) mg/dL Calcium 8.1 L (8.4-10.2) mg/dL Total Bilirubin 0.1 L (0.2-1.3) mg/dL Lactate Dehydrogenase (313-618) U/L Total Protein 4.6 L (6.3-8.2) g/dL Albumin 2.1 L (3.5-5.0) g/dL Microbiology - Last 24 Hours (Table) 05/25/22 09:01 Blood Culture - Preliminary Blood No Growth after 72 hours 05/25/22 09:07 Blood Culture - Preliminary Blood No Growth after 72 hours 05/24/22 16:00 Blood Culture Gram Stain - Final Blood Blood Culture - Final Non Hemolytic Strep Diabetes panel 05/27/22 05/28/22 Range/Units 13:13 09:30 Sodium 135 L 135 L (137-145) mmol/L Potassium 4.2 4.0 (3.5-5.1) mmol/L Chloride 113 H 111 H (98-107) mmol/L Carbon Dioxide 22 23 (22-30) mmol/L BUN 11 12 (7-17) mg/dL Creatinine 0.68 0.69 (0.52-1.04) mg/dL Glucose 124 H 101 H (74-99) mg/dL Calcium 7.6 L 8.1 L (8.4-10.2) mg/dL AST 25 24 (14-36) U/L ALT 8 7 (4-34) U/L Alkaline Phosphatase 52 59 (38-126) U/L Total Protein 4.5 L 4.6 L (6.3-8.2) g/dL Albumin 2.1 L 2.1 L (3.5-5.0) g/dL Calcium panel 05/27/22 05/28/22 Range/Units 13:13 09:30 Calcium 7.6 L 8.1 L (8.4-10.2) mg/dL Albumin 2.1 L 2.1 L (3.5-5.0) g/dL Pituitary panel 05/27/22 05/28/22 Range/Units 13:13 09:30 Sodium 135 L 135 L (137-145) mmol/L Potassium 4.2 4.0 (3.5-5.1) mmol/L Chloride 113 H 111 H (98-107) mmol/L Carbon Dioxide 22 23 (22-30) mmol/L BUN 11 12 (7-17) mg/dL Creatinine 0.68 0.69 (0.52-1.04) mg/dL Glucose 124 H 101 H (74-99) mg/dL Calcium 7.6 L 8.1 L (8.4-10.2) mg/dL Adrenal panel 05/27/22 05/28/22 Range/Units 13:13 09:30 Sodium 135 L 135 L (137-145) mmol/L Potassium 4.2 4.0 (3.5-5.1) mmol/L Chloride 113 H 111 H (98-107) mmol/L Carbon Dioxide 22 23 (22-30) mmol/L BUN 11 12 (7-17) mg/dL Creatinine 0.68 0.69 (0.52-1.04) mg/dL Glucose 124 H 101 H (74-99) mg/dL Calcium 7.6 L 8.1 L (8.4-10.2) mg/dL Total Bilirubin 0.2 0.1 L (0.2-1.3) mg/dL AST 25 24 (14-36) U/L ALT 8 7 (4-34) U/L Alkaline Phosphatase 52 59 (38-126) U/L Total Protein 4.5 L 4.6 L (6.3-8.2) g/dL Albumin 2.1 L 2.1 L (3.5-5.0) g/dL - Imaging Additional studies: Echocardiogram reviewed with Dr. Rashid Assessment and Plan Assessment: 1. Infective endocarditis, strep, with large vegetation involving the right and non-coronary cusp of the aortic valve 2. Severe AI, severe MR, severe TR on LINDA 3. Weakness, fatigue on admission 4. History of hypertension 5. History of chronic anemia 6. Diabetes 7. Hypothyroid 8. Osteoarthritis 9. Kidney disease 10. History breast cancer Plan: The patient was seen and examined this morning at the bedside with Dr. Rashid. Chart/diagnostics were reviewed. We agree with cardiology recommendations, there is no indication for surgical intervention. Continue antibiotics per infectious disease. Medical management of other comorbidities per internal medicine. Thank you Dr. Oseguera for this consult. Please call us with any further questions. I have personally seen and examined the patient, performed the documentation and the assessment and plan as written. Number of minutes spent on the visit: 20. MAXX Mobley
[2022-05-28 16:44] LABS: Glucose,Whole Blood 90 mg/dL (70-110)
--- NOTE | 2022-05-28 17:59 | P.PN ---
Progress Note - Text Progress Note Date: 05/28/22 Chief Complaint: Weakness This is a 82-year-old patient, was chronic stable medical conditions include diabetes, GERD, hypertension, ostomy arthritis, hypothyroid peripheral neuropathy, breast cancer in the past. She takes care of her ex- at home. She also has a friend Queenie does not taking care of ex-. Patient not a very detailed historian. She presents to the hospital feeling weak and tired. Decreased appetite. Some constipation. No fever and chills. Denies any pain. During the conversation keeps saying I cannot remember properly. She is being followed by hematology. Was found to have a hemoglobin of 7.6. Guaiac stool was positive. October 2020: EGD by Dr. Cordelia Grove showed: Severe gastric antral vascular ectasia with losing status post argon plasma coagulation. She has followed up with Dr. Cordelia Grove from GI with history of multiple AVMs in the past. He recently also had iron transfusion. Also on May 19 she had 2 units of blood. 2-D echo shows a possible vegetation on aortic valve leaflet. With significant aortic regurgitation. Blood cultures ordered. ID consulted. Also patient underwent [facility] mental status exam mental status exam. Patient obtained a score of 10/30. Suggesting dementia. I also spoke to patient's daughter Maria Eugenia telephone number [phone]. Patient overall condition was updated. She will discuss with her brother toward who is the POA. We will address CODE STATUS. Patient's caregiver as well as at the bedside. Also updated her. Patient does feel weak and tired. IV ceftriaxone started for UTI. Patient does complain of any pain. cutback Neurontin to 300 mg daily at bedtime. May 25: Laying in bed. Awake. A bit tired. Discussed with Dr. Isaacs from cardiology. He looked at the echocardiogram again. Decision made to proceed with LINDA to rule out vegetation.. Versus thrombus or a thickened valve. Blood cultures ordered yesterday pending. May 26: Dr. Isaacs to the LINDA today. He called me to see this is a large vegetation on aortic valve. Very leaky. Discussed with ID doctor Miguel. Patient's port could be the source of infection. Blood cultures also positive for non-hemolytic strep. I called patient's daughter Maria Eugenia and updated her. May 27: On IV ceftriaxone. Eating fair. Seen by ID. Given the loss signs of vegetation there would like cardiothoracic consultation. Discussed with patient. Repeat blood cultures are negative. May 28: Oral intake fair. IV ceftriaxone. Seen by cardiothoracic surgery. Not for any intervention. No fever no chills. Active Medications Acetaminophen (Acetaminophen Tab 325 Mg Tab) 650 mg PO Q6HR PRN PRN Reason: Mild Pain or Fever > 100.5 Last Admin: 05/24/22 08:56 Dose: 650 mg Atorvastatin Calcium (Atorvastatin 10 Mg Tab) 10 mg PO DAILY [facility] Last Admin: 05/28/22 09:02 Dose: 10 mg Calcium Carbonate/Glycine (Calcium Carbonate 500 Mg Chewable) 1,000 mg PO Q4HR PRN PRN Reason: Dyspepsia Ferrous Sulfate (Ferrous Sulfate 325 Mg Tab) 325 mg PO DAILY [facility] Last Admin: 05/28/22 09:02 Dose: 325 mg Gabapentin (Gabapentin 300 Mg Cap) 300 mg PO HS [facility] Last Admin: 05/27/22 20:53 Dose: 300 mg Sodium Chloride (Saline 0.9%) 1,000 mls @ 75 mls/hr IV .[id number] [facility] Last Admin: 05/28/22 03:57 Dose: Not Given Ceftriaxone Sodium 2 gm/ (Sodium Chloride) 50 mls @ 100 mls/hr IVPB Q12HR [facility]; Protocol Last Admin: 05/28/22 09:02 Dose: 100 mls/hr Insulin Aspart (Insulin Aspart (Novolog) 100 Unit/Ml Vial) 0 unit SQ ACHS [facility]; Protocol Last Admin: 05/28/22 12:15 Dose: Not Given Lactulose (Lactulose 20 Gm/30 Ml Cup) 20 gm PO DAILY PRN PRN Reason: Constipation Levothyroxine Sodium (Levothyroxine 100 Mcg Tab) 100 mcg PO DAILY@0630 [facility] Last Admin: 05/28/22 06:23 Dose: 100 mcg Lorazepam (Lorazepam 0.5 Mg Tab) 0.5 mg PO Q6HR PRN PRN Reason: Anxiety Melatonin (Melatonin 3 Mg Tablet) 3 mg PO HS PRN PRN Reason: Insomnia Naloxone HCl (Naloxone 0.4 Mg/Ml 1 Ml Vial) 0.2 mg IV Q2M PRN PRN Reason: Opioid Reversal Ondansetron HCl (Ondansetron 4 Mg/2 Ml Vial) 4 mg IVP Q8HR PRN PRN Reason: Nausea And Vomiting Pantoprazole Sodium (Pantoprazole 40 Mg Tablet) 40 mg PO AC-BID [facility] Last Admin: 05/28/22 06:22 Dose: 40 mg Sodium Bicarbonate (Sodium Bicarbonate Tab 650 Mg Tab) 650 mg PO TID [facility] Last Admin: 05/28/22 09:01 Dose: 650 mg Past medical history to include: Diabetes, GERD, GI bleed, hypertension, osteoarthritis, kidney disease, hypot hyroid, iron deficiency anemia, peripheral neuropathy, arthritis, watermelon stomach Social history: Lives with her ex-. No history of smoking alcohol. Family history: Leukemia Physical examination: VITAL SIGNS: 97.3, 70, 16, 108/41, 94% room air GENERAL:, laying in bed awake, comfortable EYES: Pupils equal. Conjunctiva pale. HEENT: External appearance of nose and ears normal, oral cavity grossly normal. NECK: JVD not raised; masses not palpable. HEART: First and second heart sounds are normal; no edema. LUNGS: Respiratory rate normal; clear to auscultation. ABDOMEN: Soft, nontender, liver spleen not palpable, no masses palpable. PSYCH: Able tonsil simple questions MUSCULOSKELETAL:No Clubbing/cyanosis;muscles-grossly intact. OA INVESTIGATIONS, reviewed in the clinical context: May 28: WBC 8 hemoglobin 7.4 potassium 4 creatinine 0.69 May 27: Obesity 7.2 hemoglobin 7.3 potassium 4.2 creatinine 0.68 May 26: WBC 7.1 hemoglobin 7.6 platelets 155 potassium 4.2 creatinine 0.75 Blood culture [May 24, ] nonhemolytic strep. Blood culture [May 25]: Negative UA positive: Urine culture: Streptococcus agalactiae group B May 25: White count 6 hemoglobin 7.4 platelets 144 CRP 5.6 ESR 86 2-D echocardiogram: EF 55-60%. Possible vegetation on the aortic valve leaflet. Moderate to severe aortic regurgitation. [facility] mental status exam mental status exam. Patient obtained a score of 10/30 White count 10.60 globin 7.6 platelets 195 sodium 128 potassium 4.3 BUN 16 creatinine 1.02 Troponin I 0.166, 0.158 albumin 2.4 Fecal occult blood positive EKG tracing personally reviewed by me-normal sinus rhythm. Some ST segment depression in inferolateral leads and T wave changes Chest x-ray film personally reviewed by me-possible cardiomegaly. Questionable venous prominence Assessment and plan: -Normocytic anemia with patient being guaiac-positive, patient's had multiple EGDs in the past. Has had argon plasma coagulation of AVMs by Dr. Cordelia Grove. No overt bleeding. Seen by GI. Not for any endoscopy current time. Patient recently had iron transfusion and blood transfusion. -Moderate cognitive impairment could be from Alzheimer's dementia [facility] mental status exam mental status exam. score of 10/30. daughter over the phone did confirm the patient's memory has been progressively getting worse. 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 Blood cultures positive for nonhemolytic streptococcus. Likely source could be due to port. IV ceftriaxone 2 g every 12. Cardiothoracic surgery consult -Hypothyroid Synthroid 100 g a day -Peripheral neuropathy: No pain Neurontin cutback dose at 300 mg daily at bedtime. 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 Smiley has been going on. There was a talk about repeat bone marrow biopsy. Dr. Smiley been consulted and they're following -Chronic kidney disease stage III likely nephrosclerosis Follow renal function -Hyponatremia, hypovolemic from decreased oral intake Normal saline -Moderate protein calorie malnutrition decreased oral intake ensure -Chronic diverticulosis -Positive troponin in the setting of some renal dysfunction. Patient denies any chest pain. Some EKG changes. No ACS Follow with cardiology -Moderate to severe aortic regurgitation: Secondary to endocarditis Follow with cardiology and ID -Acute UTI with cystitis: Treated -DO NOT RESUSCITATE IV ceftriaxone . Continue current medications. Decision about discontinuing the port per ID.
--- NOTE | 2022-05-28 18:49 | P.PN ---
Subjective Progress Note Date: 05/28/22 Principal diagnosis: Endocarditis Patient is 82-year-old female presented to hospital with weakness fatigue and sleeping all day patient did have a abnormal echocardiogram suggestive of aortic valve endocarditis patient subsequently blood cultures coming positive with gram-positive cocci resembling strep. On today's evaluation that is 05/28/2022, the patient continues to be afebrile, the patient is breathing comfortably on room air, the patient denies having any chest pain or shortness of breath or cough. The patient denies abdominal pain and no diarrhea, Objective - Vital Signs Vital signs: Vital Signs Temp 97.3 F L 05/28/22 08:00 Pulse 70 05/28/22 08:00 Resp 18 05/28/22 08:00 BP 108/41 05/28/22 08:00 Pulse Ox 94 L 05/28/22 08:00 FiO2 Intake & Output 05/27/22 05/28/22 05/28/22 18:59 06:59 18:59 Other: Voiding Method Toilet Toilet Toilet Bedside Commode Bedside Commode Bedside Commode # Voids 2 # Bowel Movements 1 - Exam GENERAL DESCRIPTION: An elderly female lying in bed in no distress RESPIRATORY SYSTEM: Unlabored breathing , decreased breath sounds at bases HEART: S1 S2 regular rate and rhythm , ABDOMEN: Soft , no tenderness EXTREMITIES: No edema feet - Labs CBC & Chem 7: 05/28/22 09:30 05/28/22 09:30 Labs: Abnormal Lab Results - Last 24 Hours (Table) 05/27/22 05/27/22 05/27/22 Range/Units 13:13 13:13 13:13 RBC 2.43 L (3.80-5.40) m/uL Hgb 7.3 L (11.4-16.0) gm/dL Hct 24.9 L (34.0-46.0) % MCV 102.4 H (80.0-100.0) fL MCHC 29.2 L (31.0-37.0) g/dL RDW 18.4 H (11.5-15.5) % Lymphocytes # 0.3 L (1.0-4.8) k/uL Sodium 135 L (137-145) mmol/L Chloride 113 H (98-107) mmol/L Glucose 124 H (74-99) mg/dL POC Glucose (mg/dL) (70-110) mg/dL Calcium 7.6 L (8.4-10.2) mg/dL Total Bilirubin (0.2-1.3) mg/dL Lactate Dehydrogenase 797 H (313-618) U/L Total Protein 4.5 L (6.3-8.2) g/dL Albumin 2.1 L (3.5-5.0) g/dL 05/27/22 05/28/22 05/28/22 Range/Units 19:38 09:30 09:30 RBC 2.37 L (3.80-5.40) m/uL Hgb 7.4 L (11.4-16.0) gm/dL Hct 24.4 L (34.0-46.0) % MCV 102.9 H (80.0-100.0) fL MCHC 30.4 L (31.0-37.0) g/dL RDW 19.1 H (11.5-15.5) % Lymphocytes # 0.3 L (1.0-4.8) k/uL Sodium 135 L (137-145) mmol/L Chloride 111 H (98-107) mmol/L Glucose 101 H (74-99) mg/dL POC Glucose (mg/dL) 121 H (70-110) mg/dL Calcium 8.1 L (8.4-10.2) mg/dL Total Bilirubin 0.1 L (0.2-1.3) mg/dL Lactate Dehydrogenase (313-618) U/L Total Protein 4.6 L (6.3-8.2) g/dL Albumin 2.1 L (3.5-5.0) g/dL 05/28/22 Range/Units 11:47 RBC (3.80-5.40) m/uL Hgb (11.4-16.0) gm/dL Hct (34.0-46.0) % MCV (80.0-100.0) fL MCHC (31.0-37.0) g/dL RDW (11.5-15.5) % Lymphocytes # (1.0-4.8) k/uL Sodium (137-145) mmol/L Chloride (98-107) mmol/L Glucose (74-99) mg/dL POC Glucose (mg/dL) 125 H (70-110) mg/dL Calcium (8.4-10.2) mg/dL Total Bilirubin (0.2-1.3) mg/dL Lactate Dehydrogenase (313-618) U/L Total Protein (6.3-8.2) g/dL Albumin (3.5-5.0) g/dL Microbiology - Last 24 Hours (Table) 05/25/22 09:01 Blood Culture - Preliminary Blood No Growth after 72 hours 05/25/22 09:07 Blood Culture - Preliminary Blood No Growth after 72 hours 05/24/22 16:00 Blood Culture Gram Stain - Final Blood Blood Culture - Final Non Hemolytic Strep Assessment and Plan (1) Endocarditis Current Visit: Yes Status: Acute Code(s): I38 - ENDOCARDITIS, VALVE UNSPECIFIED SNOMED Code(s): 61404495 Plan: 1patient presented to hospital with generalized weakness in this patient did have a positive UA and concern for a symptomatic UTI however patient did have a abnormal echocardiogram with concern for possible aortic valve vegetation , whic h has been confirmed on LINDA with evidence of large vegetation located on the aortic wall severe aortic insufficiency no evidence of any abscess, patient has been evaluated by CT surgery and recommended no surgical intervention 2-blood cultures repeated on 05/25/2022 has been negative so far 3patient is currently being treated with the Rocephin 2 g every 12 hours, plan is for total of 6 weeks of antibiotics family at the bedside questions were answered Time with Patient: Less than 30
[2022-05-28 20:45] LABS: Glucose,Whole Blood 167 mg/dL (70-110)
[2022-05-28] MEDS: GABAPENTIN 300 MG CAP PO SCH (21:54)
[2022-05-29] MEDS: SODIUM CHLORIDE 0.9% 1,000 ML IV SCH ×3 (05:56→21:04)
[2022-05-29 06:26] LABS: Glucose,Whole Blood 97 mg/dL (70-110)
[2022-05-29] MEDS: INSULIN ASPART (NovoLOG) 100 UNIT/ML VIAL SQ SCH ×4 (06:26→20:41)
[2022-05-29] MEDS: LEVOTHYROXINE 100 MCG TAB PO SCH (06:27)
[2022-05-29] MEDS: PANTOPRAZOLE 40 MG TABLET PO SCH ×2 (06:27→18:06)
[2022-05-29] MEDS: SODIUM BICARBONATE TAB 650 MG TAB PO SCH ×3 (09:24→21:01)
[2022-05-29] MEDS: FERROUS SULFATE 325 MG TAB PO SCH (09:24)
[2022-05-29] MEDS: ATORVASTATIN 10 MG TAB PO SCH (09:24)
[2022-05-29 11:22] LABS: Glucose,Whole Blood 142 mg/dL (70-110)
[2022-05-29 16:37] LABS: Glucose,Whole Blood 110 mg/dL (70-110)
--- NOTE | 2022-05-29 17:10 | P.PN ---
Progress Note - Text Progress Note Date: 05/29/22 Chief Complaint: Weakness This is a 82-year-old patient, was chronic stable medical conditions include diabetes, GERD, hypertension, ostomy arthritis, hypothyroid peripheral neuropathy, breast cancer in the past. She takes care of her ex- at home. She also has a friend Queenie does not taking care of ex-. Patient not a very detailed historian. She presents to the hospital feeling weak and tired. Decreased appetite. Some constipation. No fever and chills. Denies any pain. During the conversation keeps saying I cannot remember properly. She is being followed by hematology. Was found to have a hemoglobin of 7.6. Guaiac stool was positive. October 2020: EGD by Dr. Cordelia Grove showed: Severe gastric antral vascular ectasia with losing status post argon plasma coagulation. She has followed up with Dr. Cordelia Grove from GI with history of multiple AVMs in the past. He recently also had iron transfusion. Also on May 19 she had 2 units of blood. 2-D echo shows a possible vegetation on aortic valve leaflet. With significant aortic regurgitation. Blood cultures ordered. ID consulted. Also patient underwent [facility] mental status exam mental status exam. Patient obtained a score of 10/30. Suggesting dementia. I also spoke to patient's daughter Maria Eugenia telephone number [phone]. Patient overall condition was updated. She will discuss with her brother toward who is the POA. We will address CODE STATUS. Patient's caregiver as well as at the bedside. Also updated her. Patient does feel weak and tired. IV ceftriaxone started for UTI. Patient does complain of any pain. cutback Neurontin to 300 mg daily at bedtime. May 25: Laying in bed. Awake. A bit tired. Discussed with Dr. Isaacs from cardiology. He looked at the echocardiogram again. Decision made to proceed with LINDA to rule out vegetation.. Versus thrombus or a thickened valve. Blood cultures ordered yesterday pending. May 26: Dr. Isaacs to the LINDA today. He called me to see this is a large vegetation on aortic valve. Very leaky. Discussed with ID doctor Miguel. Patient's port could be the source of infection. Blood cultures also positive for non-hemolytic strep. I called patient's daughter Maria Eugenia and updated her. May 27: On IV ceftriaxone. Eating fair. Seen by ID. Given the loss signs of vegetation there would like cardiothoracic consultation. Discussed with patient. Repeat blood cultures are negative. May 28: Oral intake fair. IV ceftriaxone. Seen by cardiothoracic surgery. Not for any intervention. No fever no chills. May 29: Eating fair. No fever no chills. IV ceftriaxone. Will be going to rehab. Active Medications Acetaminophen (Acetaminophen Tab 325 Mg Tab) 650 mg PO Q6HR PRN PRN Reason: Mild Pain or Fever > 100.5 Last Admin: 05/24/22 08:56 Dose: 650 mg Atorvastatin Calcium (Atorvastatin 10 Mg Tab) 10 mg PO DAILY [facility] Last Admin: 05/29/22 09:24 Dose: 10 mg Calcium Carbonate/Glycine (Calcium Carbonate 500 Mg Chewable) 1,000 mg PO Q4HR PRN PRN Reason: Dyspepsia Ferrous Sulfate (Ferrous Sulfate 325 Mg Tab) 325 mg PO DAILY [facility] Last Admin: 05/29/22 09:24 Dose: 325 mg Gabapentin (Gabapentin 300 Mg Cap) 300 mg PO HS [facility] Last Admin: 05/28/22 21:54 Dose: 300 mg Sodium Chloride (Saline 0.9%) 1,000 mls @ 75 mls/hr IV .[id number] [facility] Last Admin: 05/29/22 05:56 Dose: Not Given Ceftriaxone Sodium 2 gm/ (Sodium Chloride) 50 mls @ 100 mls/hr IVPB Q12HR [facility]; Protocol Last Admin: 05/29/22 09:23 Dose: 100 mls/hr Insulin Aspart (Insulin Aspart (Novolog) 100 Unit/Ml Vial) 0 unit SQ ACHS [facility]; Protocol Last Admin: 05/29/22 12:22 Dose: Not Given Lactulose (Lactulose 20 Gm/30 Ml Cup) 20 gm PO DAILY PRN PRN Reason: Constipation Levothyroxine Sodium (Levothyroxine 100 Mcg Tab) 100 mcg PO DAILY@0630 [facility] Last Admin: 05/29/22 06:27 Dose: 100 mcg Lorazepam (Lorazepam 0.5 Mg Tab) 0.5 mg PO Q6HR PRN PRN Reason: Anxiety Melatonin (Melatonin 3 Mg Tablet) 3 mg PO HS PRN PRN Reason: Insomnia Naloxone HCl (Naloxone 0.4 Mg/Ml 1 Ml Vial) 0.2 mg IV Q2M PRN PRN Reason: Opioid Reversal Ondansetron HCl (Ondansetron 4 Mg/2 Ml Vial) 4 mg IVP Q8HR PRN PRN Reason: Nausea And Vomiting Pantoprazole Sodium (Pantoprazole 40 Mg Tablet) 40 mg PO AC-BID [facility] Last Admin: 05/29/22 06:27 Dose: 40 mg Sodium Bicarbonate (Sodium Bicarbonate Tab 650 Mg Tab) 650 mg PO TID [facility] Last Admin: 05/29/22 09:24 Dose: 650 mg Past medical history to include: Diabetes, GERD, GI bleed, hypertension, osteoarthritis, kidney disease, hypothyroid, iron deficiency anemia, peripheral neuropathy, arthritis, watermelon stomach Social history: Lives with her ex-. No history of smoking alcohol. Family history: Leukemia Physical examination: VITAL SIGNS: 97.8, 76, 18, 123 seconds 52, 95% room air GENERAL:, In bed awake, comfortable EYES: Pupils equal. Conjunctiva pale. HEENT: External appearance of nose and ears normal, oral cavity grossly normal. NECK: JVD not raised; masses not palpable. HEART: First and second heart sounds are normal; no edema. LUNGS: Respiratory rate normal; clear to auscultation. ABDOMEN: Soft, nontender, liver spleen not palpable, no masses palpable. PSYCH: Answering simple questions MUSCULOSKELETAL:No Clubbing/cyanosis;muscles-grossly intact. OA INVESTIGATIONS, reviewed in the clinical context: May 28: WBC 8 hemoglobin 7.4 potassium 4 creatinine 0.69 May 27: Obesity 7.2 hemoglobin 7.3 potassium 4.2 creatinine 0.68 May 26: WBC 7.1 hemoglobin 7.6 platelets 155 potassium 4.2 creatinine 0.75 Blood culture [May 24, ] nonhemolytic strep. Blood culture [May 25]: Negative UA positive: Urine culture: Streptococcus agalactiae group B May 25: White count 6 hemoglobin 7.4 platelets 144 CRP 5.6 ESR 86 2-D echocardiogram: EF 55-60%. Possible vegetation on the aortic valve leaflet. Moderate to severe aortic regurgitation. [facility] mental status exam mental status exam. Patient obtained a score of 10/30 White count 10.60 globin 7.6 platelets 195 sodium 128 potassium 4.3 BUN 16 creatinine 1.02 Troponin I 0.166, 0.158 albumin 2.4 Fecal occult blood positive EKG tracing personally reviewed by me-normal sinus rhythm. Some ST segment depression in inferolateral leads and T wave changes Chest x-ray film personally reviewed by me-possible cardiomegaly. Questionable venous prominence Assessment and plan: -Normocytic anemia with patient being guaiac-positive, patient's had multiple EGDs in the past. Has had argon plasma coagulation of AVMs by Dr. Cordelia Grove. No overt bleeding. Seen by GI. Not for any endoscopy current time. Patient recently had iron transfusion and blood transfusion. -Moderate cognitive impairment could be from Alzheimer's dementia [facility] mental status exam mental status exam. score of 10/30. daughter over the phone did confirm the patient's memory has been progressively getting worse. 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 Blood cultures positive for nonhemolytic streptococcus. Likely source could be due to port. IV ceftriaxone 2 g every 12. Cardiothoracic surgery-no further intervention -Hypothyroid Synthroid 100 g a day -Peripheral neuropathy: No pain Neurontin cutback dose at 300 mg daily at bedtime. 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 Smiley has been going on. There was a talk about repeat bone marrow biopsy. Dr. Smiley been consulted and they're following -Chronic kidney disease stage III likely nephrosclerosis Follow renal function -Hyponatremia, hypovolemic from decreased oral intake Normal saline -Moderate protein calorie malnutrition decreased oral intake ensure -Chronic diverticulosis -Positive troponin in the setting of some renal dysfunction. Patient denies any chest pain. Some EKG changes. No ACS Follow with cardiology -Moderate to severe aortic regurgitation: Secondary to endocarditis Follow with cardiology and ID -Acute UTI with cystitis: Treated -DO NOT RESUSCITATE IV ceftriaxone . Continue current medications. Pending going to rehab. Discharge antibiotics per ID.
[2022-05-29] MEDS: GABAPENTIN 300 MG CAP PO SCH (21:01)
[2022-05-29 21:25] LABS: Glucose,Whole Blood 163 mg/dL (70-110)
[2022-05-30] MEDS ORDERED: DILTIAZEM 125 MG in SODIUM CHLORIDE 0.9% 100 ML IV SCH (04:30)
[2022-05-30 06:34] LABS: Glucose,Whole Blood 111 mg/dL (70-110)
[2022-05-30] MEDS: INSULIN ASPART (NovoLOG) 100 UNIT/ML VIAL SQ SCH ×4 (06:45→20:56)
[2022-05-30] MEDS: PANTOPRAZOLE 40 MG TABLET PO SCH ×2 (07:06→17:33)
[2022-05-30] MEDS: LEVOTHYROXINE 100 MCG TAB PO SCH (07:06)
--- NOTE | 2022-05-30 07:45 | P.PN ---
Subjective Progress Note Date: 05/29/22 Principal diagnosis: Endocarditis Patient is 82-year-old female presented to hospital with weakness fatigue and sleeping all day patient did have a abnormal echocardiogram suggestive of aortic valve endocarditis patient subsequently blood cultures coming positive with gram-positive cocci resembling strep. On today's evaluation that is 05/29/2022, the patient remains to be afebrile, the patient is breathing comfortably on room air, the patient denies chest pain or shortness of breath and no significant cough. The patient denies abdominal pain and no diarrhea, Objective - Vital Signs Vital signs: Vital Signs Temp 97.8 F 05/29/22 20:00 Pulse 80 05/29/22 20:00 Resp 18 05/29/22 14:00 BP 117/56 05/29/22 20:00 Pulse Ox 80 L 05/29/22 20:00 FiO2 Intake & Output 05/29/22 05/29/22 05/30/22 06:59 18:59 06:59 Other: Voiding Method Toilet Toilet Bedside Commode Bedside Commode # Voids 2 1 - Exam GENERAL DESCRIPTION: An elderly female lying in bed in no distress RESPIRATORY SYSTEM: Unlabored breathing , decreased breath sounds at bases HEART: S1 S2 regular rate and rhythm , ABDOMEN: Soft , no tenderness EXTREMITIES: No edema feet - Labs CBC & Chem 7: 05/28/22 09:30 05/28/22 09:30 Labs: Abnormal Lab Results - Last 24 Hours (Table) 05/29/22 Range/Units 11:20 POC Glucose (mg/dL) 142 H (70-110) mg/dL Microbiology - Last 24 Hours (Table) 05/25/22 09:07 Blood Culture - Preliminary Blood No Growth after 96 hours 05/25/22 09:01 Blood Culture - Preliminary Blood No Growth after 96 hours Assessment and Plan (1) Endocarditis Current Visit: Yes Status: Acute Code(s): I38 - ENDOCARDITIS, VALVE UNSPECIFIED SNOMED Code(s): 54485651 Plan: 1patient presented to hospital with generalized weakness in this patient did have a positive UA and concern for a symptomatic UTI however patient did have a abnormal echocardiogram with concern for possible aortic valve vegetation , which has been confirmed on LINDA with evidence of large vegetation located on the aortic wall severe aortic insufficiency no evidence of any abscess, patient has been evaluated by CT surgery and recommended no surgical intervention 2-blood cultures repeated on 05/25/2022 has been negative so far 3patient to continue with the Rocephin 2 g every 12 hours, plan is for total of 6 weeks of antibiotics, with weekly monitoring of CBC and CRP sed rate and a close outpatient follow-up Time with Patient: Less than 30
[2022-05-30] MEDS: SODIUM BICARBONATE TAB 650 MG TAB PO SCH ×3 (08:56→20:55)
[2022-05-30] MEDS: ATORVASTATIN 10 MG TAB PO SCH (08:56)
[2022-05-30] MEDS: FERROUS SULFATE 325 MG TAB PO SCH (08:56)
[2022-05-30 11:36] LABS: Glucose,Whole Blood 138 mg/dL (70-110)
--- NOTE | 2022-05-30 13:17 | P.PN ---
Subjective Progress Note Date: 05/30/22 Principal diagnosis: Bacteremia CBC ordered for today, last obtained on Monday. Will likely need transfusion prior to discharge therefore should obtain today since plan for discharge to rehab within 24 hours appears to be discussed. Long discussion >45 minutes on phone regarding his questions and concerns related to underlying cause of anemia, reason for transfusion depent status. WIll need to hold iron infusions until infection is stablized, but continue with PRN transfusions. The most recent blood cultures were negative, ID is following closely. She is also status post LINDA with Cardiology late last week. Objective - Vital Signs Vital signs: Vital Signs Temp 98.1 F 05/30/22 11:59 Pulse 80 05/30/22 11:59 Resp 16 05/30/22 11:59 BP 107/50 05/30/22 11:59 Pulse Ox 96 05/30/22 11:59 FiO2 Intake & Output 05/29/22 05/30/22 05/30/22 18:59 06:59 18:59 Intake Total 240 Balance 240 Intake: Oral 240 Other: Voiding Method Toilet Toilet Toilet Bedside Commode Bedside Commode # Voids 1 1 - Exam - Constitutional General appearance: Present: average body habitus, cooperative, no acute distress - EENT Eyes: Present: anicteric sclerae, EOMI ENT: Present: hearing grossly normal - Respiratory Respiratory: bilateral: CTA - Cardiovascular Rhythm: regular - Gastrointestinal General gastrointestinal: Present: normal bowel sounds, soft. Absent: absent bowel sounds, decreased bowel sounds, distended, hepatomegaly, hyperactive bowel sounds, organomegaly, rigid, scaphoid, splenomegaly, tenderness, umbilical hernia, ventral hernia - Neurologic Neurologic: Present: CNII-XII intact - Musculoskeletal Musculoskeletal: Present: generalized weakness - Psychiatric Psychiatric: Present: A&O x's 1-2, - Labs CBC & Chem 7: 05/28/22 09:30 05/28/22 09:30 Labs: Abnormal Lab Results - Last 24 Hours (Table) 05/29/22 05/30/22 05/30/22 Range/Units 21:24 06:33 11:35 POC Glucose (mg/dL) 163 H 111 H 138 H (70-110) mg/dL Microbiology - Last 24 Hours (Table) 05/25/22 09:07 Blood Culture - Preliminary Blood No Growth after 120 hours 05/25/22 09:01 Blood Culture - Preliminary Blood No Growth after 120 hours Assessment and Plan Plan: Assessment and Plan (1) Elevated troponin Current Visit: Yes Status: Acute Priority: High Code(s): R77.8 - OTHER SPECIFIED ABNORMALITIES OF PLASMA PROTEINS SNOMED Code(s): 931172335 (2) Anemia Current Visit: Yes Status: Chronic Priority: High Code(s): D64.9 - ANEMIA, UNSPECIFIED SNOMED Code(s): 913066401 (3) Positive fecal occult blood test Current Visit: Yes Status: Acute Priority: High Code(s): R19.5 - OTHER FECAL ABNORMALITIES SNOMED Code(s): 43515181 (4) Gastric antral vascular ectasia Current Visit: No Status: Chronic Priority: Medium Code(s): K31.819 - ANGIODYSPLASIA OF STOMACH AND DUODENUM WITHOUT BLEEDING SNOMED Code(s): 78746324 (5) Iron deficiency anemia due to chronic blood loss Current Visit: Yes Status: Chronic Priority: High Code(s): D50.0 - IRON DEFICIENCY ANEMIA SECONDARY TO BLOOD LOSS (CHRONIC) SNOMED Code(s): 708041671 Status post LINDA + endocarditis and need for IV abx x6 - HOLD IV IRON WITH ACTIVE INFECTION BLOOD cultures from PORT and Peripheral pending, POrt removal is likely necessary, defer to Infectious Disease and aawait ID clearance to place new central line for ongoing treatments of transfusions and blood draws UTI Postive - Treatment ongoing Plan: Patient has history of bleeding AVMs. She just received 3 doses of Feraheme, last dose about 2-3 weeks ago. HOLD FURTHER IV IRON AT THIS TIME WITH BACTEREMIA AND ENDOCARDITIS - CARDIOLOGY FOLLOWING Recommendation is to transfuse for hemoglobin less than 7 unless patient is symptomatic. Will check today. Last blood cultures from port and peripheral are negative, therefore felt maybe able to continue using mediport Long discussion with daughter Emilee and son Andrea regarding plan for labs, infusions, etc moving forward. All questions answered and understanding stated Plan is for rehab within 24 hours Time with Patient: Greater than 30
[2022-05-30 13:37] VITALS: BMI 27.1
[2022-05-30 13:49] LABS: Anisocytosis Moderate; Basophils % (A) 0 %; Eosinophils # (A) 0.1 k/uL (0-0.7); Eosinophils % (A) 1 %; Hypochromasia Marked; Lymphocytes # (A) 0.4 k/uL (1.0-4.8); Lymphocytes % (A) 4 %; MCH 30.7 pg (25.0-35.0); MCHC 28.9 g/dL (31.0-37.0); MCV 106.4 fL (80.0-100.0); Macrocytosis Marked; Mean Platelet Volume 8.4; Monocytes # (A) 0.2 k/uL (0-1.0); Monocytes % (A) 2 %; Neutrophils # (A) 8.1 k/uL (1.3-7.7); Neutrophils % (A) 92 %; Platelet Count 174 k/uL (150-450); Poikilocytosis Slight; RBC 1.88 m/uL (3.80-5.40); RDW 21.5 % (11.5-15.5); WBC 8.9 k/uL (3.8-10.6)
[2022-05-30 13:55] LABS: ALT 9 U/L (4-34); AST 25 U/L (14-36); African American GFR (CKD) >90 (>60 ml/min/1.73 sqM); Albumin 2.3 g/dL (3.5-5.0); Alkaline Phosphatase 56 U/L (38-126); Anion Gap 3 mmol/L; Blood Urea Nitrogen 14 mg/dL (7-17); Calcium 7.8 mg/dL (8.4-10.2); Carbon Dioxide 21 mmol/L (22-30); Chloride 114 mmol/L (98-107); Glucose 133 mg/dL (74-99); Non-African American GFR(CKD) 83 (>60 ml/min/1.73 sqM); Potassium 4.2 mmol/L (3.5-5.1); Sodium 138 mmol/L (137-145); Total Bilirubin <0.1 mg/dL (0.2-1.3); Total Protein 4.8 g/dL (6.3-8.2)
[2022-05-30 13:58] LABS: HGB 5.8 gm/dL (11.4-16.0)
--- NOTE | 2022-05-30 14:31 | P.PN ---
Subjective Progress Note Date: 05/30/22 HISTORY OF PRESENT ILLNESS: This is a pleasant 82-year-old female past medical history significant for type 2 diabetes, hypertension, dyslipidemia, peripheral vascular disease, mild aortic regurgitation, SVT, history of multiple EGD and colonoscopy for AVMs in the past, iron deficiency anemia, requiring iron infusions and blood transfusions as an outpatient. He followed in the office with Dr. Grove last seen in 2019. We have been asked to see in consultation for elevated troponin. Patient presents emergency department with generalized weakness and fatigue for 2-3 days. There was a concern for GI bleed with stool occult blood being positive, GI was consulted no plan for repeat scope at this time. Hematology is also consulted as well. Patient seen and examined at bedside, no acute distress. She denies any chest pain, shortness of breath, lightheadedness, dizziness, palpitations, syncope or near syncope. She denies any fever, cough, chills, night sweats. No history of CAD, MD, Stroke. She did receive 1 unit of PRBCs on admission * Echocardiogram revealed an EF of 5560%, moderately increased posterior wall thickness, possible vegetation on the aortic valve leaflet, mild aortic stenosis peak/mean gradient of 29mmHg/14 mmHg, moderate to severe aortic regurgitation, mild trucuspid regurgiation. 05/25/2022 Patient seen and examined at bedside, distress. She denies any chest pain or shortness of breath, fever, cough, chills. She is afebrile. She is currently on IV ceftriaxone for UTI. Her antihypertensives on hold due to hypotension. 05/26 patient underwent LINDA with Dr. Loya that revealed. 1. Infective endocarditis. Large vegetations located on the LVOT side and involving the right and noncoronary cusp of the aortic valve. There is severe aortic insufficiency identified. 2. No evidence of abscess. 3. The mitral valve appears to have no vegetation. There is severe mitral regurgitation was posteriorly directed jet 4. No evidence of vegetation on tricuspid valve or pulmonic valve phase severe TR was identified 5. Normal left ventricular dimension and systolic function 6. No evidence of pericardial effusion 05/27/2022 Patient seen and examined at bedside, more alert this morning, some confusion but improved. She is s/p LINDA yesterday. Her vital signs are stable. Infectious disease is following. Patient is on IV ceftriaxone, atorvastatin 10 mg daily. 05/30/2022 Cardiology was reconsulted to evaluate patient secondary to atrial fibrillation with RVR. Patient developed atrial fibrillation with RVR. She was started on IV Cardizem. She subsequent converted to sinus mechanism. She is maintaining sinus rhythm at the time of my examination. The patient denies any history of atrial fibrillation. She remains on antibiotics for endocarditis. Vital signs are stable. Patient hemoglobin today is 5.8. PHYSICAL EXAM: VITAL SIGNS: Reviewed. GENERAL: Well-developed in no acute distress. NECK: Supple. No JVD or thyromegaly LUNGS: Respirations even and unlabored. Lungs essentially clear to auscultation bilaterally. HEART: Regular rate and rhythm. S1 and S2 heard. Systolic and diastolic murmur noted. EXTREMITIES: Normal range of motion. No clubbing or cyanosis. Peripheral pulses intact. No lower extremity edema ASSESSMENT: UTI Anemia Infective endocarditis Large vegetations located on the LVOT side and involving the right and noncoronary cusp of the aortic valve Severe aortic insufficiency Mild aortic stenosis Moderate to severe aortic regurgitation Hypotension Generalized weakness Chronic myocardial injury without evidence of ischemia on exam or by EKG Dementia Type 2 diabetes History of hypertension Dyslipidemia History of peripheral vascular disease History of mild aortic regurgitation History of SVT New-onset atrial fibrillation with RVR, converted to sinus mechanism with Cardizem drip PLAN: Continue current cardiac medications Will hold off on initiating anticoagulation as patients hemoglobin today is 5.8 Add metoprolol 12.5mg BID. Increase as tolerated. Monitor blood pressure Continue telemetry monitoring. Check TSH Further recommendations pending patient course Nurse practitioner note has been reviewed by physician. Signing provider agrees with the documented findings, assessment, and plan of care. Objective - Vital Signs Vital signs: Vital Signs Temp 98.1 F 05/30/22 11:59 Pulse 80 05/30/22 11:59 Resp 16 05/30/22 11:59 BP 107/50 05/30/22 11:59 Pulse Ox 96 05/30/22 11:59 FiO2 Intake & Output 05/29/22 05/30/22 05/30/22 18:59 06:59 18:59 Intake Total 240 Balance 240 Weight 67.132 kg Intake: Oral 240 Other: Voiding Method Toilet Toilet Toilet Bedside Commode Bedside Commode # Voids 1 1 - Labs CBC & Chem 7: 05/30/22 13:24 05/30/22 13:24 Labs: Abnormal Lab Results - Last 24 Hours (Table) 05/29/22 05/30/22 05/30/22 Range/Units 21:24 06:33 11:35 RBC (3.80-5.40) m/uL Hgb (11.4-16.0) gm/dL Hct (34.0-46.0) % MCV (80.0-100.0) fL MCHC (31.0-37.0) g/dL RDW (11.5-15.5) % Macrocytosis Chloride (98-107) mmol/L Carbon Dioxide (22-30) mmol/L Glucose (74-99) mg/dL POC Glucose (mg/dL) 163 H 111 H 138 H (70-110) mg/dL Calcium (8.4-10.2) mg/dL Total Bilirubin (0.2-1.3) mg/dL Total Protein (6.3-8.2) g/dL Albumin (3.5-5.0) g/dL 05/30/22 05/30/22 Range/Units 13:24 13:24 RBC 1.88 L (3.80-5.40) m/uL Hgb 5.8 L* D (11.4-16.0) gm/dL Hct 20.0 L (34.0-46.0) % MCV 106.4 H (80.0-100.0) fL MCHC 28.9 L (31.0-37.0) g/dL RDW 21.5 H (11.5-15.5) % Macrocytosis Marked A Chloride 114 H (98-107) mmol/L Carbon Dioxide 21 L (22-30) mmol/L Glucose 133 H (74-99) mg/dL POC Glucose (mg/dL) (70-110) mg/dL Calcium 7.8 L (8.4-10.2) mg/dL Total Bilirubin <0.1 L (0.2-1.3) mg/dL Total Protein 4.8 L (6.3-8.2) g/dL Albumin 2.3 L (3.5-5.0) g/dL Microbiology - Last 24 Hours (Table) 05/25/22 09:07 Blood Culture - Preliminary Blood No Growth after 120 hours 05/25/22 09:01 Blood Culture - Preliminary Blood No Growth after 120 hours
[2022-05-30 16:35] LABS: T4, Free (Free Thyroxine) 1.28 ng/dL (0.78-2.19)
[2022-05-30 16:48] LABS: Glucose,Whole Blood 126 mg/dL (70-110)
--- NOTE | 2022-05-30 17:41 | P.PN ---
Progress Note - Text Progress Note Date: 05/30/22 Chief Complaint: Weakness This is a 82-year-old patient, was chronic stable medical conditions include diabetes, GERD, hypertension, ostomy arthritis, hypothyroid peripheral neuropathy, breast cancer in the past. She takes care of her ex- at home. She also has a friend Queenie does not taking care of ex-. Patient not a very detailed historian. She presents to the hospital feeling weak and tired. Decreased appetite. Some constipation. No fever and chills. Denies any pain. During the conversation keeps saying I cannot remember properly. She is being followed by hematology. Was found to have a hemoglobin of 7.6. Guaiac stool was positive. October 2020: EGD by Dr. Cordelia Grove showed: Severe gastric antral vascular ectasia with losing status post argon plasma coagulation. She has followed up with Dr. Cordelia Grove from GI with history of multiple AVMs in the past. He recently also had iron transfusion. Also on May 19 she had 2 units of blood. 2-D echo shows a possible vegetation on aortic valve leaflet. With significant aortic regurgitation. Blood cultures ordered. ID consulted. Also patient underwent [facility] mental status exam mental status exam. Patient obtained a score of 10/30. Suggesting dementia. I also spoke to patient's daughter Maria Eugenia telephone number [phone]. Patient overall condition was updated. She will discuss with her brother toward who is the POA. We will address CODE STATUS. Patient's caregiver as well as at the bedside. Also updated her. Patient does feel weak and tired. IV ceftriaxone started for UTI. Patient does complain of any pain. cutback Neurontin to 300 mg daily at bedtime. May 25: Laying in bed. Awake. A bit tired. Discussed with Dr. Isaacs from cardiology. He looked at the echocardiogram again. Decision made to proceed with LINDA to rule out vegetation.. Versus thrombus or a thickened valve. Blood cultures ordered yesterday pending. May 26: Dr. Isaacs to the LINDA today. He called me to see this is a large vegetation on aortic valve. Very leaky. Discussed with ID doctor Miguel. Patient's port could be the source of infection. Blood cultures also positive for non-hemolytic strep. I called patient's daughter Maria Eugenia and updated her. May 27: On IV ceftriaxone. Eating fair. Seen by ID. Given the loss signs of vegetation there would like cardiothoracic consultation. Discussed with patient. Repeat blood cultures are negative. May 28: Oral intake fair. IV ceftriaxone. Seen by cardiothoracic surgery. Not for any intervention. No fever no chills. May 29: Eating fair. No fever no chills. IV ceftriaxone. Will be going to rehab. May 30: Hemoglobin dropped to 5.8. Unit of blood being transfused. Repeat hemoglobin later today. Discharged to [facility]. Discussed with porter sample case. And the nurse. Discussed with patient. Active Medications Acetaminophen (Acetaminophen Tab 325 Mg Tab) 650 mg PO Q6HR PRN PRN Reason: Mild Pain or Fever > 100.5 Last Admin: 05/24/22 08:56 Dose: 650 mg Atorvastatin Calcium (Atorvastatin 10 Mg Tab) [address] [facility] Last Admin: 05/30/22 08:56 Dose: 10 mg Calcium Carbonate/Glycine (Calcium Carbonate 500 Mg Chewable) 1,000 mg PO Q4HR PRN PRN Reason: Dyspepsia Ferrous Sulfate (Ferrous Sulfate 325 Mg Tab) [address] [facility] Last Admin: 05/30/22 08:56 Dose: 325 mg Gabapentin (Gabapentin 300 Mg Cap) [address] [facility] Last Admin: 05/29/22 21:01 Dose: 300 mg Sodium Chloride (Saline 0.9%) 1,000 mls @ 75 mls/hr IV .[id number] [facility] Last Admin: 05/29/22 21:04 Dose: 75 mls/hr Ceftriaxone Sodium 2 gm/ (Sodium Chloride) 50 mls @ 100 mls/hr IVPB Q12HR [facility]; Protocol Last Admin: 05/30/22 08:57 Dose: 100 mls/hr Insulin Aspart (Insulin Aspart (Novolog) 100 Unit/Ml Vial) [address] [facility]; Protocol Last Admin: 05/30/22 17:32 Dose: Not Given Lactulose (Lactulose 20 Gm/30 Ml Cup) 20 gm PO DAILY PRN PRN Reason: Constipation Levothyroxine Sodium (Levothyroxine 100 Mcg Tab) 100 mcg PO DAILY@0630 [facility] Last Admin: 05/30/22 07:06 Dose: 100 mcg Lorazepam (Lorazepam 0.5 Mg Tab) 0.5 mg PO Q6HR PRN PRN Reason: Anxiety Melatonin (Melatonin 3 Mg Tablet) 3 mg PO HS PRN PRN Reason: Insomnia Metoprolol Tartrate (Metoprolol Tartrate 12.5 Mg Tab) 12.[address] [facility] Naloxone HCl (Naloxone 0.4 Mg/Ml 1 Ml Vial) 0.2 mg IV Q2M PRN PRN Reason: Opioid Reversal Ondansetron HCl (Ondansetron 4 Mg/2 Ml Vial) 4 mg IVP Q8HR PRN PRN Reason: Nausea And Vomiting Pantoprazole Sodium (Pantoprazole 40 Mg Tablet) 40 mg PO AC-BID [facility] Last Admin: 05/30/22 17:33 Dose: 40 mg Sodium Bicarbonate (Sodium Bicarbonate Tab 650 Mg Tab) [address] [facility] Last Admin: 05/30/22 17:33 Dose: 650 mg Past medical history to include: Diabetes, GERD, GI bleed, hypertension, osteoarthritis, kidney disease, hypothyroid, iron deficiency anemia, peripheral neuropathy, arthritis, watermelon stomach Social history: Lives with her ex-. No history of smoking alcohol. Family history: Leukemia Physical examination: VITAL SIGNS: 98.5, 75, 16, 107/62, 96% room air GENERAL:, Reclining awake, comfortable EYES: Pupils equal. Conjunctiva pale. HEENT: External appearance of nose and ears normal, oral cavity grossly normal. NECK: JVD not raised; masses not palpable. HEART: First and second heart sounds are normal; no edema. LUNGS: Respiratory rate normal; clear to auscultation. ABDOMEN: Soft, nontender, liver spleen not palpable, no masses palpable. PSYCH: Answering simple questions MUSCULOSKELETAL:No Clubbing/cyanosis;muscles-grossly intact. OA INVESTIGATIONS, reviewed in the clinical context: May 30: Hemoglobin 5.8 potassium 4.2 creatinine 0.66 May 28: WBC 8 hemoglobin 7.4 potassium 4 creatinine 0.69 May 27: Obesity 7.2 hemoglobin 7.3 potassium 4.2 creatinine 0.68 May 26: WBC 7.1 hemoglobin 7.6 platelets 155 potassium 4.2 creatinine 0.75 Blood culture [May 24, ] nonhemolytic strep. Blood culture [May 25]: Negative UA positive: Urine culture: Streptococcus agalactiae group B May 25: White count 6 hemoglobin 7.4 platelets 144 CRP 5.6 ESR 86 2-D echocardiogram: EF 55-60%. Possible vegetation on the aortic valve leaflet. Moderate to severe aortic regurgitation. [employer] mental status exam mental status exam. Patient obtained a score of 10/30 White count 10.60 globin 7.6 platelets 195 sodium 128 potassium 4.3 BUN 16 creatinine 1.02 Troponin I 0.166, 0.158 albumin 2.4 Fecal occult blood positive EKG tracing personally reviewed by me-normal sinus rhythm. Some ST segment depression in inferolateral leads and T wave changes Chest x-ray film personally reviewed by me-possible cardiomegaly. Questionable venous prominence Assessment and plan: -Normocytic anemia with patient being guaiac-positive, patient's had multiple EGDs in the past. Has had argon plasma coagulation of AVMs by Dr. Cordelia Grove.: Acute drop in hemoglobin today No overt bleeding. Seen by GI. Not for any endoscopy current time. Patient recently had iron transfusion and blood transfusion. We'll transfuse 1 unit of blood. -Moderate cognitive impairment could be from Alzheimer's dementia [facility] mental status exam mental status exam. score of 10/30. daughter over the phone did confirm the patient's memory has been progressively getting worse. 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 Blood cultures positive for nonhemolytic streptococcus. Likely source could be due to port. IV ceftriaxone 2 g every 12. Cardiothoracic surgery-no further intervention -Hypothyroid Synthroid 100 g a day -Peripheral neuropathy: No pain Neurontin cutback dose at 300 mg daily at bedtime. 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 Smiley has been going on. There was a talk about repeat bone marrow biopsy. Dr. Smiley been consulted and they're following -Chronic kidney disease stage III likely nephrosclerosis Follow renal function -Hyponatremia, hypovolemic from decreased oral intake Normal saline -Moderate protein calorie malnutrition decreased oral intake ensure -Chronic diverticulosis -Positive troponin in the setting of some renal dysfunction. Patient denies any chest pain. Some EKG changes. No ACS Follow with cardiology -Moderate to severe aortic regurgitation: Secondary to endocarditis Follow with cardiology and ID -Acute UTI with cystitis: Treated -DO NOT RESUSCITATE IV ceftriaxone . Discharged held. 1 unit of PRBC. Repeat hemoglobin. Patient to get antibiotics through her port. Will not be removed.. Total time spent today about 40 minutes with over 25 minutes of discussion.
[2022-05-30] MEDS: SODIUM CHLORIDE 0.9% 1,000 ML IV SCH ×2 (18:51→19:59)
[2022-05-30 20:26] LABS: Glucose,Whole Blood 163 mg/dL (70-110)
[2022-05-30] MEDS: GABAPENTIN 300 MG CAP PO SCH (20:56)
[2022-05-30] MEDS: METOPROLOL TARTRATE 12.5 MG TAB PO SCH (20:56)
[2022-05-30 23:36] LABS: Anisocytosis Moderate; Basophils % (A) 0 %; Eosinophils # (A) 0.2 k/uL (0-0.7); Eosinophils % (A) 2 %; HCT 20.1 % (34.0-46.0); Hypochromasia Moderate; Lymphocytes # (A) 0.7 k/uL (1.0-4.8); Lymphocytes % (A) 7 %; MCH 32.9 pg (25.0-35.0); MCHC 33.1 g/dL (31.0-37.0); Macrocytosis Moderate; Mean Platelet Volume 10.2; Monocytes # (A) 0.3 k/uL (0-1.0); Monocytes % (A) 3 %; Neutrophils # (A) 9.4 k/uL (1.3-7.7); Neutrophils % (A) 87 %; Platelet Count 144 k/uL (150-450); Poikilocytosis Moderate; RBC 2.02 m/uL (3.80-5.40); RDW 20.9 % (11.5-15.5); WBC 10.8 k/uL (3.8-10.6)
[2022-05-30 23:40] LABS: HGB 6.6 gm/dL (11.4-16.0); MCV 99.5 fL (80.0-100.0)
[2022-05-31 06:12] LABS: Glucose,Whole Blood 102 mg/dL (70-110)
[2022-05-31] MEDS: INSULIN ASPART (NovoLOG) 100 UNIT/ML VIAL SQ SCH ×2 (06:34→11:59)
[2022-05-31] MEDS: LEVOTHYROXINE 100 MCG TAB PO SCH (06:45)
[2022-05-31] MEDS: PANTOPRAZOLE 40 MG TABLET PO SCH (06:45)
[2022-05-31 08:14] LABS: Anisocytosis Slight; Basophils % (A) 0 %; Eosinophils # (A) 0.2 k/uL (0-0.7); Eosinophils % (A) 2 %; HCT 26.3 % (34.0-46.0); Hypochromasia Marked; Lymphocytes # (A) 0.4 k/uL (1.0-4.8); Lymphocytes % (A) 4 %; MCH 30.8 pg (25.0-35.0); MCHC 30.8 g/dL (31.0-37.0); MCV 99.9 fL (80.0-100.0); Macrocytosis Moderate; Mean Platelet Volume 7.8; Monocytes # (A) 0.2 k/uL (0-1.0); Monocytes % (A) 2 %; Neutrophils # (A) 9.3 k/uL (1.3-7.7); Neutrophils % (A) 92 %; Platelet Count 155 k/uL (150-450); Poikilocytosis Slight; RBC 2.63 m/uL (3.80-5.40); RDW 19.8 % (11.5-15.5); WBC 10.2 k/uL (3.8-10.6)
[2022-05-31] MEDS: METOPROLOL TARTRATE 12.5 MG TAB PO SCH (08:16)
[2022-05-31] MEDS: ATORVASTATIN 10 MG TAB PO SCH (08:16)
[2022-05-31] MEDS: SODIUM BICARBONATE TAB 650 MG TAB PO SCH (08:16)
[2022-05-31] MEDS: FERROUS SULFATE 325 MG TAB PO SCH (08:16)
[2022-05-31 08:30] LABS: HGB 8.1 gm/dL (11.4-16.0)
[2022-05-31 08:37] LABS: African American GFR (CKD) >90 (>60 ml/min/1.73 sqM); Anion Gap 1 mmol/L; Blood Urea Nitrogen 16 mg/dL (7-17); Calcium 7.6 mg/dL (8.4-10.2); Carbon Dioxide 23 mmol/L (22-30); Chloride 114 mmol/L (98-107); Glucose 95 mg/dL (74-99); Non-African American GFR(CKD) 83 (>60 ml/min/1.73 sqM); Sodium 138 mmol/L (137-145)
--- NOTE | 2022-05-31 11:05 | P.DS ---
Providers Date of admission: 05/23/22 12:12 Expected date of discharge: 05/31/22 Attending physician: Rikki Oseguera Consults: 05/23/22 12:37 Consult Physician Urgent Consulting Provider: [facility] Consult Reason/Comments: elevated troponin Do you want consulting provider notified?: Yes 05/23/22 13:18 Consult Physician Urgent Consulting Provider: Miesha Malik Consult Reason/Comments: hx of anemia Do you want consulting provider notified?: Yes 05/24/22 17:57 Consult Physician Routine Consulting Provider: Kimberly Harris Consult Reason/Comments: Aortic valve vegetation Do you want consulting provider notified?: Yes 05/27/22 20:20 Consult Physician Routine Consulting Provider: Nguyễn Giron Consult Reason/Comments: Large aortic valve vegetation Do you want consulting provider notified?: Yes 05/30/22 04:09 Consult Physician Urgent Consulting Provider: Guillaume Loya Consult Reason/Comments: AFib Do you want consulting provider notified?: Already Contacted Primary care physician: [facility] Course: Chief Complaint: Weakness This is a 82-year-old patient, was chronic stable medical conditions include diabetes, GERD, hypertension, ostomy arthritis, hypothyroid peripheral neuropathy, breast cancer in the past. She takes care of her ex- at home. She also has a friend Queenie does not taking care of ex-. Patient not a very detailed historian. She presents to the hospital feeling weak and tired. Decreased appetite. Some constipation. No fever and chills. Denies any pain. During the conversation keeps saying I cannot remember properly. She is being followed by hematology. Was found to have a hemoglobin of 7.6. Guaiac stool was positive. October 2020: EGD by Dr. Cordelia Grove showed: Severe gastric antral vascular ectasia with losing status post argon plasma coagulation. She has followed up with Dr. Cordelia Grove from GI with history of multiple AVMs in the past. He recently also had iron transfusion. Also on May 19 she had 2 units of blood. 2-D echo shows a possible vegetation on aortic valve leaflet. With significant aortic regurgitation. Blood cultures ordered. ID consulted. Also patient underwent [facility] mental status exam mental status exam. Patient obtained a score of 10/30. Suggesting dementia. I also spoke to patient's daughter Maria Eugenia telephone number [phone]. Patient overall condition was updated. She will discuss with her brother toward who is the POA. We will address CODE STATUS. Patient's caregiver as well as at the bedside. Also updated her. Patient does feel weak and tired. IV ceftriaxone started for UTI. Patient does complain of any pain. cutback Neurontin to 300 mg daily at bedtime. May 25: Laying in bed. Awake. A bit tired. Discussed with Dr. Isaacs from cardiology. He looked at the echocardiogram again. Decision made to proceed with LINDA to rule out vegetation.. Versus thrombus or a thickened valve. Blood cultures ordered yesterday pending. May 26: Dr. Isaacs to the LINDA today. He called me to see this is a large vegetation on aortic valve. Very leaky. Discussed with ID doctor Miguel. Patient's port could be the source of infection. Blood cultures also positive for non-hemolytic strep. I called patient's daughter Maria Eugenia and updated her. May 27: On IV ceftriaxone. Eating fair. Seen by ID. Given the loss signs of vegetation there would like cardiothoracic consultation. Discussed with patient. Repeat blood cultures are negative. May 28: Oral intake fair. IV ceftriaxone. Seen by cardiothoracic surgery. Not for any intervention. No fever no chills. May 29: Eating fair. No fever no chills. IV ceftriaxone. Will be going to rehab. May 30: Hemoglobin dropped to 5.8. Unit of blood being transfused. Repeat hemoglobin later today. Discharged to [facility] held. Discussed with mattress spring encaser. And the nurse. Discussed with patient. May 31: Receive 2 units of blood yesterday. Hemoglobin 8.1 today. He'll follow-up with hematology outpatient. Otherwise stable.. Discussion and discharge planning more than 35 minutes Past medical history to include: Diabetes, GERD, GI bleed, hypertension, osteoarthritis, kidney disease, hypothyroid, iron deficiency anemia, peripheral neuropathy, arthritis, watermelon stomach Social history: Lives with her ex-. No history of smoking alcohol. Family history: Leukemia Physical examination: VITAL SIGNS: 98.2, 68, 16, 129/59, 94% room air GENERAL:, awake, comfortable EYES: Pupils equal. Conjunctiva pale. HEENT: External appearance of nose and ears normal, oral cavity grossly normal. NECK: JVD not raised; masses not palpable. HEART: First and second heart sounds are normal; no edema. LUNGS: Respiratory rate normal; clear to auscultation. ABDOMEN: Soft, nontender, liver spleen not palpable, no masses palpable. PSYCH: Answering simple questions MUSCULOSKELETAL:No Clubbing/cyanosis;muscles-grossly intact. OA INVESTIGATIONS, reviewed in clinical context: May 31: Hemoglobin 8.1 progression for creatinine 0.65 May 30: Hemoglobin 5.8 potassium 4.2 creatinine 0.66 May 28: WBC 8 hemoglobin 7.4 potassium 4 creatinine 0.69 May 27: Obesity 7.2 hemoglobin 7.3 potassium 4.2 creatinine 0.68 May 26: WBC 7.1 hemoglobin 7.6 platelets 155 potassium 4.2 creatinine 0.75 Blood culture [May 24, ] nonhemolytic strep. Blood culture [May 25]: Negative UA positive: Urine culture: Streptococcus agalactiae group B May 25: White count 6 hemoglobin 7.4 platelets 144 CRP 5.6 ESR 86 2-D echocardiogram: EF 55-60%. Possible vegetation on the aortic valve leaflet. Moderate to severe aortic regurgitation. [facility] mental status exam mental status exam. Patient obtained a score of 10/30 White count 10.60 globin 7.6 platelets 195 sodium 128 potassium 4.3 BUN 16 creatinine 1.02 Troponin I 0.166, 0.158 albumin 2.4 Fecal occult blood positive EKG tracing personally reviewed by me-normal sinus rhythm. Some ST segment depression in inferolateral leads and T wave changes Chest x-ray film personally reviewed by me-possible cardiomegaly. Questionable venous prominence Assessment and plan: -Normocytic anemia with patient being guaiac-positive, patient's had multiple EGDs in the past. Has had argon plasma coagulation of AVMs by Dr. Cordelia Grove.: Hemoglobin stable No overt bleeding. Seen by GI. Not for any endoscopy current time. Patient recently had iron transfusion and blood transfusion. Patient received 3 units of blood this admission -Moderate cognitive impairment could be from Alzheimer's dementia [facility] mental status exam mental status exam. score of 10/30. daughter over the phone did confirm the patient's memory has been progressively getting worse. 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 Blood cultures positive for nonhemolytic streptococcus. Likely source could be due to port. IV ceftriaxone 2 g every 12. Cardiothoracic surgery-no further intervention. Antibiotics at least 6 weeks. -Hypothyroid Synthroid 100 g a day -Peripheral neuropathy: No pain Neurontin cutback dose at 300 mg daily at bedtime. 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 Smiley has been going on. There was a talk about repeat bone marrow biopsy. Dr. Smiley been consulted and they're following -Chronic kidney disease stage III likely nephrosclerosis Follow renal function -Hyponatremia, hypovolemic from decreased oral intake Normal saline -Moderate protein calorie malnutrition decreased oral intake ensure -Chronic diverticulosis -Positive troponin in the setting of some renal dysfunction. Patient denies any chest pain. Some EKG changes. No ACS Follow with cardiology -Moderate to severe aortic regurgitation: Secondary to endocarditis Follow with cardiology and ID -Acute UTI with cystitis: Treated -DO NOT RESUSCITATE Disposition: [facility] Labs: Weekly CBC, BMP, CRP, ESR Patient Condition at Discharge: Fair Plan - Discharge Summary Discharge Rx Participant: No New Discharge Prescriptions: New Pantoprazole [Protonix] 40 mg PO AC-BID tab Sodium Bicarbonate Tab 650 mg PO DAILY tab Acetaminophen Tab [Tylenol] 650 mg PO Q6HR PRN tab PRN Reason: Mild Pain Or Fever > 100.5 Metoprolol Tartrate [Lopressor] 12.5 mg PO BID tab cefTRIAXone [Rocephin] 2,000 mg IVP Q12HR #84 each Continue Lovastatin [Mevacor] 40 mg PO DAILY calcitrioL [Rocaltrol] 0.25 mcg PO WILKES L.acidoph,Paracasei, B.lactis [Probiotic] 1 cap PO DAILY Ubiquinol [Co-Veratrol] 100 mg PO DAILY Ferrous Sulfate [Iron (65 MG Elemental)] 325 mg PO DAILY Levothyroxine Sodium [Synthroid] 100 mcg PO DAILY Changed Gabapentin [Neurontin] 300 mg PO HS #3 cap Discontinued Omeprazole [PriLOSEC] 20 mg PO DAILY Furosemide [Lasix] 20 mg PO DAILY Magnesium 500 mg PO HS Potassium Chloride [Klor-Con M20] 20 meq PO DAILY Discharge Medication List Lovastatin [Mevacor] 40 mg PO DAILY 10/26/15 [History] calcitrioL [Rocaltrol] 0.25 mcg PO WILKES 09/07/16 [History] Ferrous Sulfate [Iron (65 MG Elemental)] 325 mg PO DAILY 01/27/22 [History] L.acidoph,Paracasei, B.lactis [Probiotic] 1 cap PO DAILY 01/27/22 [History] Levothyroxine Sodium [Synthroid] 100 mcg PO DAILY 05/23/22 [History] Ubiquinol [Co-Veratrol] 100 mg PO DAILY 05/23/22 [History] Acetaminophen Tab [Tylenol] 650 mg PO Q6HR PRN tab 05/30/22 [Rx] Gabapentin [Neurontin] 300 mg PO HS #3 cap 05/30/22 [Rx] Pantoprazole [Protonix] 40 mg PO AC-BID tab 05/30/22 [Rx] Sodium Bicarbonate Tab 650 mg PO DAILY tab 05/30/22 [Rx] cefTRIAXone [Rocephin] 2,000 mg IVP Q12HR #84 each 05/30/22 [Rx] Metoprolol Tartrate [Lopressor] 12.5 mg PO BID tab 05/31/22 [Rx] Follow up Appointment(s)/Referral(s): Nguyễn Mccurdy MD [Primary Care Provider] - 1-2 days [facility] [NON-[facility]FF] - Kimberly Harris MD [STAFF PHYSICIAN] - 1 Week Sj Grove MD [STAFF PHYSICIAN] - 2 Weeks Miesha Malik MD [STAFF PHYSICIAN] - 05/31/22 4:15 pm Ambulatory/Diagnostic Orders: Basic Metabolic Panel [LAB.AMB] Location: None Selected C Reactive Protein [LAB.AMB] Location: None Selected Complete Blood Count w/diff [LAB.AMB] Location: None Selected Erythrocyte Sedimentation Rate [LAB.AMB] Location: None Selected
[2022-05-31 11:42] LABS: Glucose,Whole Blood 95 mg/dL (70-110)
[2022-05-31 11:44] VITALS: BP 133/62; PULSE 80; RESP 14; TEMP 97.9
--- NOTE | 2022-05-31 12:36 | P.PN ---
Subjective Progress Note Date: 05/31/22 HISTORY OF PRESENT ILLNESS: This is a pleasant 82-year-old female past medical history significant for type 2 diabetes, hypertension, dyslipidemia, peripheral vascular disease, mild aortic regurgitation, SVT, history of multiple EGD and colonoscopy for AVMs in the past, iron deficiency anemia, requiring iron infusions and blood transfusions as an outpatient. He followed in the office with Dr. Grove last seen in 2019. We have been asked to see in consultation for elevated troponin. Patient presents emergency department with generalized weakness and fatigue for 2-3 days. There was a concern for GI bleed with stool occult blood being positive, GI was consulted no plan for repeat scope at this time. Hematology is also consulted as well. Patient seen and examined at bedside, no acute distress. She denies any chest pain, shortness of breath, lightheadedness, dizziness, palpitations, syncope or near syncope. She denies any fever, cough, chills, night sweats. No history of CAD, GA, Stroke. She did receive 1 unit of PRBCs on admission * Echocardiogram revealed an EF of 5560%, moderately increased posterior wall thickness, possible vegetation on the aortic valve leaflet, mild aortic stenosis peak/mean gradient of 29mmHg/14 mmHg, moderate to severe aortic regurgitation, mild trucuspid regurgiation. 05/25/2022 Patient seen and examined at bedside, distress. She denies any chest pain or shortness of breath, fever, cough, chills. She is afebrile. She is currently on IV ceftriaxone for UTI. Her antihypertensives on hold due to hypotension. 05/26 patient underwent LINDA with Dr. Loya that revealed. 1. Infective endocarditis. Large vegetations located on the LVOT side and involving the right and noncoronary cusp of the aortic valve. There is severe aortic insufficiency identified. 2. No evidence of abscess. 3. The mitral valve appears to have no vegetation. There is severe mitral regurgitation was posteriorly directed jet 4. No evidence of vegetation on tricuspid valve or pulmonic valve phase severe TR was identified 5. Normal left ventricular dimension and systolic function 6. No evidence of pericardial effusion 05/27/2022 Patient seen and examined at bedside, more alert this morning, some confusion but improved. She is s/p LINDA yesterday. Her vital signs are stable. Infectious disease is following. Patient is on IV ceftriaxone, atorvastatin 10 mg daily. 05/30/2022 Cardiology was reconsulted to evaluate patient secondary to atrial fibrillation with RVR. Patient developed atrial fibrillation with RVR. She was started on IV Cardizem. She subsequent converted to sinus mechanism. She is maintaining sinus rhythm at the time of my examination. The patient denies any history of atrial fibrillation. She remains on antibiotics for endocarditis. Vital signs are stable. Patient hemoglobin today is 5.8. 05/31/2022 Patient examined this morning at the bedside. Patient denies chest pain or pressure. Denies SOB. Remains in sinus mechanism this morning. Vital signs stable. PHYSICAL EXAM: VITAL SIGNS: Reviewed. GENERAL: Well-developed in no acute distress. NECK: Supple. No JVD or thyromegaly LUNGS: Respirations even and unlabored. Lungs essentially clear to auscultation bilaterally. HEART: Regular rate and rhythm. S1 and S2 heard. Systolic and diastolic murmur noted. EXTREMITIES: Normal range of motion. No clubbing or cyanosis. Peripheral puls es intact. No lower extremity edema ASSESSMENT: UTI Anemia Infective endocarditis Large vegetations located on the LVOT side and involving the right and noncoronary cusp of the aortic valve Severe aortic insufficiency Mild aortic stenosis Moderate to severe aortic regurgitation Hypotension Generalized weakness Chronic myocardial injury without evidence of ischemia on exam or by EKG Dementia Type 2 diabetes History of hypertension Dyslipidemia History of peripheral vascular disease History of mild aortic regurgitation History of SVT New-onset atrial fibrillation with RVR, converted to sinus mechanism with Cardizem drip PLAN: Continue current cardiac medications Continue metoprolol Monitor blood pressure Continue telemetry monitoring. Further recommendations pending patient course Nurse practitioner note has been reviewed by physician. Signing provider agrees with the documented findings, assessment, and plan of care. Objective - Vital Signs Vital signs: Vital Signs Temp 97.9 F 05/31/22 08:00 Pulse 80 05/31/22 08:00 Resp 14 05/31/22 08:00 BP 133/62 05/31/22 08:00 Pulse Ox 97 05/31/22 08:00 FiO2 Intake & Output 05/30/22 05/31/22 05/31/22 18:59 06:59 18:59 Intake Total 240 620 0 Output Total 1 Balance 239 620 0 Weight 67.132 kg Intake: Oral 240 0 Blood Product 0 620 Rc As-1 Unit 0 310 [id number] Rc As-1 Unit 310 [id number] Output: Urine 1 Other: Voiding Method Toilet Toilet Toilet # Voids 1 # Bowel Movements 1 - Labs CBC & Chem 7: 05/31/22 08:00 05/31/22 08:00 Labs: Abnormal Lab Results - Last 24 Hours (Table) 05/27/22 05/30/22 05/30/22 Range/Units 13:13 13:24 13:24 WBC (3.8-10.6) k/uL RBC 1.88 L (3.80-5.40) m/uL Hgb 5.8 L* D (11.4-16.0) gm/dL Hct 20.0 L (34.0-46.0) % MCV 106.4 H (80.0-100.0) fL MCHC 28.9 L (31.0-37.0) g/dL RDW 21.5 H (11.5-15.5) % Plt Count (150-450) k/uL Neutrophils # 8.1 H (1.3-7.7) k/uL Lymphocytes # 0.4 L (1.0-4.8) k/uL Macrocytosis Marked A Chloride 114 H (98-107) mmol/L Carbon Dioxide 21 L (22-30) mmol/L Glucose 133 H (74-99) mg/dL POC Glucose (mg/dL) (70-110) mg/dL Calcium 7.8 L (8.4-10.2) mg/dL Total Bilirubin <0.1 L (0.2-1.3) mg/dL Total Protein 4.8 L (6.3-8.2) g/dL Albumin 2.3 L (3.5-5.0) g/dL Methylmalonic Acid 0.43 H (<0.40) umol/L TSH (0.465-4.680) mIU/L Crossmatch 05/30/22 05/30/22 05/30/22 Range/Units 13:24 14:09 16:46 WBC (3.8-10.6) k/uL RBC (3.80-5.40) m/uL Hgb (11.4-16.0) gm/dL Hct (34.0-46.0) % MCV (80.0-100.0) fL MCHC (31.0-37.0) g/dL RDW (11.5-15.5) % Plt Count (150-450) k/uL Neutrophils # (1.3-7.7) k/uL Lymphocytes # (1.0-4.8) k/uL Macrocytosis Chloride (98-107) mmol/L Carbon Dioxide (22-30) mmol/L Glucose (74-99) mg/dL POC Glucose (mg/dL) 126 H (70-110) mg/dL Calcium (8.4-10.2) mg/dL Total Bilirubin (0.2-1.3) mg/dL Total Protein (6.3-8.2) g/dL Albumin (3.5-5.0) g/dL Methylmalonic Acid (<0.40) umol/L TSH 10.800 H (0.465-4.680) mIU/L Crossmatch See Detail 05/30/22 05/30/22 05/31/22 Range/Units 20:24 23:22 08:00 WBC 10.8 H (3.8-10.6) k/uL RBC 2.02 L (3.80-5.40) m/uL Hgb 6.6 L* (11.4-16.0) gm/dL Hct 20.1 L (34.0-46.0) % MCV (80.0-100.0) fL MCHC (31.0-37.0) g/dL RDW 20.9 H (11.5-15.5) % Plt Count 144 L (150-450) k/uL Neutrophils # 9.4 H (1.3-7.7) k/uL Lymphocytes # 0.7 L (1.0-4.8) k/uL Macrocytosis Chloride 114 H (98-107) mmol/L Carbon Dioxide (22-30) mmol/L Glucose (74-99) mg/dL POC Glucose (mg/dL) 163 H (70-110) mg/dL Calcium 7.6 L (8.4-10.2) mg/dL Total Bilirubin (0.2-1.3) mg/dL Total Protein (6.3-8.2) g/dL Albumin (3.5-5.0) g/dL Methylmalonic Acid (<0.40) umol/L TSH (0.465-4.680) mIU/L Crossmatch 05/31/22 Range/Units 08:00 WBC (3.8-10.6) k/uL RBC 2.63 L (3.80-5.40) m/uL Hgb 8.1 L D (11.4-16.0) gm/dL Hct 26.3 L (34.0-46.0) % MCV (80.0-100.0) fL MCHC 30.8 L (31.0-37.0) g/dL RDW 19.8 H (11.5-15.5) % Plt Count (150-450) k/uL Neutrophils # 9.3 H (1.3-7.7) k/uL Lymphocytes # 0.4 L (1.0-4.8) k/uL Macrocytosis Chloride (98-107) mmol/L Carbon Dioxide (22-30) mmol/L Glucose (74-99) mg/dL POC Glucose (mg/dL) (70-110) mg/dL Calcium (8.4-10.2) mg/dL Total Bilirubin (0.2-1.3) mg/dL Total Protein (6.3-8.2) g/dL Albumin (3.5-5.0) g/dL Methylmalonic Acid (<0.40) umol/L TSH (0.465-4.680) mIU/L Crossmatch Microbiology - Last 24 Hours (Table) 05/25/22 09:07 Blood Culture - Final Blood No Growth after 144 hours 05/25/22 09:01 Blood Culture - Final Blood No Growth after 144 hours
== END 2022-05-31 14:09 | DRG 289 ==
LOC: EC 10:10 → 3SCARD 12:12
PROVIDERS: ADMIT Hospitalist; ATTEND Hospitalist
PROC: 30233N1 Transfusion of Nonautologous Red Blood Cells into Peripheral Vein, Percutaneous Approach (ICD-10-PCS; 2022-05-23)
PROC: B24BZZ4 Ultrasonography of Heart with Aorta, Transesophageal (ICD-10-PCS; principal; 2022-05-26 07:30)
DX: I33.0 Acute and subacute infective endocarditis (principal); E44.0 Moderate protein-calorie malnutrition; E87.1 Hypo-osmolality and hyponatremia; I5A Non-ischemic myocardial injury (non-traumatic); R78.81 Bacteremia; I08.3 Combined rheumatic disorders of mitral, aortic and tricuspid valves; I12.9 Hypertensive chronic kidney disease with stage 1 through stage 4 chronic kidney disease, or unspecified chronic kidney disease; D50.0 Iron deficiency anemia secondary to blood loss (chronic); E03.9 Hypothyroidism, unspecified; E11.22 Type 2 diabetes mellitus with diabetic chronic kidney disease; E11.42 Type 2 diabetes mellitus with diabetic polyneuropathy; E11.51 Type 2 diabetes mellitus with diabetic peripheral angiopathy without gangrene; Z71.3 Dietary counseling and surveillance; Z68.27 Body mass index [BMI] 27.0-27.9, adult; E78.5 Hyperlipidemia, unspecified; E86.1 Hypovolemia; G30.9 Alzheimer's disease, unspecified; N30.90 Cystitis, unspecified without hematuria; F02.80 Dementia in other diseases classified elsewhere, unspecified severity, without behavioral disturbance, psychotic disturbance, mood disturbance, and anxiety; Z66 Do not resuscitate; Z20.822 Contact with and (suspected) exposure to COVID-19; N18.30 Chronic kidney disease, stage 3 unspecified; F41.9 Anxiety disorder, unspecified; G47.00 Insomnia, unspecified; I25.2 Old myocardial infarction; B95.1 Streptococcus, group B, as the cause of diseases classified elsewhere; I48.91 Unspecified atrial fibrillation; K21.9 Gastro-esophageal reflux disease without esophagitis; Z87.11 Personal history of peptic ulcer disease; K44.9 Diaphragmatic hernia without obstruction or gangrene; K57.30 Diverticulosis of large intestine without perforation or abscess without bleeding; K59.00 Constipation, unspecified; M19.041 Primary osteoarthritis, right hand; M19.042 Primary osteoarthritis, left hand; Z79.890 Hormone replacement therapy; Z79.899 Other long term (current) drug therapy; Z80.6 Family history of leukemia; Z85.3 Personal history of malignant neoplasm of breast; Z90.12 Acquired absence of left breast and nipple
CPT/HCPCS: 36415; 70450; 71046; 80048; 80053; 81001; 82272; 82607; 82728; 82784; 82803; 83540; 83550; 83605; 83615; 83735; 83921; 84100; 84145; 84439; 84443; 84484; 85025; 85027; 85610; 85652; 85730; 86140; 86850; 86900; 86901; 86920; 87040; 87077; 87086; 87186; 87635; 93005; 93306; 93312; 93320; 93325; 96361; 96374; 99285